=== PATIENT | male | born 1970 | race Caucasian/White ===

== ENCOUNTER 2019-12-16 10:21 | Day surgery (SDC) | payer MEDICARE, MEDICAID, SELFPAY ==
[2019-12-10 12:21] VITALS: BMI 23.1
--- NOTE | 2019-12-15 09:51 | HO.ANESPROP2 ---
HPI - Anesthesia Eval Consult details Narrative: 49yo M for Colonoscopy [facility] Past Medical History Medical History Bipolar 1 disorder COPD (chronic obstructive pulmonary disease) Depression History of alcohol dependence HTN (hypertension) Seizures Steatohepatitis Surgical History Surgical History H/O colonoscopy History of esophagogastroduodenoscopy (EGD) Social History Social History Smoking Status: Current every day smoker Packs Per Day: 0.5 Cigarettes Per Day: 10.0 Advance Directives Information Provided: No Meds Allergies Allergy/AdvReac Type Severity Reaction Status Date / Time lisinopril [LISINOPRIL] Allergy Intermediate THROAT Verified 12/16/19 10:53 ITCHES, cough oxcarbazepine [OXCARBAZEPINE] Allergy Intermediate SAD, Verified 12/16/19 10:53 DEPRESSED, N/V, TIRED TINGLING FINGERS, nausea levetiracetam [From KEPPRA] AdvReac Severe ANGER Verified 12/16/19 10:53 aripiprazole [From ABILIFY] AdvReac Intermediate HALLUCINATI Verified 12/16/19 10:54 ONS bupropion [From WELLBUTRIN] AdvReac Intermediate TIRED, Verified 12/16/19 10:54 CONFUSED, N/V chlordiazepoxide AdvReac Intermediate CONFUSION Verified 12/16/19 10:54 [From LIBRIUM] dicyclomine [DICYCLOMINE] AdvReac Intermediate TIRED, Verified 12/16/19 10:54 CONFUSED, DRY MOUTH, HANDS TWITCHING lurasidone [From LATUDA] AdvReac Intermediate NAUSEA, Verified 12/16/19 10:55 TIRED Home Medications Medication Instructions Recorded Confirmed Type B complex-vitamin C-folic acid 1 tab PO DAILY 12/10/19 12/10/19 History Dexilant 60 mg PO DAILY 12/10/19 12/16/19 History atenolol 25 mg PO DAILY 12/10/19 12/10/19 History ergocalciferol (vitamin D2) 1,250 mcg PO QWEEK 12/10/19 12/10/19 History [Vitamin D2] gabapentin [Neurontin] 600 mg PO TID 12/10/19 12/10/19 History magnesium oxide 400 mg PO DAILY 12/10/19 12/10/19 History mirtazapine [Remeron] 30 mg PO BEDTIME 12/10/19 12/10/19 History ondansetron HCl 8 mg PO BID 12/10/19 12/10/19 History phenytoin sodium extended 200 mg PO BID 12/10/19 12/10/19 History [Dilantin Extended] sertraline 100 mg PO DAILY 12/10/19 12/10/19 History vitamin B complex 1 tab PO DAILY 12/10/19 12/10/19 History Exam Exam Date and Time: December 15, 2019 0951 Height,Weight and Vital Signs: Height 6 ft Weight 77.564 kg Pertinent Lab Results Pertinent Lab Results: Laboratory Tests 07/15/19 07/15/19 15:00 15:00 WBC 5.0 Hgb 15.0 Hct 43.2 Plt Count 171 D Sodium 135 Potassium 4.2 Chloride 100 BUN 16 D Creatinine 1.08 Assessment and Plan Assessment Anesthesia Assessment: Chart Reviewed
[2019-12-16 10:45] VITALS: BP 138/93; PULSE 86; RESP 16; TEMP 36.2; O2SAT 99
[2019-12-16] MEDS: Lactated Ringers 1,000 ML 100 ML IVCONT (10:50)
--- NOTE | 2019-12-16 11:22 | P.CONAN_ITS ---
[facility] Past Medical History Medical History Bipolar 1 disorder COPD (chronic obstructive pulmonary disease) Depression History of alcohol dependence HTN (hypertension) Seizures Steatohepatitis Surgical History Surgical History H/O colonoscopy History of esophagogastroduodenoscopy (EGD) Social History Social History Smoking Status: Current every day smoker Packs Per Day: 0.5 Cigarettes Per Day: 10.0 Advance Directives Information Provided: No Meds Allergies Allergy/AdvReac Type Severity Reaction Status Date / Time lisinopril [LISINOPRIL] Allergy Intermediate THROAT Verified 12/16/19 10:53 ITCHES, cough oxcarbazepine [OXCARBAZEPINE] Allergy Intermediate SAD, Verified 12/16/19 10:53 DEPRESSED, N/V, TIRED TINGLING FINGERS, nausea levetiracetam [From KEPPRA] AdvReac Severe ANGER Verified 12/16/19 10:53 aripiprazole [From ABILIFY] AdvReac Intermediate HALLUCINATI Verified 12/16/19 10:54 ONS bupropion [From WELLBUTRIN] AdvReac Intermediate TIRED, Verified 12/16/19 10:54 CONFUSED, N/V chlordiazepoxide AdvReac Intermediate CONFUSION Verified 12/16/19 10:54 [From LIBRIUM] dicyclomine [DICYCLOMINE] AdvReac Intermediate TIRED, Verified 12/16/19 10:54 CONFUSED, DRY MOUTH, HANDS TWITCHING lurasidone [From LATUDA] AdvReac Intermediate NAUSEA, Verified 12/16/19 10:55 TIRED Home Medications Medication Instructions Recorded Confirmed Type B complex-vitamin C-folic acid 1 tab PO DAILY 12/10/19 12/10/19 History [Folic Acid XTRA] atenolol 25 mg PO DAILY 12/10/19 12/10/19 History dexlansoprazole [Dexilant] 60 mg PO DAILY 12/10/19 12/16/19 History ergocalciferol (vitamin D2) 1,250 mcg PO QWEEK 12/10/19 12/10/19 History [Vitamin D2] gabapentin [Neurontin] 600 mg PO TID 12/10/19 12/10/19 History magnesium oxide 400 mg PO DAILY 12/10/19 12/10/19 History mirtazapine [Remeron] 30 mg PO BEDTIME 12/10/19 12/10/19 History ondansetron HCl [Zofran] 8 mg PO BID 12/10/19 12/10/19 History phenytoin sodium extended 200 mg PO BID 12/10/19 12/10/19 History [Dilantin Extended] sertraline 100 mg PO DAILY 12/10/19 12/10/19 History vitamin B complex 1 tab PO DAILY 12/10/19 12/10/19 History Exam Exam Date and Time: December 16, 2019 1122 Height,Weight and Vital Signs: Height 6 ft Weight 77.564 kg Last Vital Signs Temp 97.2 F 12/16/19 10:45 Pulse 86 12/16/19 10:45 Resp 16 12/16/19 10:45 BP 138/93 H 12/16/19 10:45 Pulse Ox 99 12/16/19 10:45
--- NOTE | 2019-12-16 11:26 | MHC.SHP ---
Pre-Procedural Eval Section B Chief Complaint: SCREENING Details of Present Illness: COLON CANCER SCREENING SEIZURE MED BEING CHANGED Relevant Family History (Specify if Yes): No Relevant Social History: Alcohol Use (1/2PPD; MOD ALCOHOL) Present Medications: see Short Stay Collaborative assessment Medical History: Significant History (ALCOHOLISM, SEIZURES, DEPRESSSION(BIPOLAR),COPD, GERD, STEATOHEPATITIS) History of Previous Operations: Relevant previous surgery/procedure and date(s) (2014, COLO=TA) Allergies: Allergies Allergy/AdvReac Type Severity Reaction Status Date / Time lisinopril [LISINOPRIL] Allergy Intermediate THROAT Verified 12/16/19 10:53 ITCHES, cough oxcarbazepine [OXCARBAZEPINE] Allergy Intermediate SAD, Verified 12/16/19 10:53 DEPRESSED, N/V, TIRED TINGLING FINGERS, nausea levetiracetam [From KEPPRA] AdvReac Severe ANGER Verified 12/16/19 10:53 aripiprazole [From ABILIFY] AdvReac Intermediate HALLUCINATI Verified 12/16/19 10:54 ONS bupropion [From WELLBUTRIN] AdvReac Intermediate TIRED, Verified 12/16/19 10:54 CONFUSED, N/V chlordiazepoxide AdvReac Intermediate CONFUSION Verified 12/16/19 10:54 [From LIBRIUM] dicyclomine [DICYCLOMINE] AdvReac Intermediate TIRED, Verified 12/16/19 10:54 CONFUSED, DRY MOUTH, HANDS TWITCHING lurasidone [From LATUDA] AdvReac Intermediate NAUSEA, Verified 12/16/19 10:55 TIRED Review of Systems Sugical H&P ROS: Negative: Constitution and Gastrointestinal and Yes, Specify: Respiratory (SMKE BUT DID NOT SMOKE THI AM), Neurological (HX SEIZURES) and Psychiatric (DEPRESSION) Exam Surgical H&P Exam: Normal: HEENT, Normal: Heart, Normal: Lungs, Normal: Extremities and Normal: Abdomen Plan Diagnosis/Plan: Unchanged Patient has been examined and remains a candidate for the planned procedure--YES
--- NOTE | 2019-12-16 11:32 | HO.ANESPROP2 ---
[facility] Past Medical History Medical History Bipolar 1 disorder COPD (chronic obstructive pulmonary disease) Depression History of alcohol dependence HTN (hypertension) Seizures Steatohepatitis Surgical History Surgical History H/O colonoscopy History of esophagogastroduodenoscopy (EGD) Social History Social History Smoking Status: Current every day smoker Packs Per Day: 0.5 Cigarettes Per Day: 10.0 Advance Directives Information Provided: No Meds Allergies Allergy/AdvReac Type Severity Reaction Status Date / Time lisinopril [LISINOPRIL] Allergy Intermediate THROAT Verified 12/16/19 10:53 ITCHES, cough oxcarbazepine [OXCARBAZEPINE] Allergy Intermediate SAD, Verified 12/16/19 10:53 DEPRESSED, N/V, TIRED TINGLING FINGERS, nausea levetiracetam [From KEPPRA] AdvReac Severe ANGER Verified 12/16/19 10:53 aripiprazole [From ABILIFY] AdvReac Intermediate HALLUCINATI Verified 12/16/19 10:54 ONS bupropion [From WELLBUTRIN] AdvReac Intermediate TIRED, Verified 12/16/19 10:54 CONFUSED, N/V chlordiazepoxide AdvReac Intermediate CONFUSION Verified 12/16/19 10:54 [From LIBRIUM] dicyclomine [DICYCLOMINE] AdvReac Intermediate TIRED, Verified 12/16/19 10:54 CONFUSED, DRY MOUTH, HANDS TWITCHING lurasidone [From LATUDA] AdvReac Intermediate NAUSEA, Verified 12/16/19 10:55 TIRED Home Medications Medication Instructions Recorded Confirmed Type B complex-vitamin C-folic acid 1 tab PO DAILY 12/10/19 12/10/19 History [Folic Acid XTRA] atenolol 25 mg PO DAILY 12/10/19 12/10/19 History dexlansoprazole [Dexilant] 60 mg PO DAILY 12/10/19 12/16/19 History ergocalciferol (vitamin D2) 1,250 mcg PO QWEEK 12/10/19 12/10/19 History [Vitamin D2] gabapentin [Neurontin] 600 mg PO TID 12/10/19 12/10/19 History magnesium oxide 400 mg PO DAILY 12/10/19 12/10/19 History mirtazapine [Remeron] 30 mg PO BEDTIME 12/10/19 12/10/19 History ondansetron HCl [Zofran] 8 mg PO BID 12/10/19 12/10/19 History phenytoin sodium extended 200 mg PO BID 12/10/19 12/10/19 History [Dilantin Extended] sertraline 100 mg PO DAILY 12/10/19 12/10/19 History vitamin B complex 1 tab PO DAILY 12/10/19 12/10/19 History Exam Exam Date and Time: December 16, 2019 1132 Height,Weight and Vital Signs: Height 6 ft Weight 77.564 kg Last Vital Signs Temp 97.2 F 12/16/19 10:45 Pulse 86 12/16/19 10:45 Resp 16 12/16/19 10:45 BP 138/93 H 12/16/19 10:45 Pulse Ox 99 12/16/19 10:45 Airway Loose/Missing/Broken Teeth: Yes and Lower Heart: rrr Lungs: clear Assessment and Plan Final Anesthetic Review NPO: Yes ASA Class: II Final Preanesthetic Review: No Changes in Pt Med Stat, Meds/Allgs Chart Reviewed, Consent Obtained/Reviewed and Anes Risks/Benef Reviewed Patient Risk: Intermediate Procedure Risk: Low Anesthetic Plan Anesthetic Plan: MAC: Disposition: Standard PACU
[2019-12-16 12:07] VITALS: BP 107/83; PULSE 85; RESP 16; TEMP 37.3; O2SAT 95
--- NOTE | 2019-12-16 12:10 | PM.PROC ---
Brief Operative Note Date of procedure: 12/16/19 Pre-op diagnosis: HX OF TUBULAR ADENOMA Post-op diagnosis: other (TUBULAR ADENOMA, DIVERTICUOSIS) Procedure: COLONOSCOPY WITH EXCISIONAL POLYPECTOMY Anesthesia: MAC (DR. HERRERA) Surgeon: Alaina Springer Estimated blood loss (mL): 10 Pathology: other (POLYP TRANSVERSE COLON) Condition: stable Disposition: PACU
[2019-12-16 12:22] VITALS: BP 104/89; PULSE 76; RESP 13; O2SAT 97
--- NOTE | 2019-12-16 22:25 | OP_ITS ---
SURGEON: Alaina Springer MD PROCEDURE PERFORMED: Colonoscopy with excisional polypectomy x1 with the use of the cold biopsy forceps. ESTIMATED BLOOD LOSS: Less than 5 mL. COMPLICATIONS: No complications. ANESTHESIA: Type of anesthesia, monitored. ANESTHESIOLOGIST: Dr. Maurice. ASSISTANTS: No business support assistant. SPECIMENS: Removed, transverse colon polyp. PREOPERATIVE DIAGNOSES: Colon cancer screening, history of tubular adenoma in 2015. The patient's only med change is that he is being weaned off Dilantin on to topiramate for his seizure control. POSTOPERATIVE DIAGNOSES: Colonic polyp, diverticulosis. NUTRITION EDUCATOR: Dr. Springer. FINDINGS: Digital rectal exam revealed prostate to be normal to digital palpation. Good sphincter tone. Video colonoscope was introduced without difficulty. It was navigated into the rectosigmoid, sigmoid on up through sigmoid, there were scattered diverticula in the sigmoid colon. The scope was advanced into the descending, transverse, ascending colon down into the cecum. There was a small 1-mm polyp that was noted in the transverse colon. This was removed on the way in. Scope was easily entered the cecum. Appendiceal orifice was seen. Ileocecal valve was well seen. Prep was excellent. The scope was withdrawn. Slow rotational views. No additional lesions were seen. Anorectal verge was clear. PLAN: Current recommendations, repeat asymptomatic screening will continue to be 5 years. GRAFT OR IMPLANTS: No grafts or implants. CONDITION: Postprocedure, stable. Alaina Springer MD MEN/MODL / [id number] MTDD
== END 2019-12-16 13:00 | disposition home or self-care (01) ==
PROVIDERS: PCP Family Medicine; Visit Provider Internal Medicine Gastroenterology
PROC: 0DJD8ZZ Inspection of Lower Intestinal Tract, Via Natural or Artificial Opening Endoscopic (ICD-10-PCS; CPT 45378; principal; 2019-12-16 11:30)
DX: Z12.11 Encounter for screening for malignant neoplasm of colon (principal); Z86.010 Personal history of colon polyps; D12.3 Benign neoplasm of transverse colon; K57.30 Diverticulosis of large intestine without perforation or abscess without bleeding; J44.9 Chronic obstructive pulmonary disease, unspecified; G40.909 Epilepsy, unspecified, not intractable, without status epilepticus; F43.10 Post-traumatic stress disorder, unspecified; F31.9 Bipolar disorder, unspecified; I10 Essential (primary) hypertension; F10.20 Alcohol dependence, uncomplicated; K70.0 Alcoholic fatty liver; Z79.899 Other long term (current) drug therapy; F17.210 Nicotine dependence, cigarettes, uncomplicated; Z88.8 Allergy status to other drugs, medicaments and biological substances
CPT/HCPCS: 45380; 88305; J3010

== ENCOUNTER → 2020-01-10 14:01 | Outpatient (BNVA) | payer MEDICARE, MEDICAID, SELFPAY | PROVIDERS: PCP Family Medicine; Referring Provider Family Medicine; Visit Provider Internal Medicine Gastroenterology | DX: D12.6 Benign neoplasm of colon, unspecified (principal); K75.81 Nonalcoholic steatohepatitis (NASH); R79.89 Other specified abnormal findings of blood chemistry; E03.9 Hypothyroidism, unspecified; F10.21 Alcohol dependence, in remission; F17.210 Nicotine dependence, cigarettes, uncomplicated; F12.90 Cannabis use, unspecified, uncomplicated; Z79.899 Other long term (current) drug therapy | CPT/HCPCS: Q3014 ==

== ENCOUNTER → 2020-11-30 13:04 | Outpatient (BNVA) | payer MEDICARE, MEDICAID, SELFPAY | PROVIDERS: PCP Family Medicine; Visit Provider Internal Medicine Gastroenterology | DX: K75.81 Nonalcoholic steatohepatitis (NASH) (principal); D12.6 Benign neoplasm of colon, unspecified; J44.9 Chronic obstructive pulmonary disease, unspecified; I10 Essential (primary) hypertension; F31.9 Bipolar disorder, unspecified; F17.210 Nicotine dependence, cigarettes, uncomplicated; F10.21 Alcohol dependence, in remission; Z88.8 Allergy status to other drugs, medicaments and biological substances; Z79.899 Other long term (current) drug therapy | CPT/HCPCS: 99212 ==

== ENCOUNTER 2020-12-13 13:28 | Outpatient (REF) | payer MEDICARE, MEDICAID, SELFPAY ==
--- NOTE | ~2020-12-13 | US_ITS ---
EXAMINATION: US ABDOMEN COMPLETE CLINICAL INFORMATION: Other specified abnormal findings of blood chemistry. COMPARISON: Ultrasound abdomen complete 07/21/2019 and 07/21/2018. CT abdomen and pelvis 03/27/2019. TECHNIQUE: Real-time imaging of the abdominal viscera. FINDINGS: PANCREAS: The head and body the pancreas are normal. The tail is not well seen due to bowel gas. ABDOMINAL AORTA: The proximal abdominal aorta is not well visualized. The mid and distal abdominal aorta are normal in caliber. INFERIOR VENA CAVA: Visualized portions are normal. LIVER: The liver is normal in size. The liver contour is normal. Liver echotexture is slightly increased. No focal hepatic lesion. There is no intrahepatic biliary duct dilatation seen. GALLBLADDER: Normal. The gallbladder is physiologically distended without evidence of stones, sludge, polyps, wall thickening or pericholecystic fluid. COMMON BILE DUCT: Normal in caliber measuring 0.4 cm in diameter. RIGHT KIDNEY: Normal. No hydronephrosis. No renal calculi or focal parenchymal lesions. The kidney measures 9.5 cm in maximum dimension. LEFT KIDNEY: Normal. No hydronephrosis. No renal calculi or focal parenchymal lesions. The kidney measures 9.6 cm in maximum dimension. SPLEEN: Normal. The spleen measures 10.1 cm in maximum dimension. FREE FLUID: None. US/US abdomen complete IMPRESSION: Echogenic liver probably representing fatty infiltration. Limited visualization of the tail the pancreas and proximal abdominal aorta. Otherwise unremarkable exam.
[2020-12-13 14:28] LABS: MANUAL DIFF FLAG NO
[2020-12-13 14:51] LABS: Basophils Absolute Auto 0.1 X10*3/uL (0.0-0.2); Basophils Percent Auto 0.7 % (0-2); Eosinophils Absolute Auto 0.1 X10*3/uL (0.0-0.4); Eosinophils Percent Auto 0.9 % (0-4); Hematocrit 43.1 % (42-52); Hemoglobin 14.8 g/dl (14.0-18.0); Imm Gran Abs Auto 0.08 X10*3/uL (0.00-0.03); Imm Gran Pct Auto 0.8 % (0.0-0.4); Lymphocytes Percent Auto 19.6 % (20-40); Mean Corpuscular HGB Conc 34.3 g/dl (31.0-36.0); Mean Corpuscular Hemoglobin 35.1 pg (27.0-33.0); Mean Corpuscular Volume 102.1 fL (80-98); Mean Platelet Volume 9.7 fL (9.4-12.4); Monocytes Absolute Auto 0.9 X10*3/uL (0.1-1.2); Monocytes Percent Auto 8.3 % (2-11); Neutrophils Absolute Auto 7.2 X10*3/uL (2.0-8.3); Neutrophils Percent Auto 69.7 % (45-73); Platelet Count 208 X10*3/uL (160-400); Red Blood Count 4.22 X10*6/uL (4.60-5.80); Red Cell Distribution Width 12.4 % (11.0-16.0); White Blood Count 10.3 X10*3/uL (4.8-10.8)
[2020-12-13 14:57] LABS: INTERNATIONAL NORM RATIO 1.2 (0.9-1.1); Prothrombin Time 13.8 SEC (9.9-13.0)
[2020-12-13 15:27] LABS: Alanine Aminotransferase 16 U/L (0-40); Albumin Level 4.2 g/dL (3.5-5.0); Alkaline Phosphatase 149 U/L (39-117); Anion Gap 16 (12-20); Aspartate Amino Transferase 33 U/L (5-37); Blood Urea Nitrogen 9 mg/dL (9-16); Calcium 9.5 mg/dL (8.4-10.2); Carbon Dioxide 24 mmol/L (22-29); Chloride 101 mmol/L (96-108); Estimated Glomerular Filt Rate > 60; Glucose Random 115 mg/dL (60-115); Iron 139 mcg/dL (45-160); Percent Iron Saturation 40 % (15-50); Potassium 4.2 mmol/L (3.3-5.1); Sodium 137 mmol/L (135-145); Total Iron Binding Capacity 349 mcg/dL (228-428); Total Protein 7.6 g/dL (6.5-8.0); Unsaturated Iron Binding 210 ug/dL
[2020-12-13 15:33] LABS: Ferritin 343 ng/mL (20-250)
[2020-12-14 09:42] LABS: HBS Num1 0.45 mIU/mL (0-7.99); HBsAGNum1 0.19 S/CO (0.00-0.99); Hepatitis B Surface Antigen Negative (Negative); ~HepC Num1 0.13 S/CO (0.00-0.79); ~Hepatitis B Surface Antibody NONREACTIVE (Nonreactive); ~Hepatitis C Antibody Nonreactive (Nonreactive)
[2020-12-14 13:40] LABS: Ceruloplasmin 39 mg/dL (18-36)
[2020-12-15 06:50] LABS: Hepatitis A Antibody IgG Nonreactive (Nonreactive); ~Hepatitis A Antibody IgG 0.33 S/CO (0.00-0.99)
[2020-12-15 14:11] LABS: Anti Nuclear Antibody Screen NEGATIVE (NEGATIVE)
== END 2020-12-13 13:29 | disposition home or self-care (01) ==
LOC: HO.US 13:28
PROVIDERS: Visit Provider Internal Medicine Gastroenterology
DX: R79.89 Other specified abnormal findings of blood chemistry (principal)
CPT/HCPCS: 36415; 76700; 80053; 82390; 82728; 83540; 85025; 85610; 86038; 86039; 86706; 86708; 86803; 87340

== ENCOUNTER → 2021-02-22 14:01 | Outpatient (BNVA) | payer MEDICARE, MEDICAID, SELFPAY | PROVIDERS: PCP Family Medicine; Visit Provider Internal Medicine Gastroenterology | DX: K70.30 Alcoholic cirrhosis of liver without ascites (principal); F10.21 Alcohol dependence, in remission; D12.6 Benign neoplasm of colon, unspecified; R79.89 Other specified abnormal findings of blood chemistry | CPT/HCPCS: 99212 ==

== ENCOUNTER 2024-08-24 13:45 | Outpatient (AMB) | payer MEDICARE, MEDICAID, SELFPAY ==
--- NOTE | 2024-08-24 14:21 | HO.SPINEOV ---
Vital Signs 08/24/24 14:22 Height 5 ft 11 in Intake Visit Reasons: lumbar radiculopathy Intake Note: Mr. Gunn is here today c/o Low back pain. Tenoner Operator Required: No Allergies lisinopril (LISINOPRIL) Allergy (Intermediate, Verified 02/22/21 14:11) THROAT ITCHES, cough oxcarbazepine (OXCARBAZEPINE) Allergy (Intermediate, Verified 02/22/21 14:11) SAD, DEPRESSED, N/V, TIRED TINGLING FINGERS, nausea levetiracetam (From KEPPRA) Adverse Reaction (Severe, Verified 02/22/21 14:11) ANGER aripiprazole (From ABILIFY) Adverse Reaction (Intermediate, Verified 02/22/21 14:11) HALLUCINATIONS bupropion (From WELLBUTRIN) Adverse Reaction (Intermediate, Verified 02/22/21 14:11) TIRED, CONFUSED, N/V chlordiazepoxide (From LIBRIUM) Adverse Reaction (Intermediate, Verified 02/22/21 14:11) CONFUSION dicyclomine (DICYCLOMINE) Adverse Reaction (Intermediate, Verified 02/22/21 14:11) TIRED, CONFUSED, DRY MOUTH, HANDS TWITCHING lurasidone (From LATUDA) Adverse Reaction (Intermediate, Verified 02/22/21 14:11) NAUSEA, TIRED Assessment & Plan Assessment & Plan (1) Neuropathy: Code(s): G62.9 - Polyneuropathy, unspecified Category: Medical Plan Dear THERESA Garcia, Thank you for referring Anson to our office today. He is a pleasant, complicated, 54-year-old male who comes in today for evaluation of severe low back pain and shooting pains to his bilateral lower extremities. He reports that this has been ongoing for the past 1 year, but it significantly intensified over the course of the past few months. He denies any known inciting incident for the pain. He is accompanied by his mother to this visit who helps provide the bulk of his history. She states that he has been declining cognitively, and is unable to remember certain facts or articulate his feelings very well. In addition to his severe low back pain and shooting pains into his lower extremities, his mother also reports that he has a Hx of seizures and most recently has developed some involuntary muscle movements. He has been utilizing a wheelchair for about the past 1 year, as he has had difficulty with balance/walking as well. In regards to his low back pain, as he is essentially constantly in pain. He does state that his pain worsens with movement and leg standing and walking. His pain is alleviated by laying down with pillows to support his back. He has a history of multiple chronic compression fractures in the thoracic spine. When describing the pain shooting down his legs he runs his hands over his bilateral posterior buttocks and down his bilateral posterior thighs. He reports that his bilateral feet are ?completely numb but denies any other significant sensational deficits. He has tried utilizing [id number] medications such as lidocaine spray and Tylenol in the past, but feels the areas are not helpful for him. He also has attempted physical therapy, and cortisone injections without significant relief of his pain. He is currently being followed by our colleagues in family physiatry for pain management, and is being followed by Isidro Mitchell in Neurology for his neuropathy. PMH: Hypertension, COPD, seizures, insomnia, neuropathy, unspecified gastrointestinal issues, history of left-sided carpal tunnel release. Social hx: The patient smokes 5 cigarettes per day, drinks 2 drinks per day, uses recreational/medicinal cannabis. Denies any other substance use. Medications: Atenolol, Dexilant, vitamin D2, gabapentin, levothyroxine, magnesium oxide, Remeron, ondansetron, pantoprazole, phenytoin, sertraline, topiramate, vitamin-B. Allergies: Lisinopril, oxcarbazepine, Keppra, Abilify, Wellbutrin, Librium, dicyclomine, Latuda. Physical exam: The patient has notable uncontrollable jerky movements of his upper and lower extremities during examination. This is most consistent with something such as chorea. Despite this, he has full 5/5 strength in his upper and lower extremities on examination. He is in notable distress when attempting to move/ambulate, and requires assistance to get up onto the examination table today. He has some hypoesthesia reported near the base of his anterior calves. He denies sensational deficits elsewhere. His reflexes are 2+ intact with no notable hyperreflexia. (-) clonus, (-) Saxena's, (-) bilateral straight leg raise. Imaging review: MRI of the lumbar spine completed here at [facility] shows no evidence of significant central canal or foraminal stenosis of the lumbar spine. No spondylolisthesis or vertebral body malalignment. No other lesions noted. Impression: Anson is a pleasant 54-year-old male who comes in today for evaluation of severe axial low back pain. He describes the pain as worse with movement, and feels it is progressively intensifying as the days go on. It is difficult to say for sure what the source of this pain is. He does have several chronic compression fractures in the thoracic spine, which may be the source of some of his pain, however there is no real nerve compression in the lumbar spine that is contributing to this. The pain in his legs sounds more like a neuropathy related pain than a nerve root impingement pain. I do not believe that there is a role for neurosurgery in the care of this patient. Given this, I believe the patient does need further workup regarding his worsening neurological decline. Most concerning are the involuntary tremulous movements on examination, which when accompanied by cognitive decline, seizures, and gait disturbance raise significant concern for something such as [place]'s disease. I did question the family regarding Hx of this, however they report no known Hx in their immediate family. I would suggesting ruling this out as part of the workup for this patient. If this is not responsible then the patient most likely is suffering from some kind of polyneuropathy that is worsening, and will need to be address via neurology. Thank you for allowing us to care for your patient. The total time spent with this visit with this patient was 65 minutes reviewing history, physical exam, MRI imaging review, and implementation of treatment plan or further diagnostic testing Sunday Delaney MD,PhD [facility] Coding Level of Care Code New Pt Level 5 (96492) Diagnoses Neuropathy G62.9
--- OUTSIDE RECORDS SUMMARY | 2024-08-24 14:34 | XMS_ITS | Clinical Summary ---
Author Organization [facility] Address [address] [place] [address] Care Team Providers Care Gaming Pit Boss Name Role Phone Unavailable Primary Care Provider Unavailabl e Allergies No known active allergies Medications Medication Sig Dispensed Refills Start Date End Date Status RA VITAMIN B-1 100 MG TABS Take 1 tablet by mouth daily. 0 03/25/2017 Active atenolol (TENORMIN) tablet 25 mgIndications:Essent ial hypertension Take 1 tablet (25 mg total) by mouth daily. 90 tablet 3 01/02/2019 Active phenytoin (DILANTIN) 100 MG ER capsuleIndications:S eizure (HCC) take 1 capsule by mouth every morning (TOTAL AM HFHK=[id number]) and take 200 MG AT BEDTIME 360 capsule 1 01/29/2019 Active ergocalciferol (VITAMIN D2) capsule 44962 units 0 03/08/2019 Active folic acid (FOLVITE) tablet 1 mgIndications:Seizur e (HCC) Take 1 tablet (1,000 mcg total) by mouth daily. 30 tablet 11 03/30/2019 Active mirtazapine (REMERON) 30 MG tablet Take 1 tablet (30 mg total) by mouth every night at bedtime. 30 tablet 11 07/05/2019 Active sertraline (ZOLOFT) 100 MG tablet 2 tabs daily 180 tablet 3 09/06/2019 Active gabapentin (NEURONTIN) 300 MG capsule 1 tab in am 2 tabs in pm 270 capsule 3 09/06/2019 Active albuterol (PROVENTIL HFA;VENTOLIN HFA) 108 (90 Base) MCG/ACT inhaler Inhale 2 puffs into the lungs every 6 (six) hours as needed for wheezing. 1 Inhaler 3 09/13/2019 Active phenytoin (DILANTIN) 30 MG ER capsuleIndications:S eizure (HCC) Take 2 capsules (60 mg total) by mouth every morning. 180 capsule 1 09/28/2019 Active hydrOXYzine (ATARAX) 25 MG tablet 0 09/28/2019 Active DEXILANT 60 MG capsule Take 1 tablet by mouth daily. 0 10/02/2019 Active topiramate (TOPAMAX) 100 MG tablet Take 1 tablet by mouth 2 (two) times a day. 0 10/05/2019 Active B Complex Vitamins (VITAMIN B COMPLEX) TABSIndications:Seiz ure (HCC) Take 1 tablet by mouth daily. 30 each 11 12/02/2019 Active ondansetron (ZOFRAN) 4 MG tablet TAKE 1 TABLET(4 MG) BY MOUTH TWICE DAILY 20 tablet 0 01/19/2020 Active LORazepam (ATIVAN) 0.5 MG tablet TAKE 1 TABLET(0.5 MG) BY MOUTH TWICE DAILY 60 tablet 0 02/14/2020 Active Active Problems Problem Noted Date Diagnosed Date Alcohol use disorder, severe, dependence 020 Recurrent major depressive disorder, in full rem ission 07/28/2017 Elevated LFTs 07/28/2017 Seizures 04/01/2017 Tobacco abuse 04/01/2017 Essential hypertension 04/01/2017 Anxiety COPD (chronic obstructive pulmonary disease) GERD (gastroesophageal reflux disease) Overview: Dr Springer Insomnia Seizure Overview: Last seizure 06/2017 failed Gabapentin/Topamax ( Ct Head 02/2017 Mild chronic mild diff atrophy ) EEG 03/[address] Rodríguez Subclinical hypothyroidism Overview: 08/2017 TSH 7.86 Thrombocytopenia Overview: 08/2017 144 History of cocaine use Hypomagnesemia Overview: 08/2017 1.5 Marijuana user Overview: regular user Resolved Problems Problem Noted Date Diagnosed Date Resolved Date Gastritis 07/18/2017 10/21/2019 Overview: EGD Chest wall contusion, right, initial encounter 04/01/2017 07/28/2017 Cough 04/01/2017 07/28/2017 Immunizations Name Administration Dates Next Due Tdap 08/31/2015 Family History Medical History Relation Name Comments Heart disease Father Heart disease Maternal Grandfather Heart disease Maternal Grandmother Lupus Mother Supraventricular tachycardia Mother Heart disease Paternal Grandfather Heart disease Paternal Grandmother Relation Name Status Comments Father Alive Maternal Grandfather Maternal Grandmother Mother Alive Paternal Grandfather Paternal Grandmother Social History Tobacco Use Types Packs/Day Years Used Date Smoking Tobacco: Every Day Cigarettes 0.5 30 Started: 04/01/1987 Smokeless Tobacco: Never Tobacco Cessation:Ready to Q uit: No Alcohol Use Standard Drinks/Week Comments Yes 14 (1 standard drink = 0.6 oz pu re alcohol) 12/per wk Sex and Gender Information Value Date Recorded Sex Assigned at Male 09/28/2019 3:15 PM EDT Gender Identity Male 09/28/2019 3:15 PM EDT Sexual Orientation Not on file Last Filed Vital Signs Vital Sign Reading Time Taken Comments Blood Pressure 120/84 10/21/2019 3:06 PM EDT Pulse 88 10/21/2019 2:34 PM EDT Temperature 36.7 C (98.1 F) 10/21/2019 2:34 PM EDT Respiratory Rate 16 08/31/2018 3:33 PM EDT Oxygen Saturation 98% 10/21/2019 2:34 PM EDT Inhaled Oxygen Concentration - - Weight 80.7 kg (178 lb) 10/21/2019 2:34 PM EDT Height 182.9 cm (6') 10/21/2019 2:34 PM EDT Body Mass Index 24.14 10/21/2019 2:34 PM EDT Plan of Treatment Health Maintenance Due Date Last Done Comments Hepatitis B Vaccines (1 of 3 - 3-dose series) 1972 Hepatitis C Screening 1972 COVID-19 Vaccine (#1) 02/05/1973 Pneumococcal Vaccine (1 of 2 - PCV) 1978 Colon Cancer Screening (Colonoscopy) 2017 Tobacco Cessation Counseling 08/05/2019 08/04/2018 (Declined) Depression Screening 09/27/2020 09/28/2019, 09/28/2019, 03/23/2019, Additional history exists Preventative Health Evaluation 09/27/2020 09/28/2019, 09/28/2019 Shingrix-Zoster Vaccine (1 of 2) 2022 Influenza Vaccine (#1) 2024 DTap / Tdap / Td (3 - Td or Tdap) 08/30/2025 08/31/2015, 02/20/2012 RSV Ped < 20 months Aged Out No longe r eligible based on patient's age to complete this topic
--- OUTSIDE RECORDS SUMMARY | 2024-08-24 14:34 | XMS_ITS | Clinical Summary ---
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 Active atenoloL (TENORMIN) 25 mg tablet Take 1 tablet (25 mg total) by mouth 1 (one) time each day. Active levothyroxine (SYNTHROID, LEVOTHROID) 75 mcg tablet Take 1 tablet (75 mcg total) by mouth 1 (one) time each day before breakfast. Active gabapentin (NEURONTIN) 300 mg capsule Take 1 capsule (300 mg total) by mouth 3 (three) times a day. Active topiramate (TOPAMAX) 100 mg tablet Take 1 tablet (100 mg total) by mouth 2 (two) times a day. Active folic acid (FOLVITE) 1 mg tablet Take 1 tablet (1 mg total) by mouth 1 (one) time each day. Active celecoxib (CeleBREX) 100 mg capsule Take 1 capsule (100 mg total) by mouth 1 (one) time each day. Active mirtazapine (REMERON) 30 mg tablet Take 1 tablet (30 mg total) by mouth at bedtime. Active pantoprazole (PROTONIX) 40 mg EC tablet Take 1 tablet (40 mg total) by mouth 1 (one) time each day before breakfast. Do not crush, chew, or split. Active lamoTRIgine (LaMICtal) 25 mg tablet Take 2 tablets (50 mg total) by mouth 1 (one) time each day. Active hydrOXYzine HCL (ATARAX) 25 mg tablet Take 1 tablet (25 mg total) by mouth 2 (two) times a day. Active cyanocobalamin (VITAMIN B-12) 500 mcg tablet Take 1 tablet (500 mcg total) by mouth 1 (one) time each day. Active magnesium oxide (MAG-OX) 400 mg magnesium tablet Take 2 tablets (800 mg total) by mouth 1 (one) time each day. Active albuterol HFA (PROAIR HFA ; PROVENTIL HFA ; VENTOLIN HFA) 90 mcg/actuation inhaler Inhale 2 puffs by mouth every 6 (six) hours if needed for wheezing. Active Surgical History Surgery Date Site/Laterality Comments ESOPHAGOGASTRODUODENOSCOPY 07/2017 PROCEDURE:ESOPHAGOGASTRODUODENOSCO PY;COMMENT:Dr Springer : Mild focal chronic gastritis, H Pylori negative COLONOSCOPY W/ BIOPSIES 04/2014 PROCEDURE:COLONOSCOPY W/ BIOPSIES;COMMENT:2 hyperplastic polypa Medical History Medical History Date Comments Hypertension DX:Hypertension COPD (chronic obstructive pu lmonary disease) ([facility] [place], [facility] V28) DX:COPD (chronic o bstructive pulmonary disease) ([facility] Anxiety DX:Anxiety Tobacco abuse DX:Tobacco abuse Seizure ([facility] V24, [facility] V28) DX:Seizure ([facility]);COMMENT:Last seizure 01/2019, 06/2017 failed Gabapentin/Topamax ( Ct Head 02/2017 Mild chronic mild diff atrophy ) EEG 03/2017 mild slowing, 01/2018 Gastritis 07/2017 DX:Gastritis;COM MENT:EGD Thrombocytopenia ([facility] V24) D X:Thrombocytopenia ([facility]);COMMENT:08/2017 144, 04/2018 104 Subclinical hypothyroidism DX:Story bclinical hypothyroidism;COMMENT:08/2017 TSH 7.86 T4 0.86 Hypomagnesemia DX:Hypomagnesemi a;COMMENT:08/2017 1.5 History of cocaine use DX:Histor y of cocaine use Bipolar 1 disorder ([facility] V24, [facility] V28) DX:Bipolar 1 disorder ([facility]) Marijuana user DX:Marijuana use r;COMMENT:regular user GERD with esophagitis DX:GERD wi th esophagitis;COMMENT:07/2017 EGD Severe GERD With esophagitis Dr Springer Hepatic steatosis DX:Hepatic steatosis;COMMENT:02/25/2017 ultrasound mild diffuse increased echogenicity consistent with diffuse hepatic steatosis Alcohol use disorder, severe , dependence (CMS/HCC V24, CMS/HCC V28) DX:Alcohol use disorder, se jose luis, dependence (HCC);COMMENT:Admit 12/2017 with SI to [facility] MDD (major depressive disord er), recurrent episode (CMS/HCC V24) DX:MDD (major depressi ve disorder), recurrent episode (HCC);COMMENT:[facility] at [facility] PTSD (post-traumatic stress disorder) DX:PTSD (post-traumatic stress disorder) Insomnia DX:Insomnia Fall 03/2018 DX:Fall;COMMENT: Rib xray: Multi rib fx 3-8 RT, Healing Lt 4th-8th Rib Fx Macrocytic anemia DX:Macrocytic anemia C. difficile diarrhea 05/2018 DX:C. diff icile diarrhea DDD (degenerative disc disea se), cervical DX:DDD (degenerative disc di sease), cervical;COMMENT:xrays: mod-severe DDD C5-6, C6-7, bilat neural foraminal narrowing C3-4, C5-6, C6-7, MRI-C 10/20/2018: stenosis at C5-6 with severe framinal narrowing Compression fx, thoracic spi ne (CMS/HCC V24, CMS/HCC V28) DX:Compression fx, thoracic spine ([facility]);COMMENT:T12, L1 ant wedge Compression Fx Spondylosis of lumbar spine DX:S pondylosis of lumbar spine;COMMENT:xray: Mild L1-2, L 3-4 Screening for osteoporosis DX:Sc reening for osteoporosis;COMMENT:On Dilantin: DXA: Rib fracture DX:Rib fracture; COMMENT:08/2018: subacute fx Lt ant 3-5 Ataxia 09/2018 DX:Ataxia;COMMEN T:EMG 09/2018: Lt Leg no evidence of large fiber neuropathy or radiculopathy, MRI-B: white matter changes nonspecific, B12/TSH normal Pneumonia 12/2018 DX:Pneumonia DDD (degenerative disc disease), lumbar DX:DDD (degenerative disc disease), lumbar;COMMENT:12/2018 MRI-L multi level DDD with foraminal narrowing Vitamin D deficiency DX:Vitamin D deficiency;COMMENT:01/2019 13 Gastritis 07/18/2017 DX:Gastritis;COM MENT:EGD Screening for colon cancer DX:Sc reening for colon cancer;COMMENT:Colonoscopy: 2014 TA, 11/2019 1 polyp, TIC repeat 5 years Family History Medical History Relation Name Comments Heart disease Father Heart disease Maternal Grandfather Heart disease Maternal Grandmother Lupus Mother Supraventricular tachycardia Mother Heart disease Paternal Grandfather Heart disease Paternal Grandmother Relation Name Status Comments Father Alive Maternal Grandfather Maternal Grandmother Mother Alive Paternal Grandfather Paternal Grandmother Social History Tobacco Use Types Packs/Day Years Used Date Smoking Tobacco: Every Day Cigarettes 0.5 37.4 Started: 04/01/1987 Smokeless Tobacco: Never Alcohol Use Standard Drinks/Week Comments Yes 14 (1 standard drink = 0.6 oz pu re alcohol) Interpersonal Safety Answer Date Record ed Physical Abuse 03/30/2024 Verbal Abuse 03/30/2024 Sex and Gender Information Value Date Recorded Sex Assigned at Male 03/25/2024 1:36 PM EST Legal Sex Male 4:12 AM EST Gender Identity Male 03/25/2024 1:36 PM EST Sexual Orientation Straight 03/30/2024 12 :22 PM EST Sexual Orientation Choose not to disclose 2024 12:22 PM EST Obstetrics History Last Filed Vital Signs Vital Sign Reading Time Taken Comments Blood Pressure 118/93 03/30/2024 1:32 PM EST Pulse 67 03/30/2024 1:32 PM EST Temperature 36.1 C (97 F) 03/30/2024 1:21 PM EST Respiratory Rate 20 03/30/2024 1:21 PM EST Oxygen Saturation 97% 03/30/2024 1:32 PM EST Inhaled Oxygen Concentration - - Weight 77.1 kg (170 lb) 03/30/2024 12:29 PM EST Height 180.3 cm (5' 11 ) 03/30/2024 12:29 PM EST Body Mass Index 23.71 03/30/2024 12:29 PM EST Plan of Treatment Health Maintenance Due Date Last Done Comments Hepatitis A Vaccines (1 of 2 - Risk 2-dose series) 08/07/1991 Hepatitis B Vaccines (1 of 3 - 19+ 3-dose series) 08/07/1991 Pneumococcal Vaccine: 50+ Years (2 of 2 - PCV) 08/07/2021 08/07/2020, 03/21/2012 Pneumococcal Vaccine: Pediatrics (0 to 5 Years) and At-Risk Patients (6 to 49 Years) (2 of 2 - PCV) 08/07/2021 08/07/2020, 03/21/2012 Cholesterol Screening (Lipid Panel) 01/20/2022 Depression Screening 01/20/2022 HIV Screening 01/20/2022 Medicare Annual Wellness Visit 01/20/2022 Social Influencers of Health Screening 01/20/2022 Zoster Vaccines (1 of 2) 2022 COVID-19 Vaccine ( season) 2023 12/14/2021, 03/05/2021, 06/15/2020, Additional history exists Colorectal Cancer Screening: Stool Based Tests (FOBT/FIT) 06/23/2024 06/24/2023 Hypertension/CHF/CAD Annual BMP Blood Test 07/21/2024 07/22/2023, 08/27/2021, 08/15/2021, Additional history exists Influenza Vaccine (#1) 2024 , 12/13/2022, 12/14/2021, Additional history exists DTaP,Tdap,and Td Vaccines (12 - Td or Tdap) 09/20/2028 09/20/2018, 09/20/2018, 08/31/2015, Additional history exists IPV Vaccines Completed 08/27/1976, 12/19, 1972, Additional history exists Hepatitis C Screening Completed 05/29/2023 HIB Vaccines Aged Out No longer eligi ble based on patient's age to complete this topic HPV Vaccines Aged Out No longer eligi ble based on patient's age to complete this topic MMR Vaccines Aged Out No longer eligi ble based on patient's age to complete this topic Meningococcal ACWY Vaccine Aged Out N o longer eligible based on patient's age to complete this topic Meningococcal B Vaccine Aged Out No l onger eligible based on patient's age to complete this topic RSV Immunization Patients Under 20 months Aged Out No longer eligible based on patient's age to complete this topic Varicella Vaccines Aged Out No longer eligible based on patient's age to complete this topic Insurance [place] - [place] [employer] MEDIC[place] ADVANTAGE Care Teams Journeyman Painter Relationship Specialty Start Date End Date Hans Jaeger MD [address] [place] [phone] PCP - General Internal Medicine 03/30/24
--- OUTSIDE RECORDS SUMMARY | 2024-08-24 14:34 | XMS_ITS ---
Author Organization [facility] on Care Team Providers Care Single Pointed Operator Name Role Phone Zena Vu Unavailable Unavailable Kaye Green Unavailable Unavailable Chente Celeste Unavailable Unavailable Joshua, Irena Unavailable Unavailable Cynthia Mancilla Unavailable Unavailable Nick, Bekah Unavailable Unavailable Miriam, Mike Unavailable Unavailable Allergies and adverse reactions No Known Allergies Care Team Name Role Address Phone Organization Dates Chente Celeste PCP [address] [facility] [address], [place], [address], [place] (Office): : [facility] 06/14/2021 - 06/28/2021 Zena Vu [address], [place], [place] (Office): [facility] 06/14/2021 - 06/28/2021 Kaye Green [address] [place], [address], [place] (Office): [facility] 06/14/2021 - 06/28/2021 Irena Lewis [address] [place] [address], [address], [place] (Office): : [facility] 06/14/2021 - 06/28/2021 Cynthia Mancilla [facility] [address], [place], [address], [place] (Office): : [facility] 06/14/2021 - 06/28/2021 Bekah Romero [address], [place], [address], [place] (Office): : [facility] 06/14/2021 - 06/28/2021 Mike Pineda [address] [place] [address], [facility], [place] (Office): : [facility] 06/14/2021 - 06/28/2021 Immunizations Immunization Status Vaccine Details Vaccine Code CodeSystem Conrad e Notes SARS-COV-2 (COVID-19) completed SARS-COV-2 (COVID-19) vaccine, mRNA, spike protein, LNP, preservative free, 30 mcg/0.3mL dose Mfg: [employer] Step 2 of Multi-step with next step required 208 CVX created date: 06/14/2021 administered date: 06/15/2020 SARS-COV-2 (COVID-19) completed SARS-COV-2 (COVID-19) vaccine, mRNA, spike protein, LNP, preservative free, 30 mcg/0.3mL dose Mfg: [employer] Step 1 of Multi-step with next step required 208 CVX created date: 06/14/2021 administered date: 05/24/2020 SARS-COV-2 (COVID-19 BOOSTER) completed SARS-COV-2 (COVID-19) vaccine, mRNA, spike protein, LNP, preservative free, 30 mcg/0.3mL dose Mfg: [employer] 208 CVX created date: 06/14/2021 administered date: 02/23/2021 Mental Status Section Date Assessment Total Score Description 06/28/2021 BIMS 11 moderate cognit angie impairment CAM 0 No delirium ind icated PHQ-9 05 mild depression 06/20/2021 BIMS 11 moderate cognit angie impairment CAM 0 No delirium ind icated PHQ-9 05 mild depression Problems Problem # Description Date of onset Resolved Date Code CodeSystem Concern Status 1 ALCOHOL DEPENDENCE, UNCOMPLICATED 06/14/[address] active 2 ANXIETY DISORDER, UNSPECIFIED 06/14/[address] active 3 CHRONIC OBSTRUCTIVE PULMONARY DISEASE, UNSPECIFIED 06/14/[address] active 4 DEPRESSION, UNSPECIFIED 06/14/[address] active 5 EPILEPSY, UNSPECIFIED, NOT INTRACTABLE, WITHOUT STATUS EPILEPTICUS 06/14/[address] active 6 ESSENTIAL (PRIMARY) HYPERTENSION 06/14/[address] active 7 GASTRO-ESOPHAGEAL REFLUX DISEASE WITHOUT ESOPHAGITIS 06/14/[address] active 8 HYPO-OSMOLALITY AND HYPONATREMIA 06/14/[address] active 9 HYPOTHYROIDISM, UNSPECIFIED 06/14/[address] active 10 MONONEUROPATHY, UNSPECIFIED 06/14/[address] active 11 OSTEOPATHY IN DISEASES CLASSIFIED ELSEWHERE, UNSPECIFIED SITE 06/14/[address] active 12 OTHER PSYCHOACTIVE SUBSTANCE DEPENDENCE, IN REMISSION 06/14/[address] active 13 POST-TRAUMATIC STRESS DISORDER, UNSPECIFIED 06/14/[address] active 14 SPINAL STENOSIS, CERVICAL REGION 06/14/[address] active 15 [address]ROMBOCYTOPENIA, UNSPECIFIED 06/14/[address] active Reason for Referral No Reasons for Referral Entered Social History Social History Observation Description Start Date End Date Code Code System Current Smoking Status Tobacco smoking consumption unknown 291023081 SNOMED CT Sex Assigned At Male 1970 16567-6 [facility] Gender Identity Vital Signs Code Code System Vitals Name Values and Units Timing Information 09155-3 LOINC Pain Level Value=0.0 06/28/2021 9279-1 LOINC Respiratory Rate Value=16.0 Units=/m in 06/28/2021 8462-4 LOINC Blood Pressure-Diastolic Aldjq=480 U nits=mmHg 06/28/2021 8480-6 [facility] Blood Pressure-Systolic Gnrjv=550 Un its=mmHg 06/28/2021 8310-5 [facility] Body Temperature Value=98.8 Units= F 06/28/2021 8867-4 [facility] Heart rate Value=94.0 Units=/min 01/2022 60309-8 [facility] O2 % BldC Oximetry Value=98.0 Units= % 06/28/2021 22713-9 [facility] Weight Qzprw=355.0 Units=Lbs 12/2021 8302-2 [facility] Height Value=72.0 Units=Inches 06/14/2021
== END 2024-08-24 15:36 | disposition home or self-care (01) ==
LOC: HO.HNS 13:46
PROVIDERS: PCP Physician Assistant Medical; Referring Provider Physician Assistant Medical; Visit Provider Physician Assistant
DX: G62.9 Polyneuropathy, unspecified (principal)
CPT/HCPCS: 99205

== ENCOUNTER → 2024-08-24 13:45 | Outpatient (BNVA) | payer MEDICARE, MEDICAID, SELFPAY | PROVIDERS: PCP Physician Assistant Medical; Referring Provider Physician Assistant Medical; Visit Provider Physician Assistant | DX: I10 Essential (primary) hypertension (principal); G62.9 Polyneuropathy, unspecified; M54.50 Low back pain, unspecified; J44.9 Chronic obstructive pulmonary disease, unspecified; F17.210 Nicotine dependence, cigarettes, uncomplicated | CPT/HCPCS: 99202 ==

== ENCOUNTER 2025-01-17 06:48 | Day surgery (SDC) | payer MEDICARE, MEDICAID, SELFPAY ==
--- OUTSIDE RECORDS SUMMARY | 2025-01-07 12:00 | XMS_ITS | Clinical Summary ---
Author Organization [facility] Address [address] [place] [address] Care Team Providers Care Distributor Advertising Material Name Role Phone Unavailable Primary Care Provider [...] capsule by mouth every morning (TOTAL AM NPNA=411QD) and take 200 MG AT BEDTIME 360 capsule 1 01/29/2019 Active ergocalciferol (VITAMIN D2) capsule 77603 units 0 03/08/2019 Active folic acid (FOLVITE) [...]
--- OUTSIDE RECORDS SUMMARY | 2025-01-07 12:00 | XMS_ITS | Clinical Summary ---
Author Organization [facility] Address [address] [place] [address] Care Team Providers Care Hand Screen Printer Name Role Phone Unavailable Primary Care Provider Unavailabl e Allergies No known active allergies Medications atenolol (TENORMIN) 25 MG tablet Take 1 tablet (25 mg total) by mouth daily. Active folic acid (FOLVITE) 1 MG tablet Take 1 tablet (1 mg total) by mouth daily. Active gabapentin (NEURONTIN) 300 MG capsule Take 3 capsules (900 mg total) by mouth 3 (three) times a day. Active hydrOXYzine HCl (ATARAX) 25 MG tablet Take 1 tablet (25 mg total) by mouth 4 times daily (every 6 hours) as needed for anxiety. Active lamoTRIgine (LaMICtal) 25 MG tablet Take 2 tablets (50 mg total) by mouth 2 (two) times a day. Active levothyroxine (Synthroid) 75 MCG tablet Take 1 tablet (75 mcg total) by mouth daily on an empty stomach. Active magnesium oxide 400 (240 Mg) MG Tab tablet Take 1 tablet (400 mg total) by mouth daily. Take 2 hours apart from other medications; take with food Active mirtazapine (REMERON) 30 MG tablet Take 1 tablet (30 mg total) by mouth nightly. Active sertraline (ZOLOFT) 100 MG tablet Take 2 tablets (200 mg total) by mouth daily. Active topiramate (TOPAMAX) 200 MG tablet Take 1 tablet (200 mg total) by mouth 2 (two) times a day. Active cyanocobalamin (VITAMIN B-12) 1000 MCG tablet Take 1 tablet (1,000 mcg total) by mouth daily. Active cholecalciferol (CHOLECALCIFEROL ) 25 MCG (1000 UT) tablet Take 1 tablet (1,000 Units total) by mouth daily. Active carboxymethylcel lulose (REFRESH PLUS) 0.5 % Solution Administer 1 drop to both eyes 3 (three) times a day as needed for dry eyes. Active cyclobenzaprine (FLEXERIL) 10 MG tabletIndication s:Left low back pain, unspecified chronicity, unspecified whether sciatica present,Intracta ble low back pain Take 1 tablet (10 mg total) by mouth 3 times daily (every 8 hours) as needed for muscle spasms. 15 tablet 5 Active HYDROmorphone (DILAUDID) 2 MG tabletIndication s:Left low back pain, unspecified chronicity, unspecified whether sciatica present,Intracta ble low back pain Take 1 tablet (2 mg total) by mouth 4 times daily (every 6 hours) as needed for severe pain. Max Daily Amount: 8 mg 8 tablet 5 Active lactulose (ENULOSE) 10 gm/15 mL solutionIndicati ons:Left low back pain, unspecified chronicity, unspecified whether sciatica present,Intracta ble low back pain Take 30 mL (20 g total) by mouth every 4 (four) hours as needed (if no bowel movment by day 3). 240 mL 5 Active phenylephrine (PREPARATION H) 0.25-14-74.9 % Ointment topical rectal ointmentIndicati ons:Left low back pain, unspecified chronicity, unspecified whether sciatica present,Intracta ble low back pain Insert 1 each into the rectum 4 (four) times a day as needed for hemorrhoids. 56 g 5 Active Active Problems Problem Noted Date Diagnosed Date Intractable low back pain/lumbar canal stenosis 10/23/2024 Assessment & Plan (10/25/2024 6:32 PM EDT): Lumbar area significant thecal sac narrowing at L4/5 Lumbar area significant thecal sac narrowing at L5/S1 Patient has been assessed by neurosurgery, neurosurgery review his MRI. Per neurosurgery, no need for acute intervention, surgical decompression is of questionable utility for the stenosis due to epidural lipomatosis, he is also not a candidate for elective spinal surgery due to his active smoking and alcohol abuse. S/p IR ESMER on 10/25 Patient should follow-up with outpatient diabetes solutions specialist for chronic lumbar pathology Continue with celecoxib, gabapentin, Tylenol, Dilaudid as needed PT reevaluation BRBPR No more episodes Evaluated by GI, has hemorrhoids on rectal exam No need for procedure Hydrocortisone suppository BID x 5 days, and bowel regimen Lumbar canal stenosis 10/23/2024 Assessment & Plan (10/24/2024 5:29 PM EDT): Lumbar area significant thecal sac narrowing at L4/5 Lumbar area significant thecal sac narrowing at L5/S1 Patient has been assessed by neurosurgery, neurosurgery review his MRI. Per neurosurgery, no need for acute intervention, surgical decompression is of questionable utility for the stenosis due to epidural lipomatosis, he is also not a candidate for elective spinal surgery due to his active smoking and alcohol abuse. We will place IR consult for consideration of lumbar ESMER Patient should follow-up with outpatient diabetes solutions specialist for chronic lumbar pathology Continue with celecoxib, gabapentin, Tylenol, Dilaudid as needed PT/OT eval BRBPR No more episodes Evaluated by GI, has hemorrhoids on rectal exam No need for procedure Hydrocortisone suppository BID x 5 days, and bowel regimen Seizure disorder 10/23/2024 Assessment & Plan (10/25/2024 6:32 PM EDT): Continue Topamax 200 mg twice daily Continue lamotrigine 25 mg daily Continue gabapentin 300 mg 3 times daily Assessment & Plan (10/24/2024 5:29 PM EDT): Continue Topamax 200 mg twice daily Continue lamotrigine 25 mg daily Continue gabapentin 300 mg 3 times daily Alcohol use disorder 10/23/2024 Assessment & Plan (10/25/2024 6:32 PM EDT): CIWA, folic acid, social work Assessment & Plan (10/24/2024 5:29 PM EDT): Ciwa, folic acide, social work Neuropathy 10/23/2024 Assessment & Plan (10/25/2024 6:32 PM EDT): Continue with gabapentin 300 3 times daily Assessment & Plan (10/24/2024 5:29 PM EDT): Continue gabapentin 300 mg 3 times daily PTSD (post-traumatic stress disorder) 10/23/2024 Assessment & Plan (10/25/2024 6:32 PM EDT): Continue mirtazapine and Zoloft Assessment & Plan (10/24/2024 5:29 PM EDT): Continue mirtazapine 30 mg nightly Continue Zoloft 100 mg daily Depression 10/23/2024 Assessment & Plan (10/25/2024 6:32 PM EDT): Continue Synthroid 75 mcg daily Assessment & Plan (10/24/2024 5:29 PM EDT): Continue Synthroid 75 mcg daily Hypothyroidism 10/23/2024 Assessment & Plan (10/25/2024 6:32 PM EDT): Continue atenolol 25 mg daily Assessment & Plan (10/24/2024 5:29 PM EDT): Continue atenolol 25 mg daily Encounters Date Type Department Care Team Description 10/25/2024 3:45 PM EDT - 10/25/2024 4:34 PM EDT Surgery [facility] [place] [facility] - Cardiac Catheterization Laboratory [address] [place] [phone] Ronni Avery, DO IR Epidural Inject Steroid Lumbar/Sacral w/img 10/23/2024 1:20 AM EDT Ancillary Procedure [facility] [address] [place] [phone] Provider, File Room 10/23/2024 1:15 AM EDT Ancillary Procedure [facility] [address] [place] [phone] Provider, File Room 10/23/2024 1:15 AM EDT Ancillary Procedure [facility] [address] [place] [phone] Provider, File Room 10/23/2024 1:10 AM EDT Ancillary Procedure [facility] [address] [place] [phone] Provider, File Room 10/22/2024 10:21 PM EDT - 10/26/2024 11:15 AM EDT Hospital Encounter [address], [place] [phone] Jason Tang MD Gautam, Garima, MD Cota Vargas, Evelyn, MD Intractable low back pain/lumbar canal stenosis (Primary Dx); Left low back pain, unspecified chronicity, unspecified whether sciatica present Discharge Disposition: Home with Health Care Services from Last 3 Months Social History Tobacco Use Types Packs/Day Years Used Date Smoking Tobacco: Never Assessed [facility] Utilities Answer Date Recorded In the past 12 months has th e electric, gas, oil, or water company threatened to shut off services in your home? No 10/23/2024 AUDIT-C Answer Date Recorded Q1: How often do you have a drink containing alcohol? 2-3 times a week 10/23/2024 Q2: How many drinks containi ng alcohol do you have on a typical day when you are drinking? 1 or 2 Q3: How often do you have si x or more drinks on one occasion? Daily or almost daily 10/23/2024 Overall Financial Resource Strain (CARDIA) Answe r Date Recorded How hard is it for you to pa y for the very basics like food, housing, medical care, and heating? Not hard at all 10/23/2024 Hunger Vital Sign Answer Date Recorded Within the past 12 months, y ou worried that your food would run out before you got the money to buy more. Never true 10/24/19 25 Within the past 12 months, t he food you bought just didn't last and you didn't have money to get more. Never true 10/23/2024 PRAPARE - Transportation Answer Date Re corded In the past 12 months, has l ack of transportation kept you from medical appointments or from getting medications? No 07/2024 In the past 12 months, has l ack of transportation kept you from meetings, work, or from getting things needed for daily living? No 10/23/2024 Housing Stability Vital Sign Answer Conrad e Recorded In the last 12 months, was t here a time when you were not able to pay the mortgage or rent on time? No 10/23/2024 In the past 12 months, how m any times have you moved where you were living? 0 10/23/2024 At any time in the past 12 m [facility], were you homeless or living in a usp (including now)? No 10/23/2024 Sex and Gender Information Value Date Recorded Sex Assigned at Not on file Legal Sex Male 6:59 PM EST Gender Identity Not on file Sexual Orientation Not on file Last Filed Vital Signs Vital Sign Reading Time Taken Comments Blood Pressure 116/77 10/26/2024 9:28 AM EDT Pulse 73 10/26/2024 9:28 AM EDT Temperature 36.4 C (97.6 F) 10/26/2024 7:50 AM EDT Respiratory Rate 18 10/26/2024 7:50 AM EDT Oxygen Saturation 93% 10/26/2024 7:50 AM EDT Inhaled Oxygen Concentration - - Weight 73.7 kg (162 lb 8 oz) 10/22/2024 10:00 PM EDT Height 182.9 cm (6' 0.01 ) 10/23/2024 8:47 AM ED T Body Mass Index 22.03 10/22/2024 10:00 PM EDT Plan of Treatment Health Maintenance Due Date Last Done Comments Hepatitis C Virus Screening 1972 HIV Screening 1985 DTaP/Tdap/Td Vaccines (1 - Tdap) 08/07/1991 Hepatitis B Vaccines (1 of 3 - 19+ 3-dose series) 08/07/1991 Pneumococcal Vaccines 50+ (1 of 2 - PCV) 08/07/1991 Colonoscopy 2017 Zoster (Shingles) Vaccine (1 of 2) 2022 Influenza Vaccine 09/17/2024 02/24/2024, , 12/14/2021, Additional history exists COVID-19 Vaccine (3 - 2024-2 6 season) 2024 06/15/2020, 05/24/2020 RSV Vaccine 50 years and old er and Patients (1 - 1-dose 75+ series) 08/07/2047 Procedures Procedure Name Priority Date/Time Associated Diagnosis Comments ECG 12-LEAD Routine 10/26/2024 10:51 AM EDT HIGH SENSITIVITY TROPONIN T STAT 10/26/2024 10:33 AM EDT IR EPIDURAL INJECT STEROID LUMBAR/SACRAL W/IMG Routine 10/25/2024 12:18 PM EDT Left low back pain, unspecified chronicity, unspecified whether sciatica present COMPLETE BLOOD COUNT, WITHOUT DIFFERENTIAL Routine 10/25/2024 5:56 AM EDT BASIC METABOLIC PANEL Routine 10/25/2024 5:56 AM EDT BLOOD CULTURE (HOSP LAB) Routine 10/24/2024 5:46 PM EDT BLOOD CULTURE (HOSP LAB) Routine 10/24/2024 5:46 PM EDT COMPLETE BLOOD COUNT, WITHOUT DIFFERENTIAL Routine 10/24/2024 11:07 AM EDT BASIC METABOLIC PANEL Routine 10/24/2024 11:07 AM EDT ECG 12-LEAD Routine 10/23/2024 12:58 PM EDT XR CHEST 1 VIEW-PORTABLE STAT 10/23/2024 4:[address] SPINE ARCHIVE FOR REFERENCE ONLY Routine 10/23/2024 1:11 AM EDT MR SPINE ARCHIVE FOR REFERENCE ONLY Routine 10/23/2024 1:[address] ABDOMEN ARCHIVE FOR REFERENCE ONLY Routine 10/23/2024 1:[address] HEAD ARCHIVE FOR REFERENCE ONLY Routine 10/23/2024 1:06 AM EDT COMPREHENSIVE METABOLIC PANEL Routine 10/23/2024 12:24 AM EDT MAGNESIUM Routine 10/23/2024 12:24 AM EDT COMPLETE BLOOD COUNT, WITH DIFFERENTIAL Routine 10/23/2024 12:24 AM EDT from Last 3 Months Results * ECG 12 lead (10/26/2024 10:51 AM EDT) Only the most recent of2 resultswithin the time period is included. Ventricular rate 65 BPM EKG [facility] Atrial rate 65 BPM EKG [facility] P-R interval 172 ms [facility] QRS duration 88 ms EKG [facility] Q-T interval 426 ms EKG [facility] QTC calculation (Bazett) 443 ms EKG [facility] P axis 29 degrees EKG [facility] R axis 3 degrees EKG [facility] T axis 1 degrees EKG [facility] 10/26/2024 10:5 1 AM EDT Narrative EKG [facility] - 10/28/2024 8:57 AM EDT Normal sinus rhythm Nonspecific ST and T wave abnormality Abnormal ECG When compared with ECG of 23-Oct-2024 12:58, Minimal criteria for Anterior infarct are no longer Present T wave inversion more evident in Anterolateral leads Confirmed by MD Henderson Manny ([id number]) on 10/28/2024 8:57:45 AM Procedure Note Rick Henderson MD - 10/28/2024 Normal sinus rhythm Nonspecific ST and T wave abnormality Abnormal ECG When compared with ECG of 23-Oct-2024 12:58, Minimal criteria for Anterior infarct are no longer Present T wave inversion more evident in Anterolateral leads Confirmed by MD Henderson Manny ([id number]) on 10/28/2024 8:57:45 AM us Christiane Canas MD ECG ORDERABLES Final Resu lt EKG [facility] * High Sensitivity Troponin T (Once) (10/26/2024 10:33 AM EDT) High Sensitivity Troponin T <6 <23 ng/L 10/26/2024 11:05 AM EDT [facility] (Change) NO PREVIOUS RESULT <3 10/26/2024 11:05 AM EDT [facility] Blood Blood specimen / Unknown 10/26/2024 10:33 AM EDT 10/26/2024 10:38 AM EDT Christiane Canas MD LAB BLOOD ORDERABLES Final Result [address] [address], [address] [address] * IR EPIDURAL INJECT STEROID LUMBAR/SACRAL W/IMG (10/25/2024 12:18 PM EDT) Anatomical Region Laterality Modality X-Ray Angiograph y 10/25/2024 12:3 8 PM EDT Impressions 10/25/2024 12:39 PM EDT Left interlaminar lumbar epidural steroid injection at L4-5 . PLAN: Recovery/bedrest for 1 hour. Narrative 10/25/2024 12:39 PM EDT EXAM: IR EPIDURAL INJECT STEROID LUMBAR/SACRAL W/IMG on 10/25/2024 11:54 AM CLINICAL HISTORY: Left low back pain, unspecified chronicity, unspecified whether sciatica present. COMPARISONS: None OPERATORS: Dr. Ronni Avery, attending interventional radiologist performed the procedure. ANESTHESIA: 2% lidocaine was injected in the skin and subcutaneous tissues overlying the access site. MEDICATIONS: 18 mg Celestone (Betamethasone) (6mg/mL), 3 mL 0.5% Bupivacaine FLUOROSCOPY TIME: 0.3 min DAP: 0.3 Gy-m2 PROCEDURE: 1. Left L4-5 interlaminar epidural steroid injection. PROCEDURE DETAILS: Following the discussion of the risks, benefits and alternatives to the procedure, written informed consent was obtained from the patient. The patient was then brought to the angiography suite and placed prone on the exam table. A preprocedure time-out was performed per [facility] protocol. The back was prepped and draped using all elements of maximal sterile barrier technique including sterile gloves, sterile gown, cap, mask, large sterile sheet, sterile ultrasound probe cover, hand hygiene and cutaneous antisepsis with 2% chlorhexidine. Using fluoroscopic guidance, a 20-gauge Touey needle was then successfully placed in the epidural space at the L4-5 level on the left. A small amount of contrast was injected to confirm filling of the epidural space. This was followed by injection of the steroid/anesthetic mixture. The needle was removed and a sterile dressing applied. The patient tolerated the procedure well and left the interventional radiology suite in stable condition. No immediate postprocedural complications. FINDINGS: Needle position within the epidural space, confirmed by contrast injection. Procedure Note Ronni Avery, DO - 10/25/2024 EXAM: IR EPIDURAL INJECT STEROID LUMBAR/SACRAL W/IMG on 10/25/2024 11:54AM CLINICAL HISTORY: Left low back pain, unspecified chronicity, unspecified whether sciaticapresent. COMPARISONS: None OPERATORS: Dr. Ronni Avery, attending interventional radiologistperformed the procedure. ANESTHESIA: 2% lidocaine was injected in the skin and subcutaneous tissuesoverlying the access site. MEDICATIONS: 18 mg Celestone (Betamethasone) (6mg/mL), 3 mL 0.5%Bupivacaine FLUOROSCOPY TIME: 0.3 min DAP: 0.3 Gy-m2 PROCEDURE: 1. Left L4-5 interlaminar epidural steroid injection. PROCEDURE DETAILS: Following the discussion of the risks, benefits and alternatives to theprocedure, written informed consent was obtained from the patient. Thepatient was then brought to the angiography suite and placed prone on theexam table. A preprocedure time- out was performed per [facility] protocol. The back was prepped anddraped using all elements of maximal sterile barrier technique includingsterile gloves, sterile gown, cap, mask, large sterile sheet, sterileultrasound probe cover, hand hygiene and cutaneous antisepsis with 2% chlorhexidine. Using fluoroscopic guidance, a 20-gauge Touey needle was then successfullyplaced in the epidural space at the L4-5 level on the left. A small amountof contrast was injected to confirm filling of the epidural space. Thiswas followed by injection of the steroid/anesthetic mixture. The needle was removed and a sterile dressingapplied. The patient tolerated the procedure well and left the interventionalradiology suite in stable condition. No immediate postproceduralcomplications. FINDINGS: Needle position within the epidural space, confirmed by contrastinjection. IMPRESSION: Left interlaminar lumbar epidural steroid injection at L4-5 . PLAN: Recovery/bedrest for 1 hour. us Ronni Avery DO IMG IR ORDERABLES Final Result * (ABNORMAL) COMPLETE BLOOD COUNT, WITHOUT DIFFERENTIAL (10/25/2024 5:56 AM EDT) Only the most recent of2 resultswithin the time period is included. White Blood Cell Count 6.9 4.0 - 11.0 Thou/uL 10/25/2024 6:52 AM [facility] Platelet Count 142(L) 150 - 450 Thou/uL 10/25/2024 6:52 AM [facility] Hemoglobin 14.0 13.0 - 17.7 g/dL 10/25/2024 6:52 AM [facility] Hematocrit 42.7 39.0 - 54.0 % 10/25/2024 6:52 AM [facility] Red Blood Cell Count 4.36(L) 4.50 - 6.20 Mil/uL 10/25/2024 6:52 AM [facility] MCV 98 80 - 100 fL 10/25/2024 6:52 AM [facility] MCH 32.1(H) 27.0 - 31.0 pg 10/25/2024 6:52 AM [facility] MCHC 32.8 30.0 - 36.0 g/dL 10/25/2024 6:52 AM [facility] RDW 13.9 11.5 - 14.5 % 10/25/2024 6:52 AM [facility] MPV 10.0 7.5 - 12.5 fL 10/25/2024 6:52 AM [facility] Blood Blood specimen / Unknown 10/25/2024 5:56 AM EDT 10/25/2024 6:46 AM EDT Christiane Canas MD LAB BLOOD ORDERABLES Final Result [facility] [address] [place] [address], [facility] [address] [facility] [place] [address] * (ABNORMAL) Basic Metabolic Panel (10/25/2024 5:56 AM EDT) Only the most recent of2 resultswithin the time period is included. Glucose 150(H) 65 - 99 mg/dL 10/25/2024 8:46 AM EDT [facility] Comment:Fasting: <100 mg/dL, Non-Fasting: <200 mg/dL (ADA 2004) Blood Urea Nitrogen (BUN) 28(H) 8 - 21 mg/dL 10/25/2024 8:46 AM [facility] Creatinine 0.9 0.5 - 1.3 mg/dL 10/25/2024 8:46 AM [facility] eGFR >90 >59 10/25/2024 8:46 AM [facility] Comment:CKD-EPI (2020) in mL /min/1.73 sq meters. Sodium 136 136 - 145 mmol/L 10/25/2024 8:46 AM [facility] Potassium 4.4 3.4 - 5.3 mmol/L 10/25/2024 8:46 AM [facility] Chloride 102 98 - 107 mmol/L 10/25/2024 8:46 AM [facility] CO2 13(L) 22 - 33 mmol/L 10/25/2024 8:46 AM [facility] Anion Gap 21(H) 7 - 17 10/25/2024 8:46 AM [facility] Calcium 10.0 8.7 - 10.5 mg/dL 10/25/2024 8:46 AM [facility] BUN/Creatinine Ratio 31(H) 10.0 - 25.0 Ratio 10/25/2024 8:46 AM [facility] Blood Blood specimen / Unknown 10/25/2024 5:56 AM EDT 10/25/2024 6:46 AM EDT Christiane Canas MD LAB BLOOD ORDERABLES Final Result [address] [place] [address], [address] [place] [address] * Blood Culture (10/24/2024 5:46 PM EDT) Only the most recent of2 resultswithin the time period is included. Culture Sterile after 5 days 10/29/2024 2:25 PM EDT [facility] Blood Blood specimen / Unknown 10/24/2024 5:46 PM EDT 10/24/2024 5:50 PM EDT Comment:Blood us Christiane Canas MD LAB BLOOD ORDERABLES Final Result [facility] [address] [place] [address], * XR Chest 1 view-Portable (10/23/2024 4:50 AM EDT) Anatomical Region Laterality Modality Chest Computed Radiogr aphy 10/23/2024 8:23 AM EDT Impressions 10/23/2024 8:23 AM EDT No acute cardiopulmonary process identified. Narrative 10/23/2024 8:23 AM EDT EXAM: PORTABLE CHEST RADIOGRAPH INDICATION: hypoxia. TECHNIQUE: Portable upright AP chest radiograph, 1 view COMPARISON: None available. FINDINGS: Overlying EKG leads. No focal airspace opacity. No pleural effusions. Pulmonary vascular markings appear unremarkable. Mediastinal and hilar structures are grossly intact. Cardiomediastinal silhouette is within normal limits considering technique. No apparent displaced fractures. Procedure Note Mike Dunlap MD - 10/23/2024 EXAM: PORTABLE CHEST RADIOGRAPH INDICATION: hypoxia. TECHNIQUE: Portable upright AP chest radiograph, 1 view COMPARISON: None available. FINDINGS: Overlying EKG leads. No focal airspace opacity. No pleural effusions.Pulmonary vascular markings appear unremarkable. Mediastinal and hilarstructures are grossly intact. Cardiomediastinal silhouette is withinnormal limits considering technique. No apparent displaced fractures. IMPRESSION: No acute cardiopulmonary process identified. Kimmy Villarreal MD IMG DIAGNOSTIC IMAGING ORDERABL ES Final Result * MR Spine Archive for Reference Only (10/23/2024 1:11 AM EDT) [facility] 10/23/2024 1:11 AM EDT This study has been auto finalized and does not contain a result. us File Room Provider IMG DIGITIZE FILMS Final Resu lt Performing Organization Address [facility] de Phone Number RAMEZ [phone] * CT Spine Archive for Reference Only (10/23/2024 1:11 AM EDT) [facility] 10/23/2024 1:11 AM EDT This study has been auto finalized and does not contain a result. File Room Provider IMG DIGITIZE FILMS Final Resu lt Performing Organization Address [facility] de Phone Number RAMEZ [phone] * CT Abdomen Archive for Reference Only (10/23/2024 1:09 AM EDT) [facility] 10/23/2024 1:09 AM EDT This study has been auto finalized and does not contain a result. us File Room Provider IMG DIGITIZE FILMS Final Resu lt Performing Organization Address [facility] de Phone Number RAMEZ [phone] * CT Head Archive for Reference Only (10/23/2024 1:06 AM EDT) [facility] 10/23/2024 1:06 AM EDT This study has been auto finalized and does not contain a result. us File Room Provider IMG DIGITIZE FILMS Final Resu lt Performing Organization Address [facility] de Phone Number RAMEZ [phone] * (ABNORMAL) Complete Blood Count, with Differential (10/23/2024 12:24 AM ED) White Blood Cell Count 10.3 4.0 - 11.0 Thou/uL 10/23/2024 12:32 AM T [facility] Platelet Count 137(L) 150 - 450 Thou/uL 10/23/2024 12:32 AM [facility] Hemoglobin 14.3 13.0 - 17.7 g/dL 10/23/2024 12:32 AM T [facility] Hematocrit 44.2 39.0 - 54.0 % 10/23/2024 12:32 AM [facility] Red Blood Cell Count 4.44(L) 4.50 - 6.20 Mil/uL 10/23/2024 12:32 AM [facility] MCV 100 80 - 100 fL 10/23/2024 12:32 AM [facility] MCH 32.2(H) 27.0 - 31.0 pg 10/23/2024 12:32 AM [facility] MCHC 32.4 30.0 - 36.0 g/dL 10/23/2024 12:32 AM [facility] RDW 14.4 11.5 - 14.5 % 10/23/2024 12:32 AM [facility] MPV 8.9 7.5 - 12.5 fL 10/23/2024 12:32 AM [facility] Neutrophils Auto 62.6 % 10/24/19 25 12:32 AM [facility] Immature Granulocytes 0.4 % 10/[facility] Auto 25.6 % 10/24/19 25 12:32 AM [facility] Monocytes Auto 7.4 % 10/23/2024 12:32 AM [facility] Eosinophils Auto 3.3 % 10/24/19 25 12:32 AM [facility] Basophils Auto 0.7 % 10/23/2024 12:32 AM [facility] Abs Neutrophils Auto 6.42 2.00 - 7.50 Thou/uL 10/23/2024 12:32 AM EDT [facility] Abs Immature Granulocytes 0.04 0.00 - 0.10 Thou/uL 10/23/2024 12:32 AM EDT [facility] Abs Lymphocytes Auto 2.63 1.50 - 4.50 Thou/uL 10/23/2024 12:32 AM EDT [facility] Abs Monocytes Auto 0.76 0.20 - 1.50 Thou/uL 10/23/2024 12:32 AM EDT [facility] Abs Eosinophils Auto 0.34 0.00 - 0.70 Thou/uL 10/23/2024 12:32 AM EDT [facility] Abs Basophils Auto 0.07 0.00 - 0.20 Thou/uL 10/23/2024 12:32 AM EDT [facility] Blood Blood specimen / Unknown 10/23/2024 12:24 AM EDT 10/23/2024 12:29 AM EDT Kimmy Villarreal MD LAB [place]OD [place] [address], [place] [address] * Magnesium (10/23/2024 12:24 AM EDT) Magnesium 1.8 1.6 - 2.7 mg/dL 10/23/2024 12:58 AM EDT [facility] Blood Blood specimen / Unknown 10/23/2024 12:24 AM EDT 10/23/2024 12:29 AM EDT Kimmy Villarreal MD LAB [place]OD [place] [address], [address] [address] * (ABNORMAL) Comprehensive Metabolic Panel (10/23/2024 12:24 AM EDT) Glucose 72 65 - 99 mg/dL 10/23/2024 12:58 AM EDT [facility] Comment:Fasting: <100 mg/dL, Non-Fasting: <200 mg/dL (ADA 2004) Blood Urea Nitrogen (BUN) 14 8 - 21 mg/dL 10/23/2024 12:58 AM [facility] Creatinine 0.8 0.5 - 1.3 mg/dL 10/23/2024 12:58 AM [facility] eGFR >90 >59 10/23/2024 12:58 AM [facility] Comment:CKD-EPI (2020) in mL /min/1.73 sq meters. Sodium 136 136 - 145 mmol/L 10/23/2024 12:58 AM [facility] Potassium 4.6 3.4 - 5.3 mmol/L 10/23/2024 12:58 AM [facility] Chloride 105 98 - 107 mmol/L 10/23/2024 12:58 AM [facility] CO2 19(L) 22 - 33 mmol/L 10/23/2024 12:58 AM [facility] Calcium 9.4 8.7 - 10.5 mg/dL 10/23/2024 12:58 AM [facility] Alkaline Phosphatase 68 45 - 128 U/L 10/23/2024 12:58 AM [facility] Aspartate Aminotrans (AST) 24 10 - 55 U/L 10/23/2024 12:58 AM [facility] Alanine Aminotrans (ALT) 12 10 - 55 U/L 10/23/2024 12:58 AM [facility] Bilirubin, Total 0.4 0.2 - 1.0 mg/dL 10/23/2024 12:58 AM [facility] Protein, Total 6.3 6.3 - 8.3 g/dL 10/23/2024 12:58 AM [facility] Albumin 3.7 3.5 - 5.0 g/dL 10/23/2024 12:58 AM [facility] BUN/Creatinine Ratio 18 10.0 - 25.0 Ratio 10/23/2024 12:58 AM [facility] Globulin 2.6 1.5 - 3.9 g/dL 10/23/2024 12:58 AM [facility] Albumin/Globulin Ratio 1.4 1.0 - 3.0 Ratio 10/23/2024 12:58 AM EDT [facility] Anion Gap 12 7 - 17 10/23/2024 12:58 AM EDT [facility] Blood Blood specimen / Unknown 10/23/2024 12:24 AM EDT 10/23/2024 12:29 AM EDT Kimmy Villarreal MD LAB BLOOD ORDERABLES Final Resu lt [facility] [address] [place] [address], [facility] [address] [facility] [place] [address] from Last 3 Months Insurance [facility] MEDICARE [facility] MEDICARE Advance Directives * Full Code (Latest Code Status on File) Date Activated Date Inactivated Comments 10/23/2024 12:03 AM Question Answer Comments Decision Thoroughly Discussed with: Patient
--- OUTSIDE RECORDS SUMMARY | 2025-01-07 12:00 | XMS_ITS | Clinical Summary ---
Author Organization [facility] Address [address] [place] [address] Phone Care Team Providers Care Hide Handler Name Role Phone Hans Jaeger MD Primary Care Provider [phone] Allergies No known active allergies Medications sertraline [...] DX:Hypertension COPD (chronic obstructive pu lmonary disease) ([facility] [facility]) DX:COPD (chronic o bstructive pulmonary disease) ([facility]) Anxiety DX:Anxiety Tobacco abuse DX:Tobacco abuse Seizure ([facility] [place], [facility]) DX:Seizure ([facility]);COMMENT:Last seizure 01/2019, 06/2017 failed Gabapentin/Topamax ( Ct Head 02/2017 Mild chronic mild diff atrophy ) EEG 03/2017 mild slowing, 01/2018 Gastritis 07/2017 DX:Gastritis;COM MENT:EGD Thrombocytopenia ([facility]) D X:Thrombocytopenia ([facility]);COMMENT:08/2017 144, 04/2018 104 Subclinical hypothyroidism DX:Story bclinical hypothyroidism;COMMENT:08/2017 TSH 7.86 T4 0.86 Hypomagnesemia DX:Hypomagnesemi a;COMMENT:08/2017 1.5 History of cocaine use DX:Histor y of cocaine use Bipolar 1 disorder ([facility] [place], [facility]) DX:Bipolar 1 disorder ([facility] [...] luis, dependence (HCC);COMMENT:Admit 12/2017 with SI to [facility] MDD (major depressive disord er), recurrent episode (CMS/HCC V24) DX:MDD (major depressi ve disorder), recurrent episode (HCC);COMMENT:[facility] PTSD (post-traumatic stress disorder) DX:PTSD (post-traumatic stress [...] Date Smoking Tobacco: Every Day Cigarettes 0.5 37.8 Started: 04/01/1987 Smokeless Tobacco: Never Alcohol Use Standard Drinks/Week Comments Yes 14 (1 standard drink = 0.6 oz pu re alcohol) Interpersonal Safety Answer Date Record ed Physical Abuse Unrecognized value 03/30/2024 Verbal Abuse Unrecognized value 03/30/2024 Sex and Gender Information Value Date [...] 08/07/2020, 03/21/2012 Cholesterol Screening (Lipid Panel) 01/20/2022 HIV Screening 01/20/2022 Medicare Annual Wellness Visit 01/20/2022 Social Influencers of Health Screening 01/20/2022 RSV Immunization Adult Patients (1 - Risk 50-74 years 1-dose series) 2022 Zoster Vaccines (1 of 2) 2022 Depression Screening 02/18/2024 Colorectal Cancer Screening: Stool Based Tests (FOBT/FIT) 06/23/2024 06/24/2023 COVID-19 Vaccine ( season) 2024 12/14/2021, 03/05/2021, 06/15/2020, Additional history exists Influenza Vaccine (#1) 2024 , 12/13/2022, 12/14/2021, Additional history exists Hypertension/CHF/CAD Annual BMP Blood Test 10/25/2025 10/25/2024, 10/25/2024, 10/24/2024, Additional history exists DTaP,Tdap,and Td Vaccines (12 [...] to complete this topic Insurance [place]ICAID - [place] [employer] MEDICARE ADVANTAGE Care Teams Hide Handler Relationship Specialty Start Date End Date Hans Jaeger MD [address] [place] [id number] PCP - General Internal Medicine 03/30/24
--- NOTE | 2025-01-11 13:47 | HO.ANESPROP2 ---
HPI - Anesthesia Eval Consult details Narrative: 54yo M for Bilateral L4 Lumbar Transforaminal ESM[facility] ICU admit 10/2024 with sepsis, pna. Resolved on repeat Chest CT 12/2024 Daily ETOH with cirrhosis noted in previous GI office visits (last 2021) - no f/u available for review. PLTS 154 12/2024 PMFSH Active Problems Active Problems: All Active Problems Lumbar radiculopathy (Acute) Spinal stenosis, lumbar region with neurogenic claudication (Acute) Neuropathy (Acute) GERD (gastroesophageal reflux disease) (Acute) Alcoholic cirrhosis of liver without ascites (Acute) Elevated LFTs (Acute) Hypothyroid (Acute) Low vitamin D level (Acute) Steatohepatitis (Acute) History of alcohol dependence (Acute) Tubular adenoma of colon (Acute) Past Medical History Medical History Anxiety GERD (gastroesophageal reflux disease) Hypothyroid Tubular adenoma of colon History of alcohol dependence Steatohepatitis Seizures Bipolar 1 disorder Depression COPD (chronic obstructive pulmonary disease) HTN (hypertension) Family History Family History Father No problems noted. Mother No problems noted. Surgical History Surgical History Hx of myringotomy History of esophagogastroduodenoscopy (EGD) H/O colonoscopy Social History Social History Alcohol intake: current Alcohol intake frequency: a few times a week Alcohol type: hard liquor Cigarette Packs Per Day: 0.5 Cigarettes Per Day: 10.0 Substance Use Type: Marijuana Advance Directives: No Advance Directives Information Provided: Yes Meds Allergies Allergy/AdvReac Type Severity Reaction Status Date / Time lisinopril (LISINOPRIL) Allergy Intermediate THROAT Verified 01/17/25 07:14 ITCHES, cough oxcarbazepine (OXCARBAZEPINE) Allergy Intermediate SAD, Verified 01/17/25 07:14 DEPRESSED, N/V, TIRED TINGLING FINGERS, nausea levetiracetam (From KEPPRA) AdvReac Severe ANGER Verified 01/17/25 07:14 aripiprazole (From ABILIFY) AdvReac Intermediate HALLUCINATI Verified 01/17/25 07:14 ONS bupropion (From WELLBUTRIN) AdvReac Intermediate TIRED, Verified 01/17/25 07:14 CONFUSED, N/V chlordiazepoxide (From AdvReac Intermediate CONFUSION Verified 01/17/25 07:14 LIBRIUM) dicyclomine (DICYCLOMINE) AdvReac Intermediate TIRED, Verified 01/17/25 07:14 CONFUSED, DRY MOUTH, HANDS TWITCHING lurasidone (From LATUDA) AdvReac Intermediate NAUSEA, Verified 01/17/25 07:14 TIRED Home Medications ?Medication ?Instructions ?Recorded ?Confirmed ?Last Taken ?Type atenolol 25 mg tablet 25 mg PO DAILY 12/10/19 01/17/25 Unknown History magnesium oxide 400 mg PO DAILY 12/10/19 01/17/25 Unknown History mirtazapine 30 mg tablet (Remeron) 30 mg PO BEDTIME 12/10/19 01/17/25 Unknown History vitamin B complex 1 tab PO DAILY 12/10/19 01/17/25 Unknown History vitamin B complex-vitamin C-folic 1 tab PO DAILY 12/10/19 01/17/25 Unknown History acid 0.8 mg tablet levothyroxine 75 mcg tablet 75 mcg PO DAILY 01/10/20 01/17/25 Unknown History albuterol sulfate 90 mcg/actuation 2 puff inhalation Q4-6H PRN 01/11/25 01/17/25 Unknown History aerosol inhaler (Ventolin HFA) Shortness Of Breath Or Wheezing celecoxib 100 mg capsule 100 mg PO BID 01/11/25 01/17/25 Unknown History cyanocobalamin (vitamin B-12) 500 500 mcg PO DAILY 01/11/25 01/17/25 Unknown History mcg tablet (Vitamin B-12) folic acid 1 mg tablet 1 mg PO DAILY 01/11/25 01/17/25 Unknown History gabapentin 300 mg capsule 900 mg PO TID 01/11/25 01/17/25 Unknown History hydroxyzine HCl 25 mg tablet 25 mg PO QID PRN anxiety 01/11/25 01/17/25 Unknown History lamotrigine 25 mg tablet 50 mg PO BID 01/11/25 01/17/25 Unknown History lorazepam 0.5 mg tablet 0.5 mg PO DAILY PRN Anxiety 01/11/25 01/17/25 Unknown History pantoprazole 40 mg tablet,delayed 40 mg PO DAILY 01/11/25 01/17/25 Unknown History release sertraline 100 mg tablet 200 mg PO DAILY 01/11/25 01/17/25 Unknown History topiramate 200 mg tablet 200 mg PO BID 01/11/25 01/17/25 Unknown History tramadol 50 mg tablet 50 mg PO QID 01/11/25 01/17/25 Unknown History Exam Pertinent Lab Results Pertinent Lab Results: CBC 12/2024 WBC 4.00 - 11.00 K/uL 6.54 RBC 4.50 - 5.90 M/uL 4.65 Hemoglobin 13.5 - 17.5 g/dL 14.6 Hematocrit 41.0 - 53.0 % 47.3 MCV 80.0 - 100.0 fL 101.7?High? MCH 27.0 - 31.0 pg 31.4?High? MCHC 32.0 - 36.0 g/dL 30.9?Low? MPV 8.4 - 12.0 fL 8.9 RDW-CV 11.5 - 14.5 % 14.6?High? PLT 150 - 450 K/uL 154 CMP 10/2024 SODIUM 133 - 146 mmol/L 137 CHLORIDE 96 - 108 mmol/L 102 POTASSIUM 3.3 - 5.1 mmol/L 4.2 CO2 21 - 35 mmol/L 23 BUN 6 - 19 mg/dL 21?High? CREATININE 0.5 - 1.5 mg/dL 0.70 GLUCOSE 70 - 99 mg/dL 100?High? CALCIUM 8.4 - 10.3 mg/dL 9.6 ALKALINE PHOSPHATASE 39 - 117 U/L 74 TOTAL BILIRUBIN 0.0 - 1.2 mg/dL <0.2 DIRECT BILIRUBIN 0.0 - 0.2 mg/dL <0.1 Bilirubin (Indirect) 0 - 1.5 mg/dL NOT CALCULATED AST 0 - 37 U/L 31 ALT 0 - 40 U/L 62?High? TOTAL PROTEIN 6.5 - 8.0 g/dL 6.6 ALBUMIN 3.9 - 4.8 g/dL 3.5?Low? GLOBULIN 1 - 4.8 g/dL 3.1 A/G Ratio 1.00 - 4.80 RATIO 1.13 MAGNESIUM 1.6 - 2.6 mg/dL 1.8 Narrative Narrative: ECHO 10/2024 Normal LV size and function EF 55 to 60%. Normal PA pressure estimation. Normal left atrial size. Normal diastolic function for age. No significant valvular heart disease is seen. RV is incompletely seen. No clear cause for shortness of breath found on this study. CHEST CT 12/2024 FINDINGS: Devices/Tubes/Lines: None. Lungs: Previously seen diffuse groundglass opacities, associated with small consolidations and septal thickening, have nearly completely resolved. There is residual faint groundglass and mosaic attenuation in the lung parenchyma. Evaluation of portions of the lungs is limited by respiratory motion. The central airways are patent. Pleura: Normal. No pleural effusion or pneumothorax. Mediastinum: Normal heart size. No pericardial effusion. There are minimal coronary artery calcifications. Lymph Nodes: Normal. No enlarged supraclavicular, axillary, mediastinal, or hilar lymph nodes. Upper Abdomen: There is submucosal fat deposition within the colon. Chest Wall: Normal. No chest wall mass. Bones: Multiple healed right posterior rib fractures. Mild compression fractures at T12 and L1 are unchanged. No suspicious lytic or blastic lesions. Assessment and Plan Assessment Anesthesia Assessment: Chart Reviewed
--- NOTE | ~2025-01-17 | FL_ITS ---
EXAMINATION: XR FLUOROSCOPY WITH IMAGES CLINICAL INFORMATION: Fluoroscopic guidance in OR COMPARISON: None available. TECHNIQUE: Fluoroscopy time: 10 seconds DAP: 2.6 mGycm2 Images: 1 FINDINGS: Fluoroscopy provided for procedure. Findings consistent with bilateral L4-5 transforaminal ESMER procedure. FL/FL guidance in OR IMPRESSION: Fluoroscopy provided for procedure. See procedure note for details. Electronically signed by: Swapnil Benton MD 01/17/2025 02:39 PM [facility]
[2025-01-17 07:15] VITALS: BMI 23.5
--- NOTE | 2025-01-17 07:31 | P.HPSUR_ITS ---
Pre-Procedural Eval Section A - 24 Hr Update-Section A only Date of Service: 01/17/25 Section B - Complete if H&P > 30 days Chief Complaint: Spinal stenosis, lumbar region with neurogenic Relevant Family History (Specify if Yes): No Relevant Social History: None Present Medications: see Short Stay Collaborative assessment Medical History: No relevant PMH History of Previous Operations: No relevant previous surgery Allergies: Allergies Allergy/AdvReac Type Severity Reaction Status Date / Time lisinopril (LISINOPRIL) Allergy Intermediate THROAT Verified 01/17/25 07:14 ITCHES, cough oxcarbazepine (OXCARBAZEPINE) Allergy Intermediate SAD, Verified 01/17/25 07:14 DEPRESSED, N/V, TIRED TINGLING FINGERS, nausea levetiracetam (From KEPPRA) AdvReac Severe ANGER Verified 01/17/25 07:14 aripiprazole (From ABILIFY) AdvReac Intermediate HALLUCINATI Verified 01/17/25 07:14 ONS bupropion (From WELLBUTRIN) AdvReac Intermediate TIRED, Verified 01/17/25 07:14 CONFUSED, N/V chlordiazepoxide (From AdvReac Intermediate CONFUSION Verified 01/17/25 07:14 LIBRIUM) dicyclomine (DICYCLOMINE) AdvReac Intermediate TIRED, Verified 01/17/25 07:14 CONFUSED, DRY MOUTH, HANDS TWITCHING lurasidone (From LATUDA) AdvReac Intermediate NAUSEA, Verified 01/17/25 07:14 TIRED Review of Systems Sugical H&P ROS: Negative: Constitution, Cardiovascular, Respiratory, Neurolo gical, Psychiatric, Hem-Onc, Allergic/Immunologic, Gastrointestinal, Genitourinary, Musculoskeletal, Integumentary, Endocrine and Eyes/Ears/Nose/Throat Exam Surgical H&P Exam: Normal: HEENT, Normal: Heart, Normal: Lungs, Normal: Extremities, Normal: Abdomen, Normal: Skin and Normal: Neurological Plan Diagnosis/Plan: Change (Bilateral L4 transforaminal epidural steroid injections) I have reviewed the history and physical and performed a pertinent physical examination on my patient. No changes have occurred unless specified. Time Spent With Patient Time: Total time managing care of this patient today ____ minutes.
--- NOTE | 2025-01-17 07:32 | W.PM.OPN ---
Operative Note Operative Note Date of Service: 01/17/25 Narrative: Procedure performed: Bilateral L4 transforaminal epidural steroid injection Preop diagnosis: Lumbar radiculitis Postop diagnosis: The same Anesthesia: Mac After informed consent was obtained, patient was placed on the procedure table in a prone position. Skin over lumbosacral area was prepped and draped in usual sterile manner. Right L4 pedicle was visualized utilizing fluoroscopy. 3.5 inch 22 gauge spinal needle was introduced percutaneously and advanced towards the pedicle at about 6 o'clock position. Once level of neural foramina was reached, needle placement was verified utilizing 3 cc of Omnipaque contrast solution. Excellent flow through the neural foramina and epidural spread was identified without evidence of vascular uptake. Total volume of 6 cc containing 2 cc of 1% lidocaine, 40 mg of triamcinolone and normal saline solution were injected after negative aspiration for blood and cerebrospinal fluid. Identical procedure was repeated on the opposite side. Radiation exposure was documented in the chart.
[2025-01-17 07:49] VITALS: BP 113/85; PULSE 72; RESP 15; TEMP 36.5; O2SAT 94
[2025-01-17] MEDS: Lactated Ringers 1,000 ML 100 ML IVCONT (07:51)
[2025-01-17 08:31] VITALS: BP 99/62; PULSE 77; RESP 16; TEMP 36.4; O2SAT 96
[2025-01-17 08:45] VITALS: BP 107/74; PULSE 69; RESP 16; TEMP 36.3; O2SAT 97
== END 2025-01-17 09:11 | disposition home or self-care (01) ==
PROVIDERS: PCP Internal Medicine; Visit Provider Physical Medicine & Rehabilitation
PROC: (CPT 64483; principal; 2025-01-17 08:00)
DX: M48.062 Spinal stenosis, lumbar region with neurogenic claudication (principal); M54.16 Radiculopathy, lumbar region; M47.816 Spondylosis without myelopathy or radiculopathy, lumbar region; M54.50 Low back pain, unspecified; G40.909 Epilepsy, unspecified, not intractable, without status epilepticus; K75.81 Nonalcoholic steatohepatitis (NASH); F31.9 Bipolar disorder, unspecified; J44.9 Chronic obstructive pulmonary disease, unspecified; F10.21 Alcohol dependence, in remission; Z79.899 Other long term (current) drug therapy; Z88.8 Allergy status to other drugs, medicaments and biological substances; F17.210 Nicotine dependence, cigarettes, uncomplicated
CPT/HCPCS: 64483; J2003; J2250; J2704; J3010; J3301; Q9967

== ENCOUNTER → 2025-01-17 06:48 | Outpatient (BNV) | payer MEDICARE, MEDICAID, SELFPAY | PROVIDERS: PCP Internal Medicine; Visit Provider Physical Medicine & Rehabilitation | DX: M54.16 Radiculopathy, lumbar region (principal) | CPT/HCPCS: 64483 ==

== ENCOUNTER 2025-02-04 14:47 | Outpatient (AMB) | payer MEDICARE, MEDICAID, SELFPAY ==
--- OUTSIDE RECORDS SUMMARY | 2021-02-02 18:08 | XMS_ITS | Encounter Summary ---
Author Organization [facility] Address [address] [place] [address] Phone Care Team Providers Care Principal Architectural Firm Name Role Phone Hans Jaeger MD Primary Care Provider [phone] Encounter Details Date Type Department Care Team (Late st Contact Info) Description 02/02/2021 6:08 PM EST Hospital Encounter [facility] [address] [place] [id number] Madelyn Dyer, LULY [address] [place] [address] [email or web address] Social History Tobacco Use Types Packs/Day Years Used Date Smoking Tobacco: Every Day Cigarettes 0.3 30 Smokeless Tobacco: Never Comments:now smoking 5 cigar ettes per day Alcohol Use Standard Drinks/Week Comments Yes 14 (1 standard drink = 0.6 oz pu re alcohol) 3-5 nips daily Home Health Assessment: Transportation Answer Date Recorded Lack of Transportation (Medical) No 01/10/2025 Lack of Transportation (Non-Medical) No 01/10/2025 Patient Unable or Declines to Respond No 01/10/2025 Education Answer Date Recorded Are you interested in more education? Not on florence e 06/14/2022 Are you concerned about learning? Not on file 06/14/2022 No 06/14/2022 No 06/14/2022 Food Answer Date Recorded Within the past 6 months we worried whether our food would run out before we got money to buy more. Never True 10/29/2024 Within the past 6 months the food we bought just didn't last and we didn't have enough money to get more. Never True Residential Stability Answer Date Recor ded What is your housing situation today? I have yeny sing 10/29/2024 How many times have you move d in the past 12 months? Zero (I did not move) 10/29/2024 Paying for Meds Answer Date Recorded Do you have trouble paying for medicines? No 10/29/2024 Paying Utility Bills Answer Date Record ed Do you have trouble paying your heating or elect ricity bill? No 10/29/2024 Transportation Answer Date Recorded Has the lack of transportati on kept you from medical appointments or from getting medications? No 10/29/2024 Digital Access Answer Date Recorded No 10/29/2024 Yes 10/29/2024 Do you have reliable internet access at home? Ye s 10/29/2024 Do you have a device (e.g., phone, tablet, computer) with a working camera? Yes 10/29/2024 Intimate Partner Violence Answer Date R ecorded Are you denied basic needs s uch as food, clothing, or medical care? No 10/29/2024 In the past 12 months have y ou been in a relationship with a person who hurts, threatens, or tries to control you? No 10/29/2024 Are you denied basic needs s uch as food, clothing, or medical care? No 10/29/2024 In the past 12 months have y ou been in a relationship with a person who hurts, threatens, or tries to control you? No 10/29/2024 Sex and Gender Information Value Date Recorded Sex Assigned at Male 05/31/2023 1:08 PM EDT Legal Sex Male 9:31 PM EDT Gender Identity Male 05/31/2023 1:08 PM EDT Sexual Orientation Straight 06/08/2024 12 :21 PM EDT documented as of this encounter Plan of Treatment Upcoming Encounters Date Type Department Care Team (Late st Contact Info) Description 03/09/2025 1:00 PM EST Office Visit [facility] [address] [place] [address] Lawrence Bustos MD [address] [address] [email or web address] documented as of this encounter Procedures Procedure Name Priority Date/Time Associated Diagnosis Comments XR CHEST PA AND LATERAL 2 VIEWS Urgent/patient waiting 02/02/2021 6:16 PM EST Shortness of breath documented in this encounter Results * XR CHEST PA AND LATERAL 2 VIEWS (02/02/2021 6:16 PM EST) Anatomical Region Laterality Modality Chest Computed Radiogr aphy 02/02/2021 6:20 PM EST Impressions 02/02/2021 6:21 PM EST No acute abnormality. No radiographic evidence of pneumonia. [[id number]]. Narrative 02/02/2021 6:21 PM EST XR CHEST PA AND LATERAL 2 VIEWS COMPARISON: XR CHEST PA AND LATERAL 2 VIEWS FINDINGS: Devices/Tubes/Lines: None. Lungs: Normal. The lungs are clear. No focal consolidation or pulmonary edema. Pleura: Normal. No pleural effusion or pneumothorax. Heart/Mediastinum: Normal heart and mediastinum. Bones/Soft Tissues: Normal. No significant skeletal abnormality. Procedure Note Michael Leblanc MD, PhD - 02/02/2021 XR CHEST PA AND LATERAL 2 VIEWS COMPARISON: XR CHEST PA AND LATERAL 2 VIEWS FINDINGS: Devices/Tubes/Lines: None. Lungs: Normal. The lungs are clear. No focal consolidation or pulmonaryedema. Pleura: Normal. No pleural effusion or pneumothorax. Heart/Mediastinum: Normal heart and mediastinum. Bones/Soft Tissues: Normal. No significant skeletal abnormality. IMPRESSION: No acute abnormality. No radiographic evidence of pneumonia. [[id number]]. Madelyn Dyer TOMBSTONE SETTER IMG XR CHEST Final Resul t documented in this encounter Visit Diagnoses Not on filedocumented in this encounter Additional Health Concerns Infection Onset Date Last Indicated Resolved Time CoV-Risk 02/02/2021 02/02/2021 02/12/2021 1:23 AM EST CoV-Risk 05/21/2021 05/21/2021 06/01/2021 1:22 AM EDT CoV-Risk Comment:Neg covid CXR clear here for seizure 06/10/2021 06/10/2021 06/11/2021 6:55 AM E DT CDiff-Risk 05/29/2023 06/24/2023 06/05/2023 1:22 AM EDT CDiff-Risk 06/24/2023 06/24/2023 06/24/2023 6:05 PM EDT CoV-Risk Comment:Per note documentation 10/29/2024 10/29/2024 4:02 PM EDT Rhino/Entero 10/31/2024 10/31/2024 11/14/2024 1:21 AM EDT RSV 11/10/2024 11/10/2024 11/17/2024 1:21 AM EDT documented as of this encounter Care Teams Principal Architectural Firm Relationship Specialty Start Date End Date Hans Jaeger MD [email or web address] PCP - General Internal Medicine 02/02/21 10/04/21 documented as of this encounter Additional Source Comments The information contained in this document represents components of the legal health record. It is not the complete legal health record.[facility]
--- NOTE | 2025-02-04 14:49 | A.OFFVIS_ITS ---
Vital Signs 3 02/04/25 14:55 Height 5 ft 10.5 in Weight 165 lb BMI 23.3 BP 105/79 Blood Pressure Location Lt brachial Position Sitting Pulse 85 Pulse Source Pulse Oximeter Pulse Oximetry (%) 97 Oxygen Delivery Method Room Air Intake Visit Reasons: LUMBAR RADICULOPATHY Intake Note: Pain today 09/26 Tonguer Required: No Accompanied by: Self / Same As Patient Allergies lisinopril (LISINOPRIL) Allergy (Intermediate, Verified 02/04/25 15:08) THROAT ITCHES, cough oxcarbazepine (OXCARBAZEPINE) Allergy (Intermediate, Verified 02/04/25 15:08) SAD, DEPRESSED, N/V, TIRED TINGLING FINGERS, nausea levetiracetam (From KEPPRA) Adverse Reaction (Severe, Verified 02/04/25 15:08) ANGER aripiprazole (From ABILIFY) Adverse Reaction (Intermediate, Verified 02/04/25 15:08) HALLUCINATIONS bupropion (From WELLBUTRIN) Adverse Reaction (Intermediate, Verified 02/04/25 15:08) TIRED, CONFUSED, N/V chlordiazepoxide (From LIBRIUM) Adverse Reaction (Intermediate, Verified 02/04/25 15:08) CONFUSION dicyclomine (DICYCLOMINE) Adverse Reaction (Intermediate, Verified 02/04/25 15:08) TIRED, CONFUSED, DRY MOUTH, HANDS TWITCHING lurasidone (From LATUDA) Adverse Reaction (Intermediate, Verified 02/04/25 15:08) NAUSEA, TIRED HPI Comments Details: History of Present Illness The patient is a 54 year old male presenting for evaluation of chronic low back pain with bilateral lower extremity radiculopathy. He has had back problems for quite some time, possibly around five years, but his symptoms have significantly escalated this year. He experiences pain in his lower back that radiates down both legs equally, described as electrical shocks and burning neuropathy down to his toes. The leg symptoms are more bothersome than the back pain itself. Functionally, the patient's legs become weak and tired, and can collapse after standing for about an hour, which has prevented him from daily activities such as cooking. He has difficulty walking and reports his legs shake. He denies a history of diabetes. Interventions include injections, which he began receiving about a year ago. A prior injection provided about 50% relief, but his most recent one two weeks ago has offered only minimal improvement. He attempted home physical therapy last month, but it was discontinued due to increased pain and back spasms with activity. His last MRI was likely in 2021, and it reportedly showed a compressed nerve at L2 on the left. An EMG performed over a year ago was suggestive of neuropathy, but the source was not definitively determined. He has had no prior back surgery. Separately, the patient has arthritis in his hand, confirmed by x-ray. A prior operation on his left hand for carpal tunnel syndrome was not successful. He uses a splint and cream with minimal relief. Pain Description - Onset and Timing: Chronic pain has been present for quite some time and has escalated significantly within the last year. - Quality and Character: Described as electrical shocks, burning, and neuropathy. - Primary Location and Radiation: Originates in the lower back and radiates down both legs equally to the toes. - Exacerbating Factors: Pain worsens with walking and prolonged standing (over an hour), which can cause his legs to collapse. - Exacerbating Factors: Twisting movements, such as sweeping or vacuuming, also increase pain. 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 Pain Management - Analgesia: The patient receives back injections, though the most recent one two weeks prior offered only minimal relief. - Analgesia: A previous injection provided 50% relief. - Activities of Daily Living: The pain significantly impacts his daily life; his legs give out after standing for an hour, he has difficulty walking, and he is unable to cook. Results - Imaging: An MRI from 2021 reportedly showed a compressed nerve at L2 on the left. - Imaging: A hand X-ray revealed arthritis. - Tests and Diagnostics: An EMG/nerve conduction study performed over a year ago showed some neuropathy, with an unclear etiology. [facility] Medical History Anxiety GERD (gastroesophageal reflux disease) Hypothyroid Tubular adenoma of colon History of alcohol dependence Steatohepatitis Seizures Bipolar 1 disorder Depression COPD (chronic obstructive pulmonary disease) HTN (hypertension) Surgical History Hx of myringotomy History of esophagogastroduodenoscopy (EGD) H/O colonoscopy Family History Father No problems noted. Mother No problems noted. Social History (Updated 02/04/25 @ 14:57 by Estelle Perera) Alcohol intake: current Alcohol intake frequency: a few times a week Alcohol type: hard liquor Patient Tobacco Use Status: Current everyday Tobacco user Tobacco use type: Cigarette Cigarette Packs Per Day: 0.5 Cigarettes Per Day: 3 Substance Use Type: Marijuana Review of Systems Narrative Review of Systems - Constitutional: Reports leg weakness and fatigue with prolonged standing. - Musculoskeletal: Reports chronic low back pain. - Musculoskeletal: Reports hand pain secondary to arthritis. - Musculoskeletal: Reports back spasms with activity. - Neurological: Reports pain radiating down both legs, characterized as electrical shocks and burning neuropathy. - Neurological: Reports leg shaking and weakness leading to gait instability. Physical Exam Exam Exam: Physical Exam - Transitions from sit to stand unassited - Back: Examination reveals tenderness to palpation of the lower midline lumbar spine. - Lower Extremities: Straight leg raise test on left leg was positive, reproducing electrical pain. - Lower Extremities: Straight leg raise on the right leg was negative. - Lower Extremities: Motor strength was tested against resistance with flexion and extension and appeared grossly intact. - BLE strength 5/5 - Wide based ataxic gait, utilizes rollator walked. Vital Signs: Last Vital Signs Pulse 85 02/04/25 14:55 BP 105/79 02/04/25 14:55 Pulse Ox 97 02/04/25 14:55 Oxygen Delivery Method Room Air 02/04/25 14:55 BMI result Body Mass Index 23.3 Results Reviewed Results Reviewed: Assessment & Plan Assessment & Plan (1) Spinal stenosis, lumbar region with neurogenic claudication: Code(s): M48.062 - Spinal stenosis, lumbar region with neurogenic claudication Category: Medical (2) Lumbar radiculopathy: Code(s): M54.16 - Radiculopathy, lumbar region Category: Medical (3) Neuropathy: Code(s): G62.9 - Polyneuropathy, unspecified Category: Medical (4) Chronic pain syndrome: Code(s): G89.4 - Chronic pain syndrome Category: Medical Plan Plan An order will be placed for a new MRI of the lumbar spine to obtain updated imaging, as the last available study is from 2021. The referral will be sent to an open MRI facility in [place] per the patient's preference. Spinal cord stimulation (SCS) was discussed as a potential treatment option for his chronic back pain and bilateral leg neuropathy, given the limited success of prior injections. The patient was given literature to review regarding the procedure. It was explained that should he wish to proceed with an SCS trial, a psychological clearance, which is an insurance requirement, would be the first step after the new MRI. Information for completing this evaluation was provided. For at-home exercise, a recumbent stationary bike was recommended as a low- impact option to build leg strength without the fall risk and high impact associated with a treadmill. The patient is advised to re-engage with physical therapy to build foundational strength before attempting unsupervised gym exercises. 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 A follow-up visit here will be scheduled after the MRI is completed to review results and discuss further management. Patient was informed and verbally consented to the use of an ambient scribe for clinic note documentation during this visit. Discussion Notes I spoke with the patient and his about his chronic low back pain with bilateral lower extremity neuropathy, which has not responded adequately to conservative measures including injections. We discussed spinal cord stimulation (SCS) as a more durable treatment option. I explained that SCS works by disrupting chronic pain signals from the lower back and legs to the brain and that it begins with a one-week, reversible trial to assess efficacy. I informed them that to move forward, we require an updated lumbar spine MRI, which I will order. I also explained the prerequisite of a psychological clearance for the SCS trial, clarifying this is a universal insurance requirement for implantable devices. I provided literature on SCS for his review and the contact number to complete the clearance via telehealth. We discussed exercise, and I recommended a recumbent bike as a safer, low-impact alternative to a treadmill to improve leg strength. The patient will follow up here after the MRI to discuss the results and his interest in proceeding with an SCS trial. Patient Instructions - You will need to get a new MRI of your lower back. - We will send the order for the MRI to the open MRI facility in [place] at [address] - Please read the information provided on spinal cord stimulation (SCS) to help you decide if you are interested in this treatment for your back and leg pain. - If you want to try the SCS, you must first complete a mental health evaluation, which is required by all insurance plans. - We will give you a phone number to complete this evaluation over the phone. - For exercise, it is recommended to use a recumbent bike (a stationary bike with a backrest) instead of a treadmill to avoid falls and high impact on your back. - It is best to work with a physical therapist again to build up strength before starting new exercises at a gym. - Continue with your scheduled follow-up appointments with your other doctors. - We will schedule a follow-up visit with you after your MRI is complete. Orders: Orders 2 MR lumbar spine wo con 02/04/25 G62.9 - Polyneuropathy, unspecified, M48.062 - Spinal stenosis, lumbar region with neurogenic claudication, M54.16 - Radiculopathy, lumbar region Coding Level of Care Code New Pt Level 4 (88012) Add On Problem Visit Only Diagnoses Spinal stenosis, lumbar region with neurogenic claudication M48.062 Lumbar radiculopathy M54.16 Neuropathy G62.9 Chronic pain syndrome G89.4
[2025-02-04 14:55] VITALS: BP 105/79; PULSE 85; O2SAT 97; BMI 23.3
--- OUTSIDE RECORDS SUMMARY | 2025-02-04 16:07 | XMS_ITS | Encounter Summary ---
Author Organization [facility] Address [address] [place] [address] Phone Care Team Providers Care Pin Drafting Machine Tender Name Role Phone Suni Garcia Primary Care Provider [phone] Virginia Patton-C Unavailable [phone] Encounter Details Date Type Department Care Team (Late st Contact Info) Description 08/15/2023 Procedure [facility] [address] [place], [place] [id number] Social History Tobacco Use Types Packs/Day Years Used Date Smoking Tobacco: Every Day Cigarettes 0.3 30 Smokeless Tobacco: Never Comments:now smoking 5 cigar ettes per day Alcohol Use Standard Drinks/Week Comments Yes 0 (1 standard drink = 0.6 oz pur e alcohol) 3-5 nips daily Education Answer Date Recorded Are you interested in more education? Not on florence e 06/14/2022 Are you concerned about learning? Not on file 06/14/2022 No 06/14/2022 No 06/14/2022 Transportation Answer Date Recorded Has the lack of transportati on kept you from medical appointments or from getting medications? No 08/04/2023 Digital Access Answer Date Recorded No 07/13/2022 No 07/13/2022 Reliable internet access at home? Not on file 07/13/2022 Device with a working camera? Not on file Sex and Gender Information Value Date Recorded Sex Assigned at Male 05/31/2023 1:08 PM EDT Legal Sex Male 9:31 PM EDT Gender Identity Male 05/31/2023 1:08 PM EDT Sexual Orientation Straight 06/08/2024 12 :21 PM EDT documented as of this encounter Plan of Treatment Upcoming Encounters Date Type Department Care Team (Late st Contact Info) Description 03/09/2025 1:00 PM EST Office Visit [facility] [address] [place] [address] Lawrence Bustos MD [address] [address] documented as of this encounter Visit Diagnoses Not on filedocumented in this encounter Additional Health Concerns Infection Onset Date Last Indicated Resolved Time CoV-Risk Comment:Per note documentation 10/29/2024 10/29/2024 4:02 PM EDT Rhino/Entero 10/31/2024 10/31/2024 11/14/2024 1:21 AM EDT RSV 11/10/2024 11/10/2024 11/17/2024 1:21 AM EDT documented as of this encounter Care Teams Pin Drafting Machine Tender Relationship Specialty Start Date End Date Suni Garcia PA [address] [place] [phone] PCP - General Tax Senior Associate 10/05/21 Virginia Patton PA-C [address] [place] [id number] [email or web address] Physician Hoe Runner 12/16/23 documented as of this encounter Additional Source Comments The information contained in this document represents components of the legal health record. It is not the complete legal health record.[facility]
--- OUTSIDE RECORDS SUMMARY | 2025-02-04 16:07 | XMS_ITS | Clinical Summary ---
Author Organization [facility] Address [address] [place] [address] Care Team Providers Care Consumer Studies Professor Name Role Phone Unavailable Primary Care Provider [...] on 10/25 Patient should follow-up with outpatient budget specialist for chronic lumbar pathology Continue with [...] lumbar ESMER Patient should follow-up with outpatient budget specialist for chronic lumbar pathology Continue with [...] PM EDT): Continue atenolol 25 mg daily Social History Tobacco Use Types Packs/Day Years Used Date Smoking Tobacco: Never Assessed [facility] Utilities Answer Date Recorded In the past 12 months has [employer] [place] [employer] [place], gas, oil, or water [employer] threatened to shut off services in your [...] any time in the past 12 m ont, were you homeless or living in a retirement (including now)? No 10/23/2024 Sex and Gender [...] Patients (1 - 1-dose 75+ series) 08/07/2047 Insurance [facility] Advance Directives * Full Code (Latest Code Status on File) Date Activated Date Inactivated Comments 10/23/2024 12:03 AM Question Answer Comments Decision Thoroughly Discussed with: Patient
--- OUTSIDE RECORDS SUMMARY | 2025-02-04 16:07 | XMS_ITS | Encounter Summary ---
Author Organization [facility] Address [address] [place] [address] Phone Care Team Providers Care Thresher Broomcorn Name Role Phone Suni Garcia Primary Care Provider [phone] Virginia Patton-C Unavailable [phone] Encounter Details Date Type Department Care Team (Late st Contact Info) Description 12/01/2023 Transcribe Orders [facility] [address] [place] [id number] Suni Garcia PA [address] [place] [phone] Social History Tobacco Use Types Packs/Day Years [...] Description 03/09/2025 1:00 PM EST Office Visit [facility] [address] [place] [address] Lawrence Bustos MD [address] [address] documented as of this encounter Visit Diagnoses Not on filedocumented in this encounter Additional Health Concerns Infection Onset Date Last Indicated Resolved Time CoV-Risk Comment:Per note documentation 10/29/2024 10/29/2024 4:02 PM EDT Rhino/Entero 10/31/2024 10/31/2024 11/14/2024 1:21 AM EDT RSV 11/10/2024 11/10/2024 11/17/2024 1:21 AM EDT documented as of this encounter Care Teams Thresher Broomcorn Relationship Specialty Start Date End Date Suni Garcia PA [address] [place] [phone] PCP - General Truck Safety Inspector 10/05/21 Virginia Patton PA-C [address] [place] [phone] Physician Load Tallier 12/16/23 documented as of this encounter Additional Source Comments The information contained in this document represents components of the legal health record. It is not the complete legal health record.[facility]
--- OUTSIDE RECORDS SUMMARY | 2025-02-04 16:07 | XMS_ITS | Encounter Summary ---
Author Organization [facility] Address [address] [facility] [address] [place] [address] Phone Care Team Providers Care Senior Painter Name Role Phone Hans Jaeger MD Primary Care Provider [phone] Suni Garcia Primary Care Provider [phone] Virginia Patton PA-C Unavailable [phone] Encounter Details Date Type Department Care Team (Latest Contact Info) Description 06/04/2021 Transcribe Orders Virtual Department [address] [place] [address] Suni Garcia PA [address] [place] [phone] Collapsed vertebra, not elsewhere classified, site unspecified, initial encounter for fracture (Primary Dx) Social History Tobacco Use Types Packs/Day Years Used Date Smoking Tobacco: Every Day Cigarettes Smokeless Tobacco: Never Alcohol Use Standard Drinks/Week Comments Yes 2 (1 standard drink = 0.6 oz pur e alcohol) Sex and Gender Information Value Date Recorded Sex Assigned at Male 05/31/2023 1:08 PM EDT Legal Sex Male 9:31 PM EDT Gender Identity Male 05/31/2023 1:08 PM EDT Sexual Orientation Straight 06/08/2024 12 :21 PM EDT documented as of this encounter Plan of Treatment Upcoming Encounters Date Type Department Care Team (Late Contact Info) Description 03/09/2025 1:00 PM EST Office Visit [facility] [address] [place] [address] Lawrence Bustos MD [address] [address] documented as of this encounter Results * BD DXA AXIAL (SPINE) WITH HIP (08/14/2021 1:45 PM EDT) Anatomical Region Laterality Modality Bone Density Bone Density 08/14/2021 4:26 PM EDT Impressions 08/14/2021 4:43 PM EDT Normal bone density. Minimal decrease in bone density at all 3 sites since 2019. Narrative 08/14/2021 4:43 PM EDT COMPARISON: 12/04/2018. BONE DENSITY FINDINGS: History: This is a 51-year-old male with history of compression fracture. Evaluation of the lumbar spine and hips was performed and felt to be technically adequate. L1-L4 vertebral bodies total bone mineral density was calculated at 0.999 gm/cm2 with a T-score of -0.8 falling within the WHO classification of normal-unchanged. Z-score of -0.5. 2.6% decrease in bone density which is statistically significant. Right femoral neck bone mineral density was calculated at 0.860 gm/cm2 with a T- score of -0.5 falling within the WHO classification of normal-unchanged. Z-score of 0.2. Total Right hip bone mineral density was calculated at 1.053 gm/cm2 with a T- score of 0.1 falling within the WHO classification of normal-unchanged. Z-score of 0.4. 3.5% decrease in bone density which is statistically significant. Left femoral neck bone mineral density was calculated at 0.817 gm/cm2 with a T- score of -0.8 falling within the WHO classification of normal-unchanged. Z-score of -0.1. Total Left hip bone mineral density was calculated at 1.00 to gm/cm2 with a T- score of -0.2 falling within the WHO classification of normal-unchanged. Z-score of 0.1. 4.1% decrease in bone density which is statistically significant. Procedure Note Ajith Ochoa MD - 08/14/2021 COMPARISON: 12/04/2018. BONE DENSITY FINDINGS: History: This is a 51-year-old male with history of compressionfracture. Evaluation of the lumbar spine and hips was performed and felt to betechnically adequate. L1-L4 vertebral bodies total bone mineral density was calculated at 0.999gm/cm2 with a T-score of -0.8 falling within the WHO classification ofnormal-unchanged. Z- score of -0.5. 2.6% decrease in bone density whichis statistically significant. Right femoral neck bone mineral density was calculated at 0.860 gm/ew8njta a T- score of -0.5 falling within the WHO classification ofnormal-unchanged. Z-score of 0.2. Total Right hip bone mineral density was calculated at 1.053 gm/cm2 with aT- score of 0.1 falling within the WHO classification of normal-unchanged.Z-score of 0.4. 3.5% decrease in bone density which is statisticallysignificant. Left femoral neck bone mineral density was calculated at 0.817 gm/cm2 witha T- score of -0.8 falling within the WHO classification ofnormal-unchanged. Z-score of - 0.1. Total Left hip bone mineral density was calculated at 1.00 to gm/cm2 witha T- score of -0.2 falling within the WHO classification ofnormal-unchanged. Z-score of 0.1. 4.1% decrease in bone density whichis statistically significant. IMPRESSION: Normal bone density. Minimal decrease in bone density at all 3 sites [id number]. Suni MUNGUIA BD BONE DENSITY DEXA F inal Result documented in this encounter Visit Diagnoses Diagnosis Collapsed vertebra, not elsewhere classified, site unspecified, initial encounter for fracture- Primary Collapsed vertebra, not elsewhere classified, site unspecified, initial encounter for fracture documented in this encounter Additional Health Concerns Infection Onset Date Last Indicated Resolved Time CoV-Risk Comment:Neg covid CXR clear here for seizure 06/10/2021 06/10/2021 06/11/2021 6:55 AM E DT CDiff-Risk 05/29/2023 06/24/2023 06/05/2023 1:22 AM EDT CDiff-Risk 06/24/2023 06/24/2023 06/24/2023 6:05 PM EDT CoV-Risk Comment:Per note documentation 10/29/2024 10/29/2024 4:02 PM EDT Rhino/Entero 10/31/2024 10/31/2024 11/14/2024 1:21 AM EDT RSV 11/10/2024 11/10/2024 11/17/2024 1:21 AM EDT documented as of this encounter Care Teams Senior Painter Relationship Specialty Start Date End Date Hans Jaeger MD [email or web address] PCP - General Internal Medicine 02/02/21 10/04/21 Suni Garcia PA [address] [place] [phone] PCP - General Behavioral Health Worker 10/05/21 Virginia Patton PA-C [address] [place] [phone] [email or web address] Physician Speech Language Pathologist Prn 12/16/23 documented as of this encounter Additional Source Comments The information contained in this document represents components of the legal health record. It is not the complete legal health record.[facility]
--- OUTSIDE RECORDS SUMMARY | 2025-02-04 16:07 | XMS_ITS | Encounter Summary ---
Author Organization [facility] Address [address] [facility] [address] [place] [address] Phone Care Team Providers Care Food Service Worker Name Role Phone Suni Garcia Primary Care Provider [phone]- [phone] Virginia Patton PA-C Unavailable [phone] Reason for Referral * MRI/CAT Scan - Closed Specialty Diagnoses / Procedures Referred By Contac t Referred To Contact Radiology Diagnoses Elevated LFTs Anemia, unspecified type Procedures CT Abdomen/Pelvis CHG CT SCAN,ABDOMENT AND PELVIS,W CONTRAST aKrin Espinoza PA-C Phone: tel: fax: [email or web address] Referral ID Status Reason Start Date Expiration Date Visits Re quested Visits Authorized [id number] Closed 07/02/2023 12/29/2023 1 1 Encounter Details Date Type Department Care Team (Latest Contact Info) Description 07/02/2023 Transcribe Orders [facility] Department [address] [place] [address] Karin Espinoza PA-C [address] [place] [address] Elevated LFTs (Primary Dx); Anemia, unspecified type Social History Tobacco Use Types Packs/Day Years [...] on file 06/14/2022 No 06/14/2022 No 06/14/2022 Digital Access Answer Date Recorded No 07/13/2022 [...] Description 03/09/2025 1:00 PM EST Office Visit [facility] [address] [place] [address] Lawrence Bustos MD [address] [place] [address] [email or web address] documented as of this encounter Results * CT ABDOMEN/PELVIS WITH CONTRAST (08/04/2023 3:11 PM EDT) Anatomical Region Laterality Modality Abdomen, Pelvis Computed Tomogra phy 08/04/2023 4:20 PM EDT Impressions 08/04/2023 4:34 PM EDT No acute abnormality demonstrated by CT. Redemonstration of marked colonic submucosal fat and bowel wall thickening without surrounding inflammatory stranding. Narrative 08/04/2023 4:[address] ABDOMEN/PELVIS WITH CONTRAST Referring clinician's provided indication for this examination in [facility]: Outside Radiology Order; elevated lft's TECHNIQUE: Multidetector-row CT of the abdomen and pelvis was performed after administration of intravenous contrast using tailored dose modulation techniques. Images were reconstructed in the axial, coronal, and sagittal planes. COMPARISON: CT abdomen pelvis 05/21/2021 and MRI of the thoracic spine 05/17/2023 FINDINGS: Evaluation degraded by patient motion. Lower Chest: No consolidation or pleural effusions. Liver: No focal lesions. Biliary: No biliary ductal dilatation. Spleen: No splenomegaly or focal lesions. Pancreas: No masses or ductal dilatation. Adrenal Glands: No nodules. Kidneys/Ureters: No solid masses, stones, or hydronephrosis. Bowel: There is redemonstration of marked colonic submucosal fat and bowel wall thickening again most conspicuously involving the ascending colon. No associated surrounding inflammatory stranding. No bowel dilatation. Peritoneum/Retroperitoneum: No masses, pneumoperitoneum, or fluid. Lymph Nodes: No lymphadenopathy. Pelvic Organs/Bladder: The urinary bladder is physiologically distended. No mural thickening. Vessels: Mild atherosclerotic calcification of aorta. No abdominal aortic aneurysm. Bones/Soft Tissues: Redemonstration of multilevel compression deformities at T8, T9, T11 superiorly, T12, and L1, similar. Similar sclerosis at S1. Procedure Note Jessica Perera MD - 08/04/2023 CT ABDOMEN/PELVIS WITH CONTRAST Referring clinician's provided indication for this examination in [facility]:Outside Radiology Order; elevated lft's TECHNIQUE: Multidetector-row CT of the abdomen and pelvis was performedafter administration of intravenous contrast using tailored dosemodulation techniques. Images were reconstructed in the axial, coronal,and sagittal planes. COMPARISON: CT abdomen pelvis 05/21/2021 and MRI of the thoracic spine05/17/2023 FINDINGS: Evaluation degraded by patient motion. Lower Chest: No consolidation or pleural effusions. Liver: No focal lesions. Biliary: No biliary ductal dilatation. Spleen: No splenomegaly or focal lesions. Pancreas: No masses or ductal dilatation. Adrenal Glands: No nodules. Kidneys/Ureters: No solid masses, stones, or hydronephrosis. Bowel: There is redemonstration of marked colonic submucosal fat and bowelwall thickening again most conspicuously involving the ascending colon. Noassociated surrounding inflammatory stranding. No bowel dilatation. Peritoneum/Retroperitoneum: No masses, pneumoperitoneum, or fluid. Lymph Nodes: No lymphadenopathy. Pelvic Organs/Bladder: The urinary bladder is physiologically distended.No mural thickening. Vessels: Mild atherosclerotic calcification of aorta. No abdominal aorticaneurysm. Bones/Soft Tissues: Redemonstration of multilevel compression deformitiesat T8, T9, T11 superiorly, T12, and L1, similar. Similar sclerosis atS1. IMPRESSION: No acute abnormality demonstrated by CT. Redemonstration of marked colonicsubmucosal fat and bowel wall thickening without surrounding inflammatorystranding. Karin Espinoza PA-C IMG CT ABD/PELVIS Final Result documented in this encounter Visit Diagnoses Diagnosis Elevated LFTs- Primary Other abnormal blood chemistry Anemia, unspecified type Elevated LFTs Other abnormal blood chemistry Anemia, unspecified type documented in this encounter Additional Health Concerns Infection Onset Date Last Indicated Resolved Time CoV-Risk Comment:Per note documentation 10/29/2024 10/29/2024 4:02 PM EDT Rhino/Entero 10/31/2024 10/31/2024 11/14/2024 1:21 AM EDT RSV 11/10/2024 11/10/2024 11/17/2024 1:21 AM EDT documented as of this encounter Care Teams Food Service Worker Relationship Specialty Start Date End Date Suni Garcia PA [address] [place] [address] PCP - General Book Solicitor 10/05/21 Virginia Patton PA-C [address] [place] [address] Physician Wood Getter 12/16/23 documented as of this encounter Additional Source Comments The information contained in this document represents components of the legal health record. It is not the complete legal health record.[facility]
--- OUTSIDE RECORDS SUMMARY | 2025-02-04 16:07 | XMS_ITS | Encounter Summary ---
Author Organization [facility] Address [address] [place] [address] Phone Care Team Providers Care Voting Machine Repairer Name Role Phone Suni Garcia Primary Care Provider [phone] Virginia Patton-C Unavailable [phone] Encounter Details Date Type Department Care Team (Late st Contact Info) Description 07/02/2023 Procedure Pass , Ct Scan - [facility] 30 [place], [place] [id number] Social History Tobacco Use Types Packs/Day Years [...] Description 03/09/2025 1:00 PM EST Office Visit [facility] Gastroenterology Clinic 10 [place] [address] Lawrence Bustos MD [address] [address] documented as of this encounter Visit Diagnoses Not on filedocumented in this encounter Additional Health Concerns Infection Onset Date Last Indicated Resolved Time CoV-Risk Comment:Per note documentation 10/29/2024 10/29/2024 4:02 PM EDT Rhino/Entero 10/31/2024 10/31/2024 11/14/2024 1:21 AM EDT RSV 11/10/2024 11/10/2024 11/17/2024 1:21 AM EDT documented as of this encounter Care Teams Voting Machine Repairer Relationship Specialty Start Date End Date Suni Garcia PA [address] [place] [address] PCP - General Edger Saw Operator 10/05/21 Virginia Patton PA-C [address] [place] [address] Physician Manager Cost 12/16/23 documented as of this encounter Additional Source Comments The information contained in this document represents components of the legal health record. It is not the complete legal health record.[facility]
--- OUTSIDE RECORDS SUMMARY | 2025-02-04 16:07 | XMS_ITS | Encounter Summary ---
Author Organization [facility] Address [address] [place] [address] Phone Care Team Providers Care State Manager Name Role Phone Hans Jaeger MD Primary Care Provider [phone] Suni Garcia Primary Care Provider [phone]- [phone] Virginia Patton-Cindi Unavailable [phone] Encounter Details Date Type Department Care Team (Late st Contact Info) Description 05/21/2021 Procedure Pass [facility], Ct Scan - [address] [address] Social History Tobacco Use Types Packs/Day Years [...] Description 03/09/2025 1:00 PM EST Office Visit [facility] Gastroenterology Clinic 10 [place] [address] Lawrence Bustos MD [address] [place] [address] documented as of this encounter Visit Diagnoses Not on filedocumented in this encounter Additional Health Concerns Infection Onset Date Last Indicated Resolved Time CoV-Risk 05/21/2021 05/21/2021 06/01/2021 1:22 AM EDT [...] documented as of this encounter Care Teams State Manager Relationship Specialty Start Date End Date Hans Jaeger MD PCP - General Internal Medicine 02/02/21 10/04/21 Suni Garcia PA [address] [place] [address] PCP - General Certified Nurse Aide 10/05/21 Virginia Patton PA-C [address] [place] [address] Physician Fish Salter 12/16/23 documented as of this encounter Additional Source Comments The information contained in this document represents components of the legal health record. It is not the complete legal health record.[facility]
--- OUTSIDE RECORDS SUMMARY | 2025-02-04 16:07 | XMS_ITS | Encounter Summary ---
Author Organization [facility] Address [address] [place] [address] [place] [address] Phone Care Team Providers Care Collection Support Specialist Name Role Phone Hans Jaeger MD Primary Care Provider [phone] Suni Garcia Primary Care Provider [phone]- [phone] Virginia Patton PA-C Unavailable [phone] Encounter Details Date Type Department Care Team (Late st Contact Info) Description 06/10/2021 Procedure Pass [facility], Ct Scan - [address] [address] Social History Tobacco Use Types Packs/Day Years Used Date Smoking Tobacco: Every Day Cigarettes 0.3 30 Smokeless Tobacco: Never Comments:now smoking 5 cigar ettes per day Alcohol Use Standard Drinks/Week Comments Yes 21 (1 standard drink = 0.6 oz pure alcohol) 2-3 glasses of vodka and juice daily Sex and Gender Information Value Date Recorded Sex Assigned at Male 05/31/2023 1:08 PM EDT Legal Sex Male 9:31 PM EDT Gender Identity Male 05/31/2023 1:08 PM EDT Sexual Orientation Straight 06/08/2024 12 :21 PM EDT documented as of this encounter Plan of Treatment Upcoming Encounters Date Type Department Care Team (Late st Contact Info) Description 03/09/2025 1:00 PM EST Office Visit [facility] Gastro[facility]ology Clinic 10 [place] [address] Lawrence Bustos MD [address] [address] [email or web address] documented as of this encounter Visit Diagnoses [...] documented as of this encounter Care Teams Collection Support Specialist Relationship Specialty Start Date End Date Hans Jaeger MD [email or web address] PCP - General Internal Medicine 02/02/21 10/04/21 Suni Garcia PA [address] [place] [address] PCP - General Tugboat Captain 10/05/21 Virginia Patton PA-C [address] [place] [address] [email or web address] Physician Recycling Operations Manager 12/16/23 documented as of this encounter Additional Source Comments The information contained in this document represents components of the legal health record. It is not the complete legal health record.[facility]
--- OUTSIDE RECORDS SUMMARY | 2025-02-04 16:08 | XMS_ITS | Encounter Summary ---
Author Organization [facility] Address [address] [place] [address] Phone Care Team Providers Care Research Environmental Scientist Name Role Phone Suni Garcia Primary Care Provider [phone] Virginia Patton-C Unavailable [phone] Encounter Details Date Type Department Care Team (Late st Contact Info) Description 04/30/2023 Procedure Pass [place] Admitting Dept - Virtual Department 30 [place], [place] [phone] Social History Tobacco Use Types Packs/Day Years [...] Description 03/09/2025 1:00 PM EST Office Visit [facility] 10 [place] [address] Lawrence Bustos MD [address] [address] documented as of this encounter Visit Diagnoses Not on filedocumented in this encounter Additional Health Concerns Infection Onset Date Last Indicated Resolved Time CDiff-Risk 05/29/2023 06/24/2023 06/05/2023 1:22 AM EDT CDiff-Risk 06/24/2023 06/24/2023 06/24/2023 6:05 PM EDT CoV-Risk Comment:Per note documentation 10/29/2024 10/29/2024 4:02 PM EDT Rhino/Entero 10/31/2024 10/31/2024 11/14/2024 1:21 AM EDT RSV 11/10/2024 11/10/2024 11/17/2024 1:21 AM EDT documented as of this encounter Care Teams Research Environmental Scientist Relationship Specialty Start Date End Date Suni Garcia PA [address] [place] [address] PCP - General Medical Sales Consultant 10/05/21 Virginia Patton PA-C [address] [place] [email or web address] Physician Water Ski Assembler 12/16/23 documented as of this encounter Additional Source Comments The information contained in this document represents components of the legal health record. It is not the complete legal health record.[facility]
--- OUTSIDE RECORDS SUMMARY | 2025-02-04 16:08 | XMS_ITS | Encounter Summary ---
Author Organization [facility] Address [address] [facility] [address] [place] [address] Phone Care Team Providers Care Promotions Coordinator Name Role Phone Hans Jaeger MD Primary Care Provider [phone] Suni Garcia Primary Care Provider [phone] Virginia Patton PA-C Unavailable [phone] Encounter Details Date Type Department Care Team (Late st Contact Info) Description 06/11/2021 Procedure Pass [address] [address] Social History Tobacco Use Types Packs/Day Years [...] Description 03/09/2025 1:00 PM EST Office Visit [facility]ology Clinic 10 [place] [address] Lawrence Bustos MD [address] [address] [email or web address] documented as of this encounter Visit Diagnoses [...] documented as of this encounter Care Teams Promotions Coordinator Relationship Specialty Start Date End Date Hans Jaeger MD [email or web address] PCP - General Internal Medicine 02/02/21 10/04/21 Suni Garcia PA [address] [place] [address] PCP - General Medical Economics Consultant 10/05/21 Virginia Patton PA-C [address] [place] [address] [email or web address] Physician Roof Bolter 12/16/23 documented as of this encounter Additional Source Comments The information contained in this document represents components of the legal health record. It is not the complete legal health record.[facility]
--- OUTSIDE RECORDS SUMMARY | 2025-02-04 16:08 | XMS_ITS | Encounter Summary ---
Author Organization [facility] Address [address] [place] [address] Phone Care Team Providers Care Grease Maker Name Role Phone Suni Garcia Primary Care Provider [phone] Virginia Patton-C Unavailable [phone] Encounter Details Date Type Department Care Team (Late st Contact Info) Description 01/07/2024 Procedure Pass [facility], [facility] [address] [place], [place] [phone] Social History Tobacco Use Types Packs/Day Years Used Date Smoking Tobacco: Every Day Cigarettes 0.3 30 Smokeless Tobacco: Never Comments:now smoking 5 cigar ettes per day Alcohol Use Standard Drinks/Week Comments Yes 14 (1 standard drink = 0.6 oz pu re alcohol) 3-5 nips daily Education Answer Date [...] with a working camera? Not on file Intimate Partner Violence Answer Date R ecorded Are you denied basic needs s uch as food, clothing, or medical care? No 01/01/2024 In the past 12 months have y ou been in a relationship with a person who hurts, threatens, or tries to control you? No 01/01/2024 Are you denied basic needs s uch as food, clothing, or medical care? No 01/01/2024 In the past 12 months have y ou been in a relationship with a person who hurts, threatens, or tries to control you? No 01/01/2024 Sex and Gender Information Value Date Recorded [...] Visit [facility] [address] [place] [address] Lawrence Bustos MD [address] [place] [address] [email or web address] documented as of this encounter Visit Diagnoses Not on filedocumented in this encounter Additional Health Concerns Infection Onset Date Last Indicated Resolved Time CoV-Risk Comment:Per note documentation 10/29/2024 10/29/2024 4:02 PM EDT Rhino/Entero 10/31/2024 10/31/2024 11/14/2024 1:21 AM EDT RSV 11/10/2024 11/10/2024 11/17/2024 1:21 AM EDT documented as of this encounter Care Teams Grease Maker Relationship Specialty Start Date End Date Suni Garcia PA [address] [place] [address] PCP - General Alterations Workroom Clerk 10/05/21 Virginia Patton PA-C [address] [place] [address] [email or web address] Physician Soap Boiler 12/16/23 documented as of this encounter Additional Source Comments The information contained in this document represents components of the legal health record. It is not the complete legal health record.[facility]
--- OUTSIDE RECORDS SUMMARY | 2025-02-04 16:08 | XMS_ITS | Encounter Summary ---
Author Organization [facility] Address [address] [place] [address] Phone Care Team Providers Care Commercial Credit Analyst Name Role Phone Suni Garcia Primary Care Provider [phone] Virginia Patton PA-C Unavailable [phone] Encounter Details Date Type Department Care Team (Late st Contact Info) Description 11/10/2024 Procedure Pass [facility]oscopy Admitting Dept Virtual Department 30 [place], [place] [phone] Social History Tobacco Use Types Packs/Day Years [...] Description 03/09/2025 1:00 PM EST Office Visit [facility]astroenterology Clinic [address] [place] [address] Lawrence Bustos MD [address] [place] [address] documented as of this encounter Visit Diagnoses Not on filedocumented in this encounter Additional Health Concerns Infection Onset Date Last Indicated Resolved Time Rhino/Entero 10/31/2024 10/31/2024 11/14/2024 1:21 AM EDT RSV 11/10/2024 11/10/2024 11/17/2024 1:21 AM EDT documented as of this encounter Care Teams Commercial Credit Analyst Relationship Specialty Start Date End Date Suni Garcia PA [address] [place] [address] PCP - General Pin Cleaner 10/05/21 Virginia Patton PA-C [address] [place] [phone] [email or web address] Physician Planner Chief 12/16/23 documented as of this encounter Additional Source Comments The information contained in this document represents components of the legal health record. It is not the complete legal health record.[facility]
--- OUTSIDE RECORDS SUMMARY | 2025-02-04 16:08 | XMS_ITS | Clinical Summary ---
Author Organization [facility] Address [address] [place] [address] Phone Care Team Providers Care Network Associate Name Role Phone Hans Jaeger MD Primary Care Provider [phone] Allergies No known active allergies Medications sertraline [...] DX:Hypertension COPD (chronic obstructive pu lmonary disease) ([place] V24, [place] V28) DX:COPD (chronic o bstructive pulmonary disease) ([facility]) Anxiety DX:Anxiety Tobacco abuse DX:Tobacco abuse Seizure ([place] V24, [place] V28) DX:Seizure ([facility]);COMMENT:Last seizure 01/2019, 06/2017 failed Gabapentin/Topamax ( Ct Head 02/2017 Mild chronic mild diff atrophy ) EEG 03/2017 mild slowing, 01/2018 Gastritis 07/2017 DX:Gastritis;COM MENT:EGD Thrombocytopenia ([place] V24) D X:Thrombocytopenia ([facility]);COMMENT:08/2017 144, 04/2018 104 Subclinical hypothyroidism DX:Story bclinical hypothyroidism;COMMENT:08/2017 TSH 7.86 T4 0.86 Hypomagnesemia DX:Hypomagnesemi a;COMMENT:08/2017 1.5 History of cocaine use DX:Histor y of cocaine use Bipolar 1 disorder ([place] V24, [place] V28) DX:Bipolar 1 disorder ([facility]) Marijuana user DX:Marijuana use r;COMMENT:regular user GERD with esophagitis DX:GERD wi th esophagitis;COMMENT:07/2017 EGD Severe GERD With esophagitis Dr Springer Hepatic steatosis DX:Hepatic steatosis;COMMENT:02/25/2017 ultrasound mild diffuse increased echogenicity consistent with diffuse hepatic steatosis Alcohol use disorder, severe , dependence (CMS/HCC V24, CMS/HCC V28) DX:Alcohol use disorder, se jose luis, dependence (HCC);COMMENT:Admit 12/2017 with SI to [facility] MDD (major depressive disord er), recurrent episode (CMS/HCC V24) DX:MDD (major depressi ve disorder), recurrent episode (HCC);COMMENT:[facility] at [facility] PTSD (post-traumatic stress disorder) DX:PTSD [...] CMS/HCC V28) DX:Compression fx, thoracic spine ([facility]);COMMENT:T12, L1 ant wedge Compression Fx Spondylosis of [...] not to disclose 2024 12:22 PM EST Last Filed Vital Signs Vital Sign Reading [...] history exists Hypertension/CHF/CAD Annual BMP Blood Test 11/11/2025 11/11/2024, 11/10/2024, 11/07/2024, Additional history exists DTaP,Tdap,and Td Vaccines (12 [...] to complete this topic Insurance [place] [employer] [place]ANTAGE Care Teams Network Associate Relationship Specialty Start Date End Date Hans Jaeger MD [address] [place] [phone] PCP - General Internal Medicine 03/30/24
--- OUTSIDE RECORDS SUMMARY | 2025-02-04 16:08 | XMS_ITS | Encounter Summary ---
Author Organization [facility] Address [address] [place] [address] Phone Care Team Providers Care Manager Reading Name Role Phone Suni Garcia Primary Care Provider [phone] Virginia Patton-C Unavailable [phone] Encounter Details Date Type Department Care Team (Late st Contact Info) Description 04/28/2023 Procedure Pass [facility], Ct Scan - [facility] 30 [place], [place] [phone] Social History Tobacco Use Types Packs/Day Years [...] Description 03/09/2025 1:00 PM EST Office Visit [facility] 10 [place] [address] Lawrence Bustos MD [address] [address] documented as of this encounter Visit Diagnoses [...] documented as of this encounter Care Teams Manager Reading Relationship Specialty Start Date End Date Suni Garcia PA [address] [place] [address] PCP - General Legal Support Specialist 10/05/21 Virginia Patton PA-C [address] [place] [address] Physician Wiring Mechanic 12/16/23 documented as of this encounter Additional Source Comments The information contained in this document represents components of the legal health record. It is not the complete legal health record.[facility]
--- OUTSIDE RECORDS SUMMARY | 2025-02-04 16:08 | XMS_ITS | Encounter Summary ---
Author Organization [facility] Address [address] [place] [address] Phone Care Team Providers Care Litigation Legal Secretary Name Role Phone Hans Jaeger MD Primary Care Provider [phone] Suni Garcia Primary Care Provider [phone] Virginia Patton PA-C Unavailable [phone] Encounter Details Date Type Department Care Team (Latest Contact Info) Description 08/15/2021 Transcribe Orders [facility]le[facility] [address] [address] Luanne Yates, MAX [address] [place] [address] Change in bowel habits (Primary Dx); Functional diarrhea; Intestinal malabsorption, unspecified type Social History Tobacco Use Types [...] Description 03/09/2025 1:00 PM EST Office Visit [facility] [address] [place] [address] Lawrence Bustos MD [address] [address] [email or web address] documented as of this encounter Results * Calprotectin, stool (08/21/2021 4:14 PM EDT) STOOL CALPROTECTIN 89 mcg/g [facility] Comment: (NOTE) Reference Range: <50 Normal 50-120 Borderline >120 Elevated Calprotectin in Crohn's disease and ulcerative colitis can be five to several thousand times above the reference population (50 mcg/g or less). Levels are usually 50 mcg/g or less in healthy patients and with irritable bowel syndrome. Repeat testing in 4-6 weeks is suggested for borderline values. Stool (Stool) 08/21/2021 4:1 4 PM EDT 08/21/2021 4:20 PM EDT Luanne Yates NP LAB BODY FLUIDS AND STOOL ORDERABLES Final Result [facility] [facility] [address] [place] [address] * Fecal immunochemical test x1 (FIT) (08/21/2021 4:14 PM EDT) Immuno Fecal Occult Negative Negative [facility] Stool (Stool) 08/21/2021 4:1 4 PM EDT 08/21/2021 4:20 PM EDT Luanne Yates NP LAB BODY FLUIDS AND STOOL ORDERABLES Final Result [address] [address] * Pancreatic Elastase, Stool (08/21/2021 4:14 PM EDT) Pathologist [facility] Pancreatic Elastase, Feces >500 >200 (Normal) mcg/g [facility] Stool (Stool) 08/21/2021 4:1 4 PM EDT 08/21/2021 4:21 PM EDT Luanne Yates NP BODY FLUIDS AND STOOLS OR DERABLES Final Result Performing Organization Address City/[facility]/ZIP Co de Phone Number [facility] [address] [place] [address] * Stool fat/fiber exam (08/21/2021 4:14 PM EDT) [facility] FATTY ACID NORMAL NORMAL [facility] Neutral Fat, stool NORMAL NORMAL [facility] Stool (Stool) 08/21/2021 4:1 4 PM EDT 08/21/2021 4:20 PM EDT Luanne Yates NP BODY FLUIDS AND STOOLS OR DERABLES Final Result Performing Organization Address [facility] de Phone Number [address] [address] * Giardia antigen screen (08/21/2021 4:14 PM EDT) Pathologist [facility] GIARDIA ANTIGEN Negative Negative [facility] DPT OF LAB MED AND PAT+ Comment: (NOTE) ADDITIONAL INFORMATION Test Performed by Enzyme Immunoassay. Stool (Stool) 08/21/2021 4:1 4 PM EDT 08/21/2021 4:21 PM EDT Luanne Yates NP LAB BODY FLUIDS AND STOOL ORDERABLES Final Result Performing Organization Address City/[facility]/ZIP Co de Phone Number [facility] DPT OF LAB MED AND PAT+ [address] [place] [address] * Fecal leukocyte examination (08/21/2021 4:14 PM EDT) Special Requests None 08/21/2021 4:14 PM EDT [facility] GRAM STAIN No WBC seen on smear. 08/22/2021 8:23 AM EDT [facility] Stool (Stool) 08/21/2021 4:1 4 PM EDT 08/21/2021 4:21 PM EDT Luanne Yates NP LAB BODY FLUIDS AND STOOL ORDERABLES Final Result Performing Organization Address [facility] Co de Phone Number [address] [address] * Stool culture (08/21/2021 4:14 PM EDT) [facility] Special Requests None 08/21/2021 4:14 PM EDT [facility] Stool Culture NO SALMONELLA, SHIGELLA OR CAMPYLOBACTER ISOLATED 08/24/2021 8:25 AM EDT [facility] Stool (Stool) 08/21/2021 4:1 4 PM EDT 08/21/2021 4:21 PM EDT Luanne Yates NP LAB MICROBIOLOGY CULTURE ORDERABLES Final Result Performing Organization Address [facility] Co de Phone Number [address] [address] * C. DIFFICILE PCR (08/21/2021 4:14 PM EDT) [facility] C.DIFFICILE PCR Negative Negative [facility] C.DIFFICILE STRAIN PRESUMPTIVE NEGATIVE PRESUMPTIVE NEGATIVE [facility] Comment:Detection of 027/NAP 1/BI strains of C.difficile is presumptive and is solely for epidemiological purposes and is not intended to guide or monitor treatment of infections. Stool (Stool) 08/21/2021 4:1 4 PM EDT 08/21/2021 4:20 PM EDT Luanne Yates NP LAB BODY FLUIDS AND STOOL ORDERABLES Final Result [facility] [address] [place] [address] * Ova and parasites, stool (08/20/2021 1:15 PM EDT) Parasitic exam FINAL 2 1254 [facility] DPT OF LAB MED AND PAT+ Comment: (NOTE) SOURCE: STOOL OVA AND PARASITE, MICROSCOPY, F FINAL No parasites seen. Cryptosporidium, Cyclospora, and microsporidia are not readily detected by this method. Single negative specimen does not rule out parasitic infection. Stool (Stool) 08/20/2021 1:1 5 PM EDT 08/21/2021 4:20 PM EDT Luanne Yates PATIENT REGISTRATION MANAGER LAB BODY FLUIDS AND STOOL ORDERABLES Final Result Performing Organization Address City/[facility]/ZIP Co de Phone Number [facility] DPT OF LAB MED AND PAT+ [address] [place] [address] * Ova and parasites, stool (08/18/2021 1:15 PM EDT) Parasitic exam FINAL 2 1157 [facility] DPT OF LAB MED AND PAT+ Comment: (NOTE) SOURCE: STOOL OVA AND PARASITE, MICROSCOPY, F FINAL No parasites seen. Cryptosporidium, Cyclospora, and microsporidia are not readily detected by this method. Single negative specimen does not rule out parasitic infection. Stool (Stool) 08/18/2021 1:1 5 PM EDT 08/21/2021 4:19 PM EDT Luanne Yates NP LAB BODY FLUIDS AND STOOL ORDERABLES Final Result [facility] DPT OF LAB MED AND PAT+ [address] [place] [address] * Ova and parasites, stool (08/17/2021 1:00 PM EDT) Parasitic exam FINAL 2 1131 [facility] DPT OF LAB MED AND PAT+ Comment: (NOTE) SOURCE: STOOL OVA AND PARASITE, MICROSCOPY, F FINAL No parasites seen. Cryptosporidium, Cyclospora, and microsporidia are not readily detected by this method. Single negative specimen does not rule out parasitic infection. Stool (Stool) 08/17/2021 1:0 0 PM EDT 08/21/2021 4:18 PM EDT Luanne Yates PATIENT REGISTRATION MANAGER LAB BODY FLUIDS AND STOOL ORDERABLES Final Result [facility] DPT OF LAB MED AND PAT+ [address] [place] [address] * (ABNORMAL) 25-OH vitamin D (08/15/2021 3:57 PM EDT) 25 OH VIT D (TOTAL) 22(L) 30 - 60 ng/mL [facility] Blood 08/15/2021 3:57 PM EDT 08/15/2021 4:12 PM EDT Luanne Yates NP LAB BLOOD BKR ORDERABLES Final Result Performing Organization Address City/[facility]/ZIP Co de Phone Number [address] [address] * (ABNORMAL) Iron and iron binding capacity (08/15/2021 3:57 PM EDT) IRON 62 45 - 160 ug/dL [facility] IRON BINDING CAPACITY 389 228 - 428 ug/dL [facility] TRANSFERRIN SATURAT. 16(L) 20 - 55 % [facility] Blood 08/15/2021 3:57 PM EDT 08/15/2021 4:12 PM EDT Luanne Yates NP LAB BLOOD BKR ORDERABLES Final Result Performing Organization Address City/[facility]/ZIP Co de Phone Number [address] [address] * C-Reactive Protein (08/15/2021 3:57 PM EDT) C REACTIVE PROTEIN <3.0 0.0 - 4.0 mg/L [facility] Blood 08/15/2021 3:57 PM EDT 08/15/2021 4:12 PM EDT Luanne Yates PATIENT REGISTRATION MANAGER LAB BLOOD BKR ORDERABLES Final Result [facility] [address] [place] [address] * Comprehensive metabolic panel (08/15/2021 3:57 PM EDT) Pathologist [facility] SODIUM 140 133 - 146 mmol/L [facility] POTASSIUM 4.5 3.3 - 5.1 mmol/L [facility] CHLORIDE 104 96 - 108 mmol/L [facility] CO2 23 21 - 35 mmol/L [facility] BUN 9 6 - 19 mg/dL [facility] CREATININE 0.90 0.5 - 1.5 mg/dL [facility] GLUCOSE 89 70 - 99 mg/dL [facility] ALBUMIN 4.7 3.9 - 4.8 g/dL [facility] TOTAL PROTEIN 7.7 6.5 - 8.0 g/dL [facility] CALCIUM 10.0 8.4 - 10.3 mg/dL [facility] ALKALINE PHOSPHATASE 89 39 - 117 U/L [facility] TOTAL BILIRUBIN 0.2 0.0 - 1.2 mg/dL [facility] AST 18 0 - 37 U/L [facility] ALT 9 0 - 40 U/L [facility] GLOBULIN 3.0 1 - 4.8 g/dL [facility] EGFR 105 >59 mL/min/1.7 3m2 [facility] Comment:Estimated glomerular filtration rate calculated using the CKD-EPI refit equation. ANION GAP 18 10 - 20 mmol/L [facility] Blood 08/15/2021 3:57 PM EDT 08/15/2021 4:12 PM EDT us Luanne Lexii Yates PATIENT REGISTRATION MANAGER LAB BLOOD BKR ORDERABLES Final Result [facility] [address] [place] [address] * (ABNORMAL) CBC and differential (08/15/2021 3:57 PM EDT) WBC 8.46 4.00 - 11.00 K/uL [facility] RBC 4.79 4.23 - 5.82 M/uL [facility] HGB 14.2 13.4 - 17.5 g/dL [facility] HCT 44.6 37.0 - 51.0 % [facility] PLT 207 140 - 430 K/uL [facility] MCV 93.1 78.0 - 97.0 fL [facility] MCH 29.6 25.0 - 33.0 pg [facility] MCHC 31.8(L) 32.0 - 36.0 g/dL [facility] RDW 14.1 11.0 - 15.0 % [facility] MPV 10.7 8.4 - 12.8 fl [facility] NRBC 0.00 0 /100 WBCs [facility] ABSOLUTE NRBC 0.00 0 K/uL [facility] DIFF METHOD Auto [facility] NEUTS 43.6 43.0 - 75.0 % [facility] LYMPHS 44.0 18.2 - 47.4 % [facility] MONOS 7.1 4.00 - 11.00 % [facility] EOS 4.4 0.0 - 8.0 % [facility] BASOS 0.7 0.0 - 2.0 % [facility] Granulocytes, immature (%) 0.2 0.0 - 0.9 % [facility] ABSOLUTE NEUTS 3.69 1.80 - 7.70 K/uL [facility] ABSOLUTE LYMPHS 3.72(H) 1.00 - 3.10 K/uL [facility] ABSOLUTE MONOS 0.60 0.20 - 0.80 K/uL [facility] ABSOLUTE EOS 0.37 0.00 - 0.80 K/uL [facility] ABSOLUTE BASOS 0.06 0.00 - 0.09 K/uL [facility] Granulocytes, immature 0.02 0.00 - 0.05 K/uL [facility] Blood 08/15/2021 3:57 PM EDT 08/15/2021 4:12 PM EDT Luanne Yates NP LAB BLOOD BKR ORDERABLES Final Result Performing Organization Address [facility] de Phone Number [address] [address] * Immunoglobulin A (08/15/2021 3:57 PM EDT) IgA 301 70 - 400 mg/dL [facility] Blood 08/15/2021 3:57 PM EDT 08/15/2021 4:12 PM EDT Luanne Yates NP LAB BLOOD BKR ORDERABLES Final Result Performing Organization Address [facility] de Phone Number [address] [address] * Tissue transglutaminase IgA (08/15/2021 3:57 PM EDT) TTG IGA ANTIBODY 1.4 <4.0 (Negative) U/mL [facility] Blood 08/15/2021 3:57 PM EDT 08/15/2021 4:05 PM EDT Luanne Yates NP LAB BLOOD BKR ORDERABLES Final Result Performing Organization Address [facility] de Phone Number [facility] [address] [place] [address] documented in this encounter Visit Diagnoses Diagnosis Change in bowel habits- Primary Other symptoms involving digestive system Functional diarrhea Intestinal malabsorption, unspecified type documented in this encounter Additional Health Concerns Infection Onset Date Last Indicated Resolved Time CDiff-Risk 05/29/2023 06/24/2023 06/05/2023 1:22 AM EDT [facility]-Risk 06/24/2023 06/24/2023 06/24/2023 6:05 PM EDT [facility] Comment:Per note documentation 10/29/2024 10/29/2024 4:02 PM EDT [facility] 10/31/2024 10/31/2024 11/14/2024 1:21 AM EDT RSV 11/10/2024 11/10/2024 11/17/2024 1:21 AM EDT documented as of this encounter Care Teams Litigation Legal Secretary Relationship Specialty Start Date End Date Hans Jaeger MD PCP - General Internal Medicine 02/02/21 10/04/21 Suni Garcia PA [address] [place] [id number] PCP - General Regional Ehs Manager 10/05/21 Virginia Patton PA-C [address] [place] [phone] Physician Manager Emergency Department 12/16/23 documented as of this encounter Additional Source Comments The information contained in this document represents components of the legal health record. It is not the complete legal health record.[facility]
--- OUTSIDE RECORDS SUMMARY | 2025-02-04 16:08 | XMS_ITS | Encounter Summary ---
Author Organization [facility] Address [address] [place] [address] Phone Care Team Providers Care Team Facilitator Name Role Phone Suni Garcia Primary Care Provider [phone] Virginia Patton-C Unavailable Encounter Details Date Type Department Care Team (Late st Contact Info) Description 04/28/2023 Procedure Pass [facility], Ct Scan - [facility] [address] [place], [place] [id number] Social History Tobacco Use Types Packs/Day Years [...] Description 03/09/2025 1:00 PM EST Office Visit [facility] Gastroenterology Clinic [address] [place] [address] Lawrence Bustos MD [address] [address] documented as of this encounter Visit Diagnoses [...] documented as of this encounter Care Teams Team Facilitator Relationship Specialty Start Date End Date Suni Garcia PA [address] [place] [id number] PCP - General Lead Generation Representative 10/05/21 Virginia Patton PA-C [address] [place] [phone] Physician Tennis Coach 12/16/23 documented as of this encounter Additional Source Comments The information contained in this document represents components of the legal health record. It is not the complete legal health record.[facility]
--- OUTSIDE RECORDS SUMMARY | 2025-02-04 16:08 | XMS_ITS | Clinical Summary ---
Author Organization [facility] Address [address] [facility] [address] [place] [phone] Phone Care Team Providers Care Bottom Ironer Name Role Phone Suni Garcia Primary Care Provider [phone] Virginia Patton PA-C Unavailable [phone] Allergies Active Allergy Reactions Criticality Noted Date Comments Aripiprazole Hallucinations High 04/21/2023 Levetiracetam 04/21/2023 Lisinopril Cough,Nausea And Vomiting 04/21/2023 Lurasidone 04/21/2023 Medications sertraline (ZOLOFT) 100 MG tablet Take 200 mg by mouth daily. Active atenolol (TENORMIN) 25 MG tablet Take 25 mg by mouth daily. Takes 25 mg daily Active mirtazapine (REMERON) 30 MG tablet Take 30 mg by mouth nightly at bedtime. Active albuterol 90 mcg/actuation inhaler Inhale 2 puffs into the lungs every 4 (four) hours as needed for wheezing. 09/13/19 20 Active cyanocobalamin, vitamin B-12, 1000 MCG tablet Take 500 mcg by mouth nightly at bedtime. 12/02/19 20 Active levothyroxine (SYNTHROID, LEVOTHROID) 75 MCG tablet Take 75 mcg by mouth every morning. 01/03/20 21 Active magnesium oxide (MAG-OX) 400 mg (241.3 mg elemental) tablet Take 2 tablets by mouth daily. 01/13/20 21 Active topiramate (TOPAMAX) 200 MG tablet Take 200 mg by mouth 2 (two) times a day. 11/23/19 25 Active albuterol (ACCUNEB) 0.63 mg/3 mL nebulizer solution Take 1 ampule by nebulization every 6 (six) hours as needed for wheezing. Active cyclobenzaprine (FLEXERIL) 10 MG tablet Take 10 mg by mouth 3 (three) times a day as needed. 12/14/19 23 Active pantoprazole (PROTONIX) 40 MG tablet Take 1 tablet by mouth every morning. 10/04/19 23 Active celecoxib (CELEBREX) 100 MG capsule Take 100 mg by mouth 2 (two) times a day. Active gabapentin (NEURONTIN) 300 MG capsule Take 3 capsules (900 mg total) by mouth 3 (three) times a day. 08/05/19 24 Active ascorbic acid, vitamin C, (VITAMIN C) 500 MG tablet Take 1 tablet (500mg) by mouth Mondays, Wednesdays and Fridays 30 tablet 2 07/28/19 25 Active lamoTRIgine (LAMICTAL) 25 MG IMMEDIATE release tablet Take 75 mg by mouth 2 (two) times a day. 12/21/19 25 Active folic acid (FOLVITE) 1 MG tablet Take 1 tablet (1 mg total) by mouth daily. 11/13/19 25 Active hydrOXYzine (ATARAX) 25 MG tablet Take 1 tablet (25 mg total) by mouth every 6 (six) hours as needed for anxiety. 11/13/19 25 Active guaiFENesin (MUCINEX) 600 mg ER biphasic tablet Take 2 tablets (1,200 mg total) by mouth 2 (two) times a day. 11/13/19 25 026 Active Additional Information Patient not taking.Reason: Therapy complete, Reported on 01/20/2025 ipratropium-albute roL (DUONEB) 0.5-3 mg (2.5 mg base)/3 mL nebulizer solution Take 3 mL by nebulization 4 (four) times a day. 11/13/19 25 Active Additional Information Patient not taking.Reason: Other, Reported on 01/20/2025 melatonin 5 mg Tab Take 1 tablet (5 mg total) by mouth nightly at bedtime as needed (sleep). 11/13/19 Active Additional Information Patient not taking.Reason: Other, Reported on 01/20/2025 OLANZapine (ZYPREXA ZYDIS) 5 MG disintegrating tablet Take 1 tablet (5 mg total) by mouth nightly at bedtime. 11/13/19 Active Additional Information Patient not taking.Reason: Other, Reported on 01/20/2025 multivitamin per tablet Take 1 tablet by mouth daily. 11/13/19 Active Additional Information Patient not taking.Reason: Therapy complete, Reported on 01/20/2025 ondansetron (ZOFRAN-ODT) 4 MG disintegrating tablet Take 4 mg by mouth every 12 (twelve) hours as needed for nausea. dissolve on tongue 08/03/19 Active acetaminophen (TYLENOL) 500 MG tablet Take 1,000 mg by mouth 3 (three) times a day. 12/22/19 Active baclofen (LIORESAL) 10 MG tablet Take 10 mg by mouth 2 (two) times a day. Active baclofen (LIORESAL) 10 MG tablet Take 10 mg by mouth 3 (three) times a day. 12/22/19 025 Discontin ued(No longer taking) Active Problems Problem Noted Date Diagnosed Date Acute lung injury 11/11/2024 Tachycardia 11/09/2024 Rhinovirus infection 11/03/2024 PTSD (post-traumatic stress disorder) 11/02/2024 Acute on chronic anemia 11/02/2024 Chronic pain 11/02/2024 Acute respiratory failure with hypoxia Assessment & Plan (10/31/2024 1:15 PM EDT): Related to multifocal pneumonia and chronic COPD Supplemental oxygen as needed, wean as tolerated ABG notable for pH 7.39, pCO2 27, PaO2 80 on 10 L, bicarb 16 Treatment as below Multifocal pneumonia 10/29/2024 Assessment & Plan (10/31/2024 1:15 PM EDT): -Patient presented with shortness of breath, cough, fever, tachycardia, tachypnea, hypoxia -Chest x-ray shows multifocal pneumonia, chest x-ray performed 10/23 at [facility] was clear and cxe repeated thismorning shows worsening pna -Now on zosyn and azithro for HCAP -Follow-up Legionella, strep pneumo, MRSA screen negative - resp path panel pending -no evidence of pulm edema on CXR, BNP low and bedside echo w/hyperdynamic LV Assessment & Plan (10/30/2024 2:40 PM EDT): -Patient presented with shortness of breath, cough, fever, tachycardia, tachypnea, hypoxia -Chest x-ray shows multifocal pneumonia, chest x-ray performed 10/23 at [facility] was clear -Cont IV Rocephin and azithromycin -Follow-up Legionella, strep pneumo, MRSA screen Assessment & Plan (10/30/2024 12:33 AM EDT): -Patient presented with shortness of breath, cough, fever, tachycardia, tachypnea, hypoxia -Chest x-ray shows multifocal pneumonia, chest x-ray performed 10/23 at [facility] was clear -Started on IV Rocephin and azithromycin -Follow-up Legionella, strep pneumo, MRSA screen -If symptoms are not improving consider CT chest Hereditary hemochromatosis 05/16/2024 Left carpal tunnel syndrome 05/21/2023 Alcohol abuse 06/10/2021 Assessment & Plan (10/31/2024 1:15 PM EDT): -Patient still drinks about 2 drinks per night -received phenobarb overnight for concern for JANE -Closely monitor with CIWA -Supplement thiamine, folate, multivitamin Assessment & Plan (10/30/2024 2:40 PM EDT): -Patient still drinks about 2 drinks per night -Currently no signs of withdrawal -Closely monitor with CIWA -Supplement thiamine, folate, multivitamin Assessment & Plan (10/30/2024 12:33 AM EDT): -Patient still drinks about 2 drinks per night -Currently no signs of withdrawal -Closely monitor with CIWA -Supplement thiamine, folate, multivitamin Assessment & Plan (06/11/2021 3:34 PM EDT): History of alcohol use disorder. He reports that he currently drinks much less than he did previously in the remote past. He did not feel he was experiencing alcohol withdrawal at the time he had a seizure, but had not consumed alcohol for several days. EtOH level was less than 10 at the time of admission He showing no signs of withdrawal currently -- We will continue to monitor on CIWA Anxiety 02/02/2021 Assessment & Plan (06/10/2021 9:36 PM EDT): - Continue hydroxyzine and Ativan Chronic obstructive pulmonar y disease with acute exacerbation 02/02/2021 Assessment & Plan (10/31/2024 1:15 PM EDT): -Patient is not normally on home oxygen but is currently requiring 3-10 L to maintain saturation in the mid 90s; wheezing improved -cont scheduled duonebs -added hypersal BID -consider steroids if not improved tomorrow -Continue as needed albuterol Assessment & Plan (10/30/2024 2:40 PM EDT): -Patient is not normally on home oxygen but is currently requiring 3 L to maintain saturation in the mid 90s; wheezing today -add scheduled duonebs -consider steroids if not improved tomorrow -Continue as needed albuterol Assessment & Plan (10/30/2024 12:33 AM EDT): -Patient is not normally on home oxygen but is currently requiring 3 L to maintain saturation in the mid 90s -Continue as needed albuterol Assessment & Plan (06/10/2021 9:35 PM EDT): -Currently no shortness of breath or wheezing, patient just completed a prednisone taper -Continue as needed albuterol GERD (gastroesophageal reflux disease) Overview (02/02/2021): Dr Springer History of cocaine use 02/02/2021 Insomnia 02/02/2021 Marijuana user 02/02/2021 Overview (02/02/2021): regular user Hypothyroidism 02/02/2021 Overview (02/02/2021): 08/2017 TSH 7.86 Thrombocytopenia 02/02/2021 Overview (02/02/2021): 08/2017 144 Alcohol use disorder, severe, dependence 020 Recurrent major depressive disorder, in full rem ission 07/28/2017 Essential hypertension 04/01/2017 Assessment & Plan (10/31/2024 1:15 PM EDT): - Blood pressures on the lower side 104/75 - continue holding atenolol for now Assessment & Plan (10/30/2024 2:40 PM EDT): - Blood pressures on the lower side 104/75 - hold atenolol for now Assessment & Plan (10/30/2024 12:33 AM EDT): - Blood pressures on the lower side 104/75, hold atenolol for now Assessment & Plan (06/10/2021 9:36 PM EDT): -Blood pressures currently well controlled, continue atenolol Seizure disorder 04/01/2017 Overview (02/02/2021): Last seizure 06/2017 failed Gabapentin/Topamax ( Ct Head 02/2017 Mild chronic mild diff atrophy ) EEG 03/[address] Rodríguez Assessment & Plan (10/31/2024 1:15 PM EDT): -Continue Lamictal and Topamax -Seizure precautions Assessment & Plan (10/30/2024 2:40 PM EDT): -Continue Lamictal and Topamax -Seizure precautions Assessment & Plan (10/30/2024 12:33 AM EDT): -Continue Lamictal and Topamax -Seizure precautions Assessment & Plan (08/05/2023 1:01 AM EDT): 2 seizures in one day, presumably related to med noncompliance and etoh use. Will observe overnight as per neuro rec Given ativan and phenobarb in ER Will monitor clinically, given his routine gabapentin and topamax now as well (missed 2 doses today) Assessment & Plan (06/13/2021 4:07 PM EDT): He has a history of seizures, at least some attributed to alcohol withdrawal. His neurologist is Dr. Mitchell. He is on only a very low dose of Dilantin and his main antiepileptic is topiramate (per his mother) I suspect discontinuation of EtOH may have contributed to the seizure. He does report cutting back on his alcohol consumption, but LFT abnormalities suggest ongoing EtOH toxicity. No new seizure episode -- Continue CIWA and monitoring for alcohol withdrawal -- Continue topiramate and phenytoin as scheduled -- Spoke with Dr. Mitchell who recommends EtOH cessation counseling. Can continue current antiepileptic regimen. Attempts have been made to wean him off Dilantin though the patient has been reluctant to stop completely out of concern this would worsen the frequency of his seizures. He is only on a low dose, but theoretically it could contribute to his ataxia Tobacco use disorder 04/01/2017 Assessment & Plan (08/05/2023 1:02 AM EDT): Patch and gum offered Encoruaged to quit Assessment & Plan (06/10/2021 9:37 PM EDT): -Reports being down to 5 cigarettes/day, declined nicotine patch -Smoking cessation advised Resolved Problems Problem Noted Date Diagnosed Date Resolved Date Hypophosphatemia 11/04/2024 11/07/2024 Volume overload 11/02/2024 11/07/2024 Alcohol withdrawal 11/02/2024 Acute respiratory distress syndrome (ARDS) 11/02/2024 11/07/2024 Acute encephalopathy 11/01/2024 025 Sepsis 10/30/2024 11/07/2024 Assessment & Plan (10/31/2024 1:15 PM EDT): -Patient presented with fever of 102.7, heart rate 118, respiratory rate 32, leukocytosis 14.62 and hypoxia -remains tachy and febrile today -repeat procalc is elevated, suggesting need for broader abx -Initial lactate elevated at 3.19; resolved with volume resusc -Sepsis secondary to multifocal pneumonia -Follow-up blood cultures remain NGTD -exam suggestive of ongoing volume depletion -LR 1 liter bolus to follow w/ maintenance IVF Assessment & Plan (10/30/2024 2:40 PM EDT): -Patient presented with fever of 102.7, heart rate 118, respiratory rate 32, leukocytosis 14.62 -Initial lactate elevated at 3.19; resolved -Sepsis secondary to multifocal pneumonia -Follow-up blood cultures -completed volume resuscitation; enc PO Assessment & Plan (10/30/2024 12:33 AM EDT): -Patient presented with fever of 102.7, heart rate 118, respiratory rate 32, leukocytosis 14.62 -Initial lactate elevated at 3.19 -Sepsis secondary to multifocal pneumonia -Follow-up blood cultures -IVF Leukocytosis 06/10/2021 11/07/2024 Assessment & Plan (06/13/2021 4:08 PM EDT): Leukocytosis to 15.7 thousand at time of admission, resolved -- Continue surveillance Generalized weakness 06/10/2021 025 Assessment & Plan (06/13/2021 4:08 PM EDT): He is presenting with lower extremity weakness, ataxia, gait instability, back/neck pain and neck weakness. The cause seems to be multifactorial. He has peripheral neuropathy, degenerative disease in the cervical and lumbar spine, L2 nerve root compression and ataxia that may be related to chronic EtOH abuse. MRI brain shows mild volume loss otherwise unremarkable MRI cervical spineShows multilevel degenerative disease with moderate neuroforaminal stenosis at C5-C6 and C6-C7 MRI lumbar spine shows: L2-3 left foraminal disc herniation compressing the L2 nerve root, degenerative changes and chronic mild T12-L1 compression fracture. Also noted nonspecific bilateral psoas and posterior paraspinal muscle edema without fluid collection. Certainly L2 nerve root compression may be a factor, though unlikely the entire explanation for his presenting symptoms Review of outpatient neurology records shows that he is ataxia and cervical stenosis are not new. He has had work-up in the past for his peripheral neuropathy. --He will need short-term rehab. PT/OT following --Prednisone taper -- Continue gabapentin 600 mg 3 times daily. Will need to wean down the oxycodone -- I spoke with his neurologist and conveyed findings from hospitalization. -- EtOH likely the major factor contributing to his ataxia and neuropathy. He is encouraged to achieve abstinence and counseled about this today. -- Outpatient follow-up with [facility] to address his lumbar radiculopathy. Unfortunately he will likely need to reschedule his outpatient appointment that had been planned for tomorrow Hypomagnesemia 02/02/2021 11/07/2024 Overview (02/02/2021): 08/2017 1.5 Elevated LFTs 07/28/2017 11/07/2024 Assessment & Plan (06/12/2021 5:00 PM EDT): -Likely secondary to alcohol use with AST being significantly greater than ALT -- Trending labs Encounters Date Type Department Care Team Description 01/20/2025 2:41 PM EST - 01/20/2025 11:59 PM EST Hospital Encounter [address] [address] Alaina Severino PA-C Discharge Disposition: Home or Self Care 01/20/2025 2:40 PM EST Office Visit [facility] [address] [place] [phone] Alaina Severino PA-C Left hand pain (Primary Dx); Arthritis of carpometacarpal (CMC) joint of left thumb 01/10/2025 2:15 PM EST [facility] [address] [place] [phone] Yasmin Witt, PT PT OASIS DISCHARGE VISIT 01/05/2025 2:30 PM EST Telemedicine - audio only [facility] Hematology Oncology Clinic at [address] [address] Virginia Patton PA-Cindi Low iron stores (Primary Dx) 01/04/2025 7:15 PM EST - 01/04/2025 11:59 PM EST Hospital Encounter [facility], Ct Scan - [address] [address] Suni Garcia PA Discharge Disposition: Home or Self Care 01/03/2025 2:00 PM EST Home [facility] [address] [place] [phone] Yasmin Witt, PT PT HOME VISIT 12/30/[address] [facility] Gastroenterology Clinic [address] [place] [phone] Lawrence Bustos MD Symptoms 12/29/2024 Episode Documentation Update [facility] [address] [place] [phone] Keri Woodard 12/27/2024 1:45 PM EST Home Care Visit [facility] [address] [place] [phone] Yasmin Witt, PT PT HOME VISIT 12/24/2024 Telephone [facility] Hematology Oncology Clinic at [address] [address] Virginia Patton PA-C 12/23/2024 Orders Only [facility] Hematology Oncology Clinic at [address] [address] Virginia Patton PA-C Low serum vitamin C (Primary Dx); Hereditary hemochromatosis; Elevated ferritin level 12/22/2024 1:45 PM EST Home Care Visit [facility] [address] [place] [phone] Yasmin Witt, PT PT HOME VISIT 12/22/2024 Orders Only [facility] Hematology Oncology Clinic at [address] [address] [place] 12/21/2024 Orders Only [facility] Hematology Oncology Clinic at [address] [address] Alice [place], [place] Hereditary hemochromatosis (Primary Dx) 12/20/2024 1:15 PM EST Home Care Visit [facility] [address] [place] [address] Yasmin Witt, PT PT HOME VISIT 12/20/2024 Procedure Pass [facility], Ct Scan - [address] [address] 12/20/2024 Transcribe Orders Virtual Department [address] [place] [phone] Suni Garcia PA Other pneumonia, unspecified organism (Primary Dx) 12/13/2024 12:45 PM EDT Home Care Visit [facility] [address] [place] [phone] Yasmin Witt, PT PT OASIS START OF CARE (SOC) 12/13/2024 Plan of Care Documentation [facility] [address] [place] [address] 12/06/2024 Home Care Visit [facility] [address] [place] [phone] Yasmin Witt, PT TELEPHONE ENCOUNTER 11/24/2024 Orders Only [facility] [address] [place] [address] Homehealth, Tracee Viveros MD 11/23/2024 11:00 AM EDT Office Visit [facility] Occupational Therapy Clinic [address] [place] [address] Suni Garcia PA Vaine, Samantha, ELDON Chronic obstructive pulmonary disease with acute exacerbation (Primary Dx) 11/10/2024 1:00 PM EDT - 11/10/2024 2:30 PM EDT Surgery [facility] Endoscopy Admitting Dept Virtual Department [address] [place] [phone] Dewayne Foster MD, MS BRONCHOSCOPY FLEXIBLE 11/10/2024 Procedure Pass [facility] Endoscopy Admitting Dept Virtual Department [address] [place] [phone] 11/09/2024 10:15 AM EDT Ancillary Procedure [facility], Ultrasound - [address] [address] Shikha Hartman PA-C, MS 11/09/2024 Procedure Pass [facility], Ct Scan - [address] [address] 11/07/2024 Orders Only [facility] [address] [place] [phone] Homehealth, Interface ProviderMD 10/29/2024 8:53 PM EDT - 11/12/2024 6:15 PM EDT Hospital Encounter [facility] [address] [place] [phone] Rosaline Castellanos MD Israeli, Diana A, DO Russo, Margaret A, MD Barbosa-Angles, Brianna R, DO, MPH Kumar Torres DO, MPH Dewayne Foster MD, MS Rex Darby MD Zaman, Tonbira S, MD Oliveira, Paulo J, MD Discharge Disposition: Intermediate Facility from Last 3 Months Immunizations Immunization Administration Dates Next Due COVID-19 (Pre-12/09) Pfizer Vaccine, mRNA, PF 06/15/2020,05/24/2020 DTP 08/27/1976, 4,1972,11/04,1972 INFLUENZA, SPLIT VIRUS, TRIVALENT PF 02/24/2024 INFLUENZA, SPLIT VIRUS, TRIV ALENT W/ PRESERVATIVE IM 10/15/2010 Influenza Quadrivalent MDCK Preservative Free IM 12/14/2021 Influenza Quadrivalent Prese rvative Free IM 12/13/2022,12/28/2020,11/04/2019 Influenza Quadrivalent w/ Pr eservative IM 11/05/2020,01/18/2020 Measles 06/28/1975,07/30/1973 Mumps 08/24/1974 Pneumococcal polysaccharide PPSV23 08/07/2020 Polio - OPV 08/27/1976, 4,1972,11/04,1972 Rubella 06/28/1975 Td (adult) 5 Lf Tetanus Toxo id, PF, Adsorbed 08/30/2014 Td (adult),2 Lf Tetanus Toxo id, PF, Adsorbed 09/20/2018 Tdap 09/20/2018,08/31/2015,07/13/2008 Family History Medical History Relation Comments Heart disease Maternal Grandfather Heart disease Maternal Grandmother Relation Status Comments Maternal Grandfather Maternal Grandmother Social History Tobacco Use Types Packs/Day Years Used Date Smoking Tobacco: Every Day Cigarettes 0.3 30 Smokeless Tobacco: Never Tobacco Cessation:Ready to Q uit: Not Asked; Counseling Given: Not Answered Comments:now smoking 5 cigarettes per day Alcohol Use Standard Drinks/Week Comments [...] Orientation Straight 06/08/2024 12 :21 PM EDT Last Filed Vital Signs Vital Sign Reading Time Taken Comments Blood Pressure 106/78 01/10/2025 2:36 PM EST Pulse 74 01/10/2025 2:36 PM EST Temperature 36.6 C (97.8 F) 01/10/2025 2:36 PM EST Respiratory Rate 16 01/10/2025 2:36 PM EST Oxygen Saturation 97% 01/10/2025 2:36 PM EST Inhaled Oxygen Concentration 45% 11/06/2024 4 :00 PM EDT Weight 72.6 kg (160 lb 1.6 oz) 11/12/2024 12:30 AM EDT Height 182.9 cm (6') 10/30/2024 12:39 AM EDT Body Mass Index 21.71 10/30/2024 12:39 AM EDT Plan of Treatment Upcoming Encounters Date Type Department Care Team ([facility] st Contact Info) Description 03/09/2025 1:00 PM EST Office Visit [facility] Gastroenterology Clinic [address] [place] [address] Lawrence Bustos MD [address] [address] Health Maintenance Due Date Last Done Comments LIPID PANEL 1972 DEPRESSION SCREENING 1984 HIV ONE-TIME SCREENING (18-65 YEARS) 1990 COLOGUARD 2017 FOBT 2017 SIGMOIDOSCOPY 2017 VIRTUAL COLONOSCOPY 2017 PNEUMOCOCCAL VACCINES (50+ years) (2 of 2 - PCV) 08/07/2021 08/07/2020 RSV VACCINE (1 - Risk 50-74 years 1-dose series) 2022 ZOSTER VACCINES (1 of 2) 2022 FIT TEST 06/23/2024 06/24/2023, 08/21/2021 COVID-19 VACCINE (2024- season) 2024 12/14/2021, 03/05/2021, 06/15/2020, Additional history exists BLOOD PRESSURE 07/10/2025 01/10/2025 TSH LEVEL 10/31/2025 10/31/2024, 0402/2023, 06/13/2021 SMOKING Hx and SMOKELESS TOBACCO SCREENING 01/20/2026 01/20/2025 Adult Td,Tdap Booster 09/20/2028 09/20/2018 , 09/20/2018, 08/31/2015, Additional history exists COLONOSCOPY 10/06/2031 12/30/2023 COLORECTAL CANCER SCREENING 10/06/2031 HEPATITIS C SCREENING Completed 05/29/2023, 024 INFLUENZA VACCINE Completed 11/24/2024, , 12/13/2022, Additional history exists HEPATITIS A VACCINES Aged Out No long er eligible based on patient's age to complete this topic HIB VACCINES Aged Out No longer eligi ble based on patient's age to complete this topic MENINGOCOCCAL VACCINES (ACWY) Aged Out No longer eligible based on patient's age to complete this topic MENINGOCOCCAL VACCINES (B) Aged Out N o longer eligible based on patient's age to complete this topic Medical Devices Not on file Procedures Procedure Name Priority Date/Time Associated Diagnosis Comments XR HAND 3 OR MORE VIEWS (LEFT) Routine 01/20/2025 2:50 PM EST Left hand pain CT CHEST WITHOUT CONTRAST Routine 01/04/2025 7:25 PM EST Other pneumonia, unspecified organism CBC AND DIFFERENTIAL Routine 12/30/2024 1:27 PM EST Hereditary hemochromatosis Elevated ferritin level FERRITIN Routine 12/30/2024 1:27 PM EST Hereditary hemochromatosis Elevated ferritin level IRON AND IRON BINDING CAPACITY Routine 12/30/2024 1:27 PM EST Hereditary hemochromatosis Elevated ferritin level CBC AND DIFFERENTIAL Routine 12/30/2024 1:27 PM EST Hereditary hemochromatosis Elevated ferritin level VITAMIN C Routine 12/30/2024 1:27 PM EST Low serum vitamin C C-REACTIVE PROTEIN (CRP) Routine 11/12/2024 5:04 AM EDT LFTS (HEPATIC PANEL) Routine 11/12/2024 5:04 AM EDT PHOSPHORUS Routine 11/12/2024 5:04 AM EDT MAGNESIUM Routine 11/12/2024 5:04 AM EDT CBC AND DIFFERENTIAL Routine 11/12/2024 5:04 AM EDT BASIC METABOLIC PANEL (BMP) Routine 11/12/2024 5:04 AM EDT COMPREHENSIVE METABOLIC PANEL (CMP) Routine 11/11/2024 4:06 AM EDT CBC AND DIFFERENTIAL Routine 11/11/2024 4:06 AM EDT NON-CONSUMER EXPERIENCE CONSULTANT CYTOLOGY, NON CSF, NON URINE Routine 11/11/2024 12:00 AM EDT HSV PCR Routine 11/10/2024 1:59 PM EDT BRONCH LAVAGE DIFFERENTIAL Routine 11/10/2024 1:59 PM EDT HSV PCR Routine 11/10/2024 1:59 PM EDT HC T CELLS TOTAL COUNT Routine 1:59 PM EDT BRONCH LAVAGE DIFFERENTIAL Routine 11/10/2024 1:59 PM EDT RESPIRATORY PATHOGEN PANEL, BAL FLUID Routine 11/10/2024 1:59 PM EDT RESPIRATORY CULTURE/SMEAR Routine 11/10/2024 1:59 PM EDT MYCOBACTERIAL CULTURE/SMEAR Routine 11/10/2024 1:59 PM EDT LEGIONELLA SPECIES, PCR Routine 11/10/2024 1:59 PM EDT FUNGAL CULTURE Routine 11/10/2024 1:59 PM EDT ANAEROBIC CULTURE Routine 11/10/2024 1: 59 PM EDT RESPIRATORY CULTURE/SMEAR Routine 11/10/2024 1:59 PM EDT MYCOBACTERIAL CULTURE/SMEAR Routine 11/10/2024 1:59 PM EDT FUNGAL CULTURE Routine 11/10/2024 1:59 PM EDT RESPIRATORY CULTURE/SMEAR Routine 11/10/2024 1:59 PM EDT MYCOBACTERIAL CULTURE/SMEAR Routine 11/10/2024 1:59 PM EDT FUNGAL CULTURE Routine 11/10/2024 1:59 PM EDT LEGIONELLA SPECIES, PCR Routine 11/10/2024 1:59 PM EDT RESPIRATORY PATHOGEN PANEL, BAL FLUID Routine 11/10/2024 1:59 PM EDT PNEUMOCYSTIS (PCP) EXAM Routine 11/10/2024 1:59 PM EDT PNEUMOCYSTIS BY PCR Routine 11/10/2024 1 :59 PM EDT FUNGAL CULTURE Routine 11/10/2024 1:59 PM EDT MYCOBACTERIAL CULTURE/SMEAR Routine 11/10/2024 1:59 PM EDT ANAEROBIC CULTURE Routine 11/10/2024 1:5 9 PM EDT RESPIRATORY CULTURE/SMEAR Routine 11/10/2024 1:59 PM EDT RESPIRATORY PATHOGEN PANEL, BAL FLUID Routine 11/10/2024 1:59 PM EDT RESPIRATORY CULTURE/SMEAR Routine 11/10/2024 1:59 PM EDT PNEUMOCYSTIS BY PCR Routine 11/10/2024 1 :59 PM EDT PNEUMOCYSTIS (PCP) EXAM Routine 11/10/2024 1:59 PM EDT MYCOBACTERIAL CULTURE/SMEAR Routine 11/10/2024 1:59 PM EDT LEGIONELLA SPECIES, PCR Routine 11/10/2024 1:59 PM EDT FUNGAL CULTURE Routine 11/10/2024 1:59 PM EDT CYTOMEGALOVIRUS, PCR, LOWER RESPIRATORY Routine 11/10/2024 1:59 PM EDT ANAEROBIC CULTURE Routine 11/10/2024 1:5 9 PM EDT BRONCHOSCOPY FLEXIBLE 11/10/2024 12:58 PM EDT Rhinovirus infection Acute respiratory failure with hypoxia ARDS (adult respiratory distress syndrome) ENDOSCOPY PROCEDURE 11/10/2024 1 2:46 PM EDT Antinuclear antibody, titer and pattern Routine 11/10/2024 4:00 AM EDT CREATINE KINASE (CK) Routine 11/10/2024 4:00 AM EDT PROCALCITONIN Routine 11/10/2024 4:00 AM EDT C-REACTIVE PROTEIN (CRP) Routine 11/10/2024 4:00 AM EDT SEDIMENTATION RATE (ESR) Routine 11/10/2024 4:00 AM EDT MYOSITIS PANEL 3 Routine 11/10/2024 4:00 AM EDT SS-A/SS-B ANTIBODIES Routine 11/10/2024 4:00 AM EDT SCL-70 ANTIBODY Routine 11/10/2024 4:00 AM EDT PROTEINASE 3 ANTIBODY, IGG Routine 11/10/2024 4:00 AM EDT MYELOPEROXIDASE ANTIBODIES, IGG Routine 11/10/2024 4:00 AM EDT ANTI-NEUTROPHIL CYTOPLASMIC ANTIBODY (ANCA) Routine 11/10/2024 4:00 AM EDT CCP IGG ANTIBODIES Routine 11/10/2024 4: 00 AM EDT RHEUMATOID FACTOR Routine 11/10/2024 4:0 0 AM EDT ANTINUCLEAR ANTIBODY (GIDEON) Routine 11/10/2024 4:00 AM EDT NT-PROBNP Routine 11/10/2024 4:00 AM EDT MAGNESIUM Routine 11/10/2024 4:00 AM EDT PHOSPHORUS Routine 11/10/2024 4:00 AM EDT CBC AND DIFFERENTIAL Routine 11/10/2024 4:00 AM EDT COMPREHENSIVE METABOLIC PANEL (CMP) Routine 11/10/2024 4:[address] CHEST PULMONARY ANGIOGRAM (ACUTE) Routine 11/09/2024 12:44 PM EDT US BEDSIDE Routine 11/09/2024 10:13 AM EDT Acute respiratory distress syndrome (ARDS) FOLATE Routine 11/09/2024 4:57 AM EDT VITAMIN B12 Routine 11/09/2024 4:57 AM EDT CBC AND DIFFERENTIAL Routine 11/09/2024 4:57 AM EDT XR CHEST PORTABLE Imaging in AM 11/08/2024 5:0 9 AM EDT IONIZED CALCIUM Routine 11/08/2024 3:44 AM EDT PHOSPHORUS Routine 11/08/2024 3:44 AM EDT MAGNESIUM Routine 11/08/2024 3:44 AM EDT BASIC METABOLIC PANEL (BMP) Routine 11/08/2024 3:44 AM EDT CBC AND DIFFERENTIAL Routine 11/08/2024 3:44 AM EDT PHOSPHORUS Timed 11/07/2024 3:49 PM EDT MAGNESIUM Timed 11/07/2024 3:49 PM EDT IONIZED CALCIUM Timed 11/07/2024 3:49 PM EDT BASIC METABOLIC PANEL (BMP) Timed 11/07/2024 3:49 PM EDT ECG 12-LEAD STAT 11/07/2024 6:12 AM EDT COMPREHENSIVE METABOLIC PANEL (CMP) Routine 11/07/2024 4:01 AM EDT C-REACTIVE PROTEIN (CRP) Routine 11/07/2024 4:01 AM EDT NT-PROBNP Routine 11/07/2024 4:01 AM EDT SEDIMENTATION RATE (ESR) Routine 11/07/2024 4:01 AM EDT IONIZED CALCIUM Routine 11/07/2024 4:01 AM EDT PHOSPHORUS Routine 11/07/2024 4:01 AM EDT MAGNESIUM Routine 11/07/2024 4:01 AM EDT CBC AND DIFFERENTIAL Routine 11/07/2024 4:01 AM EDT VANCOMYCIN, TROUGH Timed 11/06/2024 9: 55 PM EDT XR CHEST 1 VIEW Routine 11/06/2024 1:27 PM EDT VANCOMYCIN, PEAK Timed 11/06/2024 12:3 8 PM EDT C-REACTIVE PROTEIN (CRP) Routine 11/06/2024 4:50 AM EDT PROCALCITONIN Routine 11/06/2024 4:50 AM EDT PHOSPHORUS Routine 11/06/2024 4:50 AM EDT MAGNESIUM Routine 11/06/2024 4:50 AM EDT BASIC METABOLIC PANEL (BMP) Routine 11/06/2024 4:50 AM EDT CBC AND DIFFERENTIAL Routine 11/06/2024 4:50 AM EDT VANCOMYCIN, TROUGH Timed 11/05/2024 9: 51 PM EDT VANCOMYCIN, PEAK Timed 11/05/2024 2:34 PM EDT LDH Routine 11/05/2024 5:40 AM EDT C-REACTIVE PROTEIN (CRP) Routine 11/05/2024 5:40 AM EDT PHOSPHORUS Routine 11/05/2024 5:40 AM EDT MAGNESIUM Routine 11/05/2024 5:40 AM EDT CBC AND DIFFERENTIAL Routine 11/05/2024 5:40 AM EDT BASIC METABOLIC PANEL (BMP) Routine 11/05/2024 5:40 AM EDT TSH WITH REFLEX Routine 10/31/2024 4:17 AM EDT HM COLONOSCOPY FOR RESULT ENTRY ONLY Routine 12/30/2023 FECAL IMMUNOCHEMICAL BLOOD TEST X1 (FIT) Routine 06/24/2023 3:00 PM EDT Elevated LFTs Anemia, unspecified type Diarrhea, unspecified type Need for hepatitis C screening test HEPATITIS C ANTIBODY, QUALITATIVE Routine 05/29/2023 4:17 PM EDT Need for hepatitis C screening test from Last 3 Months or Most Recently Relevant to Health Maintenance Results * XR HAND 3 OR MORE VIEWS (LEFT) (01/20/2025 2:50 PM EST) Narrative SYSTEMGENERATED, DOCUMENTATION - 01/20/2025 2:50 PM EST This image report has been auto-finalized and has not been read by a Radiologist. Interpretation has been included in the provider encounter note for this date of service. Alaina Severino PA-C IMG XR UPPER EXTREMI TY Final Result * CT CHEST WITHOUT CONTRAST (01/04/2025 7:25 PM EST) Anatomical Region Laterality Modality Chest Computed Tomogra phy 01/09/2025 12:0 1 AM EST Impressions 01/09/2025 12:07 AM EST 1. Near complete resolution of diffuse airspace opacities, which likely represented diffuse alveolar damage in the setting of viral pneumonia. There is mild residual groundglass and mosaic attenuation. Narrative 01/09/2025 12:[address] CHEST WITHOUT CONTRAST Referring clinician's provided indication for this examination in Epic: Outside Radiology Order; OTHER PNEUMONIA, UNSPECIFIED ORGANISM Additional clinical information obtained from the EHR: RSV pneumonia complicated by respiratory failure TECHNIQUE: Multidetector CT of the chest was performed without intravenous contrast using tailored dose modulation. COMPARISON: CT CHEST PULMONARY ANGIOGRAM (ACUTE) ; CT CHEST WITH CONTRAST FINDINGS: Devices/Tubes/Lines: None. Lungs: Previously seen diffuse groundglass opacities, associated with small consolidations and septal thickening, have nearly completely resolved. There is residual faint groundglass and mosaic attenuation in the lung parenchyma. Evaluation of portions of the lungs is limited by respiratory motion. The central airways are patent. Pleura: Normal. No pleural effusion or pneumothorax. Mediastinum: Normal heart size. No pericardial effusion. There are minimal coronary artery calcifications. Lymph Nodes: Normal. No enlarged supraclavicular, axillary, mediastinal, or hilar lymph nodes. Upper Abdomen: There is submucosal fat deposition within the colon. Chest Wall: Normal. No chest wall mass. Bones: Multiple healed right posterior rib fractures. Mild compression fractures at T12 and L1 are unchanged. No suspicious lytic or blastic lesions. Procedure Note Danis Isidro MD - 01/09/2025 CT CHEST WITHOUT CONTRAST Referring clinician's provided indication for this examination in [facility]:Outside Radiology Order; OTHER PNEUMONIA, UNSPECIFIED ORGANISM Additional clinical information obtained from the EHR: RSV pneumoniacomplicated by respiratory failure TECHNIQUE: Multidetector CT of the chest was performed without intravenouscontrast using tailored dose modulation. COMPARISON: CT CHEST PULMONARY ANGIOGRAM (ACUTE) ; CT CHESTWITH CONTRAST FINDINGS: Devices/Tubes/Lines: None. Lungs: Previously seen diffuse groundglass opacities, associated withsmall consolidations and septal thickening, have nearly completelyresolved. There is residual faint groundglass and mosaic attenuation inthe lung parenchyma. Evaluation of portions of the lungs is limited byrespiratory motion. The central airways are patent. Pleura: Normal. No pleural effusion or pneumothorax. Mediastinum: Normal heart size. No pericardial effusion. There are minimalcoronary artery calcifications. Lymph Nodes: Normal. No enlarged supraclavicular, axillary, mediastinal,or hilar lymph nodes. Upper Abdomen: There is submucosal fat deposition within the colon. Chest Wall: Normal. No chest wall mass. Bones: Multiple healed right posterior rib fractures. Mild compressionfractures at T12 and L1 are unchanged. No suspicious lytic or blasticlesions. IMPRESSION: 1. Near complete resolution of diffuse airspace opacities, which likelyrepresented diffuse alveolar damage in the setting of viral pneumonia.There is mild residual groundglass and mosaic attenuation. Suni CARDENAS IMG CT CHEST Final Resu lt * Vitamin C (12/30/2024 1:27 PM EST) Vitamin C 1.1 0.2 - 2.1 mg/dL 01/07/2025 8:10 AM EST [employer]) Comment: . This test was developed and its analytical performance characteristics have been determined by [facility], [place], [place]. It has not been cleared or approved by the FDA. This assay has been validated pursuant to the CLIA regulations and is used for clinical purposes. . Blood (Blood) Venipuncture / Unknown 12/30/2024 1:27 PM EST 12/30/2024 1:32 PM EST Narrative [facility] - 01/07/2025 8:10 AM EST [facility] Received Date and Time: [id number] us Virginia Patton PA-C LAB BLOOD BKR ORDERABLES F inal Result [facility] ([facility]) [address] [address], [facility] ([facility]) [address] [place], [place] , [facility] * (ABNORMAL) CBC and Differential (12/30/2024 1:27 PM EST) WBC 6.54 4.00 - 11.00 K/uL 12/30/2024 1:45 PM [facility] RBC 4.65 4.50 - 5.90 M/uL 12/30/2024 1:45 PM [facility] Hemoglobin 14.6 13.5 - 17.5 g/dL 12/30/2024 1:45 PM [facility] Hematocrit 47.3 41.0 - 53.0 % 12/30/2024 1:45 PM [facility] MCV 101.7(H) 80.0 - 100.0 fL 12/30/2024 1:45 PM [facility] MCH 31.4(H) 27.0 - 31.0 pg 12/30/2024 1:45 PM [facility] MCHC 30.9(L) 32.0 - 36.0 g/dL 12/30/2024 1:45 PM [facility] MPV 8.9 8.4 - 12.0 fL 12/30/2024 1:45 PM [facility] RDW-CV 14.6(H) 11.5 - 14.5 % 12/30/2024 1:45 PM [facility] PLT 154 150 - 450 K/uL 12/30/2024 1:45 PM [facility] Neutrophils 39.6 % 12/30/2024 1:45 PM [facility] Lymphocytes 45.3 % 12/30/2024 1:45 PM [facility] Monocytes 9.8 % 12/30/2024 1:45 PM [facility] Eosinophils 4.1 % 12/30/2024 1:45 PM [facility] Basophils 0.9 % 12/30/2024 1:45 PM [facility] Imm Grans 0.3 % 12/30/2024 1:45 PM [facility] NRBC 0.0 <=0.0 /100 WBCs 12/30/2024 1:45 PM [facility] Absolute Neutrophils 2.59 1.92 - 7.60 K/uL 12/30/2024 1:45 PM [facility] Absolute Lymphocytes 2.96 0.72 - 4.10 K/uL 12/30/2024 1:45 PM [facility] Absolute Monocytes 0.64 0.16 - 1.10 K/uL 12/30/2024 1:45 PM [facility] Absolute Eosinophils 0.27 0.00 - 0.50 K/uL 12/30/2024 1:45 PM [facility] Absolute Basophils 0.06 0.00 - 0.15 K/uL 12/30/2024 1:45 PM [facility] Absolute Imm Grans 0.02 0.00 - 0.09 K/uL 12/30/2024 1:45 PM [facility] Absolute NRBC 0.00 <=0.00 K cells/uL 12/30/2024 1:45 PM [facility] Absolute Neutrophils 2.59 1.92 - 7.60 K/uL 12/30/2024 1:45 PM [facility] Comment:Automated cell count . Manual ANC may differ if performed. Diff Type Auto 12/30/2024 1:45 PM [facility] Blood (Blood) Venipuncture / Unknown 12/30/2024 1:27 PM EST 12/30/2024 1:31 PM EST Virginia Patton PA-C LAB BLOOD BKR ORDERABLES F inal Result Performing Organization Address City/[facility]/ZIP Co de Phone Number [address] [address] * (ABNORMAL) Iron and Total Iron Binding Capacity (Iron/TIBC) (12/30/2024 1:27 PM EST) Pathologist [facility] Iron 30(L) 45 - 182 ug/dL 12/30/2024 2:55 PM EST [facility] Total Iron-Binding Capacity (TIBC) 388 220 - 460 ug/dL 12/30/2024 2:55 PM EST [facility] Transferrin Saturation 8(L) 14 - 50 % 12/30/2024 2:55 PM EST [facility] Blood (Blood) Venipuncture / Unknown 12/30/2024 1:27 PM EST 12/30/2024 1:31 PM EST Virginia Patton PA-C LAB BLOOD BKR ORDERABLES F inal Result Performing Organization Address [facility]/ZIP Co de Phone Number [address] [address] * Ferritin (12/30/2024 1:27 PM EST) [facility] Ferritin 42 30 - 400 ug/L 12/30/2024 2:55 PM EST [facility] Blood (Blood) Venipuncture / Unknown 12/30/2024 1:27 PM EST 12/30/2024 1:31 PM EST Virginia Patton PA-C LAB BLOOD BKR ORDERABLES F inal Result Performing Organization Address City/[facility]/ZIP Co de Phone Number [address] [address] * (ABNORMAL) LFTs (hepatic panel) (11/12/2024 5:04 AM EDT) Pathologist [facility] ALKALINE PHOSPHATASE 74 39 - 117 U/L [facility] TOTAL BILIRUBIN <0.2 0.0 - 1.2 mg/dL [facility] DIRECT BILIRUBIN <0.1 0.0 - 0.2 mg/dL [facility] Bilirubin (Indirect) NOT CALCULATED 0 - 1.5 mg/dL [facility] AST 31 0 - 37 U/L [facility] ALT 62(H) 0 - 40 U/L [facility] TOTAL PROTEIN 6.6 6.5 - 8.0 g/dL [facility] ALBUMIN 3.5(L) 3.9 - 4.8 g/dL [facility] GLOBULIN 3.1 1 - 4.8 g/dL [facility] A/G Ratio 1.13 1.00 - 4.80 RATIO [facility] Blood 11/12/2024 5:04 AM EDT 11/12/2024 5:17 AM EDT us Dewayne Foster MD, MS LAB BLOOD BKR ORDERABLES Final Result [address] [address] * (ABNORMAL) CBC and differential (11/12/2024 5:04 AM EDT) Only the most recent of8 resultswithin the time period is included. WBC 14.43(H) 4.00 - 11.00 K/uL [facility] RBC 3.25(L) 4.50 - 5.90 M/uL [facility] HGB 10.2(L) 13.5 - 17.5 g/dL [facility] HCT 31.9(L) 41.0 - 53.0 % [facility] PLT 418 150 - 450 K/uL [facility] MCV 98.2 80.0 - 100.0 fL [facility] MCH 31.4(H) 27.0 - 31.0 pg [facility] MCHC 32.0 32.0 - 36.0 g/dL [facility] RDW 14.0 11.5 - 14.5 % [facility] MPV 8.8 8.4 - 12.0 fL [facility] NRBC 0.00 0.00 /100 WBCs [facility] ABSOLUTE NRBC 0.00 0.00 K/uL [facility] DIFF METHOD Auto [facility] NEUTS 61.1 48.0 - 76.0 % [facility] LYMPHS 23.1 18.0 - 41.0 % [facility] MONOS 9.0 4.0 - 11.0 % [facility] EOS 2.0 0.0 - 5.0 % [facility] BASOS 0.6 0.0 - 1.5 % [facility] Granulocytes, immature (%) 4.2(H) 0.0 - 0.9 % [facility] ABSOLUTE NEUTS 8.82(H) 1.92 - 7.60 K/uL [facility] ABSOLUTE LYMPHS 3.33 0.72 - 4.10 K/uL [facility] ABSOLUTE MONOS 1.30(H) 0.16 - 1.10 K/uL [facility] ABSOLUTE EOS 0.29 0.00 - 0.50 K/uL [facility] ABSOLUTE BASOS 0.08 0.00 - 0.15 K/uL [facility] Granulocytes, immature 0.61(H) 0.00 - 0.09 K/uL [facility] Blood 11/12/2024 5:04 AM EDT 11/12/2024 5:17 AM EDT us Dewayne Foster MD, MS LAB BLOOD BKR ORDERABLES Final Result Performing Organization Address City/[facility] Co de Phone Number [address] [address] * (ABNORMAL) C-Reactive Protein (11/12/2024 5:04 AM EDT) Only the most recent of5 resultswithin the time period is included. C REACTIVE PROTEIN 17.7(H) 0.0 - 4.0 mg/L [facility] Blood 11/12/2024 5:04 AM EDT 11/12/2024 5:17 AM EDT us Dewayne Foster MD, MS LAB BLOOD BKR ORDERABLES Final Result [address] [address] * (ABNORMAL) Phosphorus (11/12/2024 5:04 AM EDT) Only the most recent of7 resultswithin the time period is included. [facility] PHOSPHORUS 4.9(H) 2.7 - 4.5 mg/dL [facility] Blood 11/12/2024 5:04 AM EDT 11/12/2024 5:17 AM EDT us Dewayne Foster MD, MS LAB BLOOD BKR ORDERABLES Final Result Performing Organization Address City/[facility]/ZIP Co de Phone Number [address] [address] * Magnesium (11/12/2024 5:04 AM EDT) Only the most recent of7 resultswithin the time period is included. [facility] MAGNESIUM 1.8 1.6 - 2.6 mg/dL [facility] Blood 11/12/2024 5:04 AM EDT 11/12/2024 5:17 AM EDT us Dewayne Foster MD, MS LAB BLOOD BKR ORDERABLES Final Result Performing Organization Address City/[facility]/ZIP Co de Phone Number [address] [address] * (ABNORMAL) Basic metabolic panel (11/12/2024 5:04 AM EDT) Only the most recent of5 resultswithin the time period is included. Pathologist [facility] SODIUM 137 133 - 146 mmol/L [facility] CHLORIDE 102 96 - 108 mmol/L [facility] POTASSIUM 4.2 3.3 - 5.1 mmol/L [facility] CO2 23 21 - 35 mmol/L [facility] BUN 21(H) 6 - 19 mg/dL [facility] CREATININE 0.70 0.5 - 1.5 mg/dL [facility] GLUCOSE 100(H) 70 - 99 mg/dL [facility] CALCIUM 9.6 8.4 - 10.3 mg/dL [facility] EGFR 111 >59 mL/min/1.7 2 [facility] Comment:Estimated glomerular filtration rate calculated using the CKD-EPI refit equation. ANION GAP 16 10 - 20 mmol/L [facility] Blood 11/12/2024 5:04 AM EDT 11/12/2024 5:17 AM EDT us Dewayne Foster MD, MS LAB BLOOD BKR ORDERABLES Final Result [facility] [address] [place] [address] * (ABNORMAL) Comprehensive metabolic panel (11/11/2024 4:06 AM EDT) Only the most recent of3 resultswithin the time period is included. SODIUM 135 133 - 146 mmol/L [facility] POTASSIUM 4.5 3.3 - 5.1 mmol/L [facility] CHLORIDE 98 96 - 108 mmol/L [facility] CO2 23 21 - 35 mmol/L [facility] BUN 17 6 - 19 mg/dL [facility] CREATININE 0.80 0.5 - 1.5 mg/dL [facility] GLUCOSE 95 70 - 99 mg/dL [facility] ALBUMIN 3.9 3.9 - 4.8 g/dL [facility] TOTAL PROTEIN 7.6 6.5 - 8.0 g/dL [facility] CALCIUM 9.8 8.4 - 10.3 mg/dL [facility] ALKALINE PHOSPHATASE 88 39 - 117 U/L [facility] TOTAL BILIRUBIN <0.2 0.0 - 1.2 mg/dL [facility] AST 48(H) 0 - 37 U/L [facility] ALT 77(H) 0 - 40 U/L [facility] GLOBULIN 3.7 1 - 4.8 g/dL [facility] EGFR 106 >59 mL/min/1.[address] [place] [address] Comment:Estimated glomerular filtration rate calculated using the CKD-EPI refit equation. ANION GAP 19 10 - 20 mmol/L [facility] Blood 11/11/2024 4:06 AM EDT 11/11/2024 4:15 AM EDT us Shikha Hartman PA-C, MS LAB BLOOD BKR ORD ERABLES Final Result [address] [address] * Non-Phone Engineer Cytology (11/11/2024 12:00 AM EDT) Report [address] [address] Reservation Agent: Parker Grove MD Non Phone Engineer Cytology Report FINAL DIAGNOSIS A. LUNG, RIGHT MIDDLE LOBE, BRONCHOALVEOLAR LAVAGE: SPECIMEN ADEQUACY: Satisfactory for evaluation. INTERPRETATION: NO MALIGNANT CELLS IDENTIFIED. DIAGNOSIS: Bronchial columnar cells and pulmonary macrophages. Acute inflammation. B. LUNG, RIGHT MIDDLE LOBE BRONCHIAL BRUSH: SPECIMEN ADEQUACY: Satisfactory for evaluation. INTERPRETATION: NO MALIGNANT CELLS IDENTIFIED. DIAGNOSIS: Bronchial columnar cells. Acute inflammation. C. LUNG, LEFT LOWER LOBE, BRONCHOALVEOLAR LAVAGE: SPECIMEN ADEQUACY: Satisfactory for evaluation. INTERPRETATION: NO MALIGNANT CELLS IDENTIFIED. DIAGNOSIS: Bronchial columnar cells and pulmonary macrophages. Acute inflammation. D. LUNG, LEFT LOWER LOBE BRONCHIAL BRUSH: SPECIMEN ADEQUACY: Satisfactory for evaluation. INTERPRETATION: NO MALIGNANT CELLS IDENTIFIED. DIAGNOSIS: Bronchial columnar cells and pulmonary macrophages. Acute inflammation. E. LUNG, BILATERAL BRONCHIAL WASH: SPECIMEN ADEQUACY: Satisfactory for evaluation. INTERPRETATION: NO MALIGNANT CELLS IDENTIFIED. DIAGNOSIS: Pulmonary macrophages. Acute inflammation. Electronically Signed Out By: MD Christie Schumacher CT([facility]) By his/her signature above, the pathologist listed as making the Final Diagnosis certifies that he/she has personally reviewed this case and confirmed or corrected the diagnosis. CLINICAL HISTORY Patient presents with acute respiratory failure. SPECIMEN SOURCE A: LUNG, RIGHT MIDDLE LOBE, BRONCHOALVEOLAR LAVAGE B: LUNG, RIGHT MIDDLE LOBE BRONCHIAL BRUSH C: LUNG, LEFT LOWER LOBE, BRONCHOALVEOLAR LAVAGE D: LUNG, LEFT LOWER LOBE BRONCHIAL BRUSH E: LUNG, BILATERAL BRONCHIAL WASH GROSS DESCRIPTION A. LUNG, RIGHT MIDDLE LOBE, BRONCHOALVEOLAR LAVAGE: Received fresh is 7.5mL of clear mucoud fluid labeled with patient's name and date of . One (1) ThinPrep slide and one (1) cell block are prepared. B. LUNG, RIGHT MIDDLE LOBE BRONCHIAL BRUSH: Received are a brush tip in [employer]to[employer] preservative and two (2) spray fixed direct smears labeled with patient name and date of . One (1) ThinPrep slide is prepared. C. LUNG, LEFT LOWER LOBE, BRONCHOALVEOLAR LAVAGE: Received fresh is 5mL of clear mucoud fluid labeled with patient's name and date of . One (1) ThinPrep slide prepared. D. LUNG, LEFT LOWER LOBE BRONCHIAL BRUSH: Received are a brush tip in [employer] preservative and two (2) spray fixed direct smears labeled with patient name and date of . One (1) ThinPrep slide is prepared. E. LUNG, BILATERAL BRONCHIAL WASH: Received fresh is 5mL of cloudy mucoud fluid labeled with patient's name and date of . One (1) ThinPrep slide and one (1) cell block are prepared. Patient Name: CHANDRAKANT GUNN : 1970 (Age: 54) Sex: M Institution: [facility] Date of Collection: 11/11/2024 Date of Reported: 11/12/2024 10:41 Results to: Dewayne Foster MD [facility] Clinical History Patient presents with acute respiratory failure. [facility] Final Diagnosis A. LUNG, RIGHT MIDDLE LOBE, BRONCHOALVEOLAR LAVAGE: SPECIMEN ADEQUACY: Satisfactory for evaluation. INTERPRETATION: NO MALIGNANT CELLS IDENTIFIED. DIAGNOSIS: Bronchial columnar cells and pulmonary macrophages. Acute inflammation. B. LUNG, RIGHT MIDDLE LOBE BRONCHIAL BRUSH: SPECIMEN ADEQUACY: Satisfactory for evaluation. INTERPRETATION: NO MALIGNANT CELLS IDENTIFIED. DIAGNOSIS: Bronchial columnar cells. Acute inflammation. C. LUNG, LEFT LOWER LOBE, BRONCHOALVEOLAR LAVAGE: SPECIMEN ADEQUACY: Satisfactory for evaluation. INTERPRETATION: NO MALIGNANT CELLS IDENTIFIED. DIAGNOSIS: Bronchial columnar cells and pulmonary macrophages. Acute inflammation. D. LUNG, LEFT LOWER LOBE BRONCHIAL BRUSH: SPECIMEN ADEQUACY: Satisfactory for evaluation. INTERPRETATION: NO MALIGNANT CELLS IDENTIFIED. DIAGNOSIS: Bronchial columnar cells and pulmonary macrophages. Acute inflammation. E. LUNG, BILATERAL BRONCHIAL WASH: SPECIMEN ADEQUACY: Satisfactory for evaluation. INTERPRETATION: NO MALIGNANT CELLS IDENTIFIED. DIAGNOSIS: Pulmonary macrophages. Acute inflammation. [facility] Gross Description A. LUNG, RIGHT MIDDLE LOBE, BRONCHOALVEOLAR LAVAGE: Received fresh is 7.5mL of clear mucoud fluid labeled with patients name and date of . One (1) ThinPrep slide and one (1) cell block are prepared.B. LUNG, RIGHT MIDDLE LOBE BRONCHIAL BRUSH: Received are a brush tip in CytoLyt preservative and two (2) spray fixed direct smears labeled with patient name and date of . One (1) ThinPrep slide is prepared.C. LUNG, LEFT LOWER LOBE, BRONCHOALVEOLAR LAVAGE: Received fresh is 5mL of clear mucoud fluid labeled with patients name and date of . One (1) ThinPrep slide prepared.D. LUNG, LEFT LOWER LOBE BRONCHIAL BRUSH: Received are a brush tip in CytoLyt preservative and two (2) spray fixed direct smears labeled with patient name and date of . One (1) ThinPrep slide is prepared.E. LUNG, BILATERAL BRONCHIAL WASH: Received fresh is 5mL of cloudy mucoud fluid labeled with patients name and date of . One (1) ThinPrep slide and one (1) cell block are prepared. [facility] Conversion Type (Conversion Source) 11/11/2024 11/11/2024 1:53 PM EDT Conversion Type (Bronchus, Bilateral) 11/11/2024 11/11/2024 1:53 PM EDT Conversion Type (Conversion Source) 11/11/2024 11/11/2024 1:53 PM EDT Conversion Type (Bronchus, Bilateral) 11/11/2024 11/11/2024 1:53 PM EDT Conversion Type (Bronchus, Bilateral) 11/11/2024 11/11/2024 1:53 PM EDT us Dewayne Foster MD, MS CYTOLOGY ORDERABLES Edit ed Result - Final [facility] [address] [place] [address] * (ABNORMAL) Lower Respiratory Tract Respiratory Pathogen PCR Panel (11/10/2024 1:59 PM EDT) Only the most recent of3 resultswithin the time period is included. Specimen Source BRONCHIAL WASHINGS [facility] DPT OF LAB MED AND PAT+ Comment:Corrected on 11/13 A T 0209: previously reported as BRONCHIAL WASHINGS, Corrected on 11/11 AT 1245: previously reported as BRONCHIAL ALVEOLAR LAVAGE Adenovirus Undetected Undetected [facility]+ Coronavirus 229E Undetected Undetected [facility] Coronavirus HKU1 Undetected Undetected [facility]+ Coronavirus NL63 Undetected Undetected [facility]+ Coronavirus OC43 Undetected Undetected [facility]+ SARS Coronavirus-2 Undetected Undetected [facility]+ Comment: (NOTE) SARS-CoV-2 RNA absent. This result does not rule out COVID-19 in the patient, as the sensitivity of the test depends on the timing of the specimen collection and the quality of the specimen. Result should be correlated with patient's history and clinical presentation. Human Metapneumovirus Undetected Undetected [facility] PAT+ Human Rhinovirus/Enterov irus Undetected Undetected [facility]+ Influenza A Undetected Undetected [facility] PAT+ Influenza B Undetected Undetected [facility] PAT+ Parainfluenza Virus 1 Undetected Undetected [facility]+ Parainfluenza Virus 2 Undetected Undetected [facility]+ Parainfluenza Virus 3 Undetected Undetected [facility]+ Parainfluenza Virus 4 Undetected Undetected [facility]+ Respiratory Syncytial Virus Detected(A) Undetected [facility] PAT+ Bordetella pertussis Undetected Undetected [facility] PAT+ Bordetella parapertussis Undetected Undetected [facility] PAT+ Chlamydia pneumoniae Undetected Undetected [facility] PAT+ Mycoplasma pneumoniae Undetected Undetected [facility]+ Interpretation SEE NOTE [facility]+ Comment: (NOTE) This assay is not predicted to detect SARS-coronavirus (CoV), or MERS-CoV. ADDITIONAL INFORMATION This assay is performed using the FilmArray Respiratory Panel 2.1 (Sprinkle). This test has been modified from the lining stuffer's instructions. Its performance characteristics were determined by [facility] in a manner consistent with CLIA requirements. This test has not been cleared or approved by the U.S. Food and Drug Administration. Other (Bronchial washings) 11/10/2024 1:59 PM EDT 11/10/2024 2:53 PM EDT us Dewayne Foster MD, MS MICROBIOLOGY - GENERAL O RDERABLES Edited Result - Final Performing Organization Address City/[facility]/ZIP Co de Phone Number [facility] DPT OF LAB MED AND PAT+ [address] [place] [address] * (ABNORMAL) Bronch Lavage Differential (11/10/2024 1:59 PM EDT) Only the most recent of2 resultswithin the time period is included. PATH REVIEW FINAL [facility] Comment: Other cells are alveolar macrophages and bronchial cells. Reviewed by [place] MD FLUID LYMPHS 11(H) 0 % [facility] FLUID NEUTS 35 % [facility] FLUID OTHER CELLS 54(H) 0 % [facility] Other (Bronchial alveolar lavage) 11/10/2024 1:59 PM EDT 11/10/2024 2:48 PM EDT us Dewayne Foster MD, MS LAB BODY FLUIDS AND STOO L ORDERABLES Final Result Performing Organization Address City/[facility]/ZIP Co de Phone Number [facility] [address] [place] [address] * CD4 count, fluid (11/10/2024 1:59 PM EDT) CD3+ % Lymphs 97.6 % [facility] CD3+ CD4+ % Lymphs 13.3 % [facility] CD3+ CD8+ % Lymphs 84.3 % LYMPHS [facility] CD4+:CD8+ RATIO 0.16 [facility] CD45+ % Lymphs 100.0 % [facility]MP[facility] Other (Bronchial alveolar lavage) 11/10/2024 1:59 PM EDT 11/10/2024 2:41 PM EDT Dewayne Foster MD, MS BODY FLUIDS AND STOOLS O RDERABLES Final Result Performing Organization Address City/[facility]/ZIP Co de Phone Number [facility] [address] [place] [phone] * Legionella species, PCR (11/10/2024 1:59 PM EDT) Only the most recent of3 resultswithin the time period is included. Specimen type BRONCHIAL WASHINGS [facility] DPT OF LAB MED AND PAT+ Comment:Corrected on 11/15 A T 1443: previously reported as BRONCHIAL WASHINGS Legionalla DNA Negative Not Applicable [facility] DPT OF LAB MED AND PAT+ Comment: (NOTE) PCR negativity does not rule out uncommon Legionella species, including L. feeleii and L. birmhinghamensis. ADDITIONAL INFORMATION This test was developed and its performance characteristics determined by [facility] in a manner consistent with CLIA requirements. This test has not been cleared or approved by the U.S. Food and Drug Administration. Other (Bronchial washings) 11/10/2024 1:59 PM EDT 11/10/2024 2:53 PM EDT us Dewayne Foster MD, MS LAB GENERAL ORDERABLES E dited Result - Final [facility] DPT OF LAB MED AND PAT+ [address] [place] [address] * HSV PCR Bronchial alveolar lavage (11/10/2024 1:59 PM EDT) Only the most recent of2 resultswithin the time period is included. HSV 1, PCR Negative Negative [facility] HSV 2, PCR Negative Negative [facility]+ Comment: (NOTE) ADDITIONAL INFORMATION This test was developed and its performance characteristics determined by [facility] in a manner consistent with CLIA requirements. This test has not been cleared or approved by the U.S. Food and Drug Administration. SPECIMEN SOURCE HSV SEE NOTE [facility] DPT OF LAB MED AND PAT+ Comment: (NOTE) BRONCHIAL ALVEOLAR LAVAGE Left Lower Lobe Corrected on 11/15 AT 1520: previously reported as BRONCHIAL ALVEOLAR LAVAGE Left Lower Lobe Other (Bronchial alveolar lavage) 11/10/2024 1:59 PM EDT 11/10/2024 2:48 PM EDT Dewayne Foster MD, MS LAB GENERAL ORDERABLES E dited Result - Final Performing Organization Address City/[facility]/ZIP Co de Phone Number [facility] DPT OF LAB MED AND PAT+ [address] [place] [address] * (ABNORMAL) Respiratory Culture/Gram Stain (11/10/2024 1:59 PM EDT) Only the most recent of5 resultswithin the time period is included. Special Requests None 11/10/2024 1:56 PM EDT [facility] GRAM STAIN Moderate WBC'S , Rare GRAM POSITIVE COCCI 11/11/2024 11:11 AM EDT [facility] Respiratory Cult/Smear MIXED ORGANISMS RESEMBLING OROPHARYNGEAL TEJA(A) 11/12/2024 11:30 AM EDT [facility] Other (Bronchial washings) 11/10/2024 1:59 PM EDT 11/10/2024 2:46 PM EDT Comment:BILATERAL BRONCHIAL WASHINGS us Dewayne Foster MD, MS LAB MICROBIOLOGY CULTURE ORDERABLES Final Result Performing Organization Address City/[facility]/ZIP Co de Phone Number [facility] [address] [place] [address] * Mycobacterial Culture/Smear (11/10/2024 1:59 PM EDT) Only the most recent of5 resultswithin the time period is included. Special Requests None 11/11/19 1:56 PM EDT [facility] SMEAR NO ACID FAST BACILLI OBSERVED 11/11/2024 2:36 PM EDT [facility] Mycobacterial Culture NO AFB ISOLATED AFTER 8 WEEKS 01/08/2025 2:26 PM EST [facility] Other (Bronchial washings) 11/10/2024 1:59 PM EDT 11/10/2024 2:46 PM EDT Comment:BILATERAL BRONCHIAL WASHINGS Dewayne Foster MD, MS LAB MICROBIOLOGY CULTURE ORDERABLES Final Result Performing Organization Address [facility] de Phone Number [address] [address] * Pneumocystis (PCP) exam (11/10/2024 1:59 PM EDT) Only the most recent of2 resultswithin the time period is included. Special Requests None 11/10/2024 1:56 PM EDT [facility] GOMORI SILVER STAIN NEGATIVE FOR PNEUMOCYSTIS JIROVECII (CARINII) 11/11/2024 2:02 PM EDT [facility] Other (Bronchial alveolar lavage) 11/10/2024 1:59 PM EDT 11/10/2024 2:49 PM EDT Comment:LLL BAL us Dewayne Foster MD, MS LAB GENERAL ORDERABLES F inal Result Performing Organization Address City/[facility]/ZIP Co de Phone Number [address] [address] * Pneumocystis by PCR (11/10/2024 1:59 PM EDT) Only the most recent of2 resultswithin the time period is included. SPECIMEN SOURCE BAL LLL [facility] DPT OF LAB MED AND PAT+ RESULT Negative Not Applicable [facility] DPT OF LAB MED AND PAT+ Comment: (NOTE) ADDITIONAL INFORMATION This test was developed and its performance characteristics determined by [facility] in a manner consistent with CLIA requirements. This test has not been cleared or approved by the U.S. Food and Drug Administration. Other (Bronchial alveolar lavage) 11/10/2024 1:59 PM EDT 11/10/2024 2:50 PM EDT Dewayne Foster MD, MS MICROBIOLOGY - GENERAL O RDERABLES Final Result Performing Organization Address [facility] Co de Phone Number [facility] DPT OF LAB MED AND PAT+ [address] [place] [address] * Cytomegalovirus, PCR, Lower Respiratory (11/10/2024 1:59 PM EDT) Specimen Source BAL RML [facility] DPT OF LAB MED AND PAT+ CMV PCR, Lower Respiratory Negative Negative [facility] DPT OF LAB MED AND PAT+ Comment: (NOTE) ADDITIONAL INFORMATION This test was developed and its performance characteristics determined by [facility] in a manner consistent with CLIA requirements. This test has not been cleared or approved by the U.S. Food and Drug Administration. Other (Bronchoalveolar lavage) 11/10/2024 1:59 PM EDT 11/10/2024 2:43 PM EDT us Dewayne Foster MD, MS MICROBIOLOGY - GENERAL O RDERAARACELI Final Result Performing Organization Address [facility] Co de Phone Number [facility] DPT OF LAB MED AND PAT+ [address] [place] [address] * (ABNORMAL) Fungal culture (11/10/2024 1:59 PM EDT) Only the most recent of5 resultswithin the time period is included. Special Requests None 11/10/2024 1:56 PM EDT [facility] GRAM STAIN No Yeast or Fungal elements seen 11/11/2024 11:57 AM EDT [facility] Fungal Culture Only ISOLATED YEAST SEE RML BAL FUNGAL CULTURE FROM SAME DAY FOR IDENTIFICATI ON(A) 11/26/2024 12:14 PM EDT [facility] Other (Bronchial washings) 11/10/2024 1:59 PM EDT 11/10/2024 2:46 PM EDT Comment:BILATERAL BRONCHIAL WASHINGS us Dewayne Foster MD, MS LAB MICROBIOLOGY CULTURE ORDERABLES Final Result Performing Organization Address [facility] Co de Phone Number [address] [address] * (ABNORMAL) Anaerobic Culture (11/10/2024 1:59 PM EDT) Only the most recent of3 resultswithin the time period is included. Special Requests None 11/10/2024 1:56 PM EDT [facility] Anaerobic Culture MIXED ORGANISMS RESEMBLING OROPHARYNGEAL TEJA(A) 11/12/2024 8:54 AM EDT [facility] Other (Bronchial washings) 11/10/2024 1:59 PM EDT 11/10/2024 2:46 PM EDT Comment:BILATERAL BRONCHIAL WASHINGS us Dewayne Foster MD, MS LAB MICROBIOLOGY CULTURE ORDERABLES Final Result Performing Organization Address [facility] Co de Phone Number [address] [address] * ENDOSCOPY PROCEDURE (11/10/2024 12:46 PM EDT) Narrative Transcriptions Dewayne Foster MD, MS - 11/10/2024 12:46 PM EDT Patient Name: Chandrakant Gunn Attending MD: DEWAYNE FOSTER MD, Procedure Date No Time: 11/10/2024 Date of : 1970 Age: 54 Admit Type: Inpatient Gender: Male Room: [place] [address] Referring MD: Suni Garcia Procedure: Bronchoscopy Indications: Diffuse infiltrate, Unresolving bilateralinfiltrates, Diffuse lung disease, Hypoxemia Impression: - Diffuse infiltrate - Unresolving bilateral infiltrates - Diffuse lung disease - Hypoxemia - Scant, mucoid, white, thick secretions were found throughout the tracheobronchial tree. - EDAC was noted, primarily in the proximalleft-sided airways. - Bronchoalveolar lavage was performed in the [facility]. - Brushings were obtained in the [facility] and [facility]. - Washings were obtained from all airways. Recommendation: - Await BAL, brushing, culture, cytology, lab and washing results. Findings: The nasopharynx/oropharynx appears normal. Thelarynx appears normal. The vocal cords appear normal, and move normally with phonation and breathing. The subglottic space is normal. The trachea is ofnormal caliber. The krishna is sharp. The tracheobronchial tree was examined to at least the firstsubsegmental level. Bronchial mucosa and anatomy are normal;there are no endobronchial lesions. - Bilateral Lung Abnormalities: Scant, mucoid,white, thick secretions were found throughout the tracheobronchial tree. They were not obstructingthe airway. - Left Lung Abnormalities: Non-obstructing dynamic collapse (EDAC) was found primarily in the proximal left-sided airways. - The bronchoscope was advanced until wedged at the desired location for bronchoalveolar lavage. BALwas performed in the RML lateral segment (B4) of thelung and sent for cell count and differential, routine cytology, bacterial, AFB, fungal and viral analysis and Pneumocystis (PCP/PJP) analysis. 60 mL of fluid were instilled. 34 mL were returned. The return was cloudy. Mucous plugs were present in the returnfluid. - Protected brushings were obtained in the right middle lobe and sent for routine cytology and bacterial, AFB and fungal analysis. Four sampleswere obtained. - The bronchoscope was advanced until wedged at the desired location for bronchoalveolar lavage. BALwas performed in the LLL lateral basal segments (B9) of the lung and sent for cell count and differential, routine cytology, bacterial, AFB, fungal and viral analysis and Pneumocystis (PCP/PJP) analysis. 60 mLof fluid were instilled. 12 mL were returned. Thereturn was clear. Mucous plugs were present in the return fluid. - Protected brushings were obtained in the lateral basal segment of the left lower lobe and sent for routine cytology and bacterial, AFB and fungal analysis. Four samples were obtained. - Washings were obtained in the entire tracheobronchial tree and sent for routine cytology and bacterial, AFB, fungal and viral analysis. The return was serosanguinous. Complications: No immediate complications. Estimated blood loss:None Medicines: Duoneb 3 mL nebulizer, Lidocaine 4% Nebulizer 3 mL, Lidocaine 2% applied to nares 3 mL, Lidocaine 2% applied to cords 12 mL, Lidocaine 2% applied to the tracheobronchial tree 10 mL, Midazolam 2 mg IV, Fentanyl 100 mcg IV Procedure: Informed consent was obtained from the patientafter discussion of the indications, limitations, alternatives, benefits, and risks of the procedure. Risks specifically discussed include but are not limited to medication reactions, missed lesions, bleeding, perforation, or the need for emergent surgery. Throughout the procedure, the patient's blood pressure, pulse, end-tidal CO2, and oxygensaturations were monitored continuously. the OlympusBronchoscope BF-H190 #2 was introduced through the right nostril and advanced to the tracheobronchial tree. The procedure was accomplished without difficulty. The patient tolerated the procedure well. The total duration of the procedure was 16 minutes. DEWAYNE FOSTER MD 11/10/2024 1:52:58 PM This report has been signed electronically. Number of Addenda: 0 Note Initiated On: 11/10/2024 12:46 PM Procedure Code(s): --- Professional --- 45991, Bronchoscopy, rigid or flexible, including fluoroscopicguidance, when performed; with bronchial alveolar lavage 93185, Bronchoscopy, rigid or flexible, including fluoroscopicguidance, when performed; with brushing or protected brushings CPT copyright 2021 [employer]. All rights reserved. The codes documented in this report are preliminary and upon middle school history teacher reviewmay be revised to meet current compliance requirements. Procedure Date: 11/10/2024 12:46:14 PM Estimated Blood Loss: None. Scope In: Scope Out: [address] [place] [id number] Suni CARDENAS [facility] PROCEDURE ORDERABLES Fi nal Result * Myositis panel 3 (11/10/2024 4:00 AM EDT) Anti-Kami-1 Ab <20 <20 units [facility] Anti-PL-7 Ab Negative Negative [facility] Comment: (NOTE) This test was developed and its performance characteristics determined by [facility]. It has not been cleared or approved by the Food and Drug Administration. Anti-PL-12 Ab Negative Negative [facility] Comment: (NOTE) This test was developed and its performance characteristics determined by [facility]. It has not been cleared or approved by the Food and Drug Administration. Anti-EJ Ab Negative Negative [facility] Comment: (NOTE) This test was developed and its performance characteristics determined by [facility]. It has not been cleared or approved by the Food and Drug Administration. Anti-OJ Ab Negative Negative [facility] Comment: (NOTE) This test was developed and its performance characteristics determined by [facility]. It has not been cleared or approved by the Food and Drug Administration. Anti-SRP Ab Negative Negative [facility] Comment: (NOTE) This test was developed and its performance characteristics determined by [facility]. It has not been cleared or approved by the Food and Drug Administration. Nprs-Pw-6-Ab Negative Negative [facility] Comment: (NOTE) This test was developed and its performance characteristics determined by [facility]. It has not been cleared or approved by the Food and Drug Administration. Icsn-SOZ-5psekb Ab <20 <20 units [facility] Comment: (NOTE) This test was developed and its performance characteristics determined by [facility]. It has not been cleared or approved by the Food and Drug Administration. Anti-MDA-5 Ab (CADM-140) <20 <20 units [facility] Comment: (NOTE) This test was developed and its performance characteristics determined by [facility]. It has not been cleared or approved by the Food and Drug Administration. Anti-NXP-2 (P140) Ab <20 <20 units [facility] Comment: (NOTE) This test was developed and its performance characteristics determined by [facility]. It has not been cleared or approved by the Food and Drug Administration. Anti-PM/Scl-100 Ab <20 <20 units [facility] Comment: (NOTE) This test was developed and its performance characteristics determined by [facility]. It has not been cleared or approved by the Food and Drug Administration. Anti-Ku Ab Negative Negative [facility] Comment: (NOTE) This test was developed and its performance characteristics determined by [facility]. It has not been cleared or approved by the Food and Drug Administration. Anti-SS-A 52kD Ab, IgG <20 <20 units [facility] Comment: (NOTE) This test was developed and its performance characteristics determined by [facility]. It has not been cleared or approved by the Food and Drug Administration. Anti-U1 PEDIATRIC ONCOLOGIST Ab <20 <20 units [facility] Anti-U2 PEDIATRIC ONCOLOGIST Ab Negative Negative [facility] Comment: (NOTE) This test was developed and its performance characteristics determined by [facility]. It has not been cleared or approved by the Food and Drug Administration. Anti-U3 PEDIATRIC ONCOLOGIST (Fibrillarin) Negative Negative [facility] Comment: (NOTE) This test was developed and its performance characteristics determined by [facility]. It has not been cleared or approved by the Food and Drug Administration. Interpretation for Anti-Kami-1, [id number], Anti-MDA-5, Anti-NXP-2, Anti-PM/Scl-100, Anti-SS-A 52 kD, Anti-U1 PEDIATRIC ONCOLOGIST: Negative: <20 Weak Positive: 20 - 39 Moderate Positive: 40 - 80 Strong Positive: >80 . Test Performed by: [facility] [address] [place] [address] Blood 11/10/2024 4:00 AM EDT 11/10/2024 4:39 AM EDT us Dewayne Foster MD, MS LAB BLOOD BKR ORDERABLES Final Result Performing Organization Address City/[facility]/ZIP Co de Phone Number [facility] * Antinuclear antibody, titer and pattern (11/10/2024 4:00 AM EDT) GIDEON TITER 1:80 Speckled [facility] 11/10/2024 4:00 AM EDT 11/10/2024 4:39 AM EDT us Dewayne Foster MD, MS LAB BLOOD BKR ORDERABLES Final Result Performing Organization Address [facility] Co de Phone Number [address] [address] * PROTEINASE 3 ANTIBODY, IGG (11/10/2024 4:00 AM EDT) PROTEINASE 3 AB <0.2 <0.4 (Negative) [facility] Blood 11/10/2024 4:00 AM EDT 11/10/2024 4:40 AM EDT us Dewayne Foster MD, MS LAB BLOOD ORDERABLES Fin al Result Performing Organization Address City/[facility] Co de Phone Number [facility] [place] [address] * MYELOPEROXIDASE ANTIBODIES, IGG (11/10/2024 4:00 AM EDT) MYELOPEROXIDASE AB <0.2 <0.4 (Negative) [facility] [address] Blood 11/10/2024 4:00 AM EDT 11/10/2024 4:40 AM EDT us Dewayne Foster MD, MS LAB BLOOD ORDERABLES Fin al Result Performing Organization Address City/[facility] Co de Phone Number [facility] MED/[address] [place] [address] * Procalcitonin (11/10/2024 4:00 AM EDT) Only the most recent of2 resultswithin the time period is included. Procalcitonin 0.12 0.00 - 0.25 ng/mL [facility] Comment: <=0.25 ng/mL: Bacterial pneumonia is unlikely. <0.5 ng/mL: Low likelihood of systemic bacterial infection / sepsis. Localized infection is possible. 0.5-2.0 ng/mL: Systemic bacterial infection / sepsis is possible, but other conditions can induce PCT levels in this range as well (e.g., pancreatitis,severe trauma, circulatory shock, surgery, moses, inhalation injury.) >2.0 ng/mL: Systemic bacterial infection / sepsis is likely. Additional information can be found in the [employer] Procalcitonin Guidelines, available at http://handbook.mgb.org/3817/Content/4-138-251 Blood 11/10/2024 4:00 AM EDT 11/10/2024 4:39 AM EDT us Dewayne Foster MD, MS LAB BLOOD BKR ORDERABLES Final Result Performing Organization Address [facility] Co de Phone Number [address] [address] * SS-A/SS-B antibodies (11/10/2024 4:00 AM EDT) ANTI-RO ANTIBODY 1.06 0.00 - 19.99 OD [facility] RO INTERPRETATION Negative Negative [facility] ANTI-LA ANTIBODY 1.85 0.00 - 19.99 OD [facility] LA INTERPRETATION Negative Negative [facility] [facility] Blood 11/10/2024 4:00 AM EDT 11/10/2024 4:40 AM EDT Dewayne Foster MD, MS LAB BLOOD ORDERABLES Fin al Result Performing Organization Address City/[facility]/ZIP Co de Phone Number [address] [address] * CCP IgG antibodies (11/10/2024 4:00 AM EDT) ANTI-CCP IGG <8 0 - 16 U/mL [facility] Blood 11/10/2024 4:00 AM EDT 11/10/2024 4:40 AM EDT us Dewayne Foster MD, MS LAB BLOOD BKR ORDERABLES Final Result Performing Organization Address [facility] Co de Phone Number [address] [address] * Scl-70 antibody (11/10/2024 4:00 AM EDT) SCL 70 AB, IGG <0.2 <1.0 (Negative) [facility] Blood 11/10/2024 4:00 AM EDT 11/10/2024 4:40 AM EDT Dewayne Foster MD, MS LAB BLOOD ORDERABLES Fin al Result Performing Organization Address [facility] Co de Phone Number [facility] [address] [place] [address] * Anti-Neutrophil Cytoplasmic Antibody (ANCA) (11/10/2024 4:00 AM EDT) C-ANCA Negative Negative [facility] P-ANCA Negative Negative [facility] Comment: (NOTE) Negative for cANCA and pANCA patterns by immunofluorescence. ADDITIONAL INFORMATION This test was developed and its performance characteristics determined by [facility] in a manner consistent with CLIA requirements. This test has not been cleared or approved by the U.S. Food and Drug Administration. Blood 11/10/2024 4:00 AM EDT 11/10/2024 4:40 AM EDT Dewayne Foster MD, MS LAB BLOOD BKR ORDERABLES Final Result Performing Organization Address City/[facility]/ZIP Co de Phone Number [facility] MED/[facility] [address] [place] [address] * (ABNORMAL) Sedimentation rate (ESR) (11/10/2024 4:00 AM EDT) Only the most recent of2 resultswithin the time period is included. ESR 55(H) 0 - 20 mm/h [facility] Blood 11/10/2024 4:00 AM EDT 11/10/2024 4:39 AM EDT us Dewayne Foster MD, MS LAB BLOOD BKR ORDERABLES Final Result Performing Organization Address [facility] Co de Phone Number [address] [address] * Rheumatoid factor (11/10/2024 4:00 AM EDT) RHEUMATOID FACTOR <10.0 0.0 - 14.0 IU/ml [facility] Blood 11/10/2024 4:00 AM EDT 11/10/2024 4:39 AM EDT Dewayne Foster MD, MS LAB BLOOD BKR ORDERABLES Final Result Performing Organization Address [facility] Co de Phone Number [address] [address] * (ABNORMAL) Antinuclear antibody (GIDEON) (11/10/2024 4:00 AM EDT) GIDEON SCREEN ON HEP 2 Positive(A ) Negative [facility] Comment:An GIDEON Titer has bee n reflexed. The results will follow. Blood 11/10/2024 4:00 AM EDT 11/10/2024 4:39 AM EDT us Dewayne Foster MD, MS LAB BLOOD BKR ORDERABLES Final Result Performing Organization Address [facility] Co de Phone Number [address] [address] * NT-proBNP (11/10/2024 4:00 AM EDT) Only the most recent of2 resultswithin the time period is included. NT-PROBNP 108 0 - 125 pg/mL [facility] Blood 11/10/2024 4:00 AM EDT 11/10/2024 4:39 AM EDT us Shikha Hartman PA-C, MS LAB BLOOD BKR ORD ERABLES Final Result Performing Organization Address [facility] Co de Phone Number [address] [address] * (ABNORMAL) CPK (creatine kinase) (11/10/2024 4:00 AM EDT) CREATINE KINASE 21(L) 35 - 232 U/L [facility] Blood 11/10/2024 4:00 AM EDT 11/10/2024 4:39 AM EDT us Dewayne Foster MD, MS LAB BLOOD BKR ORDERABLES Final Result Performing Organization Address [facility] Co de Phone Number [address] [address] * CT CHEST PULMONARY ANGIOGRAM (ACUTE) (11/09/2024 12:44 PM EDT) Anatomical Region Laterality Modality Chest, Thoracic Vasculature Comp uted Tomography 11/09/2024 12:5 3 PM EDT Impressions 11/09/2024 12:57 PM EDT 1. Negative for pulmonary embolism. 2. Interval increase in diffuse bilateral ground OPACITIES and airspace opacities may represent increasing multifocal pneumonia. Narrative 11/09/2024 12:[address] CHEST PULMONARY ANGIOGRAM (ACUTE) Referring clinician's provided indication for this examination in [facility]: * PE suspected, high prob TECHNIQUE: Multidetector CT pulmonary angiography was performed after administration of intravenous contrast using tailored dose modulation techniques. 3D angiographic postprocessing techniques were acquired in the form of axial maximum intensity projection images (MIPS). COMPARISON: CT CHEST WITH CONTRAST FINDINGS: Pulmonary Angiogram: Technical quality: There is adequate opacification of the pulmonary arteries. Normal. There is no filling defect to suggest pulmonary embolism. Proximal to the bifurcation of the main pulmonary artery, the main pulmonary artery is normal in diameter. Devices/Tubes/Lines: None. Lungs: Interval increase in diffuse groundglass opacity and airspace opacity throughout both lungs. The central airways are patent. Pleura: Normal. No pleural effusion or pneumothorax. Mediastinum: Normal. No thyroid nodules. Heart and pericardium are normal. No coronary calcification. Lymph Nodes: No enlarged supraclavicular, axillary, mediastinal, or hilar lymph nodes. Mediastinal lymph nodes at the upper limits of normal in size are likely reactive. Upper Abdomen: Normal. No abnormality detected in the visualized upper abdomen. Chest Wall: Normal. No chest wall mass. Bones: Normal. No suspicious lytic or blastic lesions. Procedure Note Josias Crespo MD - 11/09/2024 CT CHEST PULMONARY ANGIOGRAM (ACUTE) Referring clinician's provided indication for this examination in [facility]: *PE suspected, high prob TECHNIQUE: Multidetector CT pulmonary angiography was performed afteradministration of intravenous contrast using tailored dose modulationtechniques. 3D angiographic postprocessing techniques were acquired in theform of axial maximum intensity projection images (MIPS). COMPARISON: CT CHEST WITH CONTRAST FINDINGS: Pulmonary Angiogram: Technical quality: There is adequate opacification of the pulmonaryarteries. Normal. There is no filling defect to suggest pulmonary embolism. Proximal to the bifurcation of the main pulmonary artery, the mainpulmonary artery is normal in diameter. Devices/Tubes/Lines: None. Lungs: Interval increase in diffuse groundglass opacity and airspaceopacity throughout both lungs. The central airways are patent. Pleura: Normal. No pleural effusion or pneumothorax. Mediastinum: Normal. No thyroid nodules. Heart and pericardium are normal.No coronary calcification. Lymph Nodes: No enlarged supraclavicular, axillary, mediastinal, or hilarlymph nodes. Mediastinal lymph nodes at the upper limits of normal in sizeare likely reactive. Upper Abdomen: Normal. No abnormality detected in the visualized upperabdomen. Chest Wall: Normal. No chest wall mass. Bones: Normal. No suspicious lytic or blastic lesions. IMPRESSION: 1. Negative for pulmonary embolism. 2. Interval increase in diffuse bilateral ground OPACITIES and airspaceopacities may represent increasing multifocal pneumonia. Shikah Hartman PA-C, MS IMPiero CT CHEST F inal Result * US BEDSIDE (11/09/2024 10:13 AM EDT) Anatomical Region Laterality Modality Ultrasound Narrative 11/09/2024 10:13 AM EDT Shikha Hartman PA-C, MS 11/09/2024 1:57 PM Bedside Ultrasound Date/Time: 11/09/2024 10:13 AM Performed by: Shikha Hartman PA-C, MS Authorized by: Shikha Hartman PA-C, MS Exam Type: Thoracic Thoracic Exam Findings & Impression: Indications: patient with shortness of breath Right Lung Pleural Effusion: the R chest was visualized and was negative for effusion Left Lung Pleural Effusion: the L chest was visualized and was negative for effusion Right Lung B-Lines: the R chest was visualized and multiple B lines were seen Left Lung B-Lines: the L chest was visualized and multiple B lines were seen Right Lung Consolidation: the R lung was visualized and consolidation was present Left Lung Consolidation: the L lung was visualized and consolidation was present Right Lung Sliding: the R chest was evaluated and lung sliding was visualized Left Lung Sliding: the L chest was visualized and lung sliding was visualized Overall Impression: positive Images: Images Saved: Yes Accession Number: [id number] Shikha Hartman PA-C, MS IMG POINT OF CARE EXAMS Final Result * Folate (11/09/2024 4:57 AM EDT) FOLIC ACID 18.5 4.2 - 19.9 ng/mL [facility] Blood 11/09/2024 4:57 AM EDT 11/09/2024 5:52 AM EDT Shikha Hartman PA-C, MS LAB BLOOD BKR ORD ERABLES Final Result Performing Organization Address City/[facility]/ZIP Co de Phone Number [address] [address] * Vitamin B12 (11/09/2024 4:57 AM EDT) VITAMIN B12 1,242 232 - 1,245 pg/mL [facility] Blood 11/09/2024 4:57 AM EDT 11/09/2024 5:52 AM EDT Shikha Hartman PA-C, MS LAB BLOOD BKR ORD ERABLES Final Result Performing Organization Address City/[facility] Co de Phone Number [address] [address] * XR Chest Portable (11/08/2024 5:09 AM EDT) Anatomical Region Laterality Modality Chest Computed Radiogr aphy 11/08/2024 8:24 AM EDT Impressions 11/08/2024 8:27 AM EDT No significant change in diffuse interstitial and alveolar opacities from one day prior. Narrative 11/08/2024 8:27 AM EDT XR CHEST PORTABLE Referring clinician's provided indication for this examination in Epic: Pneumonia; COMPARISON: XR CHEST 1 VIEW ; CT CHEST WITH CONTRAST FINDINGS: Devices/Tubes/Lines: None. Lungs: There are persistent diffuse interstitial and alveolar opacities which are similar to prior exam. Pleura: No pneumothorax or significant effusion. Heart/Mediastinum: Stable in size and contour without overt enlargement. Bones/Soft Tissues: Mild curvature of the thoracic spine with mild multilevel degenerative change. There are old healed posterior right-sided rib fractures. Procedure Note Main Morgan MD - 11/08/2024 XR CHEST PORTABLE Referring clinician's provided indication for this examination in Epic:Pneumonia; COMPARISON: XR CHEST 1 VIEW ; CT CHEST WITH [id number] FINDINGS: Devices/Tubes/Lines: None. Lungs: There are persistent diffuse interstitial and alveolar opacitieswhich are similar to prior exam. Pleura: No pneumothorax or significant effusion. Heart/Mediastinum: Stable in size and contour without overt enlargement. Bones/Soft Tissues: Mild curvature of the thoracic spine with mildmultilevel degenerative change. There are old healed posterior right-sidedrib fractures. IMPRESSION: No significant change in diffuse interstitial and alveolar opacities fromone day prior. us Jus Mayes MD IMG XR CHEST Final Result * Ionized calcium (11/08/2024 3:44 AM EDT) Only the most recent of3 resultswithin the time period is included. IONIZED CALCIUM 1.22 1.14 - 1.37 mmol/L [facility] Blood 11/08/2024 3:44 AM EDT 11/08/2024 3:52 AM EDT us Jus Mayes MD LAB BLOOD BKR ORDERABLES Prema l Result [facility] [address] [place] [address] * ECG 12-LEAD (11/07/2024 6:12 AM EDT) Ventricular Rate EKG/MIN 78 BPM [facility] Atrial Rate 78 BPM [facility] GA Interval 182 ms [facility] QRS Duration 88 ms [facility] QT Interval 396 ms [facility] QTC Interval 451 ms [facility] P [place] 22 degrees [facility] R Wave [place] 3 degrees [facility] T Wave [place] 11 degrees [facility] 11/07/2024 6:12 AM EDT 11/08/2024 2:11 PM EDT Narrative [facility] - 11/08/2024 2:11 PM EDT Normal sinus rhythm Normal ECG When compared with ECG of 01-Nov-2024 07:00, Fusion complexes are no longer Present Vent. rate has decreased by 68 bpm Criteria for Septal infarct are no longer Present T wave inversion less evident in Inferior leads Nonspecific T wave abnormality no longer evident in Lateral leads Confirmed by Mehran Lowe ([id number]) on 11/08/2024 2:11:28 PM us Howard Parham MOUNTAIN GUIDE ECG ORDERABLES Final Result Performing Organization Address City/[facility] Co de Phone Number [email or web address] * Vancomycin, trough (11/06/2024 9:55 PM EDT) Only the most recent of2 resultswithin the time period is included. VANCOMYCIN,TROU GH 18.6 10.0 - 20.0 ug/mL [facility] Comment: Interpretation: Therapeutic Range: 10.0 - 20.0 ug/ml. Toxic: Greater than 30.0 ug/ml. Blood 11/06/2024 9:55 PM EDT 11/06/2024 9:58 PM EDT us Howard Parham NP LAB BLOOD BKR ORDERABLES Final R esult Performing Organization Address [facility] Co de Phone Number [address] [address] * XR CHEST 1 VIEW (11/06/2024 1:27 PM EDT) Anatomical Region Laterality Modality Chest Computed Radiogr aphy 11/06/2024 1:33 PM EDT Impressions 11/06/2024 1:35 PM EDT Mildly improved diffuse bilateral lung opacities. Narrative 11/06/2024 1:35 PM EDT XR CHEST 1 VIEW Referring clinician's provided indication for this examination in [facility]: Dyspnea (Shortness of Breath); COMPARISON: XR CHEST 1 VIEW FINDINGS: Devices/Tubes/Lines: None. Lungs: Mildly improved diffuse bilateral lung opacities. Pleura: No pneumothorax. Trace bilateral pleural effusions. Heart/Mediastinum: Unchanged in appearance. Bones/Soft Tissues: Osseous degenerative changes. Chronic bilateral rib fractures. Procedure Note Tong Soler DO, MPH - 11/06/2024 XR CHEST 1 VIEW Referring clinician's provided indication for this examination in [facility]:Dyspnea (Shortness of Breath); COMPARISON: XR CHEST 1 VIEW FINDINGS: Devices/Tubes/Lines: None. Lungs: Mildly improved diffuse bilateral lung opacities. Pleura: No pneumothorax. Trace bilateral pleural effusions. Heart/Mediastinum: Unchanged in appearance. Bones/Soft Tissues: Osseous degenerative changes. Chronic bilateral ribfractures. IMPRESSION: Mildly improved diffuse bilateral lung opacities. us Jus Mayes MD IMG XR CHEST Final Result * (ABNORMAL) Vancomycin, peak (11/06/2024 12:38 PM EDT) Only the most recent of2 resultswithin the time period is included. Pathologist [facility] VANCOMYCIN,PEA K 42.2(H) 30.0 - 40.0 ug/mL [facility] Comment: Interpretation: Therapeutic Range: 30 - 40 ug/ml. Toxic: Greater than or equal to 50 ug/ml. Blood 11/06/2024 12:3 8 PM EDT 11/06/2024 12:48 PM EDT us Howard Parham NP LAB BLOOD ORDERABLES Final Resul t [facility] [address] [place] [address] * (ABNORMAL) LDH (11/05/2024 5:40 AM EDT) LDH 399(H) 118 - 273 U/L [facility] 11/05/2024 5:40 AM EDT 11/05/2024 5:48 AM EDT us Rex Darby MD LAB BLOOD BKR ORDERABL ES Final Result Performing Organization Address [facility]/ZIP Co de Phone Number [address] [address] * TSH with reflex (10/31/2024 4:17 AM EDT) TSH 2.86 0.27 - 4.20 uIU/mL [facility] 10/31/2024 4:17 AM EDT 10/31/2024 4:21 AM EDT us Virginia Sauceda MD LAB BLOOD BKR ORDERABLES Fin al Result Performing Organization Address [facility] Co de Phone Number [address] [address] * COLONOSCOPY FOR RESULT ENTRY ONLY (12/30/2023) Pathologist [facility] Colonoscopy External us Caesar Viveros MD HEALTH MAINTENANCE Final Result * Fecal immunochemical test x1 (FIT) (06/24/2023 3:00 PM EDT) Immuno Fecal Occult Negative Negative [facility] Stool (Stool) 06/24/2023 3:0 0 PM EDT 06/24/2023 3:17 PM EDT us Karin Espinoza PA-C LAB BODY FLUIDS AND STOOL ORDER ANUJA Final Result Performing Organization Address [facility]/ZIP Co de Phone Number [address] [address] * Hepatitis C antibody, qualitative (05/29/2023 4:17 PM EDT) HCV NON-REACTIV E NON-REACTI VE [facility] Blood 05/29/2023 4:17 PM EDT 05/29/2023 4:40 PM EDT Karin Espinoza PA-C LAB BLOOD BKR ORDERABLES Final Result [facility] [address] [place] [address] from Last 3 Months or Most Recently Relevant to Health Maintenance Insurance [facility] MEDICARE PART [facility] & [facility] [place] MED[facility] PART A & B [facility] & B [employer] P[employer] MEDICARE REPLACEMENT [facility] MEDICARE PART A & B (Home) [address] [place] [id number] [facility] & B [employer] PPO MEDICARE REPLACEMENT [facility] MED[facility] A & B [employer] PPO MEDICARE REPLACEMENT [facility] MEDICARE PART A & B [employer] PPO MEDICARE REPLACEMENT Advance Directives For more information, please contact: [phone] (9AM - 5PM Teresa/[facility], Friday-Friday) Documents on File Type Date Recorded 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 Expl 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 Healthcare Proxy 06/15/2021 4:28 PM Healthcare Proxy 06/15/2021 1:54 PM Ursula Castrejon health care proxy * Full Code (Latest Code Status on File) Date Activated Date Inactivated Comments 10/30/2024 12:13 AM Question Answer Comments Code Status Confirmed With: Patient * Full Code Date Activated Date Inactivated Comments 08/05/2023 1:01 AM 10/30/2024 12:13 AM Question Answer Comments Code Status Confirmed With: Patient * Full Code Date Activated Date Inactivated Comments 06/10/2021 9:25 PM 08/05/2023 1:01 AM Question Answer Comments Code Status Confirmed With: Patient Healthcare Agents on File Name Relationship Healthcare Agent Relationshi p Communication Ursula Castrejon Mother .Primary Health Care Agent (Proxy form on file) Care Teams Bottom Ironer Relationship Specialty Start Date End Date Suni Garcia PA [address] [place] [address] PCP - General Xerox Machine Operator 10/05/21 Virginia Patton PA-C [address] [place] [phone] Physician Supervisor Lace Tearing 12/16/23 Additional Source Comments The information contained in this document represents components of the legal health record. It is not the complete legal health record.[facility]
--- OUTSIDE RECORDS SUMMARY | 2025-02-04 16:08 | XMS_ITS | Encounter Summary ---
Author Organization [facility] Address [address] [place] [address] Phone Care Team Providers Care Knitting Machine Mechanic Name Role Phone Suni Garcia Primary Care Provider [phone] Virginia Patton-C Unavailable [phone] Encounter Details Date Type Department Care Team (Late st Contact Info) Description 11/09/2024 Procedure Pass [facility], Ct Scan - [facility] [address] [place], [place] [phone] Social History Tobacco Use Types Packs/Day Years [...] Description 03/09/2025 1:00 PM EST Office Visit [facility] [address] [place] [address] Lawrence Bustos MD [address] [place] [address] documented as of this encounter Visit Diagnoses Not on filedocumented in this encounter Additional Health Concerns Infection Onset Date Last Indicated Resolved Time Rhino/Entero 10/31/2024 10/31/2024 11/14/2024 1:21 AM EDT RSV 11/10/2024 11/10/2024 11/17/2024 1:21 AM EDT documented as of this encounter Care Teams Knitting Machine Mechanic Relationship Specialty Start Date End Date Suni Garcia PA [address] [place] [phone] PCP - General Foot Worker 10/05/21 Virginia Patton PA-C [address] [place] [address] [email or web address] Physician Production Hardener 12/16/23 documented as of this encounter Additional Source Comments The information contained in this document represents components of the legal health record. It is not the complete legal health record.[facility]
--- OUTSIDE RECORDS SUMMARY | 2025-02-04 16:08 | XMS_ITS | Encounter Summary ---
Author Organization [facility] Address [address] [place] [address] Phone Care Team Providers Care Pull Through Hooker Name Role Phone Snui Garcia Primary Care Provider [phone] Virginia Patton-C Unavailable [phone] Encounter Details Date Type Department Care Team (Late st Contact Info) Description 08/04/2023 Procedure Pass [facility], Ct Scan - [facility] [address] [place] [employer], [place] [phone] Social History Tobacco Use Types Packs/Day Years [...] 03/09/2025 1:00 PM EST Office Visit [facility] [address] [place] [address] Lawrence Bustos MD [address] [address] documented as of this encounter Visit Diagnoses Not on filedocumented in this encounter Additional Health Concerns Infection Onset Date Last Indicated Resolved Time CoV-Risk Comment:Per note documentation 10/29/2024 10/29/2024 4:02 PM EDT Rhino/Entero 10/31/2024 10/31/2024 11/14/2024 1:21 AM EDT RSV 11/10/2024 11/10/2024 11/17/2024 1:21 AM EDT documented as of this encounter Care Teams Pull Through Hooker Relationship Specialty Start Date End Date Suni Garcia PA [address] [place] [phone] PCP - General Sharepoint Consultant 10/05/21 Virginia Patton PA-C [address] [place] [address] Physician [employer] Travel Counselor 12/16/23 documented as of this encounter Additional Source Comments The information contained in this document represents components of the legal health record. It is not the complete legal health record.[facility]
--- OUTSIDE RECORDS SUMMARY | 2025-02-04 16:08 | XMS_ITS | Encounter Summary ---
Author Organization [facility] Address [address] [facility] [address] [place] [address] Phone Care Team Providers Care All Around Gear Machine Operator Name Role Phone Hans Jaeger MD Primary Care Provider [phone] Suni Garcia Primary Care Provider [phone] Virginia Patton PA-C Unavailable [phone] Encounter Details Date Type Department Care Team (Late st Contact Info) Description 06/10/2021 Procedure Pass [address] [address] Social History Tobacco Use Types Packs/Day Years [...] Description 03/09/2025 1:00 PM EST Office Visit [facility] [address] [place] [address] Lawrence Bustos MD [address] [address] [email or web address] documented as of this encounter Visit Diagnoses [...] documented as of this encounter Care Teams All Around Gear Machine Operator Relationship Specialty Start Date End Date Hans Jaeger MD [email or web address] PCP - General Internal Medicine 02/02/21 10/04/21 Suni Garcia PA [address] [place] [phone] PCP - General Electronics Supervisor 10/05/21 Virginia Patton PA-C [address] [place] [address] [email or web address] Physician Progressive Care Unit Registered Nurse 12/16/23 documented as of this encounter Additional Source Comments The information contained in this document represents components of the legal health record. It is not the complete legal health record.[facility]
--- OUTSIDE RECORDS SUMMARY | 2025-02-04 16:08 | XMS_ITS | Encounter Summary ---
Author Organization [facility] Address [address] [facility] [address] [place] [address] Phone Care Team Providers Care Stone Spreader Operator Name Role Phone Hans Jaeger MD Primary Care Provider [phone] Suni Garcia Primary Care Provider [phone]- [phone] Virginia Patton PA-C Unavailable [phone] Encounter Details Date Type Department Care Team (Late st Contact Info) Description 06/11/2021 Procedure Pass [address] [address] Social History Tobacco Use Types Packs/Day Years [...] Visit [facility] 10 [place] [address] Lawrence Bustos MD [address] [address] [email or web address] documented as of this encounter Visit Diagnoses [...] documented as of this encounter Care Teams Stone Spreader Operator Relationship Specialty Start Date End Date Hans Jaeger MD [email or web address] PCP - General Internal Medicine 02/02/21 10/04/21 Suni Garcia PA [address] [place] [address] PCP - General Custom Car Builder 10/05/21 Virginia Patton PA-C [address] [place] [address] [email or web address] Physician Coroner/Medical Examiner 12/16/23 documented as of this encounter Additional Source Comments The information contained in this document represents components of the legal health record. It is not the complete legal health record.[facility]
--- OUTSIDE RECORDS SUMMARY | 2025-02-04 16:08 | XMS_ITS | Encounter Summary ---
Author Organization [facility] Address [address] [place] [address] Phone Care Team Providers Care Waitstaff Captain Name Role Phone Suni Garcia Primary Care Provider [phone] Virginia Patton-C Unavailable Encounter Details Date Type Department Care Team (Late st Contact Info) Description 01/01/2024 Procedure Pass [facility], Ct Scan - [facility] 30 [place], [place] [id number] Social History Tobacco Use Types Packs/Day Years [...] PM EST Office Visit [facility] [address] [place] [address] Lawrence Bustos MD [address] [place] [address] [email or web address] documented as of this encounter Visit Diagnoses Not on filedocumented in this encounter Additional Health Concerns Infection Onset Date Last Indicated Resolved Time CoV-Risk Comment:Per note documentation 10/29/2024 10/29/2024 4:02 PM EDT Rhino/Entero 10/31/2024 10/31/2024 11/14/2024 1:21 AM EDT RSV 11/10/2024 11/10/2024 11/17/2024 1:21 AM EDT documented as of this encounter Care Teams Waitstaff Captain Relationship Specialty Start Date End Date Suni Garcia PA [address] [place] [address] PCP - General Atomic Welder 10/05/21 Virginia Patton PA-C [address] [place] [address] [email or web address] Physician Risk Management Intern 12/16/23 documented as of this encounter Additional Source Comments The information contained in this document represents components of the legal health record. It is not the complete legal health record.[facility]
--- OUTSIDE RECORDS SUMMARY | 2025-02-04 16:08 | XMS_ITS | Encounter Summary ---
Author Organization [facility] Address [address] [place] [address] Phone Care Team Providers Care End Finder Twisting Department Name Role Phone Suni Garcia Primary Care Provider [phone] Virginia Patton-C Unavailable [phone] Encounter Details Date Type Department Care Team (Late st Contact Info) Description 11/04/2024 Procedure Pass [facility], Ct Scan - [facility] 30 [place], [place] [phone] Social History Tobacco Use Types Packs/Day Years [...] Description 03/09/2025 1:00 PM EST Office Visit [facility] [address] [place] [address] Lawrence Bustos MD [address] [place] [address] documented as of this encounter Visit Diagnoses Not on filedocumented in this encounter Additional Health Concerns Infection Onset Date Last Indicated Resolved Time Rhino/Entero 10/31/2024 10/31/2024 11/14/2024 1:21 AM EDT RSV 11/10/2024 11/10/2024 11/17/2024 1:21 AM EDT documented as of this encounter Care Teams End Finder Twisting Department Relationship Specialty Start Date End Date Suni Garcia PA [address] [place] [address] PCP - General Seat Pack Inspector 10/05/21 Virginia Patton PA-C [address] [place] [address] [email or web address] Physician Chief Arson Division 12/16/23 documented as of this encounter Additional Source Comments The information contained in this document represents components of the legal health record. It is not the complete legal health record.[facility]
--- OUTSIDE RECORDS SUMMARY | 2025-02-04 16:08 | XMS_ITS | Encounter Summary ---
Author Organization [facility] Address [address] [facility] [address] [place] [address] Phone Care Team Providers Care Law Firm Administrator Name Role Phone Suni Garcia Primary Care Provider [phone] Virginia Patton PA-C Unavailable [phone] Reason for Referral * MRI/CAT Scan - Closed Specialty Diagnoses / Procedures Referred By Contac t Referred To Contact Radiology Diagnoses Other pneumonia, unspecified organism Procedures CT Chest CHG DIAGNOSTIC COMPUTED TOMOGRAPHY THORAX W/O CNTRST Suni Garcia PA [address] [place] [address] Phone: tel: fax: Referral ID Status Reason Start Date Expiration Date Visits Re quested Visits Authorized [id number] Closed 12/20/2024 06/18/2025 1 1 Encounter Details Date Type Department Care Team (Latest Contact Info) Description 12/20/2024 Transcribe Orders Virtual Department 30 [place] [address] Suni Garcia PA [address] [place] [phone] Other pneumonia, unspecified organism (Primary Dx) Social History Tobacco Use Types Packs/Day Years Used Date Smoking Tobacco: Every Day Cigarettes 0.3 30 Smokeless Tobacco: Never Comments:now smoking 5 cigar ettes per day Alcohol Use Standard Drinks/Week Comments Yes 14 (1 standard drink = 0.6 oz pu re alcohol) 3-5 nips daily Home Health Assessment: Transportation Answer Date Recorded Lack of Transportation (Medical) No 12/13/2024 Lack of Transportation (Non-Medical) No 12/13/2024 Patient Unable or Declines to Respond No 12/13/2024 Education Answer Date Recorded Are you interested [...] [facility] 10 [place] [address] Lawrence Bustos MD [address] [address] [email or web address] documented as of this encounter Results * CT CHEST WITHOUT CONTRAST (01/04/2025 7:25 [...] clinician's provided indication for this examination in Epic:Outside Radiology Order; OTHER PNEUMONIA, UNSPECIFIED ORGANISM Additional [...] CARDENAS IMG CT CHEST Final Resu lt documented in this encounter Visit Diagnoses Diagnosis Other pneumonia, unspecified organism- Primary Other pneumonia, unspecified organism documented in this encounter Care Teams Law Firm Administrator Relationship Specialty Start Date End Date Suni Garcia PA [address] [place] [address] PCP - General Safety And Security Manager 10/05/21 Virginia Patton PA-C [address] [place] [address] [email or web address] Physician Operator Catalyst Concentration 12/16/23 documented as of this encounter Additional Source Comments The information contained in this document represents components of the legal health record. It is not the complete legal health record.[facility]
--- OUTSIDE RECORDS SUMMARY | 2025-02-04 16:08 | XMS_ITS | Encounter Summary ---
Author Organization [facility] Address [address] [place] [address] [place] [address] Phone Care Team Providers Care Wound Nurse Name Role Phone Hans Jaeger MD Primary Care Provider Suni Garcia Primary Care Provider [phone]- [phone] Virginia Patton PA-C Unavailable [phone] Encounter Details Date Type Department Care Team (Late st Contact Info) Description 06/10/2021 Procedure Pass [facility], Ct Scan - [address] [address] Social History Tobacco Use Types Packs/Day Years [...] Description 03/09/2025 1:00 PM EST Office Visit [facility] 10 [place] [address] Lawrence Bustos MD [address] [address] [email or web address] documented as of this encounter Visit Diagnoses [...] documented as of this encounter Care Teams Wound Nurse Relationship Specialty Start Date End Date Hans Jaeger MD [email or web address] PCP - General Internal Medicine 02/02/21 10/04/21 Suni Garcia PA [address] [place] [address] PCP - General Hospital Housekeeper 10/05/21 Virginia Patton PA-C [address] [place] [email or web address] Physician Clothes Shaker 12/16/23 documented as of this encounter Additional Source Comments The information contained in this document represents components of the legal health record. It is not the complete legal health record.[facility]
--- OUTSIDE RECORDS SUMMARY | 2025-02-04 16:08 | XMS_ITS | Encounter Summary ---
Author Organization [facility] Address [address] [place] [address] Phone Care Team Providers Care Breakdown Man Name Role Phone Suni Garcia Primary Care Provider [phone] Virginia Patton-C Unavailable [phone] Encounter Details Date Type Department Care Team (Late st Contact Info) Description 05/07/2023 Prep for Surgery [facility] [address] [place] [address] [phone] Marilyn Farias MD [address] [place] [address] Orthopedics & Sports Medicine, [facility] [place], [place] [phone] [email or web address] Social History Tobacco Use Types Packs/Day Years [...] Description 03/09/2025 1:00 PM EST Office Visit [facility] 10 [place] [address] Lawrence Bustos MD [address] [address] documented as of this encounter Visit Diagnoses [...] documented as of this encounter Care Teams Breakdown Man Relationship Specialty Start Date End Date Suni Garcia PA [address] [place] [address] PCP - General Medical Research Tech 10/05/21 Virginia Patton PA-C [address] [place] [address] Physician Research Electrician 12/16/23 documented as of this encounter Additional Source Comments The information contained in this document represents components of the legal health record. It is not the complete legal health record.[facility]
--- OUTSIDE RECORDS SUMMARY | 2025-02-04 16:08 | XMS_ITS | Encounter Summary ---
Author Organization [facility] Address [address] [place] [address] Phone Care Team Providers Care Harness Rigger Name Role Phone Suni Garcia Primary Care Provider [phone] Virginia Patton PA-C Unavailable [phone] Encounter Details Date Type Department Care Team (Latest Contact Info) Description 12/30/2023 Transcribe Orders [facility] [address] [place] [address] Karin Espinoza PA-C [address] [facility] [place]. [address] [place] [address] [email or web address] Anemia, unspecified type (Primary Dx) Social History Tobacco Use Types [...] Description 03/09/2025 1:00 PM EST Office Visit [facility] [address] [place] [address] Lawrence Bustos MD [address] [place] [address] [email or web address] documented as of this encounter Results * Vitamin B12 (12/30/2023 3:04 PM EST) VITAMIN B12 803 232 - 1,245 pg/mL [facility] Blood 12/30/2023 3:04 PM EST 12/30/2023 3:07 PM EST us Karin Espinoza PA-C LAB BLOOD BKR ORDERABLES Final Result [facility] 30 [place] [address] * (ABNORMAL) Ferritin (12/30/2023 3:04 PM EST) FERRITIN 1,780(H) 30 - 400 ug/L [facility] Blood 12/30/2023 3:04 PM EST 12/30/2023 3:07 PM EST us Karin Espinoza PA-C LAB BLOOD BKR ORDERABLES Final Result [address] [address] * (ABNORMAL) Folate (12/30/2023 3:04 PM EST) FOLIC ACID >20.0(H) 4.2 - 19.9 ng/mL [facility] Blood 12/30/2023 3:04 PM EST 12/30/2023 3:07 PM EST us Karin Espinoza PA-C LAB BLOOD BKR ORDERABLES Final Result Performing Organization Address [facility]/ZIP Co de Phone Number [address] [address] * (ABNORMAL) Iron and iron binding capacity (12/30/2023 3:04 PM EST) IRON 253(H) 45 - 160 ug/dL [facility] IRON BINDING CAPACITY 325 228 - 428 ug/dL [facility] TRANSFERRIN SATURAT. 78(H) 20 - 55 % [facility] Blood 12/30/2023 3:04 PM EST 12/30/2023 3:07 PM EST Karin Espinoza PA-C LAB BLOOD BKR ORDERABLES Final Result Performing Organization Address City/[facility]/ZIP Co de Phone Number [address] [address] * (ABNORMAL) CBC (12/30/2023 3:04 PM EST) WBC 7.49 4.00 - 11.00 K/uL [facility] RBC 4.16(L) 4.50 - 5.90 M/uL [facility] HGB 13.0(L) 13.5 - 17.5 g/dL [facility] HCT 42.3 41.0 - 53.0 % [facility] PLT 133(L) 150 - 450 K/uL [facility] MCV 101.7(H) 80.0 - 100.0 fL [facility] MCH 31.3(H) 27.0 - 31.0 pg [facility] MCHC 30.7(L) 32.0 - 36.0 g/dL [facility] RDW 14.1 11.5 - 14.5 % [facility] MPV 9.9 8.4 - 12.0 fL [facility] NRBC 0.00 0.00 /100 WBCs [facility] ABSOLUTE NRBC 0.00 0.00 K/uL [facility] Blood 12/30/2023 3:04 PM EST 12/30/2023 3:07 PM EST us Karin Espinoza PA-C LAB BLOOD BKR ORDERABLES Final Result Performing Organization Address City/State/[facility] Co de Phone Number [address] [address] documented in this encounter Visit Diagnoses Diagnosis Anemia, unspecified type- Primary documented in this encounter Additional Health Concerns Infection Onset Date Last Indicated Resolved Time CoV-Risk Comment:Per note documentation 10/29/2024 10/29/2024 4:02 PM EDT Rhino/Entero 10/31/2024 10/31/2024 11/14/2024 1:21 AM EDT RSV 11/10/2024 11/10/2024 11/17/2024 1:21 AM EDT documented as of this encounter Care Teams Harness Rigger Relationship Specialty Start Date End Date Suni Garcia PA [address] [place] [address] PCP - General Director Of Accounts Payable 10/05/21 Virginia Patton PA-C [address] [place] [address] [email or web address] Physician Guide Winder 12/16/23 documented as of this encounter Additional Source Comments The information contained in this document represents components of the legal health record. It is not the complete legal health record.[facility]
--- OUTSIDE RECORDS SUMMARY | 2025-02-04 16:09 | XMS_ITS | Encounter Summary ---
Author Organization [facility] Address [address] [place] [address] Phone Care Team Providers Care Cornice Upholsterer Name Role Phone Suni Garcia Primary Care Provider [phone] Virginia Patton-C Unavailable [phone] Encounter Details Date Type Department Care Team (Late st Contact Info) Description 10/20/2024 Procedure Pass [facility], Ct Scan - [facility] [address] [place], [place] [phone] Social History Tobacco Use Types Packs/Day Years [...] got money to buy more. Never True 10/22/2024 Within the past 6 months the food we bought just didn't last and we didn't have enough money to get more. Never True Residential Stability Answer Date Recor ded What is your housing situation today? I have yeny jackson 10/22/2024 How many times have you move d in the past 12 months? Zero (I did not move) 10/22/2024 Paying for Meds Answer Date Recorded Do you have trouble paying for medicines? No 10/22/2024 Paying Utility Bills Answer Date Record ed Do you have trouble paying your heating or elect ricity bill? No 10/22/2024 Transportation Answer Date Recorded Has the lack of transportati on kept you from medical appointments or from getting medications? No 10/22/2024 Digital Access Answer Date Recorded No 10/22/2024 Yes 10/22/2024 Do you have reliable internet access at home? Ye s 10/22/2024 Do you have a device (e.g., phone, tablet, computer) with a working camera? Yes 10/22/2024 Intimate Partner Violence Answer Date R ecorded Are you denied basic needs s uch as food, clothing, or medical care? No 10/20/2024 In the past 12 months have y ou been in a relationship with a person who hurts, threatens, or tries to control you? No 10/20/2024 Are you denied basic needs s uch as food, clothing, or medical care? No 10/20/2024 In the past 12 months have y ou been in a relationship with a person who hurts, threatens, or tries to control you? No 10/20/2024 Sex and Gender Information Value Date Recorded Sex Assigned at Male 05/31/2023 1:08 PM EDT Legal Sex Male 9:31 PM EDT Gender Identity Male 05/31/2023 1:08 PM EDT Sexual Orientation Straight 06/08/2024 12 :21 PM EDT documented as of this encounter Plan of Treatment Upcoming Encounters Date Type Department Care Team (Late st Contact Info) Description 03/09/2025 1:00 PM EST Office Visit [facility] [address] [place] [address] Lawrence Bustos MD [address] [place] [address] documented as of this encounter Visit Diagnoses Not on filedocumented in this encounter Additional Health Concerns Infection Onset Date Last Indicated Resolved Time CoV-Risk Comment:Per note documentation 10/29/2024 10/29/2024 4:02 PM EDT Rhino/Entero 10/31/2024 10/31/2024 11/14/2024 1:21 AM EDT RSV 11/10/2024 11/10/2024 11/17/2024 1:21 AM EDT documented as of this encounter Care Teams Cornice Upholsterer Relationship Specialty Start Date End Date Suni Garcia PA [address] [place] [address] PCP - General Pepper Picker 10/05/21 Virginia Patton, KIRT [address] [place] [address] [email or web address] Physician Director Of Land Acquisition 12/16/23 documented as of this encounter Additional Source Comments The information contained in this document represents components of the legal health record. It is not the complete legal health record.[facility]
--- OUTSIDE RECORDS SUMMARY | 2025-02-04 16:09 | XMS_ITS | Encounter Summary ---
Author Organization [facility] Address [address] [facility] [address] [place] [address] Phone Care Team Providers Care Nut Sorter Name Role Phone Suni Garcia Primary Care Provider [phone]- [phone] Virginia Patton-Cindi Unavailable [phone] Reason for Referral * MRI/CAT Scan - Closed Specialty Diagnoses / Procedures Referred By Contac t Referred To Contact Radiology Diagnoses Collapsed vertebra, not elsewhere classified, thoracic region, initial encounter for fracture Procedures MRI Thoracic Spine Suni Garcia PA [address] [place] [address] Phone: tel: fax: Referral ID Status Reason Start Date Expiration Date Visits Re quested Visits Authorized [id number] Closed 04/14/2023 04/14/2024 1 1 Encounter Details Date Type Department Care Team (Latest Contact Info) Description 04/14/2023 Transcribe Orders Virtual Department 30 [place] [address] Suni Garcia PA [address] [place] [id number] Collapsed vertebra, not elsewhere classified, thoracic region, initial encounter for fracture (Primary Dx) Social History Tobacco Use Types Packs/Day Years Used Date Smoking Tobacco: Every Day Cigarettes 0.3 30 Smokeless Tobacco: Never Comments:now smoking 5 cigar ettes per day Alcohol Use Standard Drinks/Week Comments Yes 21 (1 standard drink = 0.6 oz pure alcohol) 2-3 glasses of vodka and juice daily Education Answer Date Recorded Are you [...] Description 03/09/2025 1:00 PM EST Office Visit [facility] [address] [place] [address] Lawrence Bustos MD [address] [place] [address] [email or web address] documented as of this encounter Results * MRI THORACIC SPINE (NEURO) WITHOUT CONTRAST (05/17/2023 5:02 PM EDT) Anatomical Region Laterality Modality T-spine Magnetic Resonan ce 05/22/2023 11:2 7 AM EDT Impressions 05/22/2023 11:45 AM EDT Multiple chronic compression fractures within the thoracolumbar spine. No evidence of acute compression fractures. No significant retropulsion of bone. No central canal stenosis. No significant focal disc abnormalities. Multilevel degenerative endplate changes. Narrative 05/22/2023 11:45 AM EDT MRI THORACIC SPINE (NEURO) WITHOUT CONTRAST Referring clinician's provided indication for this examination in [facility]: Outside Radiology Order; compression fracture of thoracic vertebra TECHNIQUE: MRI THORACIC SPINE (NEURO) WITHOUT CONTRAST Multi-sequence, multi-planar MRI of the thoracic spine was performed without intravenous contrast. COMPARISON: No prior dedicated imaging of the thoracic spine for comparison. PA and lateral chest x-ray 02/02/2021 reviewed. FINDINGS: THORACIC SPINE: Alignment and Vertebrae: Mild-moderate anterior compression fractures of multiple thoracic vertebral bodies and L1. No significant retropulsion of bone. Many of these appear to have been present on x-ray of 02/02/2021. Some do not appear to have been present on 02/02/2021 (for instance compression fractures involving T6 and T9) CT. No edematous changes within the endplates or other portions of the vertebral bodies. There are multilevel degenerative endplate changes, including moderate size Schmorl's node involving the inferior endplate of T6 and smaller Schmorl's nodes involving inferior endplate of T9 and superior endplate of T5. Marrow: No suspicious marrow signal abnormalities. Discs and Endplates: Degenerative endplate changes involving multiple levels. Mild disc space narrowing no evidence of significant focal disc abnormalities. Spinal Cord: Spinal cord normal in signal and configuration. Central canal: No central canal stenosis. No evidence of significant neuroforaminal narrowing. Soft Tissue: No evidence of prevertebral edema or soft tissue masses. Other Findings: None. Procedure Note Kali Mendoza MD - 05/22/2023 MRI THORACIC SPINE (NEURO) WITHOUT CONTRAST Referring clinician's provided indication for this examination in [facility]:Outside Radiology Order; compression fracture of thoracic vertebra TECHNIQUE: MRI THORACIC SPINE (NEURO) WITHOUT CONTRAST Multi-sequence, multi-planar MRI of the thoracic spine was performedwithout intravenous contrast. COMPARISON: No prior dedicated imaging of the thoracic spine forcomparison. PA and lateral chest x-ray 02/02/2021 reviewed. FINDINGS: THORACIC SPINE: Alignment and Vertebrae: Mild-moderate anterior compression fractures ofmultiple thoracic vertebral bodies and L1. No significant retropulsion ofbone. Many of these appear to have been present on x-ray of 02/02/2021.Some do not appear to have been present on 02/02/2021 (for instancecompression fractures involving T6 and T9) CT. No edematous changes withinthe endplates or other portions of the vertebral bodies. There aremultilevel degenerative endplate changes, including moderate sizeSchmorl's node involving the inferior endplate of T6 and smaller Schmorl'snodes involving inferior endplate of T9 and superior endplate of T5. Marrow: No suspicious marrow signal abnormalities. Discs and Endplates: Degenerative endplate changes involving multiplelevels. Mild disc space narrowing no evidence of significant focal discabnormalities. Spinal Cord: Spinal cord normal in signal and configuration. Central canal: No central canal stenosis. No evidence of significantneuroforaminal narrowing. Soft Tissue: No evidence of prevertebral edema or soft tissue masses. Other Findings: None. IMPRESSION: Multiple chronic compression fractures within the thoracolumbar spine. Noevidence of acute compression fractures. No significant retropulsion ofbone. No central canal stenosis. No significant focal disc abnormalities.Multilevel degenerative endplate changes. Suni CARDENAS IMG MR XSPECIALTY Final Re sult documented in this encounter Visit Diagnoses Diagnosis Collapsed vertebra, not elsewhere classified, thoracic region, initial encounter for fracture- Primary Collapsed vertebra, not elsewhere classified, thoracic region, initial encounter for fracture documented in this encounter Additional Health Concerns Infection Onset Date Last Indicated Resolved Time CDiff-Risk 05/29/2023 06/24/2023 06/05/2023 1:22 AM EDT CDiff-Risk 06/24/2023 06/24/2023 06/24/2023 6:05 PM EDT CoV-Risk Comment:Per note documentation 10/29/2024 10/29/2024 4:02 PM EDT Rhino/Entero 10/31/2024 10/31/2024 11/14/2024 1:21 AM EDT RSV 11/10/2024 11/10/2024 11/17/2024 1:21 AM EDT documented as of this encounter Care Teams Nut Sorter Relationship Specialty Start Date End Date Suni Garcia PA [address] [place] [address] PCP - General Adjuster Piano Action 10/05/21 Virginia Patton PA-C [address] [place] [address] [email or web address] Physician E Commerce Marketing Manager 12/16/23 documented as of this encounter Additional Source Comments The information contained in this document represents components of the legal health record. It is not the complete legal health record.[facility]
--- OUTSIDE RECORDS SUMMARY | 2025-02-04 16:09 | XMS_ITS | Encounter Summary ---
Author Organization [facility] Address [address] [employer] [facility] [address] [place] [address] Phone Care Team Providers Care Proof Machine Operator Supervisor Name Role Phone Unknown, Unknown Primary Care Provider Rere Jean DO Primary Care Provider [phone] Hans Jaeger MD Primary Care Provider [phone] Suni Garcia Primary Care Provider [phone]- [phone] Virginia Patton-Cindi Unavailable [phone] Encounter Details Date Type Department Care Team (Late st Contact Info) Description 08/07/2018 Ancillary Orders Virtual Department 30 [place] [address] Isidro Mitchell MD [address] [place] [address], [address] [place] [address] [email or web address] Social History Tobacco Use Types Packs/Day Years [...] Description 03/09/2025 1:00 PM EST Office Visit [facility] Gastroenterology Clinic 10 [place] [address] Lawrence Bustos MD [address] [address] [email or web address] documented as of this encounter Visit Diagnoses [...] documented as of this encounter Care Teams Proof Machine Operator Supervisor Relationship Specialty Start Date End Date Unknown, Unknown, MD PCP - General 03/25/17 12/03/18 Rere Gastelum DO PCP - General 12/04/18 02/01/21 Hans Jaeger MD [email or web address] PCP - General Internal Medicine 02/02/21 10/04/21 Suni Garcia PA [address] [place] [address] PCP - General Senior Marketing Coordinator 10/05/21 Virginia Patton PA-C [address] [place] [email or web address] Physician Auto Rebuilder 12/16/23 documented as of this encounter Additional Source Comments The information contained in this document represents components of the legal health record. It is not the complete legal health record.[facility]
--- OUTSIDE RECORDS SUMMARY | 2025-02-04 16:09 | XMS_ITS | Encounter Summary ---
Author Organization [facility] Address [address] [facility] [address] [place] [address] Phone Care Team Providers Care Lathe Turner Name Role Phone Unknown, Unknown Primary Care Provider Rere Jean DO Primary Care Provider [phone] Hans Jaeger MD Primary Care Provider [phone] Suni Garcia Primary Care Provider [phone] Virginia Patton-Cindi Unavailable [phone] Encounter Details Date Type Department Care Team (Late st Contact Info) Description 08/07/2018 Ancillary Orders Virtual Department 30 [place] [address] Isidro Mitchell MD [address] [place] [address], [address] [place] [address] [email or web address] H/O: compression fracture of spine Social History Tobacco Use Types Packs/Day Years [...] Description 03/09/2025 1:00 PM EST Office Visit [facility] Gastroenterology Clinic [address] [place] [address] Lawrence Bustos MD [address] [address] [email or web address] documented as of this encounter Results * BD DXA AXIAL (SPINE) WITH HIP (12/04/2018 3:17 PM EDT) Anatomical Region Laterality Modality Bone Density Bone Density 12/04/2018 4:49 PM EDT Impressions 12/04/2018 4:52 PM EDT Normal bone mineral density at all 3 measured sites POS -[id number] Narrative 12/04/2018 4:52 PM EDT This is a 48-year-old male with a reported family history of osteoporosis. He reports no proceed height loss. No history of steroid use, hormone therapy or calcium supplementation. This is our baseline exam. Evaluation of the lumbar spine and hips was performed and felt to be technically adequate. Total bone mineral density in the L1-L4 vertebral bodies was calculated at 1.026 gm/cm2 with a T score of -0.6, and a Z-score of -0.3. This falls within the WHO classification of normal. Total bone mineral density in the right proximal femur was calculated at 1.091 gm/cm2 with a T-score of 0.4, and a Z-score of 0.7. This falls within the WHO classification of normal. Total bone mineral density in the left proximal femur was calculated at 1.045 gm/cm2 with a T-score of 0.1, and a Z-score of 0.3. This falls within the WHO classification of normal. Procedure Note Jersey Siegel MD - 12/04/2018 This is a 48-year-old male with a reported family history ofosteoporosis. He reports no proceed height loss. No history of steroid use, hormone therapy or calcium supplementation. This is our baseline exam. Evaluation of the lumbar spine and hips was performed and felt to betechnically adequate. Total bone mineral density in the L1-L4 vertebral bodies was calculated at1.026 gm/cm2 with a T score of -0.6, and a Z-score of -0.3. This fallswithin the WHO classification of normal. Total bone mineral density in the right proximal femur was calculated at1.091 gm/cm2 with a T-score of 0.4, and a Z-score of 0.7. This fallswithin the WHO classification of normal. Total bone mineral density in the left proximal femur was calculated at1.045 gm/cm2 with a T-score of 0.1, and a Z-score of 0.3. This fallswithin the WHO classification of normal. IMPRESSION: Normal bone mineral density at all 3 measured sites POS -[id number] Isidro MUNGUAI BD BONE DENSITY DEXA Fin al Result documented in this encounter Visit Diagnoses Diagnosis H/O: compression fracture of spine Personal history of traumatic fracture H/O: compression fracture of spine Personal history of traumatic fracture documented in this encounter Additional Health [...] documented as of this encounter Care Teams Lathe Turner Relationship Specialty Start Date End Date Unknown, Eric, PCP - General 03/25/17 12/03/18 Rere Gastelum DO PCP - General 12/04/18 02/01/21 Hans Jaeger MD [email or web address] PCP - General Internal Medicine 02/02/21 10/04/21 Suni Garcia PA [address] [place] [address] PCP - General Medical Facilities Section Director 10/05/21 Virginia Patton PA-C [address] [place] [address] [email or web address] Physician Compound Finisher 12/16/23 documented as of this encounter Additional Source Comments The information contained in this document represents components of the legal health record. It is not the complete legal health record.[facility]
--- OUTSIDE RECORDS SUMMARY | 2025-02-04 16:09 | XMS_ITS | Encounter Summary ---
Author Organization [facility] Address [address] [facility] [address] [place] [address] Phone Care Team Providers Care Building Appraiser Name Role Phone Unknown, Unknown Primary Care Provider Rere Jean DO Primary Care Provider [phone] Hans Jaeger MD Primary Care Provider [phone] Suni Garcia Primary Care Provider [phone] Virginia Patton-Cindi Unavailable [phone] Encounter Details Date Type Department Care Team (Late st Contact Info) Description 08/05/2018 Transcribe Orders Virtual Department 30 [place] [address] Isidro Mitchell MD [address] [place] [address], [address] [place] [address] [email or web address] Social History Tobacco Use Types Packs/Day Years [...] Description 03/09/2025 1:00 PM EST Office Visit [facility] Gastro[facility]ology Clinic 10 [place] [address] Lawrence Bustos MD [address] [address] [email or web address] documented as of this encounter Visit Diagnoses [...] documented as of this encounter Care Teams Building Appraiser Relationship Specialty Start Date End Date Unknown, Unknown, PCP - General 03/25/17 12/03/18 Rere Gastelum DO PCP - General 12/04/18 02/01/21 Hans Jaeger MD [email or web address] PCP - General Internal Medicine 02/02/21 10/04/21 Suni Garcia PA [address] [place] [address] PCP - General Elevator Repairer Apprentice 10/05/21 Virginia Patton PA-C [address] [place] [address] [email or web address] Physician Secondary School Registrar 12/16/23 documented as of this encounter Additional Source Comments The information contained in this document represents components of the legal health record. It is not the complete legal health record.[facility]
--- OUTSIDE RECORDS SUMMARY | 2025-02-04 16:09 | XMS_ITS | Encounter Summary ---
Author Organization [facility] Address [address] [place] [address] Phone Care Team Providers Care Barrel Roller Operator Name Role Phone Suni Garcia Primary Care Provider [phone] Virginia Patton PA-C Unavailable [phone] Reason for Visit * Reason Onset Date Comments Symptoms 12/30/2024 Encounter Details Date Type Department Care Team (Late st Contact Info) Description 12/30/2024 Telephone [facility] Gastroenterology Clinic [address] [place] [address] Lawrence Bustos MD [address] [address] [email or web address] Symptoms Social History Tobacco Use Types Packs/Day Years [...] PM EDT documented as of this encounter Progress Notes * Estelle Scott - 12/30/2024 10:27 AM EST Please advise * Jarrett Castellanos - 12/30/2024 10:07 AM EST Patients mother called to schedule a follow up with MG. Patients mother states patient is having loose stool and wants patient to be seen immediately. Patients mother states patient was in the hospital the entire month of October and on and off since. Patients mother states patient started takingImodium Friday to help with symptoms. Please advise. documented in this encounter Plan of Treatment Upcoming Encounters Date Type Department Care Team (Late st Contact Info) Description 03/09/2025 1:00 PM EST Office Visit [facility] [address] [place] [address] Lawrence Bustos MD [address] [address] documented as of this encounter Visit Diagnoses Not on filedocumented in this encounter Care Teams Barrel Roller Operator Relationship Specialty Start Date End Date Suni Garcia PA [address] [place] [address] PCP - General Parts Consultant 10/05/21 Virginia Patton PA-C [address] [place] [address] Physician Collision Worker 12/16/23 documented as of this encounter Additional Source Comments The information contained in this document represents components of the legal health record. It is not the complete legal health record.[facility]
--- OUTSIDE RECORDS SUMMARY | 2025-02-04 16:09 | XMS_ITS | Encounter Summary ---
Author Organization [facility] Address [address] [place] [address] Phone Care Team Providers Care Heavy Equipment Service Technician Name Role Phone Suni Garcia Primary Care Provider [phone] Virginia Patton-C Unavailable [phone] Encounter Details Date Type Department Care Team (Late st Contact Info) Description 11/04/2024 Procedure Pass [facility], [facility] 30 [place], [place] [phone] Social History Tobacco Use Types Packs/Day Years [...] Description 03/09/2025 1:00 PM EST Office Visit [facility] Gastroenterology Clinic [address] [place] [address] Lawrence Bustos MD [address] [place] [address] documented as of this encounter Visit Diagnoses Not on filedocumented in this encounter Additional Health Concerns Infection Onset Date Last Indicated Resolved Time Rhino/Entero 10/31/2024 10/31/2024 11/14/2024 1:21 AM EDT RSV 11/10/2024 11/10/2024 11/17/2024 1:21 AM EDT documented as of this encounter Care Teams Heavy Equipment Service Technician Relationship Specialty Start Date End Date Suni Garcia PA [address] [place] [address] PCP - General Jewel Bearing Facer 10/05/21 Virginia Patton PA-C [address] [place] [address] [email or web address] Physician Retread Builder 12/16/23 documented as of this encounter Additional Source Comments The information contained in this document represents components of the legal health record. It is not the complete legal health record.[facility]
--- OUTSIDE RECORDS SUMMARY | 2025-02-04 16:09 | XMS_ITS | Encounter Summary ---
Author Organization [facility] Address [address] [place] [address] Phone Care Team Providers Care Lookback Coordinator Name Role Phone Suni Garcia Primary Care Provider [phone] Virginia Patton-C Unavailable [phone] Encounter Details Date Type Department Care Team (Late st Contact Info) Description 04/14/2023 Procedure Pass [facility], [facility] 30 [place], [place] [phone] Social History Tobacco Use Types Packs/Day Years [...] Description 03/09/2025 1:00 PM EST Office Visit [facility] Gastroenterology Clinic 10 [place] [address] Lawrence Bustos MD [address] [address] documented as of this encounter Visit Diagnoses [...] documented as of this encounter Care Teams Lookback Coordinator Relationship Specialty Start Date End Date Suni Garcia PA [address] [place] [address] PCP - General Rent Collector 10/05/21 Virginia Patton PA-C [address] [place] [phone] [email or web address] Physician Manufacturing Laborer 12/16/23 documented as of this encounter Additional Source Comments The information contained in this document represents components of the legal health record. It is not the complete legal health record.[facility]
--- OUTSIDE RECORDS SUMMARY | 2025-02-04 16:09 | XMS_ITS | Encounter Summary ---
Author Organization [facility] Address [address] [place] [address] Phone Care Team Providers Care Manufacturing Quality Manager Name Role Phone Suni Garcia Primary Care Provider [phone] Virginia Patton-C Unavailable [phone] Encounter Details Date Type Department Care Team (Late st Contact Info) Description 04/21/2023 Procedure Pass [facility], [facility] 30 [place], [place] [phone] Social History Tobacco Use Types Packs/Day Years [...] Office Visit [facility] Gastro[facility]ology [facility] 10 [place] [address] Lawrence Bustos MD [address] [address] documented as of this encounter Visit Diagnoses [...] documented as of this encounter Care Teams Manufacturing Quality Manager Relationship Specialty Start Date End Date Suni Garcia PA [address] [place] [address] PCP - General Casino Worker 10/05/21 Virginia Patton PA-C [address] [place] [address] Physician Antiquer 12/16/23 documented as of this encounter Additional Source Comments The information contained in this document represents components of the legal health record. It is not the complete legal health record.[facility]
--- OUTSIDE RECORDS SUMMARY | 2025-02-04 16:09 | XMS_ITS | Encounter Summary ---
Author Organization [facility] Address [address] [place] [address] Phone Care Team Providers Care Measurement Psychologist Name Role Phone Suni Garcia Primary Care Provider [phone] Virginia Patton-C Unavailable [phone] Encounter Details Date Type Department Care Team (Late st Contact Info) Description 10/21/2024 Procedure Pass [facility], [facility] 30 [place], [place] [phone] Social History Tobacco Use Types Packs/Day Years [...] Visit [facility] Gastroenterology Clinic [address] [place] [address] Lawrence Bustos MD [address] [place] [address] documented as of this encounter Visit Diagnoses Not on filedocumented in this encounter Additional Health Concerns Infection Onset Date Last Indicated Resolved Time CoV-Risk Comment:Per note documentation 10/29/2024 10/29/2024 4:02 PM EDT Rhino/Entero 10/31/2024 10/31/2024 11/14/2024 1:21 AM EDT RSV 11/10/2024 11/10/2024 11/17/2024 1:21 AM EDT documented as of this encounter Care Teams Measurement Psychologist Relationship Specialty Start Date End Date Suni Garcia PA [address] [place] [address] PCP - General Brand Inspector 10/05/21 Virginia Patton, KIRT [address] [place] [address] [email or web address] Physician Showplace Manager 12/16/23 documented as of this encounter Additional Source Comments The information contained in this document represents components of the legal health record. It is not the complete legal health record.[facility]
--- OUTSIDE RECORDS SUMMARY | 2025-02-04 16:09 | XMS_ITS | Encounter Summary ---
Author Organization [facility] Address [address] [place] [address] Phone Care Team Providers Care Director Of Global Sales Name Role Phone Suni Garcia Primary Care Provider [phone]- [phone] Virginia Patton-Cindi Unavailable [phone] Encounter Details Date Type Department Care Team (Late st Contact Info) Description 10/31/2024 Procedure Pass [facility] [address] [place] [address] Social History Tobacco Use Types Packs/Day Years [...] housing situation today? I have yeny jackson 10/29/2024 How many times have you move [...] Description 03/09/2025 1:00 PM EST Office Visit [facility] [address] [place] [address] Lawrence Bustos MD [address] [place] [address] documented as of this encounter Visit Diagnoses Not on filedocumented in this encounter Additional Health Concerns Infection Onset Date Last Indicated Resolved Time CoV-Risk Comment:Per note documentation 10/29/2024 10/29/2024 4:02 PM EDT Rhino/Entero 10/31/2024 10/31/2024 11/14/2024 1:21 AM EDT RSV 11/10/2024 11/10/2024 11/17/2024 1:21 AM EDT documented as of this encounter Care Teams Director Of Global Sales Relationship Specialty Start Date End Date Suni Garcia PA [address] [place] [address] PCP - General Information Manager 10/05/21 Virginia Patton PA-C [address] [place] [email or web address] Physician Bundle Person 12/16/23 documented as of this encounter Additional Source Comments The information contained in this document represents components of the legal health record. It is not the complete legal health record.[facility]
--- OUTSIDE RECORDS SUMMARY | 2025-02-04 16:09 | XMS_ITS ---
Author Name [facility] Unknown Results Test Name/Text Value Interpretation Date Range Source Delta NO PREVIOUS RESULT 10/26/2024 - 3 HHCCT Troponin T SerPl-mCnc <6.0 ng/L 10/26/2024 - 23 HHCCT GFR/BSA.pred SerPlBld TAL-FVB-HnGQny >90.0 10/25/2024 59 - HHCCT Calcium SerPl-mCnc 10.0 mg/dL 10/25/2024 8.7 - 10. 5 HHCCT Creat SerPl-mCnc 0.9 mg/dL 10/25/2024 0.5 - 1.3 HH CCT Glucose SerPl-mCnc 150.0 mg/dL Above high normal 10/25/2024 65 - 99 HHCCT Anion Gap Bld-sCnc 21.0 Above high normal 10/25/2024 7 - 17 HHCCT Potassium SerPl-sCnc 4.4 mmol/L 10/25/2024 3.4 - 5 .3 HHCCT BUN SerPl-mCnc 28.0 mg/dL Above high normal 10/25/2024 8 - 2 1 HHCCT CO2 SerPl-sCnc 13.0 mmol/L Below low normal 10/25/2024 22 - 33 HHCCT Chloride SerPl-sCnc 102.0 mmol/L 10/25/2024 98 - 1 07 HHCCT Sodium SerPl-sCnc 136.0 mmol/L 10/25/2024 136 - 14 5 HHCCT BUN/Creat SerPl 31.0 Ratio Above high normal 10/25/2024 10 - 25 HHCCT RDW RBC Auto-Rto 13.9 % 10/25/2024 11.5 - 14.5 HHCCT Hgb Bld-mCnc 14.0 g/dL 10/25/2024 13 - 17.7 HHCCT MCHC RBC Auto-mCnc 32.8 g/dL 10/25/2024 30 - 36 HHCCT Hct VFr Bld Auto 42.7 % 10/25/2024 39 - 54 HH CCT MCV RBC Auto 98.0 fL 10/25/2024 80 - 100 HHCCT RBC num Bld Auto 4.36 Mil/uL Below low normal 10/25/2024 4.5 - 6.2 HHCCT PMV Bld Auto 10.0 fL 10/25/2024 7.5 - 12.5 HHCCT MCH RBC Qn Auto 32.1 pg Above high normal 10/25/2024 27 - 31 HHCCT Platelet num Bld Auto 142.0 Thou/uL Below low normal 025 150 - 450 HHCCT WBC num Bld Auto 6.9 Thou/uL 10/25/2024 4 - 11 HHCCT GFR/BSA.pred SerPlBld RKW-ROP-IwVSbc >90.0 10/24/2024 59 - HHCCT Creat SerPl-mCnc 0.9 mg/dL 10/24/2024 0.5 - 1.3 HH CCT BUN/Creat SerPl 31.0 Ratio Above high normal 10/24/2024 10 - 25 HHCCT Anion Gap Bld-sCnc 15.0 10/24/2024 7 - 17 HHCCT BUN SerPl-mCnc 28.0 mg/dL Above high normal 10/24/2024 8 - 2 1 HHCCT CO2 SerPl-sCnc 19.0 mmol/L Below low normal 10/24/2024 22 - 33 HHCCT Chloride SerPl-sCnc 99.0 mmol/L 10/24/2024 98 - 10 7 HHCCT Calcium SerPl-mCnc 10.4 mg/dL 10/24/2024 8.7 - 10. 5 HHCCT Glucose SerPl-mCnc 139.0 mg/dL Above high normal 10/24/2024 65 - 99 HHCCT Potassium SerPl-sCnc 4.5 mmol/L 10/24/2024 3.4 - 5 .3 HHCCT Sodium SerPl-sCnc 133.0 mmol/L Below low normal 10/24/2024 1 36 - 145 HHCCT RDW RBC Auto-Rto 14.1 % 10/24/2024 11.5 - 14.5 HHCCT Hct VFr Bld Auto 42.2 % 10/24/2024 39 - 54 HH CCT MCH RBC Qn Auto 32.9 pg Above high normal 10/24/2024 27 - 31 HHCCT MCHC RBC Auto-mCnc 33.6 g/dL 10/24/2024 30 - 36 HHCCT MCV RBC Auto 98.0 fL 10/24/2024 80 - 100 HHCCT Hgb Bld-mCnc 14.2 g/dL 10/24/2024 13 - 17.7 HHCCT RBC num Bld Auto 4.32 Mil/uL Below low normal 10/24/2024 4.5 - 6.2 HHCCT WBC num Bld Auto 18.2 Thou/uL Above high normal 10/24/2024 4 - 11 HHCCT Platelet num Bld Auto 155.0 Thou/uL 10/24/2024 150 - 450 HHCCT PMV Bld Auto 9.2 fL 10/24/2024 7.5 - 12.5 HHCCT BUN SerPl-mCnc 14.0 mg/dL 10/23/2024 8 - [address] AST SerPl-cCnc 24.0 U/L 10/23/2024 10 - 55 HHCC T ALP SerPl-cCnc 68.0 U/L 10/23/2024 45 - 128 HHCC T GFR/BSA.pred SerPlBld AQY-HRM-LgDKwg >90.0 10/23/2024 59 - HHCCT Creat SerPl-mCnc 0.8 mg/dL 10/23/2024 0.5 - 1.3 HH CCT ALT SerPl-cCnc 12.0 U/L 10/23/2024 10 - 55 HHCC T Sodium SerPl-sCnc 136.0 mmol/L 10/23/2024 136 - 14 5 HHCCT Potassium SerPl-sCnc 4.6 mmol/L 10/23/2024 3.4 - 5 .3 HHCCT Anion Gap Bld-sCnc 12.0 10/23/2024 7 - 17 HHCCT Prot SerPl-mCnc 6.3 g/dL 10/23/2024 6.3 - 8.[address] Calcium SerPl-mCnc 9.4 mg/dL 10/23/2024 8.7 - 10.5 HHCCT Chloride SerPl-sCnc 105.0 mmol/L 10/23/2024 98 - 1 07 HHCCT Albumin SerPl-mCnc 3.7 g/dL 10/23/2024 3.5 - 5 HHCCT Bilirub SerPl-mCnc 0.4 mg/dL 10/23/2024 0.2 - 1 HHCCT Glucose SerPl-mCnc 72.0 mg/dL 10/23/2024 65 - 99 HHCCT Globulin Ser Calc-mCnc 2.6 g/dL 10/23/2024 1.5 - 3.9 HHCCT BUN/Creat SerPl 18.0 Ratio 10/23/2024 10 - 25 HH CCT Albumin/Glob SerPl 1.4 Ratio 10/23/2024 1 - 3 HHCCT CO2 SerPl-sCnc 19.0 mmol/L Below low normal 10/23/2024 22 - 33 HHCCT Magnesium SerPl-mCnc 1.8 mg/dL 10/23/2024 1.6 - 2. 7 HHCCT Neutrophils/leuk NFr Bld Auto 62.6 % 10/23/2024 HHCCT Hct VFr Bld Auto 44.2 % 10/23/2024 39 - 54 HH CCT Basophils/leuk NFr Bld Auto 0.7 % 10/23/2024 HHCCT Imm Granulocytes num Bld Auto 0.04 Thou/uL 10/23/2024 0 - 0.1 HHCCT Eosinophil/leuk NFr Bld Auto 3.3 % 10/23/2024 HHCCT Hgb Bld-mCnc 14.3 g/dL 10/23/2024 13 - 17.7 HHCCT Eosinophil num Bld Auto 0.34 Thou/uL 10/23/2024 0 - 0.7 HHCCT Imm Granulocytes/leuk NFr Bld Auto 0.4 % 10/23/2024 HHCCT MCH RBC Qn Auto 32.2 pg Above high normal 10/23/2024 27 - 31 HHCCT Monocytes/leuk NFr Bld Auto 7.4 % 10/23/2024 HHCCT RDW RBC Auto-Rto 14.4 % 10/23/2024 11.5 - 14.5 HHCCT Lymphocytes/leuk NFr Bld Auto 25.6 % 10/23/2024 HHCCT MCV RBC Auto 100.0 fL 10/23/2024 80 - 100 HHCCT PMV Bld Auto 8.9 fL 10/23/2024 7.5 - 12.5 HHCCT MCHC RBC Auto-mCnc 32.4 g/dL 10/23/2024 30 - 36 HHCCT RBC num Bld Auto 4.44 Mil/uL Below low normal 10/23/2024 4.5 - 6.2 HHCCT Neutrophils num Bld Auto 6.42 Thou/uL 10/23/2024 2 - 7.5 HHCCT WBC num Bld Auto 10.3 Thou/uL 10/23/2024 4 - 11 HHCCT Basophils num Bld Auto 0.07 Thou/uL 10/23/2024 0 - 0.2 HHCCT Monocytes num Bld Auto 0.76 Thou/uL 10/23/2024 0.2 - 1.5 HHCCT Platelet num Bld Auto 137.0 Thou/uL Below low normal 025 150 - 450 HHCCT Lymphocytes num Bld Auto 2.63 Thou/uL 10/23/2024 1.5 - 4.5 HHCCT Encounters Encounter Type Encounter Reason Primary Diagnosis Location Date Inpatient Other low back pain Other low back pain [facility] 10/22/2024 Ambulatory [facility] 11/28/2023 Care Team Organization Name Specialty Phone Email Start Date End Da neri [facility] 10/23/2024 11/21/2024 [facility] 10/23/2024 [facility] 2024
--- OUTSIDE RECORDS SUMMARY | 2025-02-04 16:09 | XMS_ITS | Encounter Summary ---
Author Organization [facility] Address [address] [place] [address] Phone Care Team Providers Care Director Hedis Name Role Phone Suni Garcia Primary Care Provider [phone] Virginia Patton-C Unavailable [phone] Encounter Details Date Type Department Care Team (Late st Contact Info) Description 10/07/2024 Procedure Pass [facility], Ct Scan - [facility] 30 [place], [place] [phone] Social History Tobacco Use Types Packs/Day Years [...] got money to buy more. Never True 06/08/2024 Within the past 6 months the food we bought just didn't last and we didn't have enough money to get more. Never True Residential Stability Answer Date Recor ded What is your housing situation today? I have yeny jackson 06/08/2024 How many times have you move d in the past 12 months? Zero (I did not move) 06/08/2024 Paying for Meds Answer Date Recorded Do you have trouble paying for medicines? No 06/08/2024 Paying Utility Bills Answer Date Record ed Do you have trouble paying your heating or elect ricity bill? No 06/08/2024 Transportation Answer Date Recorded Has the lack of transportati on kept you from medical appointments or from getting medications? No 06/08/2024 Digital Access Answer Date Recorded No 06/08/2024 Yes 06/08/2024 Do you have reliable internet access at home? Ye s 06/08/2024 Do you have a device (e.g., phone, tablet, computer) with a working camera? Yes 06/08/2024 Intimate Partner Violence Answer Date R ecorded Are you denied basic needs s uch as food, clothing, or medical care? No 10/07/2024 In the past 12 months have y ou been in a relationship with a person who hurts, threatens, or tries to control you? No 10/07/2024 Are you denied basic needs s uch as food, clothing, or medical care? No 10/07/2024 In the past 12 months have y ou been in a relationship with a person who hurts, threatens, or tries to control you? No 10/07/2024 Sex and Gender Information Value Date Recorded Sex Assigned at Male 05/31/2023 1:08 PM EDT Legal Sex Male 9:31 PM EDT Gender Identity Male 05/31/2023 1:08 PM EDT Sexual Orientation Straight 06/08/2024 12 :21 PM EDT documented as of this encounter Plan of Treatment Upcoming Encounters Date Type Department Care Team (Late st Contact Info) Description 03/09/2025 1:00 PM EST Office Visit [facility] [address] [place] [address] Lawrence Bustos MD [address] [place] [address] documented as of this encounter Visit Diagnoses Not on filedocumented in this encounter Additional Health Concerns Infection Onset Date Last Indicated Resolved Time CoV-Risk Comment:Per note documentation 10/29/2024 10/29/2024 4:02 PM EDT Rhino/Entero 10/31/2024 10/31/2024 11/14/2024 1:21 AM EDT RSV 11/10/2024 11/10/2024 11/17/2024 1:21 AM EDT documented as of this encounter Care Teams Director Hedis Relationship Specialty Start Date End Date Suni Garcia PA [address] [place] [address] PCP - General Msws 10/05/21 Virginia Patton, KIRT [address] [place] [address] [email or web address] Physician Materials Planning Manager 12/16/23 documented as of this encounter Additional Source Comments The information contained in this document represents components of the legal health record. It is not the complete legal health record.[facility]
--- OUTSIDE RECORDS SUMMARY | 2025-02-04 16:09 | XMS_ITS | Encounter Summary ---
Author Organization [facility] Address [address] [facility] [address] [place] [address] Phone Care Team Providers Care Shipping Support Clerk Name Role Phone Unknown, Unknown Primary Care Provider Rere Jean DO Primary Care Provider [phone] Hans Jaeger MD Primary Care Provider [phone] Suni Garcia Primary Care Provider [phone] Virginia Patton-Cindi Unavailable [phone] Encounter Details Date Type Department Care Team (Late st Contact Info) Description 08/07/2018 Transcribe Orders Virtual Department 30 [place] [address] Isidro Mitchell MD [address] [place] [address], [address] [place] [address] [email or web address] Social History Tobacco Use Types Packs/Day Years [...] 03/09/2025 1:00 PM EST Office Visit [facility] 10 [place] [address] Lawrence Bustos MD [address] [address] [email or web address] documented as of this encounter Visit Diagnoses [...] documented as of this encounter Care Teams Shipping Support Clerk Relationship Specialty Start Date End Date Unknown, Unknown, PCP - General 03/25/17 12/03/18 Rere Gastelum DO PCP - General 12/04/18 02/01/21 Hans Jaeger MD [email or web address] PCP - General Internal Medicine 02/02/21 10/04/21 Suni Garcia PA [address] [place] [address] PCP - General Optimization Engineer 10/05/21 Virginia Patton PA-C [address] [place] [address] [email or web address] Physician Yarn Sizer 12/16/23 documented as of this encounter Additional Source Comments The information contained in this document represents components of the legal health record. It is not the complete legal health record.[facility]
--- OUTSIDE RECORDS SUMMARY | 2025-02-04 16:09 | XMS_ITS | Encounter Summary ---
Author Organization [facility] Address [address] [place] [address] Phone Care Team Providers Care Medicaid Specialist Name Role Phone Suni Garcia Primary Care Provider [phone] Virginia Patton-C Unavailable [phone] Encounter Details Date Type Department Care Team (Late st Contact Info) Description 10/20/2024 Procedure Pass [facility], Ct Scan - [facility] 30 [place], [place] [phone] Social History Tobacco Use Types Packs/Day Years [...] Description 03/09/2025 1:00 PM EST Office Visit [facility] [address] [place] [address] Lawrence Bustos MD [address] [place] [address] documented as of this encounter Visit Diagnoses Not on filedocumented in this encounter Additional Health Concerns Infection Onset Date Last Indicated Resolved Time CoV-Risk Comment:Per note documentation 10/29/2024 10/29/2024 4:02 PM EDT Rhino/Entero 10/31/2024 10/31/2024 11/14/2024 1:21 AM EDT RSV 11/10/2024 11/10/2024 11/17/2024 1:21 AM EDT documented as of this encounter Care Teams Medicaid Specialist Relationship Specialty Start Date End Date Suni Garcia PA [address] [place] [address] PCP - General Director Of Exhibit Development 10/05/21 Virginia Patton, KIRT [address] [place] [address] [email or web address] Physician Density Control Puncher 12/16/23 documented as of this encounter Additional Source Comments The information contained in this document represents components of the legal health record. It is not the complete legal health record.[facility]
--- OUTSIDE RECORDS SUMMARY | 2025-02-04 16:09 | XMS_ITS | Encounter Summary ---
Author Organization [facility] Address [address] [facility] [address] [place] [address] Phone Care Team Providers Care Manager Hvac Name Role Phone Unknown, Unknown Primary Care Provider Rere Jean DO Primary Care Provider [phone] Hans Jaeger MD Primary Care Provider [phone] Suni Garcia Primary Care Provider [phone] Virginia Patton-Cindi Unavailable [phone] Encounter Details Date Type Department Care Team (Late st Contact Info) Description 08/05/2018 Ancillary Orders Virtual Department 30 [place] [address] Isidro Mitchell MD [address] [place] [address], [address] [place] [address] [email or web address] Social History Tobacco Use Types Packs/Day Years [...] [facility] 10 [place] [address] Lawrence Bustos MD [address] [address] [email or web address] documented as of this encounter Visit Diagnoses [...] as of this encounter Care Teams Manager Hvac Relationship Specialty Start Date End Date Unknown, Unknown, MD PCP - General 03/25/17 12/03/18 Rere Gastelum DO PCP - General 12/04/18 02/01/21 Hans Jaeger MD [email or web address] PCP - General Internal Medicine 02/02/21 10/04/21 Suni Garcia PA [address] [place] [address] PCP - General Trial Attorney 10/05/21 Virginia Patton PA-C [address] [place] [address] [email or web address] Physician Ticker Installer 12/16/23 documented as of this encounter Additional Source Comments The information contained in this document represents components of the legal health record. It is not the complete legal health record.[facility]
--- OUTSIDE RECORDS SUMMARY | 2025-02-04 16:09 | XMS_ITS | Encounter Summary ---
Author Organization [facility] Address [address] [place] [address] Phone Care Team Providers Care Rehab Physician Name Role Phone Suni Garcia Primary Care Provider [phone] Virginia Patton-C Unavailable [phone] Encounter Details Date Type Department Care Team (Late st Contact Info) Description 05/21/2023 Procedure Pass [place] Admitting Dept - Virtual Department 30 [place], [place] [phone] Social History Tobacco Use Types Packs/Day Years [...] Description 03/09/2025 1:00 PM EST Office Visit [facility] 10 [place] [address] Lawrence Bustos MD [address] [address] documented as of this encounter Visit Diagnoses [...] documented as of this encounter Care Teams Rehab Physician Relationship Specialty Start Date End Date Suni Garcia PA [address] [place] [address] PCP - General Shell Sieve Operator 10/05/21 Virginia Patton PA-C [address] [place] [address] Physician Towel Sorter 12/16/23 documented as of this encounter Additional Source Comments The information contained in this document represents components of the legal health record. It is not the complete legal health record.[facility]
--- OUTSIDE RECORDS SUMMARY | 2025-02-04 16:09 | XMS_ITS | Encounter Summary ---
Author Organization [facility] Address [facility] [place] [address] [place] [address] Phone Care Team Providers Care Senior Mobile Solutions Architect Name Role Phone Suni Garcia Primary Care Provider [phone] Virginia Patton-C Unavailable [phone] Encounter Details Date Type Department Care Team (Latest Contact Info) Description 10/25/2021 Transcribe Orders [facility] [address] [facility] 2nd [place] [address] Luanne Yates NP 10 [place] [address] Diarrhea, unspecified type (Primary Dx); Vitamin D deficiency Social History Tobacco Use Types Packs/Day Years [...] 03/09/2025 1:00 PM EST Office Visit [facility] 10 [place] [address] Lawrence Bustos MD [address] [address] [email or web address] documented as of this encounter Results * (ABNORMAL) Iron and iron binding capacity (10/25/2021 3:04 PM EDT) Pathologist [facility] IRON 230(H) 45 - 160 ug/dL [facility] IRON BINDING CAPACITY 360 228 - 428 ug/dL [facility] TRANSFERRIN SATURAT. 64(H) 20 - 55 % [facility] Blood 10/25/2021 3:04 PM EDT 10/25/2021 3:05 PM EDT Luanne Yates ENVIRONMENTAL SERVICES FLOOR TECH LAB BLOOD BKR ORDERABLES Final Result [address] [address] * 25-OH vitamin D (10/25/2021 3:04 PM EDT) Pathologist [facility] 25 OH VIT D (TOTAL) 40 30 - 60 ng/mL [facility] Blood 10/25/2021 3:04 PM EDT 10/25/2021 3:05 PM EDT Luanne Yates ENVIRONMENTAL SERVICES FLOOR TECH LAB BLOOD BKR ORDERABLES Final Result [address] [address] * (ABNORMAL) CBC (10/25/2021 3:04 PM EDT) WBC 9.71 4.00 - 11.00 K/uL [facility] RBC 4.31 4.23 - 5.82 M/uL [facility] HGB 13.8 13.4 - 17.5 g/dL [facility] HCT 40.2 37.0 - 51.0 % [facility] PLT 169 140 - 430 K/uL [facility] MCV 93.3 78.0 - 97.0 fL [facility] MCH 32.0 25.0 - 33.0 pg [facility] MCHC 34.3 32.0 - 36.0 g/dL [facility] RDW 16.1(H) 11.0 - 15.0 % [facility] MPV 9.7 8.4 - 12.8 [facility] Blood 10/25/2021 3:04 PM EDT 10/25/2021 3:05 PM EDT Luanne Yates ENVIRONMENTAL SERVICES FLOOR TECH LAB BLOOD BKR ORDERABLES Final Result Performing Organization Address City/State/[facility] Co de Phone Number [address] [address] documented in this encounter Visit Diagnoses Diagnosis Diarrhea, unspecified type- Primary Vitamin D deficiency documented in this encounter Additional Health Concerns Infection Onset Date Last Indicated Resolved Time CDiff-Risk 05/29/2023 06/24/2023 06/05/2023 1:22 AM EDT CDiff-Risk 06/24/2023 06/24/2023 06/24/2023 6:05 PM EDT CoV-Risk Comment:Per note documentation 10/29/2024 10/29/2024 4:02 PM EDT Rhino/Entero 10/31/2024 10/31/2024 11/14/2024 1:21 AM EDT RSV 11/10/2024 11/10/2024 11/17/2024 1:21 AM EDT documented as of this encounter Care Teams Senior Mobile Solutions Architect Relationship Specialty Start Date End Date Suni Garcia PA [address] [place] [address] PCP - General College Sports Assistant 10/05/21 Virginia Patton PA-C [address] [place] [address] [email or web address] Physician Manager Culture 12/16/23 documented as of this encounter Additional Source Comments The information contained in this document represents components of the legal health record. It is not the complete legal health record.[facility]
--- OUTSIDE RECORDS SUMMARY | 2025-02-04 16:09 | XMS_ITS | Encounter Summary ---
Author Organization [facility] Address [address] [place] [address] Phone Care Team Providers Care Director Of Public Health Name Role Phone Suni Garcia Primary Care Provider [phone] Virginia Patton PA-C Unavailable [phone] Encounter Details Date Type Department Care Team (Late st Contact Info) Description 05/27/[address] [facility] 30 [place], [place] [phone] Virginia Patton PA-C 30 [place], [place] [phone] [email or web address] Social History Tobacco Use Types Packs/Day Years [...] Office Visit [facility] [address] [place] [address] Lawrence Bustos MD [address] [place] [address] [email or web address] documented as of this encounter Visit Diagnoses Not on filedocumented in this encounter Additional Health Concerns Infection Onset Date Last Indicated Resolved Time CoV-Risk Comment:Per note documentation 10/29/2024 10/29/2024 4:02 PM EDT Rhino/Entero 10/31/2024 10/31/2024 11/14/2024 1:21 AM EDT RSV 11/10/2024 11/10/2024 11/17/2024 1:21 AM EDT documented as of this encounter Care Teams Director Of Public Health Relationship Specialty Start Date End Date Suni Garcia PA [address] [place] [address] PCP - General Issue Clerk 10/05/21 Virginia Patton PA-C [address] [place] [email or web address] Physician Javascript Developer 12/16/23 documented as of this encounter Additional Source Comments The information contained in this document represents components of the legal health record. It is not the complete legal health record.[facility]
--- OUTSIDE RECORDS SUMMARY | 2025-02-04 16:09 | XMS_ITS | Encounter Summary ---
Author Organization [facility] Address [address] [place] [address] Phone Care Team Providers Care Methods Analyst Data Processing Name Role Phone Suni Garcia Primary Care Provider [phone] Virginia Patton-C Unavailable Encounter Details Date Type Department Care Team (Late st Contact Info) Description 12/20/2024 Procedure Pass [facility], Ct Scan - [facility] [address], [place] [id number] Social History Tobacco Use Types Packs/Day Years [...] Visit [facility] [address] [place] [address] Lawrence Bustos MD [address] [place] [id number] documented as of this encounter Visit Diagnoses Not on filedocumented in this encounter Care Teams Methods Analyst Data Processing Relationship Specialty Start Date End Date Suni Garcia PA [address] [place] [id number] PCP - General Aluminizer 10/05/21 Virginia Patton PA-C [address] [place] [id number] [email or web address] Physician Acetylene Plant Operator 12/16/23 documented as of this encounter Additional Source Comments The information contained in this document represents components of the legal health record. It is not the complete legal health record.[facility]
== END 2025-02-04 15:16 | disposition home or self-care (01) ==
LOC: HO.PMC 14:47
PROVIDERS: PCP Physician Assistant Medical; Visit Provider Registered Nurse Emergency
DX: M48.062 Spinal stenosis, lumbar region with neurogenic claudication (principal); M54.16 Radiculopathy, lumbar region; G62.9 Polyneuropathy, unspecified; G89.4 Chronic pain syndrome
CPT/HCPCS: 99204; G2211

== ENCOUNTER → 2025-02-04 14:47 | Outpatient (BNVA) | payer MEDICARE, MEDICAID, SELFPAY | PROVIDERS: PCP Physician Assistant Medical; Visit Provider Registered Nurse Emergency | DX: G89.4 Chronic pain syndrome (principal); M48.062 Spinal stenosis, lumbar region with neurogenic claudication; M54.16 Radiculopathy, lumbar region; G62.9 Polyneuropathy, unspecified | CPT/HCPCS: 99202 ==

== ENCOUNTER 2025-02-08 13:54 | Outpatient (AMB) | payer MEDICARE, MEDICAID, SELFPAY ==
--- OUTSIDE RECORDS SUMMARY | 2021-02-02 18:08 | XMS_ITS | Encounter Summary ---
Author Organization [facility] Address [address] [place] [phone] Phone Care Team Providers Care Axle Polisher Name Role Phone Hans Jaeger MD Primary Care Provider [phone] Encounter Details Date Type Department Care Team (Late st Contact Info) Description 02/02/2021 6:08 PM EST Hospital Encounter [facility] [address] [place] [id number] Madelyn Dyer, LULY [address] [place] [address] [email or web address] Social History Tobacco Use Types Packs/Day Years [...] Upcoming Encounters Date Type Department Care Team (Latest Contact Info) Description 02/23/2025 3:30 PM EST Telemedicine - audio only [facility] [place] [facility] [address] [place] [address] Virginia Patton PA-C [address] [place] [address] 03/09/2025 1:00 PM EST Office Visit [facility] [address] [place] [address] Lawrence Bustos MD [address] [address] [email or web address] documented as of this encounter Procedures Procedure [...] acute abnormality. No radiographic evidence of pneumonia. [[id number]]. Narrative 02/02/2021 6:21 PM EST XR CHEST [...] acute abnormality. No radiographic evidence of pneumonia. [[id number]]. Madelyn Nur Manisha MIXER DRIVER IMG XR CHEST Final Resul t documented [...] documented as of this encounter Care Teams Axle Polisher Relationship Specialty Start Date End Date Hans Jaeger MD PCP - General Internal Medicine 02/02/21 10/04/21 documented as of this encounter Additional Source Comments The information contained in this document represents components of the legal health record. It is not the complete legal health record.[facility]
--- NOTE | 2025-02-08 13:56 | A.PHYSOV ---
Vital Signs 02/08/25 13:57 Height 5 ft 10.5 in Weight 165 lb BMI 23.3 Intake Visit Reasons: F/U after injection 01/17/2025 Intake Note: Patient is a 37 year old female here for initial visit. Patient has been referred for left hand pain. Abrasive Sawyer Required: No Allergies lisinopril (LISINOPRIL) Allergy (Intermediate, Verified 02/08/25 13:59) THROAT ITCHES, cough oxcarbazepine (OXCARBAZEPINE) Allergy (Intermediate, Verified 02/08/25 13:59) SAD, DEPRESSED, N/V, TIRED TINGLING FINGERS, nausea levetiracetam (From KEPPRA) Adverse Reaction (Severe, Verified 02/08/25 13:59) ANGER aripiprazole (From ABILIFY) Adverse Reaction (Intermediate, Verified 02/08/25 13:59) HALLUCINATIONS bupropion (From WELLBUTRIN) Adverse Reaction (Intermediate, Verified 02/08/25 13:59) TIRED, CONFUSED, N/V chlordiazepoxide (From LIBRIUM) Adverse Reaction (Intermediate, Verified 02/08/25 13:59) CONFUSION dicyclomine (DICYCLOMINE) Adverse Reaction (Intermediate, Verified 02/08/25 13:59) TIRED, CONFUSED, DRY MOUTH, HANDS TWITCHING lurasidone (From LATUDA) Adverse Reaction (Intermediate, Verified 02/08/25 13:59) NAUSEA, TIRED HPI Comments Details: History of Present Illness The patient is a 54 year old male presenting for follow-up after a recent pain management injection for chronic back pain. He underwent bilateral L4 TFESI in early January with 50% reduction of his pain. Patient did have updated MRI from 10/22/2024 which does confirm severe spinal canal stenosis at L4-5. He reports approximately 50% improvement in his pain, with resolution of his shooting pains. The patient notes that he can stand and walk better, although he still has some pain and must be careful with movement. The patient has a history of severe spinal stenosis, which was identified on a lumbar spine MRI from October 2021 as being at the L4-L5 level. His most recent injection targeted this specific level, and he feels it has been the most effective one he has received. He also reports strange sensations in his feet, which may be related to neuropathy. The patient is seeing another pain management group at [place], who have proposed a trial for a spinal cord stimulator implant. Pain Description - Location: The patient's pain is secondary to severe spinal stenosis at L4-L5. - Character: Previously experienced shooting pains, which are now resolved. - Interference with function: Before the recent injection, pain limited his ability to move without difficulty; he can now stand and walk better. - Alleviating factors: A recent injection has provided approximately 50% pain relief. - Associated symptoms: Reports Procedure:: L5-S1 ESMER 01/30/2024 50% reduction of his pain Left basilar joint injection 03/09/2024 Left C3-4, C4-5 facet injection 03/30/2024 80% reduction of his pain L5-S1 ESMER 07/09/2024 50% reduction of his pain Left basilar joint injection 07/26/2024 Bilateral L4 TFESI 01/17/2025 50% reduction of his pain Results - Lumbar Spine MRI (October 22, 2021): Findings include severe spinal stenosis at L4-L5. - Thoracic Lumbar Spine MRI (June 11, 2021): Results were reviewed. [facility] Medical History Anxiety GERD (gastroesophageal reflux disease) Hypothyroid Tubular adenoma of colon History of alcohol dependence Steatohepatitis Seizures Bipolar 1 disorder Depression COPD (chronic obstructive pulmonary disease) HTN (hypertension) Surgical History Hx of myringotomy History of esophagogastroduodenoscopy (EGD) H/O colonoscopy Family History Father No problems noted. Mother No problems noted. Social History Alcohol intake: current Alcohol intake frequency: a few times a week Alcohol type: hard liquor Patient Tobacco Use Status: Current everyday Tobacco user Tobacco use type: Cigarette Cigarette Packs Per Day: 0.5 Cigarettes Per Day: 3 Substance Use Type: Marijuana Review of Systems Narrative Review of Systems - Neurological: Reports resolution of shooting pains. - Reports odd sensations in his feet. - Musculoskeletal: Denies significant limitations in standing and walking, noting improvement. - Reports some persistent pain. Physical Exam Exam Exam: Physical Exam Lumbar Spine: Examination of his lumbar spine, there is no visible swelling or deformity. He is tender to lower lumbar facets. He is otherwise nontender. Full range of motion of his lumbar spine. He does have an increase in pain with facet loading. Special Tests: Lhermittes sign was negative Heel Toe walk is normal Left straight leg raise: Less positive left Right straight leg raise: Negative Special tests Hilda test is negative Ganslen's test is negative SI Joint compression test negative Neftaly test negative Piriformis stretch is negative Lower Extremities: Full range of motion bilateral lower extremities. No calf pain or edema. Neuro: Sensation: Intact to lower extremities bilaterally Strength L2 (Psoas): 5/5 on the left and 5/5 on the right. L3 (Quads): 5/5 on the left and 5/5 on the right. L4 (Ant tibialis): 5/5 on the left and 5/5 on the right. L5 (EHL) 5/5 on the left and 5/5 on the right. S1 (Gastroc): 5/5 on the left and 5/5 on the right. DTR L4: (Patellar) Left 1 Right 1 S1: (Achilles) Left 1 Right 1 Babinski Downgoing No pathologic clonus. No involuntary movement. Vital Signs: BMI result Body Mass Index 23.3 Assessment & Plan Assessment & Plan (1) Lumbar spondylosis: Code(s): M47.816 - Spondylosis without myelopathy or radiculopathy, lumbar region Category: Medical Plan Pain Management - Analgesia: The patient reports 50% pain relief following his most recent injection, with resolution of shooting pains. - Activities of Daily Living: The patient reports he can stand and walk better since the injection. - Aberrant Drug Related Behaviors: The patient reports trying not to take his pain medication, indicating no signs of misuse. Plan Patient was informed and verbally consented to the use of an ambient scribe for clinic note documentation during this visit. 1. Severe Lumbar Spinal Stenosis The patient reports 50% relief from his most recent injection, which targeted the L4-L5 level corresponding to his MRI finding of severe stenosis. The patient is scheduled to see another pain management provider to consider a spinal cord stimulator (SCS) trial. The recent lumbar spine MRI report from October 2021 will be faxed to the consulting provider and scanned into the patient's chart. A physical copy of the report will also be provided to the patient to bring to his appointment. The patient was advised to discuss the appropriateness of an SCS. 2. Chronic Pain Pain is improved by 50% and more manageable following the recent injection, with improved ability to stand and walk. The patient will continue to limit the use of oral pain medications. Given his response, he may be a candidate for repeat injections in the future if his pain worsens. Discussion Notes I discussed with the patient that his reported 50% pain relief from the last procedure is significant, particularly for securing insurance approval for potential future injections. I reviewed his lumbar MRI from October 2021, highlighting the finding of severe spinal stenosis at L4-L5, and explained that we specifically targeted this area, contributing to the injection's success. We discussed his upcoming consultation for a spinal cord stimulator (SCS) trial, and I noted that he should confirm with that provider if an SCS is an appropriate treatment for his specific diagnosis of severe stenosis. I informed him about the potential complications, including the failure of a permanent implant despite a successful trial and the significant limitation that a permanent implant may prevent future MRIs. I advised him to ask the consulting provider about the process for adjusting the device if it is not initially effective. A plan was made to provide his MRI report to the consulting provider and to him directly to ensure continuity of care. Patient Instructions - Your last injection has helped your pain by about 50% and your shooting pains have stopped. - Please call the pain management clinic in [place] to schedule an appointment to discuss the spinal cord stimulator trial. - Inform the clinic that your recent MRI from October 2021 is in your chart and that you do not need a new one. - We will give you a paper copy of your MRI report to take with you to that appointment. - Be sure to ask the doctor there if a spinal cord stimulator is the best treatment for your specific condition (severe spinal stenosis). - Ask what the plan would be if the trial works but the permanent stimulator does not, and ask if it can be adjusted. - Understand that if you get a permanent stimulator implanted, you most likely will not be able to get MRI scans of your back in the future. Coding Level of Care Code Est Pt Level 3 (05964) Diagnoses Lumbar spondylosis M47.816
[2025-02-08 13:57] VITALS: BMI 23.3
--- OUTSIDE RECORDS SUMMARY | 2025-02-08 15:08 | XMS_ITS | Encounter Summary ---
Author Organization [facility] Address [address] [place] [address] [place] [phone] Phone Care Team Providers Care Small Business Director Name Role Phone Hans Jaeger MD Primary Care Provider [phone] Suni Garcia Primary Care Provider [phone] Virginia Patton PA-C Unavailable [phone] Encounter Details Date Type Department Care Team (Latest Contact Info) Description 06/04/2021 Transcribe Orders Virtual Department [address] [place] [address] Suni Garcia PA [address] [place] [id number] Collapsed vertebra, not elsewhere classified, site unspecified, [...] 3:30 PM EST Telemedicine - audio only [facility] [place] [address] [place] [address] Virginia Patton PA-C [address] [place] [address] 03/09/2025 1:00 PM EST Office Visit [facility] [address] [place] [address] Lawrence Bustos MD [address] [address] [email or web address] documented as of this encounter Results * [...] bone mineral density was calculated at 0.860 [id number] a T- score of -0.5 falling within [...] in bone density at all 3 sites [id number]. Suni CARDENAS IMG BD BONE DENSITY DEXA F inal Result [...] documented as of this encounter Care Teams Small Business Director Relationship Specialty Start Date End Date Hans Jaeger MD PCP - General Internal Medicine 02/02/21 10/04/21 Suni Garcia PA [address] [place] [phone] PCP - General Direct Support Professional Caregiver 10/05/21 Virginia Patton PA-C [address] [place] [address] Physician Bezel Cutter 12/16/23 documented as of this encounter Additional Source Comments The information contained in this document represents components of the legal health record. It is not the complete legal health record.[facility]
--- OUTSIDE RECORDS SUMMARY | 2025-02-08 15:08 | XMS_ITS | Clinical Summary ---
Author Organization [facility] Address [address] [employer] [facility] [address] [place] [address] Phone Care Team Providers Care Nylon Machine Operator Name Role Phone Suni Garcia Primary Care Provider [phone] Virginia Patton PA-C Unavailable [phone] Allergies Active Allergy Reactions Criticality Noted Date [...] multifocal pneumonia, chest x-ray performed 10/23 at [place] was clear and cxe repeated thismorning shows [...] multifocal pneumonia, chest x-ray performed 10/23 at [place] was clear -Cont IV Rocephin and azithromycin -Follow-up Legionella, strep pneumo, MRSA screen Assessment & Plan (10/30/2024 12:33 AM EDT): -Patient presented with shortness of breath, cough, fever, tachycardia, tachypnea, hypoxia -Chest x-ray shows multifocal pneumonia, chest x-ray performed 10/23 at [place] was clear -Started on IV Rocephin and [...] about this today. -- Outpatient follow-up with [facility] to address his lumbar [...] Encounters Date Type Department Care Team Description 02/06/2025 Telephone [facility] at [address] [address] Virginia Patton PA-C f/u appt 01/20/2025 2:41 PM EST - 01/20/2025 11:59 PM EST Hospital Encounter [address] [address] Alaina Severino PA-C Discharge Disposition: Home or Self Care 01/20/2025 2:40 PM EST Office Visit [facility]ics [facility] [address] [place] [address] [phone] Alaina Severino PA-C Left hand pain (Primary Dx); Arthritis of carpometacarpal (CMC) joint of left thumb 01/10/2025 2:15 PM EST Home Care Visit [facility] [address] [place] [phone] Yasmin Witt, PT PT OASIS DISCHARGE VISIT 01/05/2025 2:30 PM EST Telemedicine - audio only [facility] Hematology Oncology Clinic at [address] [address] Virginia Patton PA-C Low iron stores (Primary Dx) 01/04/2025 7:15 PM EST - 01/04/2025 11:59 PM EST Hospital Encounter [facility], Ct Scan - [address] [address] Suni Garcia PA Discharge Disposition: Home or Self Care 01/03/2025 2:00 PM EST [facility] [address] [place] [phone] Yasmin Witt, PT PT HOME VISIT 12/30/2024 Telephone [facility] Gastroenterology Clinic [address] [place] [phone] Lawrence Bustos MD Symptoms 12/29/2024 Episode Documentation Update [facility] [address] [place] [phone] Keri Woodard 12/27/2024 1:45 PM EST Home [facility] [address] [place] [phone] Yasmin Witt, PT PT HOME VISIT 12/24/2024 Telephone [facility] Hematology Oncology Clinic at [address] [address] Virginia Patton PA-C 12/23/2024 Orders Only [facility] Hematology Oncology Clinic at [address] [address] Virginia Patton PA-C Low serum vitamin C (Primary Dx); Hereditary hemochromatosis; Elevated ferritin level 12/22/2024 1:45 PM EST Home [facility] [address] [place] [phone] Yasmin Witt, PT PT HOME VISIT 12/22/2024 Orders Only [facility] Hematology Oncology Clinic at [address] [address] Alice Moore [place] 12/21/2024 Orders Only [facility] Hematology Oncology Clinic at [address] [address] Alice Moore, [place] Hereditary hemochromatosis (Primary Dx) 12/20/2024 1:15 PM EST Home [facility] [address] [place] [address] Yasmin Witt, PT PT HOME VISIT 12/20/2024 Procedure Pass [facility] - [facility] [address] [place] [address] 12/20/2024 Transcribe Orders Virtual Department [address] [place] [phone] Suni Garcia PA Other pneumonia, unspecified organism (Primary Dx) 12/13/2024 12:45 PM EDT [facility] [address] [place] [address] Yasmin Witt, PT PT OASIS START OF CARE (SOC) 12/13/2024 Plan of Care Documentation [facility] [address] [place] [address] 12/06/2024 Home Care [facility] [address] [place] [address] Yasmin Witt, PT TELEPHONE ENCOUNTER 11/24/2024 Orders Only [facility] [address] [place] [address] Homehealth, Interface MD Jackeline 11/23/2024 11:00 AM EDT Office Visit [facility] Occupational Therapy Clinic [address] [place] [address] Suni Garcia PA Vaine, Samantha, OT Chronic obstructive pulmonary disease with acute exacerbation (Primary Dx) 11/10/2024 1:00 PM EDT - 11/10/2024 2:30 PM EDT Surgery [facility]oscopy Admitting Dept Virtual Department [address] [place] [phone] Dewayne Foster MD, MS BRONCHOSCOPY FLEXIBLE 11/10/2024 Procedure Pass [facility] Admitting Dept Virtual Department [address] [place] [phone] 11/09/2024 10:15 AM EDT Ancillary Procedure [facility], Ultrasound [address] [address] Shikha Hartman PA-C, MS 11/09/2024 Procedure Pass [facility], Ct Scan - [address] [address] 10/29/2024 8:53 PM EDT - 11/12/2024 6:15 PM EDT Hospital Encounter [facility] [address] [place] [phone] Rosaline Castellanos MD Israeli, Diana A, DO Russo, Margaret A, MD Barbosa-Angles, Brianna R, DO, MPH Kumar Torres DO, MPH Dewayne Foster MD, MS Rex Darby MD Zaman, Tonbira S, MD Oliveira, Paulo J, MD Discharge Disposition: [facility] Facility from Last 3 Months Immunizations Immunization [...] 3:30 PM EST Telemedicine - audio only [facility] [address] [place] [address] Virginia Patton PA-C [address] [place] [address] 03/09/2025 1:00 PM EST Office Visit [facility] Gastroenterology Clinic [address] [place] [phone] Lawrence Bustos MD [address] [place] [address] Health Maintenance Due Date Last Done Comments LIPID PANEL 1972 DEPRESSION SCREENING 1984 HIV ONE-TIME SCREENING (18-65 YEARS) 1990 COLOGUARD 2017 FOBT 2017 SIGMOIDOSCOPY 2017 VIRTUAL COLONOSCOPY 2017 PNEUMOCOCCAL VACCINES (50+ years) (2 of 2 - PCV) 08/07/2021 08/07/2020 RSV VACCINE (1 - Risk 50-74 years 1-dose series) 2022 ZOSTER VACCINES (1 of 2) 2022 FIT TEST 06/23/2024 06/24/2023, 08/21/2021 COVID-19 VACCINE ( season) 2024 12/14/2021, 03/05/2021, 06/15/2020, Additional [...] Procedure Name Priority Date/Time Associated Diagnosis Comments CBC AND DIFFERENTIAL Routine 02/04/2025 4:02 PM EST Low iron stores CBC AND DIFFERENTIAL Routine 02/04/2025 4:02 PM EST [employer] stores IRON AND IRON BINDING CAPACITY Routine 02/04/2025 4:02 PM EST [employer] stores FERRITIN Routine 02/04/2025 4:02 PM EST [employer] iron stores IMMUNOGLOBULIN A Routine 02/04/2025 4:02 PM EST [employer] stores TISSUE TRANSGLUTAMINASE IGA Routine 02/04/2025 4:02 PM EST [employer] iron stores XR HAND 3 OR MORE VIEWS (LEFT) [...] serum vitamin C C-REACTIVE PROTEIN (CRP) Routine 025 5:04 AM EDT LFTS (HEPATIC PANEL) Routine 11/12/2024 5:04 AM EDT PHOSPHORUS Routine 11/12/2024 5:04 AM EDT MAGNESIUM Routine 11/12/2024 5:04 AM EDT CBC AND DIFFERENTIAL Routine 11/12/2024 5:04 AM EDT BASIC METABOLIC PANEL (BMP) Routine 11/12/2024 5:04 AM EDT COMPREHENSIVE METABOLIC PANEL (CMP) Routine 11/11/2024 4:06 AM EDT CBC AND DIFFERENTIAL Routine 11/11/2024 4:06 AM EDT NON-PHARMACY STOCK CLERK CYTOLOGY, NON CSF, NON URINE Routine 11/11/2024 [...] 1:59 PM EDT LEGIONELLA SPECIES, PCR Routine 11/11/19 1:59 PM EDT FUNGAL CULTURE Routine 11/10/2024 [...] 1:59 PM EDT LEGIONELLA SPECIES, PCR Routine 11/11/19 1:59 PM EDT RESPIRATORY PATHOGEN PANEL, BAL FLUID Routine 11/10/2024 1:59 PM EDT PNEUMOCYSTIS (PCP) EXAM Routine 11/11/19 1:59 PM EDT PNEUMOCYSTIS BY PCR Routine [...] :59 PM EDT PNEUMOCYSTIS (PCP) EXAM Routine 11/11/19 1:59 PM EDT MYCOBACTERIAL CULTURE/SMEAR Routine 11/10/2024 1:59 PM EDT LEGIONELLA SPECIES, PCR Routine 11/11/19 1:59 PM EDT FUNGAL CULTURE Routine 11/10/2024 [...] 4:00 AM EDT C-REACTIVE PROTEIN (CRP) Routine 025 4:00 AM EDT SEDIMENTATION RATE (ESR) Routine 025 4:00 AM EDT MYOSITIS PANEL 3 Routine [...] AND DIFFERENTIAL Routine 11/09/2024 4:57 AM EDT TSH WITH REFLEX Routine 10/31/2024 [...] Recently Relevant to Health Maintenance Results * CBC and Differential (02/04/2025 4:02 PM EST) Only the most recent of2 resultswithin the time period is included. WBC 9.02 4.00 - 11.00 K/uL 02/04/2025 6:37 PM [facility] RBC 4.75 4.50 - 5.90 M/uL 02/04/2025 6:37 PM [facility] Hemoglobin 14.6 13.5 - 17.5 g/dL 02/04/2025 6:37 PM [facility] Hematocrit 44.5 41.0 - 53.0 % 02/04/2025 6:37 PM [facility] MCV 93.7 80.0 - 100.0 fL 02/04/2025 6:37 PM [facility] MCH 30.7 27.0 - 31.0 pg 02/04/2025 6:37 PM [facility] MCHC 32.8 32.0 - 36.0 g/dL 02/04/2025 6:37 PM [facility] MPV 9.9 8.4 - 12.0 fL 02/04/2025 6:37 PM [facility] RDW-CV 14.0 11.5 - 14.5 % 02/04/2025 6:37 PM [facility] PLT 154 150 - 450 K/uL 02/04/2025 6:37 PM [facility] Neutrophils 58.3 % 02/04/2025 6:37 PM [facility] Lymphocytes 29.5 % 02/04/2025 6:37 PM [facility] Monocytes 9.2 % 02/04/2025 6:37 PM [facility] Eosinophils 2.1 % 02/04/2025 6:37 PM [facility] Basophils 0.6 % 02/04/2025 6:37 PM [facility] Imm Grans 0.3 % 02/04/2025 6:37 PM [facility] NRBC 0.0 <=0.0 /100 WBCs 02/04/2025 6:37 PM [facility] Absolute Neutrophils 5.26 1.92 - 7.60 K/uL 02/04/2025 6:37 PM [facility] Absolute Lymphocytes 2.66 0.72 - 4.10 K/uL 02/04/2025 6:37 PM [facility] Absolute Monocytes 0.83 0.16 - 1.10 K/uL 02/04/2025 6:37 PM [facility] Absolute Eosinophils 0.19 0.00 - 0.50 K/uL 02/04/2025 6:37 PM [facility] Absolute Basophils 0.05 0.00 - 0.15 K/uL 02/04/2025 6:37 PM [facility] Absolute Imm Grans 0.03 0.00 - 0.09 K/uL 02/04/2025 6:37 PM [facility] Absolute NRBC 0.00 <=0.00 K cells/uL 02/04/2025 6:37 PM [facility] Absolute Neutrophils 5.26 1.92 - 7.60 K/uL 02/04/2025 6:37 PM [facility] Comment:Automated cell count . Manual ANC may differ if performed. Diff Type Auto 02/04/2025 6:37 PM [facility] Blood (Blood) Venipuncture / Unknown 02/04/2025 4:02 PM EST 02/04/2025 4:03 PM EST Virginia Patton PA-C LAB BLOOD BKR ORDERABLES F inal Result Performing Organization Address [facility] Co de Phone Number [address] [phone] * Iron and Total Iron Binding Capacity (Iron/TIBC) (02/04/2025 4:02 PM EST) Only the most recent of2 resultswithin the time period is included. Iron 116 45 - 182 ug/dL 02/04/2025 6:46 PM [facility] Total Iron-Binding Capacity (TIBC) 335 220 - 460 ug/dL 02/04/2025 6:46 PM [facility] Transferrin Saturation 35 14 - 50 % 02/04/2025 6:46 PM EST [facility] Blood (Blood) Venipuncture / Unknown 02/04/2025 4:02 PM EST 02/04/2025 4:03 PM EST us Virginia Patton PA-C LAB BLOOD BKR ORDERABLES F inal Result Performing Organization Address [facility] de Phone Number [address] [phone] * Tissue Transglutaminase Antibody, IgA (02/04/2025 4:02 PM EST) Tissue Transglutaminase Ab, IgA, S 1.3 <4.0 (Negative ) U/mL 02/08/2025 10:[address] [facility] Blood (Blood) Venipuncture / Unknown 02/04/2025 4:02 PM EST 02/04/2025 4:03 PM EST Virginia Patton PA-C LAB BLOOD BKR ORDERABLES F inal Result [facility] (BEAKER) [facility] [address] [place], [place] [address] [phone] * Immunoglobulin A (02/04/2025 4:02 PM EST) Immunoglobulin A 340 70 - 400 mg/dL 02/04/2025 6:46 PM EST [facility] Blood (Blood) Venipuncture / Unknown 02/04/2025 4:02 PM EST 02/04/2025 4:03 PM EST Virginia Patton PA-C LAB BLOOD BKR ORDERABLES F inal Result Performing Organization Address [facility] de Phone Number [address] [address] * Ferritin (02/04/2025 4:02 PM EST) Only the most recent of2 resultswithin the time period is included. Ferritin 280 30 - 400 ug/L 02/04/2025 6:46 PM EST [facility] Blood (Blood) Venipuncture / Unknown 02/04/2025 4:02 PM EST 02/04/2025 4:03 PM EST Virginia Patton PA-C LAB BLOOD BKR ORDERABLES F inal Result Performing Organization Address [facility] Co de Phone Number [address] [address] * XR HAND 3 OR MORE VIEWS (LEFT) (01/20/2025 2:50 PM EST) Narrative SYSTEMGENERATED, DOCUMENTATION - 01/20/2025 2:50 PM EST This image report has been auto-finalized and has not been read by a Radiologist. Interpretation has been included in the provider encounter note for this date of service. Alaina Severino KIRT IMG XR UPPER EXTREMI TY Final Result [...] clinician's provided indication for this examination in [facility]: Outside Radiology Order; OTHER PNEUMONIA, UNSPECIFIED ORGANISM [...] * Vitamin C (12/30/2024 1:27 PM EST) [facility] Vitamin C 1.1 0.2 - 2.1 mg/dL 01/07/2025 8:10 AM EST [employer] ([employer]) Comment: . This test was developed and its analytical performance characteristics have been determined by [facility], [place], [place]. It has not been cleared or approved by the FDA. This assay has been validated pursuant to the CLIA regulations and is used for clinical purposes. . Blood (Blood) Venipuncture / Unknown 12/30/2024 1:27 PM EST 12/30/2024 1:32 PM EST Heena Nellix (RENITA) - 01/07/2025 8:10 AM EST [facility] Received Date and Time: [id number] us Virginia Patton PA-C LAB BLOOD BKR ORDERABLES F inal Result YONG CARPENTER) [address] [address], [place] YONG MCDANIEL (RENITA) [address] [place], [place] , [place] * (ABNORMAL) LFTs (hepatic panel) (11/12/2024 5:04 AM EDT) [facility] ALKALINE PHOSPHATASE 74 39 - 117 U/L [facility] TOTAL BILIRUBIN <0.2 0.0 - 1.2 mg/dL [facility] DIRECT BILIRUBIN <0.1 0.0 - 0.2 mg/dL [facility] Bilirubin (Indirect) NOT CALCULATED 0 - 1.5 mg/dL [facility] AST 31 0 - 37 U/L [facility] ALT 62(H) 0 - 40 U/L [facility] TOTAL PROTEIN 6.6 6.5 - 8.0 g/dL [facility] ALBUMIN 3.5(L) 3.9 - 4.8 g/dL [facility] GLOBULIN 3.1 1 - 4.8 g/dL [facility] A/G Ratio 1.13 1.00 - 4.80 RATIO [facility] Blood 11/12/2024 5:04 AM EDT 11/12/2024 5:17 AM EDT us Dewayne Foster MD, MS LAB BLOOD BKR ORDERABLES Final Result [facility] [address] [place] [address] * (ABNORMAL) CBC and differential (11/12/2024 5:04 AM EDT) Only the most recent of4 resultswithin the time period is included. [facility] WBC 14.43(H) 4.00 - 11.00 K/uL [facility] RBC 3.25(L) 4.50 - 5.90 M/uL [facility] HGB 10.2(L) 13.5 - 17.5 g/dL [facility] HCT 31.9(L) 41.0 - 53.0 % [facility] PLT 418 150 - 450 K/uL [facility] MCV 98.2 80.0 - 100.0 fL [facility] MCH 31.4(H) 27.0 - 31.0 pg [facility] MCHC 32.0 32.0 - 36.0 g/dL [facility] RDW 14.0 11.5 - 14.5 % [facility] MPV 8.8 8.4 - 12.0 fL [facility] NRBC 0.00 0.00 /100 WBCs [facility] ABSOLUTE NRBC 0.00 0.00 K/uL [facility] DIFF METHOD Auto [facility] NEUTS 61.1 48.0 - 76.0 % [facility] LYMPHS 23.1 18.0 - 41.0 % [facility] MONOS 9.0 4.0 - 11.0 % [facility] EOS 2.0 0.0 - 5.0 % [facility] BASOS 0.6 0.0 - 1.5 % [facility] Granulocytes, immature (%) 4.2(H) 0.0 - 0.9 % [facility] ABSOLUTE NEUTS 8.82(H) 1.92 - 7.60 K/uL [facility] ABSOLUTE LYMPHS 3.33 0.72 - 4.10 K/uL [facility] ABSOLUTE MONOS 1.30(H) 0.16 - 1.10 K/uL [facility] ABSOLUTE EOS 0.29 0.00 - 0.50 K/uL [facility] ABSOLUTE BASOS 0.08 0.00 - 0.15 K/uL [facility] Granulocytes, immature 0.61(H) 0.00 - 0.09 K/uL [facility] Blood 11/12/2024 5:04 AM EDT 11/12/2024 5:17 AM EDT us Dewayne Foster MD, MS LAB BLOOD BKR ORDERABLES Final Result [facility] [address] [place] [address] * (ABNORMAL) C-Reactive Protein (11/12/2024 5:04 AM EDT) Only the most recent of2 resultswithin the time period is included. C REACTIVE PROTEIN 17.7(H) 0.0 - 4.0 mg/L [facility] Blood 11/12/2024 5:04 AM EDT 11/12/2024 5:17 AM EDT us Dewayne Foster MD, MS LAB BLOOD BKR ORDERABLES Final Result Performing Organization Address [facility] Co de Phone Number [address] [address] * (ABNORMAL) Phosphorus (11/12/2024 5:04 AM EDT) Only the most recent of2 resultswithin the time period is included. PHOSPHORUS 4.9(H) 2.7 - 4.5 mg/dL [facility] Blood 11/12/2024 5:04 AM EDT 11/12/2024 5:17 AM EDT us Dewayen Foster MD, MS LAB BLOOD BKR ORDERABLES Final Result Performing Organization Address [facility] Co de Phone Number [address] [address] * Magnesium (11/12/2024 5:04 AM EDT) Only the most recent of2 resultswithin the time period is included. MAGNESIUM 1.8 1.6 - 2.6 mg/dL [facility] Blood 11/12/2024 5:04 AM EDT 11/12/2024 5:17 AM EDT us Dewayne Foster MD, MS LAB BLOOD BKR ORDERABLES Final Result Performing Organization Address [facility] Co de Phone Number [address] [address] * (ABNORMAL) Basic metabolic panel (11/12/2024 5:04 AM EDT) SODIUM 137 133 - 146 mmol/L [facility] CHLORIDE 102 96 - 108 mmol/L [facility] POTASSIUM 4.2 3.3 - 5.1 mmol/L [facility] CO2 23 21 - 35 mmol/L [facility] BUN 21(H) 6 - 19 mg/dL [facility] CREATININE 0.70 0.5 - 1.5 mg/dL [facility] GLUCOSE 100(H) 70 - 99 mg/dL [facility] CALCIUM 9.6 8.4 - 10.3 mg/dL [facility] EGFR 111 >59 mL/min/1.7 3m2 [facility] Comment:Estimated glomerular filtration rate calculated using the CKD-EPI refit equation. ANION GAP 16 10 - 20 mmol/L [facility] Blood 11/12/2024 5:04 AM EDT 11/12/2024 5:17 AM EDT us Dewayne Foster MD, MS LAB BLOOD BKR ORDERABLES Final Result [facility] [address] [place], [place] [id number] * (ABNORMAL) Comprehensive metabolic panel (11/11/2024 4:06 AM EDT) Only the most recent of2 resultswithin the time period is included. SODIUM 135 133 - 146 mmol/L [facility] POTASSIUM 4.5 3.3 - 5.1 mmol/L [facility] CHLORIDE 98 96 - 108 mmol/L [facility] CO2 23 21 - 35 mmol/L [facility] BUN 17 6 - 19 mg/dL [facility] CREATININE 0.80 0.5 - 1.5 mg/dL [facility] GLUCOSE 95 70 - 99 mg/dL [facility] ALBUMIN 3.9 3.9 - 4.8 g/dL [facility] TOTAL PROTEIN 7.6 6.5 - 8.0 g/dL [facility] CALCIUM 9.8 8.4 - 10.3 mg/dL [facility] ALKALINE PHOSPHATASE 88 39 - 117 U/L [facility] TOTAL BILIRUBIN <0.2 0.0 - 1.2 mg/dL [facility] AST 48(H) 0 - 37 U/L [facility] ALT 77(H) 0 - 40 U/L [facility] GLOBULIN 3.7 1 - 4.8 g/dL [facility] EGFR 106 >59 mL/min/1.7 3m2 [facility] Comment:Estimated glomerular filtration rate calculated using the CKD-EPI refit equation. ANION GAP 19 10 - 20 mmol/L [facility] Blood 11/11/2024 4:06 AM EDT 11/11/2024 4:15 AM EDT us Shikha Hartman PA-C, MS LAB BLOOD BKR ORD ERABLES Final Result Performing Organization Address City/State/[facility] Co de Phone Number [address] [address] * Non-Workers Compensation Consultant Cytology (11/11/2024 12:00 AM EDT) Report [address] [address] Transportation Maintenance Operator: Parker [place] MD Non Workers Compensation Consultant Cytology Report FINAL DIAGNOSIS A. LUNG, RIGHT [...] Electronically Signed Out By: MD Christie Schumacher [facility] By his/her signature above, the pathologist listed [...] : 1970 (Age: 54) Sex: M Institution: [facility] Location: [facility] Date of Collection: 11/11/2024 Date of Reported: 11/12/2024 10:41 Results to: Dewayne Foster MD [facility] Clinical History Patient presents with acute respiratory failure. [facility] Final Diagnosis A. LUNG, RIGHT MIDDLE LOBE, [...] CELLS IDENTIFIED. DIAGNOSIS: Pulmonary macrophages. Acute inflammation. [facility] Gross Description A. LUNG, RIGHT MIDDLE LOBE, [...] and one (1) cell block are prepared. [facility] Conversion Type (Conversion Source) 11/11/2024 11/11/2024 1:53 PM EDT Conversion Type (Bronchus, Bilateral) 11/11/2024 11/11/2024 1:53 PM EDT Conversion Type (Conversion Source) 11/11/2024 11/11/2024 1:53 PM EDT Conversion Type (Bronchus, Bilateral) 11/11/2024 11/11/2024 1:53 PM EDT Conversion Type (Bronchus, Bilateral) 11/11/2024 11/11/2024 1:53 PM EDT us Dewayne Foster MD, MS CYTOLOGY ORDERABLES Edit ed Result - Final [facility] [address] [place] [address] * (ABNORMAL) Lower Respiratory Tract Respiratory Pathogen PCR Panel (11/10/2024 1:59 PM EDT) Only the most recent of3 resultswithin the time period is included. Specimen Source BRONCHIAL WASHINGS [facility] OF LAB MED AND PAT+ Comment:Corrected [...] MED AND PAT+ Influenza A Undetected Undetected [facility] Influenza B Undetected Undetected [facility] PAT+ Parainfluenza Virus 1 Undetected Undetected [facility] Parainfluenza Virus 2 Undetected Undetected [facility] Parainfluenza Virus 3 Undetected Undetected [facility] Parainfluenza Virus 4 Undetected Undetected [facility] PAT+ Respiratory Syncytial Virus Detected(A) Undetected [facility] Bordetella pertussis Undetected Undetected [facility] PAT+ Bordetella parapertussis Undetected Undetected [facility] DPT OF LAB MED AND PAT+ Chlamydia pneumoniae Undetected Undetected [facility] DPT OF LAB MED AND PAT+ Mycoplasma pneumoniae Undetected Undetected [facility] DPT OF LAB MED AND PAT+ Interpretation SEE NOTE [facility] DPT OF LAB MED AND PAT+ Comment: (NOTE) This assay is not predicted to detect SARS-coronavirus (CoV), or MERS-CoV. ADDITIONAL INFORMATION This assay is performed using the [employer]utter HealthArray Respiratory Panel 2.1 (ControlScan). This test has been modified from the manager non profit's instructions. Its performance characteristics were determined by [facility] in a manner consistent with CLIA requirements. This test has not been cleared or approved by the U.S. Food and Drug Administration. Other (Bronchial washings) 11/10/2024 1:59 PM EDT 11/10/2024 2:53 PM EDT us Dewayne Foster MD, MS MICROBIOLOGY - GENERAL O RDERABLES Edited Result - Final Performing Organization Address City/[facility] Co de Phone Number [facility] DPT OF LAB MED AND PAT+ [address] [place] [address] * (ABNORMAL) Bronch Lavage Differential (11/10/2024 1:59 PM EDT) Only the most recent of2 resultswithin the time period is included. PATH REVIEW FINAL [facility] Comment: Other cells are alveolar macrophages and bronchial cells. Reviewed by Parker [place] MD FLUID LYMPHS 11(H) 0 % [facility] FLUID NEUTS 35 % [facility] FLUID OTHER CELLS 54(H) 0 % [facility] Other (Bronchial alveolar lavage) 11/10/2024 1:59 PM EDT 11/10/2024 2:48 PM EDT us Dewayne Foster MD, MS LAB BODY FLUIDS AND STOO L ORDERABLES Final Result Performing Organization Address City/[facility]/ZIP Co de Phone Number [facility] [address] [place] [address] * CD4 count, fluid (11/10/2024 1:59 PM EDT) CD3+ % Lymphs 97.6 % LYMPHS [facility] CD3+ CD4+ % Lymphs 13.3 % LYMPHS [facility] CD3+ CD8+ % Lymphs 84.3 % LYMPHS [facility] CD4+:CD8+ RATIO 0.16 [facility] CD45+ % Lymphs 100.0 % LYMPHS [facility] Other (Bronchial alveolar lavage) 11/10/2024 1:59 PM EDT 11/10/2024 2:41 PM EDT us Dewayne Foster MD, MS BODY FLUIDS AND STOOLS O RDERABLES Final Result Performing Organization Address City/[facility]/ZIP Co de Phone Number [facility] [address] [place] [address] * Legionella species, PCR (11/10/2024 1:59 PM EDT) Only the most recent of3 resultswithin the time period is included. Specimen type BRONCHIAL WASHINGS [facility] DPT OF LAB MED AND PAT+ Comment:Corrected on 11/15 A T 1443: previously reported as BRONCHIAL WASHINGS Legionalla DNA Negative Not Applicable [facility] DPT OF LAB MED AND PAT+ Comment: (NOTE) PCR negativity does not rule out uncommon Legionella species, including L. feeleii and L. birmhinghamensis. ADDITIONAL INFORMATION This test was developed and its performance characteristics determined by [facility] in a manner consistent with CLIA requirements. This test has not been cleared or approved by the U.S. Food and Drug Administration. Other (Bronchial washings) 11/10/2024 1:59 PM EDT 11/10/2024 2:53 PM EDT us Dewayne Foster MD, MS LAB GENERAL ORDERABLES E dited Result - Final Performing Organization Address City/[facility] Co de Phone Number [facility] DPT OF LAB MED AND PAT+ [address] [place] [address] * HSV PCR Bronchial alveolar lavage (11/10/2024 1:59 PM EDT) Only the most recent of2 resultswithin the time period is included. HSV 1, PCR Negative Negative [facility] OF LAB MED AND PAT+ HSV 2, PCR Negative Negative [facility] OF [facility] MED AND PAT+ Comment: (NOTE) ADDITIONAL INFORMATION This test was developed and its performance characteristics determined by [facility] in a manner consistent with CLIA requirements. This test has not been cleared or approved by the U.S. Food and Drug Administration. SPECIMEN SOURCE HSV SEE NOTE [facility] DPT OF LAB MED AND PAT+ Comment: (NOTE) BRONCHIAL ALVEOLAR LAVAGE Left Lower Lobe Corrected on 11/15 AT 1520: previously reported as BRONCHIAL ALVEOLAR LAVAGE Left Lower Lobe Other (Bronchial alveolar lavage) 11/10/2024 1:59 PM EDT 11/10/2024 2:48 PM EDT Dewayne Foster MD, MS LAB GENERAL ORDERABLES E dited Result - Final Performing Organization Address City/[facility] Co de Phone Number [facility] DPT OF LAB MED AND PAT+ [address] [place] [address] * (ABNORMAL) Respiratory Culture/Gram Stain (11/10/2024 1:59 PM EDT) Only the most recent of5 resultswithin the time period is included. Special Requests None 11/10/2024 1:56 PM EDT [facility] GRAM STAIN Moderate WBC'S , Rare GRAM POSITIVE COCCI 11/11/2024 11:11 AM EDT [facility] Respiratory Cult/Smear MIXED ORGANISMS RESEMBLING OROPHARYNGEAL TEJA(A) 11/12/2024 11:30 AM EDT [facility] Other (Bronchial washings) 11/10/2024 1:59 PM EDT 11/10/2024 2:46 PM EDT Comment:BILATERAL BRONCHIAL WASHINGS us Dewayne Foster MD, MS LAB MICROBIOLOGY CULTURE ORDERABLES Final Result Performing Organization Address [facility] Co de Phone Number [address] [address] * Mycobacterial Culture/Smear (11/10/2024 1:59 PM EDT) Only the most recent of5 resultswithin the time period is included. Special Requests None 11/11/19 1:56 PM EDT [facility] SMEAR NO ACID FAST BACILLI OBSERVED 11/11/2024 2:36 PM EDT [facility] Mycobacterial Culture NO AFB ISOLATED AFTER 8 WEEKS 01/08/2025 2:26 PM EST [facility] Other (Bronchial washings) 11/10/2024 1:59 PM EDT 11/10/2024 2:46 PM EDT Comment:BILATERAL BRONCHIAL WASHINGS us Dewayne Foster MD, MS LAB MICROBIOLOGY CULTURE ORDERABLES Final Result Performing Organization Address [facility] de Phone Number [address] [address] * Pneumocystis (PCP) exam (11/10/2024 1:59 PM EDT) Only the most recent of2 resultswithin the time period is included. Special Requests None 11/10/2024 1:56 PM EDT [facility] GOMORI SILVER STAIN NEGATIVE FOR PNEUMOCYSTIS JIROVECII (CARINII) 11/11/2024 2:02 PM EDT [facility] Other (Bronchial alveolar lavage) 11/10/2024 1:59 PM EDT 11/10/2024 2:49 PM EDT Comment:LLL BAL us Dewayne Foster MD, MS LAB GENERAL ORDERABLES F inal Result Performing Organization Address [facility] Co de Phone Number [facility] [address] [place] [address] * Pneumocystis by PCR (11/10/2024 1:59 PM EDT) Only the most recent of2 resultswithin the time period is included. SPECIMEN SOURCE BAL LLL [facility] DPT OF LAB MED AND PAT+ RESULT Negative Not Applicable [facility] DPT OF LAB MED AND PAT+ Comment: (NOTE) ADDITIONAL INFORMATION This test was developed and its performance characteristics determined by [facility] in a manner consistent with CLIA requirements. This test has not been cleared or approved by the U.S. Food and Drug Administration. Other (Bronchial alveolar lavage) 11/10/2024 1:59 PM EDT 11/10/2024 2:50 PM EDT Dewayne Foster MD, MS MICROBIOLOGY - GENERAL O RDERABLES Final Result [facility] DPT OF LAB MED AND PAT+ [address] [place] [address] * Cytomegalovirus, PCR, Lower Respiratory (11/10/2024 1:59 PM EDT) Specimen Source BAL [facility] DPT OF LAB MED AND PAT+ CMV PCR, Lower Respiratory Negative Negative [facility] DPT OF LAB MED AND PAT+ Comment: (NOTE) ADDITIONAL INFORMATION This test was developed and its performance characteristics determined by [facility] in a manner consistent with CLIA requirements. This test has not been cleared or approved by the U.S. Food and Drug Administration. Other (Bronchoalveolar lavage) 11/10/2024 1:59 PM EDT 11/10/2024 2:43 PM EDT Dewayne Foster MD, MS MICROBIOLOGY - GENERAL O RDERABLES Final Result [facility] DPT OF LAB MED AND PAT+ [address] [place] [address] * (ABNORMAL) Fungal culture (11/10/2024 1:59 PM EDT) Only the most recent of5 resultswithin the time period is included. Special Requests None 11/10/2024 1:56 PM EDT [facility] GRAM STAIN No Yeast or Fungal elements seen 11/11/2024 11:57 AM EDT [facility] Fungal Culture Only ISOLATED YEAST SEE RML BAL FUNGAL CULTURE FROM SAME DAY FOR IDENTIFICATI ON(A) 11/26/2024 12:14 PM EDT [facility] Other (Bronchial washings) 11/10/2024 1:59 PM EDT 11/10/2024 2:46 PM EDT Comment:BILATERAL BRONCHIAL WASHINGS us Dewayne Foster MD, MS LAB MICROBIOLOGY CULTURE ORDERABLES Final Result Performing Organization Address [facility] Co de Phone Number [address] [address] * (ABNORMAL) Anaerobic Culture (11/10/2024 1:59 PM EDT) Only the most recent of3 resultswithin the time period is included. Special Requests None 11/10/2024 1:56 PM EDT [facility] Anaerobic Culture MIXED ORGANISMS RESEMBLING OROPHARYNGEAL TEJA(A) 11/12/2024 8:54 AM EDT [facility] Other (Bronchial washings) 11/10/2024 1:59 PM EDT 11/10/2024 2:46 PM EDT Comment:BILATERAL BRONCHIAL WASHINGS us Dewayne Foster MD, MS LAB MICROBIOLOGY CULTURE ORDERABLES Final Result Performing Organization Address City/[facility]/ZIP Co de Phone Number [address] [address] * ENDOSCOPY PROCEDURE (11/10/2024 12:46 PM EDT) Narrative Transcriptions Dewayne Foster MD, MS - 11/10/2024 12:46 PM EDT Patient Name: Chandrakant Gunn Attending MD: DEWAYNE FOSTER MD, Procedure Date No Time: 11/10/2024 Date of : 1970 Age: 54 Admit Type: Inpatient Gender: Male Room: [place] [address] Referring MD: Suni Garcia Procedure: Bronchoscopy Indications: Diffuse infiltrate, Unresolving bilateralinfiltrates, Diffuse lung disease, Hypoxemia Impression: - Diffuse infiltrate - Unresolving bilateral infiltrates - Diffuse lung disease - Hypoxemia - Scant, mucoid, white, thick secretions were found throughout the tracheobronchial tree. - EDAC was noted, primarily in the proximalleft-sided airways. - Bronchoalveolar lavage was performed in the [facility]. - Brushings were obtained in the L and LLL. - Washings were obtained from all airways. [...] 12:46 PM Procedure Code(s): --- Professional --- 46672, Bronchoscopy, rigid or flexible, including fluoroscopicguidance, when performed; with bronchial alveolar lavage 73981, Bronchoscopy, rigid or flexible, including fluoroscopicguidance, when performed; with brushing or protected brushings CPT copyright 2021 [employer]. All rights reserved. The codes documented in this report are preliminary and upon billing auditor reviewmay be revised to meet current compliance requirements. Procedure Date: 11/10/2024 12:46:14 PM Estimated Blood Loss: None. Scope In: Scope Out: [address] [place] [address] Suni [facility] PROCEDURE ORDERABLES Fi nal Result * Myositis panel 3 (11/10/2024 4:00 AM EDT) Anti-Kami-1 Ab <20 <20 units [facility] Anti-PL-7 Ab Negative Negative [facility] Comment: (NOTE) This test was developed and its performance characteristics determined by [facility]. It has not been cleared or approved [...] approved by the Food and Drug Administration. Vzxj-Xo-3-Ab Negative Negative [facility] Comment: (NOTE) This test was developed and its performance characteristics determined by [facility]. It has not been cleared or approved by the Food and Drug Administration. [id number] Ab <20 <20 units [facility] [...] by the Food and Drug Administration. Anti-U1 STATION OPERATOR Ab <20 <20 units [facility] Anti-U2 STATION OPERATOR Ab Negative Negative [facility] Comment: (NOTE) This test was developed and its performance characteristics determined by [facility]. It has not been cleared or approved by the Food and Drug Administration. Anti-U3 STATION OPERATOR (Fibrillarin) Negative Negative [facility] Comment: (NOTE) This test was developed and its performance characteristics determined by [facility]. It has not been cleared or approved by the Food and Drug Administration. Interpretation for Anti-Kami-1, Iuzb-KTF-[id number], Anti-MDA-5, Anti-NXP-2, Anti-PM/Scl-100, Anti-SS-A 52 kD, Anti-U1 STATION OPERATOR: Negative: <20 Weak Positive: 20 - 39 Moderate Positive: 40 - 80 Strong Positive: >80 . Test Performed by: [facility] [address] [place] [address] Blood 11/10/2024 4:00 AM EDT 11/10/2024 4:39 AM EDT us Dewayne Foster MD, MS LAB BLOOD BKR ORDERABLES Final Result Performing Organization Address City/[facility] Co de Phone Number [facility] * Antinuclear antibody, titer and pattern (11/10/2024 4:00 AM EDT) GIDEON TITER 1:80 Speckled [facility] 11/10/2024 4:00 AM EDT 11/10/2024 4:39 AM EDT us Dewayne Foster MD, MS LAB BLOOD BKR ORDERABLES Final Result Performing Organization Address City/[facility]/ZIP Co de Phone Number [facility] [address] [place] [address] * PROTEINASE 3 ANTIBODY, IGG (11/10/2024 4:00 AM EDT) PROTEINASE 3 AB <0.2 <0.4 (Negative) U [facility]/PATH [address] Blood 11/10/2024 4:00 AM EDT 11/10/2024 4:40 AM EDT us Dewayne Foster MD, MS LAB BLOOD ORDERABLES Fin al Result Performing Organization Address [facility] Co de Phone Number [facility] LAB MED/PATH [address] [place] [address] * MYELOPEROXIDASE ANTIBODIES, IGG (11/10/2024 4:00 AM EDT) Pathologist [facility] MYELOPEROXIDASE AB <0.2 <0.4 (Negative) U [facility] LAB MED/PATH [address] Blood 11/10/2024 4:00 AM EDT 11/10/2024 4:40 AM EDT Dewayne Foster MD, MS LAB BLOOD ORDERABLES Fin al Result Performing Organization Address [facility] de Phone Number [facility] LAB MED/PATH [place] [address] [place] [address] * Procalcitonin (11/10/2024 4:00 AM EDT) Pathologist [facility] Procalcitonin 0.12 0.00 - 0.25 ng/mL [facility] Comment: <=0.25 ng/mL: Bacterial pneumonia is unlikely. [...] BKR ORDERABLES Final Result Performing Organization Address [facility] Co de Phone Number [address] [address] * SS-A/SS-B antibodies (11/10/2024 4:00 AM EDT) ANTI-RO ANTIBODY 1.06 0.00 - 19.99 OD [facility]IT [facility] RO INTERPRETATION Negative Negative [facility] ANTI-LA ANTIBODY 1.85 0.00 - 19.99 OD [facility] LA INTERPRETATION Negative Negative [facility] Blood 11/10/2024 4:00 AM EDT 11/10/2024 4:40 AM EDT us Dewayne Foster MD, MS LAB BLOOD ORDERABLES Fin al Result [address] [address] * CCP IgG antibodies (11/10/2024 4:00 AM EDT) ANTI-CCP IGG <8 0 - 16 U/mL [facility] Blood 11/10/2024 4:00 AM EDT 11/10/2024 4:40 AM EDT us Dewayne Foster MD, MS LAB BLOOD BKR ORDERABLES Final Result Performing Organization Address City/[facility] Co de Phone Number [address] [address] * Scl-70 antibody (11/10/2024 4:00 AM EDT) SCL 70 AB, IGG <0.2 <1.0 (Negative) [facility] [address] Blood 11/10/2024 4:00 AM EDT 11/10/2024 4:40 AM EDT us Dewayne Foster MD, MS LAB BLOOD ORDERABLES Fin al Result [facility]PATH [address] [place] [address] * Anti-Neutrophil Cytoplasmic Antibody (ANCA) (11/10/2024 4:00 AM EDT) C-ANCA Negative Negative [facility]PATH [address] P-ANCA Negative Negative [facility] LAB MED/PATH [address] Comment: (NOTE) Negative for cANCA and pANCA patterns by immunofluorescence. ADDITIONAL INFORMATION This test was developed and its performance characteristics determined by [facility] in a manner consistent with CLIA requirements. This test has not been cleared or approved by the U.S. Food and Drug Administration. Blood 11/10/2024 4:00 AM EDT 11/10/2024 4:40 AM EDT Dewayne Foster MD, MS LAB BLOOD BKR ORDERABLES Final Result Performing Organization Address [facility] Co de Phone Number [facility] LAB MED/PATH [address] [place] [address] * (ABNORMAL) Sedimentation rate (ESR) (11/10/2024 4:00 AM EDT) ESR 55(H) 0 - 20 mm/h [facility] Blood 11/10/2024 4:00 AM EDT 11/10/2024 4:39 AM EDT Dewayne Foster MD, MS LAB BLOOD BKR ORDERABLES Final Result Performing Organization Address [facility] Co de Phone Number [address] [address] * Rheumatoid factor (11/10/2024 4:00 AM EDT) RHEUMATOID FACTOR <10.0 0.0 - 14.0 IU/ml [facility] Blood 11/10/2024 4:00 AM EDT 11/10/2024 4:39 AM EDT Dewayne Foster MD, MS LAB BLOOD BKR ORDERABLES Final Result Performing Organization Address [facility] Co de Phone Number [address] [address] * (ABNORMAL) Antinuclear antibody (GIDEON) (11/10/2024 4:00 AM EDT) GIDEON SCREEN ON HEP 2 Positive(A ) Negative [facility] Comment:An GIDEON Titer has bee n reflexed. The results will follow. Blood 11/10/2024 4:00 AM EDT 11/10/2024 4:39 AM EDT us Dewayne Foster MD, MS LAB BLOOD BKR ORDERABLES Final Result Performing Organization Address [facility]/ZIP Co de Phone Number [address] [address] * NT-proBNP (11/10/2024 4:00 AM EDT) NT-PROBNP 108 0 - 125 pg/mL [facility] Blood 11/10/2024 4:00 AM EDT 11/10/2024 4:39 AM EDT us Shikha Hartman PA-C, MS LAB BLOOD BKR ORD ERABLES Final Result Performing Organization Address [facility]/ZIP Co de Phone Number [address] [address] * (ABNORMAL) CPK (creatine kinase) (11/10/2024 4:00 AM EDT) CREATINE KINASE 21(L) 35 - 232 U/L [facility] Blood 11/10/2024 4:00 AM EDT 11/10/2024 4:39 AM EDT us Dewayne Foster MD, MS LAB BLOOD BKR ORDERABLES Final Result Performing Organization Address [facility]/ZIP Co de Phone Number [address] [address] * CT CHEST PULMONARY ANGIOGRAM (ACUTE) (11/09/2024 [...] clinician's provided indication for this examination in [facility]: * PE suspected, high prob TECHNIQUE: [...] clinician's provided indication for this examination in [facility]: *PE suspected, high prob TECHNIQUE: Multidetector [...] increasing multifocal pneumonia. Shikah Hartman PA-C, MS IMG CT CHEST F inal Result * US [...] positive Images: Images Saved: Yes Accession Number: [id number] us Shikha Hartman PA-C, MS IMG POINT OF CARE EXAMS Final Result * Folate (11/09/2024 4:57 AM EDT) FOLIC ACID 18.5 4.2 - 19.9 ng/mL [facility] Blood 11/09/2024 4:57 AM EDT 11/09/2024 5:52 AM EDT us Shikha Hartman PA-C, MS LAB BLOOD BKR ORD ERABLES Final Result Performing Organization Address [facility] Co de Phone Number [address] [address] * Vitamin B12 (11/09/2024 4:57 AM EDT) VITAMIN B12 1,242 232 - 1,245 pg/mL [facility] Blood 11/09/2024 4:57 AM EDT 11/09/2024 5:52 AM EDT Shikha Hartman PA-C, MS LAB BLOOD BKR ORD ERABLES Final Result Performing Organization Address [facility] de Phone Number [address] [address] * TSH with reflex (10/31/2024 4:17 AM EDT) TSH 2.86 0.27 - 4.20 uIU/mL [facility] 10/31/2024 4:17 AM EDT 10/31/2024 4:21 AM EDT Virginia Sauceda MD LAB BLOOD BKR ORDERABLES Fin al Result Performing Organization Address City/[facility]/ZIP Co de Phone Number [address] [address] * COLONOSCOPY FOR RESULT ENTRY ONLY (12/30/2023) Colonoscopy External us Historical Provider MD HEALTH MAINTENANCE Final Result * Fecal immunochemical test x1 (FIT) (06/24/2023 3:00 PM EDT) Immuno Fecal Occult Negative Negative [facility] Stool (Stool) 06/24/2023 3:0 0 PM EDT 06/24/2023 3:17 PM EDT Karin Espinoza PA-C LAB BODY FLUIDS AND STOOL ORDER ANUJA Final Result [address] [address] * Hepatitis C antibody, qualitative (05/29/2023 4:17 PM EDT) HCV NON-REACTIV E NON-REACTI VE [facility] Blood 05/29/2023 4:17 PM EDT 05/29/2023 4:40 PM EDT Karin Espinoza PA-C LAB BLOOD BKR ORDERABLES Final Result [address] [address] from Last 3 Months or Most Recently Relevant to Health Maintenance Insurance [facility] MEDICARE PART A & B [employer] PPO MEDICARE REPLACEMENT [facility] MEDICARE PART A & B [employer] PPO MEDICARE REPLACEMENT [facility] MEDICARE PART A & B [facility] MEDICARE PART A & B [facility] MEDICARE PART A & B [employer] P[employer] MEDICARE REPLAC[place] MED[place] PART [place] B [place] MED[place] PART [place] & B [employer] [place] MEDICARE REPLACEMENT [facility] MEDICARE PART A & [facility] B [employer] O MEDICARE REPLACEMENT Advance Directives For more information, please contact: [phone] (9AM - 5PM Teresa/[facility], Friday-Friday) Documents on File Type Date Recorded Patient Slab Grinder Expl anation Healthcare Proxy 06/15/2021 4:28 PM [...] Agents on File Name Relationship Healthcare Agent Relationsme p Communication Ursula Castrejon Mother .Primary Health Care Agent (Proxy form on file) Care Teams Nylon Machine Operator Relationship Specialty Start Date End Date Suni Garcia PA [address] [place] [id number] PCP - General Civil Service Clerk 10/05/21 Virginia Patton PA-C [address] [place] [address] Physician Hyster Driver 12/16/23 Additional Source Comments The information contained in this document represents components of the legal health record. It is not the complete legal health record.[facility]
--- OUTSIDE RECORDS SUMMARY | 2025-02-08 15:08 | XMS_ITS | Encounter Summary ---
Author Organization [facility] Address [address] [facility] [address] [place] [address] Phone Care Team Providers Care Flight Controls Engineer Name Role Phone Hans Jaeger MD Primary Care Provider [phone] Suni Garcia Primary Care Provider [phone] Virginia Patton PA-C Unavailable [phone] Encounter Details Date Type Department Care Team (Late st Contact Info) Description 06/10/2021 Procedure Pass [facility], Ct Scan - [address] [address] Social History Tobacco Use Types Packs/Day Years [...] 3:30 PM EST Telemedicine - audio only [facility] [place] [facility] [address] [place] [address] Virginia Patton PA-C [address] [place] [address] 03/09/2025 1:00 PM EST Office Visit [facility] Gastroenterology Clinic [address] [place] [address] Lawrence Bustos MD [address] [address] documented as of this encounter Visit Diagnoses [...] documented as of this encounter Care Teams Flight Controls Engineer Relationship Specialty Start Date End Date Hans Jaeger MD PCP - General Internal Medicine 02/02/21 10/04/21 Suni Garcia PA [address] [place] [address] PCP - General Consulting Services Project Manager 10/05/21 Virginia Patton PA-C [address] [place] [address] Physician Lime Boiler 12/16/23 documented as of this encounter Additional Source Comments The information contained in this document represents components of the legal health record. It is not the complete legal health record.[facility]
--- OUTSIDE RECORDS SUMMARY | 2025-02-08 15:08 | XMS_ITS | Encounter Summary ---
Author Organization [facility] Address [address] [place] [address] Phone Care Team Providers Care Pull Through Hooker Name Role Phone Suni Garcia Primary Care Provider [phone]- [phone] [place] Patton PA-C Unavailable [phone] Reason for Referral * MRI/CAT Scan - Closed Specialty Diagnoses / Procedures Referred By Contac t Referred To Contact Radiology Diagnoses Elevated LFTs Anemia, unspecified type Procedures CT Abdomen/Pelvis CHG CT SCAN,ABDOMENT AND PELVIS,W CONTRAST Karin Espinoza PA-C Phone: tel: fax: [email or web address] Referral ID Status Reason Start Date Expiration Date Visits Re quested Visits Authorized [id number] Closed 07/02/2023 12/29/2023 1 1 Encounter Details Date Type Department Care Team (Latest Contact Info) Description 07/02/2023 Transcribe Orders [facility] 30 [place] [address] Karin Espinoza PA-C [address] [place] [address] Elevated LFTs (Primary Dx); Anemia, unspecified type [...] 3:30 PM EST Telemedicine - audio only [facility] [place] [facility] at [address] [address] Virginia Patton PA-C [address] [place] [address] 03/09/2025 1:00 PM EST Office Visit [facility] [address] [place] [address] Lawrence Bustos MD [address] [place] [address] [email or web address] documented as of this encounter Results * [...] clinician's provided indication for this examination in [facility]: Outside Radiology Order; elevated lft's TECHNIQUE: Multidetector-row [...] clinician's provided indication for this examination in [facility]:Outside Radiology Order; elevated lft's TECHNIQUE: Multidetector-row CT [...] thickening without surrounding inflammatorystranding. Karin Espinoza PA-C IM CT ABD/PELVIS Final Result documented in this [...] Start Date End Date Suni Garcia PA [address] [place] [address] PCP - General Automotive Technology Instructor 10/05/21 Virginia Pattno PA-C [address] [place] [address] [email or web address] Physician Shop Assistant 12/16/23 documented as of this encounter Additional Source Comments The information contained in this document represents components of the legal health record. It is not the complete legal health record.[facility]
--- OUTSIDE RECORDS SUMMARY | 2025-02-08 15:08 | XMS_ITS | Clinical Summary ---
Author Organization [facility] Address [address] [place] [address] Care Team Providers Care Secret Code Expert Name Role Phone Unavailable Primary Care Provider [...] on 10/25 Patient should follow-up with outpatient green building design specialist for chronic lumbar pathology Continue with [...] lumbar ESMER Patient should follow-up with outpatient green building design specialist for chronic lumbar pathology Continue with [...] Years Used Date Smoking Tobacco: Never Assessed [facility] Utilities Answer Date Recorded In the past 12 months has mana[employer]bo, gas, oil, or water [employer] threatened to shut off services in your [...] were you homeless or living in a mcfp (including now)? No 10/23/2024 Sex and Gender [...] - 1-dose 75+ series) 08/07/2047 Insurance [facility] MEDICARE [facility] MEDIC[facility] Advance Directives * Full Code (Latest Code Status on File) Date Activated Date Inactivated Comments 10/23/2024 12:03 AM Question Answer Comments Decision Thoroughly Discussed with: Patient
--- OUTSIDE RECORDS SUMMARY | 2025-02-08 15:08 | XMS_ITS | Encounter Summary ---
Author Organization [facility] Address [email or web address] [place] [address] Phone Care Team Providers Care Construction Inspector Name Role Phone Suni Garcia Primary Care Provider [phone]- [phone] Virginia Patton-C Unavailable [phone] Encounter Details Date Type Department Care Team (Late st Contact Info) Description 07/02/2023 Procedure Pass [facility], Ct Scan - [facility] 30 [place], [place] [phone] Social History Tobacco Use Types Packs/Day Years [...] 3:30 PM EST Telemedicine - audio only [facility] [place] [facility] at [facility] [place] 30 [place] [address] Virginia Patton PA-C [address] [place] [address] [email or web address] 03/09/2025 1:00 PM EST Office Visit [facility] Gastroenterology Clinic [address] [place] [address] Lawrence Bustos MD [address] [place] [address] documented as of this encounter Visit Diagnoses Not on filedocumented in this encounter Additional Health Concerns Infection Onset Date Last Indicated Resolved Time CoV-Risk Comment:Per note documentation 10/29/2024 10/29/2024 4:02 PM EDT Rhino/Entero 10/31/2024 10/31/2024 11/14/2024 1:21 AM EDT RSV 11/10/2024 11/10/2024 11/17/2024 1:21 AM EDT documented as of this encounter Care Teams Construction Inspector Relationship Specialty Start Date End Date Suni Garcia PA [address] [place] [address] PCP - General Supervisor Hairspring Fabrication 10/05/21 Virginia Patton PA-C [address] [place] [address] Physician Coding Compliance Auditor 12/16/23 documented as of this encounter Additional Source Comments The information contained in this document represents components of the legal health record. It is not the complete legal health record.[facility]
--- OUTSIDE RECORDS SUMMARY | 2025-02-08 15:08 | XMS_ITS | Encounter Summary ---
Author Organization [facility] Address [address] [place] [address] Phone Care Team Providers Care Animal Impersonator Name Role Phone Suni Garcia Primary Care Provider [phone] Virginia Patton-C Unavailable [phone] Encounter Details Date Type Department Care Team (Late st Contact Info) Description 08/15/2023 Procedure Pass [facility] 30 [place], [place] [phone] Social History Tobacco Use Types Packs/Day Years [...] 3:30 PM EST Telemedicine - audio only [facility] [place] [facility] at [facility] 30 [place] [address] Virginia Patton PA-C [address] [place] [address] 03/09/2025 1:00 PM EST Office Visit [facility] Gastroenterology Clinic [address] [place] [address] Lawrence Bustos MD [address] [place] [address] documented as of this encounter Visit Diagnoses Not on filedocumented in this encounter Additional Health Concerns Infection Onset Date Last Indicated Resolved Time CoV-Risk Comment:Per note documentation 10/29/2024 10/29/2024 4:02 PM EDT Rhino/Entero 10/31/2024 10/31/2024 11/14/2024 1:21 AM EDT RSV 11/10/2024 11/10/2024 11/17/2024 1:21 AM EDT documented as of this encounter Care Teams Animal Impersonator Relationship Specialty Start Date End Date Suni Garcia PA [address] [place] [address] PCP - General Calibrator Barometers 10/05/21 Virginia Patton PA-C [address] [place] [address] [email or web address] Physician Insurance Agency Owner 12/16/23 documented as of this encounter Additional Source Comments The information contained in this document represents components of the legal health record. It is not the complete legal health record.[facility]
--- OUTSIDE RECORDS SUMMARY | 2025-02-08 15:08 | XMS_ITS | Encounter Summary ---
Author Organization [facility] Address [address] [place] [address] Phone Care Team Providers Care Manager Grocery Name Role Phone Suni Garcia Primary Care Provider [phone] Virginia Patton-C Unavailable [phone] Encounter Details Date Type Department Care Team (Late st Contact Info) Description 12/01/2023 Transcribe Orders [facility] [address] [place] [phone] Suni Garcia PA [address] [place] [phone] Social History Tobacco Use Types Packs/Day Years [...] 3:30 PM EST Telemedicine - audio only [facility] [place] [facility] at [address] [address] Virginia Patton PA-C [address] [place] [address] 03/09/2025 1:00 PM EST Office Visit [facility] Gastro[facility]ology Clinic [address] [place] [address] Lawrence Bustos MD [address] [place] [address] documented as of this encounter Visit Diagnoses Not on filedocumented in this encounter Additional Health Concerns Infection Onset Date Last Indicated Resolved Time CoV-Risk Comment:Per note documentation 10/29/2024 10/29/2024 4:02 PM EDT Rhino/Entero 10/31/2024 10/31/2024 11/14/2024 1:21 AM EDT RSV 11/10/2024 11/10/2024 11/17/2024 1:21 AM EDT documented as of this encounter Care Teams Manager Grocery Relationship Specialty Start Date End Date Suni Garcia PA [address] [place] [address] PCP - General Chemical Production Machine Operator 10/05/21 Virginia Patton PA-C [address] [place] [address] [email or web address] Physician Transportation Job Titles 12/16/23 documented as of this encounter Additional Source Comments The information contained in this document represents components of the legal health record. It is not the complete legal health record.[facility]
--- OUTSIDE RECORDS SUMMARY | 2025-02-08 15:08 | XMS_ITS | Encounter Summary ---
Author Organization [facility] Address [address] [address] Phone Care Team Providers Care Bus Escort Name Role Phone Hans Jaeger MD Primary Care Provider [phone] Suni Garcia Primary Care Provider + [phone] Virginia Patton PA-C Unavailable [phone] Encounter Details Date Type Department Care Team (Late st Contact Info) Description 05/21/2021 Procedure Pass [facility], Ct Scan - [address] [address] Social History Tobacco Use Types Packs/Day Years [...] 3:30 PM EST Telemedicine - audio only [facility] Cancer [place] [facility] at [address] [address] Virginia Patton PA-C 30 [place] [address] 03/09/2025 1:00 PM EST Office Visit [facility] Gastroenterology Clinic 10 [place] [address] Lawrence Bustos MD [address] [address] [email or web address] documented as of this encounter Visit Diagnoses [...] documented as of this encounter Care Teams Bus Escort Relationship Specialty Start Date End Date Hans Jaeger MD PCP - General Internal Medicine 02/02/21 10/04/21 Suni Garcia PA [address] [place] [address] PCP - General Electrical Instrument Repairer 10/05/21 Virginia Patton PA-C [address] [place] [address] [email or web address] Physician Supervisor Cellars 12/16/23 documented as of this encounter Additional Source Comments The information contained in this document represents components of the legal health record. It is not the complete legal health record.[facility]
--- OUTSIDE RECORDS SUMMARY | 2025-02-08 15:09 | XMS_ITS | Encounter Summary ---
Author Organization [facility] Address [address] [facility] [address] [place] [address] Phone Care Team Providers Care Lpn Medical Assistant Name Role Phone Suni Garcia Primary Care Provider [phone]- [phone] [place] Patton PA-C Unavailable [phone] Reason for Referral * MRI/CAT Scan - Closed Specialty Diagnoses / Procedures Referred By Contac t Referred To Contact Radiology Diagnoses Other pneumonia, unspecified organism Procedures CT Chest CHG DIAGNOSTIC COMPUTED TOMOGRAPHY THORAX W/O CNTRST Suni Garcia PA [address] [place] [address] Phone: tel: fax: Referral ID Status Reason Start Date Expiration Date Visits Re quested Visits Authorized [id number] Closed 12/20/2024 06/18/2025 1 1 Encounter Details Date Type Department Care Team (Latest Contact Info) Description 12/20/2024 Transcribe Orders Virtual Department 30 [place] [address] Suni Garcia PA [address] [place] [phone] Other pneumonia, unspecified organism (Primary Dx) Social [...] 3:30 PM EST Telemedicine - audio only [facility] [place] [facility] at [address] [address] Virginia Patton PA-C [address] [place] [address] 03/09/2025 1:00 PM EST Office Visit [facility] Gastroenterology Clinic [address] [place] [address] Lawrence Bustos MD [address] [place] [address] [email or web address] documented as of this encounter Results * [...] organism documented in this encounter Care Teams Lpn Medical Assistant Relationship Specialty Start Date End Date Suni Garcia PA [address] [place] [address] [facility] 10/05/21 Virginia Patton PA-C [address] [place] [address] [email or web address] Physician Cessation Systems Outreach Specialist 12/16/23 documented as of this encounter Additional Source Comments The information contained in this document represents components of the legal health record. It is not the complete legal health record.[facility]
--- OUTSIDE RECORDS SUMMARY | 2025-02-08 15:09 | XMS_ITS | Encounter Summary ---
Author Organization [facility] Address [address] [place] [address] Phone Care Team Providers Care Setter Off Name Role Phone Suni Garcia Primary Care Provider [phone] Virginia Patton-C Unavailable Encounter Details Date Type Department Care Team (Late st Contact Info) Description 01/01/2024 Procedure Pass [facility], Ct Scan - [facility] 30 [place], [place] [phone] Social History Tobacco Use Types Packs/Day Years [...] 3:30 PM EST Telemedicine - audio only [facility] [place] [facility] at [address] [address] Virginia Patton PA-C [address] [place] [address] 03/09/2025 1:00 PM EST Office Visit [facility] Gastroenterology Clinic [address] [place] [address] Lawrence Bustos MD [address] [place] [address] documented as of this encounter Visit Diagnoses Not on filedocumented in this encounter Additional Health Concerns Infection Onset Date Last Indicated Resolved Time CoV-Risk Comment:Per note documentation 10/29/2024 10/29/2024 4:02 PM EDT Rhino/Entero 10/31/2024 10/31/2024 11/14/2024 1:21 AM EDT RSV 11/10/2024 11/10/2024 11/17/2024 1:21 AM EDT documented as of this encounter Care Teams Setter Off Relationship Specialty Start Date End Date Suni Garcia PA [address] [place] [address] PCP - General Ramp Manager 10/05/21 Virginia Patton PA-C [address] [place] [address] [email or web address] Physician Web Marketing Assistant 12/16/23 documented as of this encounter Additional Source Comments The information contained in this document represents components of the legal health record. It is not the complete legal health record.[facility]
--- OUTSIDE RECORDS SUMMARY | 2025-02-08 15:09 | XMS_ITS | Encounter Summary ---
Author Organization [facility] Address [address] [facility] [address] [place] [address] Phone Care Team Providers Care Marine Diver Name Role Phone Hans Jaeger MD Primary Care Provider [phone] Suni Garcia Primary Care Provider [phone] Virginia Patton PA-C Unavailable [phone] Encounter Details Date Type Department Care Team (Late st Contact Info) Description 06/11/2021 Procedure Pass [address] [address] Social History Tobacco Use Types Packs/Day Years [...] 3:30 PM EST Telemedicine - audio only [facility] [place] [facility] at [facility] 30 [place] [address] Virginia Patton PA-C 30 [place] [address] 03/09/2025 1:00 PM EST Office Visit [facility] Gastroenterology Clinic 10 [place] [address] Lawrence Bustos MD [address] [address] documented as of this encounter Visit Diagnoses [...] documented as of this encounter Care Teams Marine Diver Relationship Specialty Start Date End Date Hans Jaeger MD PCP - General Internal Medicine 02/02/21 10/04/21 Suni Garcia PA [address] [place] [address] PCP - General Business And Services Instructor 10/05/21 [place] Patton PA-C [address] [place] [address] [email or web address] Physician Guest Relations Manager 12/16/23 documented as of this encounter Additional Source Comments The information contained in this document represents components of the legal health record. It is not the complete legal health record.[facility]
--- OUTSIDE RECORDS SUMMARY | 2025-02-08 15:09 | XMS_ITS | Encounter Summary ---
Author Organization [facility] Address [address] [place] [address] Phone Care Team Providers Care Structural Steel Detailer Name Role Phone Suni Garcia Primary Care Provider [phone] Virginia Patton-C Unavailable [phone] Encounter Details Date Type Department Care Team (Late st Contact Info) Description 04/28/2023 Procedure Pass [facility], Ct Scan - [facility] 30 [place], [place] [phone] Social History Tobacco Use Types Packs/Day Years [...] 3:30 PM EST Telemedicine - audio only [facility] [place] [facility] at [facility] [place] 30 [place] [address] Virginia Patton PA-C 30 [place] [address] 03/09/2025 1:00 PM EST Office Visit [facility] Gastro[facility]ology Clinic [address] [place] [address] Lawrence Bustos MD [address] [place] [address] documented as of this encounter Visit Diagnoses [...] documented as of this encounter Care Teams Structural Steel Detailer Relationship Specialty Start Date End Date Suni Garcia PA [address] [place] [address] PCP - General Rubber Production Machine Operator 10/05/21 Virginia Patton PA-C [address] [place] [address] [email or web address] Physician Marketing Research Intern 12/16/23 documented as of this encounter Additional Source Comments The information contained in this document represents components of the legal health record. It is not the complete legal health record.[facility]
--- OUTSIDE RECORDS SUMMARY | 2025-02-08 15:09 | XMS_ITS | Encounter Summary ---
Author Organization [facility] Address [address] [place] [address] Phone Care Team Providers Care Methodologist Name Role Phone Suni Garcia Primary Care Provider [phone]- [phone] Virginia Patton-C Unavailable Encounter Details Date Type Department Care Team (Late st Contact Info) Description 05/21/2023 Procedure Pass [place] Admitting Dept - Virtual Department 30 [place], [place] [phone] Social History Tobacco Use Types Packs/Day Years [...] 3:30 PM EST Telemedicine - audio only [facility] [place] [facility] at Bone [place] 30 [place] [address] Virginia Patton PA-C [address] [place] [address] 03/09/2025 1:00 PM EST Office Visit [facility] Gastroenterology Clinic [address] [place] [address] Lawrence Bustos MD [address] [address] documented as of this encounter Visit Diagnoses [...] documented as of this encounter Care Teams Methodologist Relationship Specialty Start Date End Date Suni Garcia PA [address] [place] [address] PCP - General Psychiatric Lpn 10/05/21 Virginia Patton PA-C [address] [place] [address] [email or web address] Physician Registered Medical Assistant 12/16/23 documented as of this encounter Additional Source Comments The information contained in this document represents components of the legal health record. It is not the complete legal health record.[facility]
--- OUTSIDE RECORDS SUMMARY | 2025-02-08 15:09 | XMS_ITS | Encounter Summary ---
Author Organization [facility] Address [address] [place] [address] Phone Care Team Providers Care Electronic Communications Technician Name Role Phone Suni Garcia Primary Care Provider [phone] Virginia Patton-C Unavailable [phone] Encounter Details Date Type Department Care Team (Late st Contact Info) Description 08/04/2023 Procedure Pass [facility], Ct Scan - [facility] 30 [place], [place] [phone] Social History Tobacco Use Types Packs/Day Years [...] PM EST Telemedicine - audio only [facility] [place] [facility] at [facility] [address] [place] [address] [place] Patton PA-C [address] [place] [address] 03/09/2025 1:00 PM EST Office Visit [facility] Gastroenterology Clinic [address] [place] [address] Lawrence Bustos MD [address] [place] [address] documented as of this encounter Visit Diagnoses Not on filedocumented in this encounter Additional Health Concerns Infection Onset Date Last Indicated Resolved Time CoV-Risk Comment:Per note documentation 10/29/2024 10/29/2024 4:02 PM EDT Rhino/Entero 10/31/2024 10/31/2024 11/14/2024 1:21 AM EDT RSV 11/10/2024 11/10/2024 11/17/2024 1:21 AM EDT documented as of this encounter Care Teams Electronic Communications Technician Relationship Specialty Start Date End Date Suni Garcia PA [address] [place] [address] PCP - General Compensation And Benefits Administrator 10/05/21 Virginia Patton PA-C [address] [place] [address] [email or web address] Physician Label Stamper 12/16/23 documented as of this encounter Additional Source Comments The information contained in this document represents components of the legal health record. It is not the complete legal health record.[facility]
--- OUTSIDE RECORDS SUMMARY | 2025-02-08 15:09 | XMS_ITS | Encounter Summary ---
Author Organization [facility] Address [address] [place] [address] Phone Care Team Providers Care Frame Runner Name Role Phone Suni Garcia Primary Care Provider [phone] Virginia Patton-C Unavailable [phone] Encounter Details Date Type Department Care Team (Late st Contact Info) Description 04/30/2023 Procedure Pass OR Admitting Dept - Virtual Department 30 [place], [place] [id number] Social History Tobacco Use Types Packs/Day Years [...] 3:30 PM EST Telemedicine - audio only [facility] [place] [facility] at Bone [place] 30 [place] [address] Virginia Patton PA-C [address] [place] [address] 03/09/2025 1:00 PM EST Office Visit [facility] [address] [place] [address] Lawrence Bustos MD [address] [place] [address] documented as of this encounter Visit Diagnoses [...] documented as of this encounter Care Teams Frame Runner Relationship Specialty Start Date End Date Suni Garcia PA [address] [place] [address] PCP - General Bleacher Pulp 10/05/21 Virginia Patton PA-C [address] [place] [address] [email or web address] Physician Feeder Switchboard Operator 12/16/23 documented as of this encounter Additional Source Comments The information contained in this document represents components of the legal health record. It is not the complete legal health record.[facility]
--- OUTSIDE RECORDS SUMMARY | 2025-02-08 15:09 | XMS_ITS | Encounter Summary ---
Author Organization [facility] Address [address] [place] [address] Phone Care Team Providers Care Frame Nailer Name Role Phone Suni Garcia Primary Care Provider [phone] Virginia Patton-C Unavailable [phone] Encounter Details Date Type Department Care Team (Late st Contact Info) Description 04/28/2023 Procedure Pass [facility], Ct Scan - [facility] 30 [place], [place] [id number] Social History Tobacco Use Types Packs/Day Years [...] 3:30 PM EST Telemedicine - audio only [facility] [place] [facility] at Bone [place] 30 [place] [address] Virginia Patton PA-C 30 [place] [address] 03/09/2025 1:00 PM EST Office Visit [facility] [address] [place] [address] Lawrence Bustos MD [address] [place] [address] documented as of this encounter Visit Diagnoses [...] as of this encounter Care Teams Frame Nailer Relationship Specialty Start Date End Date Suni Garcia PA [address] [place] [address] PCP - General High Pressure Firer 10/05/21 Virginia Patton PA-C [address] [place] [address] [email or web address] Physician Emergency Department Coordinator 12/16/23 documented as of this encounter Additional Source Comments The information contained in this document represents components of the legal health record. It is not the complete legal health record.[facility]
--- OUTSIDE RECORDS SUMMARY | 2025-02-08 15:09 | XMS_ITS | Encounter Summary ---
Author Organization [facility] Address [address] [place] [address] Phone Care Team Providers Care Registry Nurse Name Role Phone Suni Garcia Primary Care Provider [phone] Virginia Patton-C Unavailable [phone] Encounter Details Date Type Department Care Team (Late st Contact Info) Description 11/09/2024 Procedure Pass [facility], Ct Scan - [facility] 30 [place], [place] [phone] Social History Tobacco Use Types Packs/Day Years [...] 3:30 PM EST Telemedicine - audio only [facility] [place] [facility] Oncology Clinic at [address] [address] Virginia Patton PA-C 30 [place] [address] 03/09/2025 1:00 PM EST Office Visit [facility] Gastroenterology Clinic 10 [place] [address] Lawrence Bustos MD [address] [address] documented as of this encounter Visit Diagnoses Not on filedocumented in this encounter Additional Health Concerns Infection Onset Date Last Indicated Resolved Time Rhino/Entero 10/31/2024 10/31/2024 11/14/2024 1:21 AM EDT RSV 11/10/2024 11/10/2024 11/17/2024 1:21 AM EDT documented as of this encounter Care Teams Registry Nurse Relationship Specialty Start Date End Date Suni Garcia PA [address] [place] [address] PCP - General Driller And Broacher 10/05/21 Virginia Patton PA-C [address] [place] [address] Physician Regional Tanker Truck Driver 12/16/23 documented as of this encounter Additional Source Comments The information contained in this document represents components of the legal health record. It is not the complete legal health record.[facility]
--- OUTSIDE RECORDS SUMMARY | 2025-02-08 15:09 | XMS_ITS | Encounter Summary ---
Author Organization [facility] Address [address] [place] [address] Phone Care Team Providers Care Rn Ent Name Role Phone Hans Jaeger MD Primary Care Provider [phone] Suni Garcia Primary Care Provider [phone]- [phone] Virginia Patton PA-C Unavailable [phone] Encounter Details Date Type Department Care Team (Latest Contact Info) Description 08/15/2021 Transcribe Orders [facility] Phleb K[facility] [address] [address] Luanne Yates, MAX 10 [place] [address] Change in bowel habits (Primary Dx); Functional [...] 3:30 PM EST Telemedicine - audio only [facility] [place] [facility] at [facility] [place] [address] [place] [address] Virginia Patton PA-C 30 [place] [address] [email or web address] 03/09/2025 1:00 PM EST Office Visit [facility] Gastroenterology Clinic 10 [place] [address] Lawrence Bustos MD [address] [address] [email or web address] documented as of this encounter Results * Calprotectin, stool (08/21/2021 4:14 PM EDT) Pathologist [facility] STOOL CALPROTECTIN 89 mcg/g [facility]/Sravanthi [facility] Comment: (NOTE) Reference Range: <50 Normal 50-120 [...] 4 PM EDT 08/21/2021 4:20 PM EDT us Luanne Yates NP LAB BODY FLUIDS AND STOOL ORDERABLES Final Result [facility]/GE [facility] [address] [place] [address], RUST * Fecal immunochemical test x1 (FIT) (08/21/2021 4:14 PM EDT) Pathologist [facility] Immuno Fecal Occult Negative Negative [facility] Stool (Stool) 08/21/2021 4:1 4 PM EDT 08/21/2021 4:20 PM EDT Result [facility] Luanne Yates NP LAB BODY FLUIDS AND STOOL ORDERABLES Final Result Performing Organization Address [facility]/ZIP Co de Phone Number [address] [address] * Pancreatic Elastase, Stool (08/21/2021 4:14 PM EDT) [facility] Pancreatic Elastase, Feces >500 >200 (Normal) mcg/g [facility] Stool (Stool) 08/21/2021 4:1 4 PM EDT 08/21/2021 4:21 PM EDT Result [facility] Luanne Yates NP BODY FLUIDS AND STOOLS OR DERABLES Final Result Performing Organization Address [facility] Co de Phone Number [facility] [address] [place] [address] * Stool fat/fiber exam (08/21/2021 4:14 PM EDT) [facility] FATTY ACID NORMAL NORMAL [facility] Neutral Fat, stool NORMAL NORMAL [facility] Stool (Stool) 08/21/2021 4:1 4 PM EDT 08/21/2021 4:20 PM EDT Result [facility] Luanne Yates NP BODY FLUIDS AND STOOLS OR DERABLES Final Result Performing Organization Address [facility] Co de Phone Number [address] [address] * Giardia antigen screen (08/21/2021 4:14 PM EDT) Pathologist [facility] ST GIARDIA ANTIGEN Negative Negative [facility] MED AND PAT+ Comment: (NOTE) ADDITIONAL INFORMATION Test Performed by Enzyme Immunoassay. Stool (Stool) 08/21/2021 4:1 4 PM EDT 08/21/2021 4:21 PM EDT Luanne Yates NP LAB BODY FLUIDS AND STOOL ORDERABLES Final Result Performing Organization Address City/[facility]/ZIP Co de Phone Number [facility] MED AND PAT+ [address] [place] [address] * Fecal leukocyte examination (08/21/2021 4:14 PM EDT) Special Requests None 08/21/2021 4:14 PM EDT [facility] GRAM STAIN No WBC seen on smear. 08/22/2021 8:23 AM EDT [facility] Stool (Stool) 08/21/2021 4:1 4 PM EDT 08/21/2021 4:21 PM EDT Luanne Yates NP LAB BODY FLUIDS AND STOOL ORDERABLES Final Result Performing Organization Address [facility] Co de Phone Number [address] [address] * Stool culture (08/21/2021 4:14 PM EDT) Special Requests None 08/21/2021 4:14 PM EDT [facility] Stool Culture NO SALMONELLA, SHIGELLA OR CAMPYLOBACTER ISOLATED 08/24/2021 8:25 AM EDT [facility] Stool (Stool) 08/21/2021 4:1 4 PM EDT 08/21/2021 4:21 PM EDT Luanne Yates NP LAB MICROBIOLOGY CULTURE ORDERABLES Final Result Performing Organization Address [facility] Co de Phone Number [address] [address] * C. DIFFICILE PCR (08/21/2021 4:14 PM EDT) C.DIFFICILE PCR Negative Negative [facility] C.DIFFICILE STRAIN PRESUMPTIVE NEGATIVE PRESUMPTIVE NEGATIVE [facility] Comment:Detection of 027/NAP 1/BI strains of C.difficile is presumptive and is solely for epidemiological purposes and is not intended to guide or monitor treatment of infections. Stool (Stool) 08/21/2021 4:1 4 PM EDT 08/21/2021 4:20 PM EDT Luanne Yates BELT LOOP CUTTER LAB BODY FLUIDS AND STOOL ORDERABLES Final Result [facility] 30 [place] [address] * Ova and parasites, stool (08/20/2021 1:15 PM EDT) Parasitic exam FINAL 2 1254 [facility] LAB MED AND PAT+ Comment: [...] STOOL ORDERABLES Final Result Performing Organization Address City/[facility]/ZIP Co de Phone Number [facility] LAB MED AND PAT+ [address] [place] [address] * Ova and parasites, stool (08/18/2021 1:15 PM EDT) Parasitic exam FINAL 2 1157 [facility] MED AND PAT+ Comment: (NOTE) SOURCE: STOOL OVA AND PARASITE, MICROSCOPY, F FINAL No parasites seen. Cryptosporidium, Cyclospora, and microsporidia are not readily detected by this method. Single negative specimen does not rule out parasitic infection. Stool (Stool) 08/18/2021 1:1 5 PM EDT 08/21/2021 4:19 PM EDT Luanne Yates BELT LOOP CUTTER LAB BODY FLUIDS AND STOOL ORDERABLES Final Result [facility] MED AND PAT+ [address] [place] [address] * Ova and parasites, stool (08/17/2021 1:00 PM EDT) Parasitic exam FINAL 2 1131 [facility] MED AND PAT+ Comment: (NOTE) SOURCE: STOOL OVA AND PARASITE, MICROSCOPY, F FINAL No parasites seen. Cryptosporidium, Cyclospora, and microsporidia are not readily detected by this method. Single negative specimen does not rule out parasitic infection. Stool (Stool) 08/17/2021 1:0 0 PM EDT 08/21/2021 4:18 PM EDT Luanne Yates BELT LOOP CUTTER LAB BODY FLUIDS AND STOOL ORDERABLES Final Result [facility] MED AND PAT+ [address] [place] [address] * (ABNORMAL) 25-OH vitamin D (08/15/2021 3:57 PM EDT) 25 [place] VIT D (TOTAL) 22(L) 30 - 60 ng/mL [facility] Blood 08/15/2021 3:57 PM EDT 08/15/2021 4:12 PM EDT Luanne Yates NP LAB BLOOD BKR ORDERABLES Final Result [facility] [address] [place] [address] * (ABNORMAL) Iron and iron binding capacity (08/15/2021 3:57 PM EDT) IRON 62 45 - 160 ug/dL [facility] IRON BINDING CAPACITY 389 228 - 428 ug/dL [facility] TRANSFERRIN SATURAT. 16(L) 20 - 55 % [facility] Blood 08/15/2021 3:57 PM EDT 08/15/2021 4:12 PM EDT Luanne Yates BELT LOOP CUTTER LAB BLOOD BKR ORDERABLES Final Result Performing Organization Address City/[facility]/ZIP Co de Phone Number [address] [address] * C-Reactive Protein (08/15/2021 3:57 PM EDT) C REACTIVE PROTEIN <3.0 0.0 - 4.0 mg/L [facility] Blood 08/15/2021 3:57 PM EDT 08/15/2021 4:12 PM EDT Luanne Yates NP LAB BLOOD BKR ORDERABLES Final Result Performing Organization Address City/[facility]/ZIP Co de Phone Number [address] [address] * Comprehensive metabolic panel (08/15/2021 3:57 PM EDT) SODIUM 140 133 - 146 mmol/L [facility] POTASSIUM 4.5 3.3 - 5.1 mmol/L [facility] CHLORIDE 104 96 - 108 mmol/L [facility] CO2 23 21 - 35 mmol/L [facility] BUN 9 6 - 19 mg/dL [facility] CREATININE 0.90 0.5 - 1.5 mg/dL [facility] GLUCOSE 89 70 - 99 mg/dL [facility] ALBUMIN 4.7 3.9 - 4.8 g/dL [facility] TOTAL PROTEIN 7.7 6.5 - 8.0 g/dL [facility] CALCIUM 10.0 8.4 - 10.3 mg/dL [facility] ALKALINE PHOSPHATASE 89 39 - 117 U/L [facility] TOTAL BILIRUBIN 0.2 0.0 - 1.2 mg/dL [facility] AST 18 0 - 37 U/L [facility] ALT 9 0 - 40 U/L [facility] GLOBULIN 3.0 1 - 4.8 g/dL [facility] EGFR 105 >59 mL/min/1.7 3m2 [facility] Comment:Estimated glomerular filtration rate calculated using the CKD-EPI refit equation. ANION GAP 18 10 - 20 mmol/L [facility] Blood 08/15/2021 3:57 PM EDT 08/15/2021 4:12 PM EDT us Luanne Yates NP LAB BLOOD BKR ORDERABLES Final Result [facility] [address] [place] [address] * (ABNORMAL) CBC and differential (08/15/2021 3:57 PM EDT) WBC 8.46 4.00 - 11.00 K/uL [facility] RBC 4.79 4.23 - 5.82 M/uL [facility] HGB 14.2 13.4 - 17.5 g/dL [facility] HCT 44.6 37.0 - 51.0 % [facility] PLT 207 140 - 430 K/uL [facility] MCV 93.1 78.0 - 97.0 fL [facility] MCH 29.6 25.0 - 33.0 pg [facility] MCHC 31.8(L) 32.0 - 36.0 g/dL [facility] RDW 14.1 11.0 - 15.0 % [facility] MPV 10.7 8.4 - 12.8 fl [facility] NRBC 0.00 0 /100 WBCs [facility] ABSOLUTE NRBC 0.00 0 K/uL [facility] DIFF METHOD Auto [facility] NEUTS 43.6 43.0 - 75.0 % [facility] LYMPHS 44.0 18.2 - 47.4 % [facility] MONOS 7.1 4.00 - 11.00 % [facility] EOS 4.4 0.0 - 8.0 % [facility] BASOS 0.7 0.0 - 2.0 % [facility] Granulocytes, immature (%) 0.2 0.0 - 0.9 % [facility] ABSOLUTE NEUTS 3.69 1.80 - 7.70 K/uL [facility] ABSOLUTE LYMPHS 3.72(H) 1.00 - 3.10 K/uL [facility] ABSOLUTE MONOS 0.60 0.20 - 0.80 K/uL [facility] ABSOLUTE EOS 0.37 0.00 - 0.80 K/uL [facility] ABSOLUTE BASOS 0.06 0.00 - 0.09 K/uL [facility] Granulocytes, immature 0.02 0.00 - 0.05 K/uL [facility] Blood 08/15/2021 3:57 PM EDT 08/15/2021 4:12 PM EDT Luanne Yates NP LAB BLOOD BKR ORDERABLES Final Result Performing Organization Address [facility]/ZIP Co de Phone Number [address] [address] * Immunoglobulin A (08/15/2021 3:57 PM EDT) IgA 301 70 - 400 mg/dL [facility] Blood 08/15/2021 3:57 PM EDT 08/15/2021 4:12 PM EDT Luanne Yates NP LAB BLOOD BKR ORDERABLES Final Result Performing Organization Address [facility]/ZIP Co de Phone Number [address] [address] * Tissue transglutaminase IgA (08/15/2021 3:57 PM EDT) TTG IGA ANTIBODY 1.4 <4.0 (Negative) U/mL [facility] Blood 08/15/2021 3:57 PM EDT 08/15/2021 4:05 PM EDT Luanne Yates NP LAB BLOOD BKR ORDERABLES Final Result [facility] [address] [place] [address] documented in this encounter Visit Diagnoses Diagnosis [...] documented as of this encounter Care Teams Rn Ent Relationship Specialty Start Date End Date Hans Jaeger MD PCP - General Internal Medicine 02/02/21 10/04/21 Suni Garcia PA [address] [place] [address] PCP - General Loom Technician 10/05/21 Virginia Patton PA-C [address] [place] [phone] [email or web address] Physician Marine Equipment Preservation Inspector 12/16/23 documented as of this encounter Additional Source Comments The information contained in this document represents components of the legal health record. It is not the complete legal health record.[facility]
--- OUTSIDE RECORDS SUMMARY | 2025-02-08 15:09 | XMS_ITS | Encounter Summary ---
Author Organization [facility] Address [address] [place] [address] Phone Care Team Providers Care Guidance Counselor Name Role Phone Suni Garcia Primary Care Provider [phone] Virginia Patton PA-C Unavailable [phone] Encounter Details Date Type Department Care Team (Late st Contact Info) Description 11/10/2024 Procedure Pass [facility] Endoscopy Admitting Dept Virtual Department 30 [place], [place] [phone] Social History Tobacco Use Types Packs/Day Years [...] PM EST Telemedicine - audio only [facility] [place] Hematology Oncology Clinic at [address] [address] Virginia Patton PA-C 30 [place] [address] 03/09/2025 1:00 PM EST Office Visit [facility] Gastroenterology Clinic 10 [place] [address] Lawrence Bustos MD [address] [address] documented as of this encounter Visit Diagnoses Not on filedocumented in this encounter Additional Health Concerns Infection Onset Date Last Indicated Resolved Time Rhino/Entero 10/31/2024 10/31/2024 11/14/2024 1:21 AM EDT RSV 11/10/2024 11/10/2024 11/17/2024 1:21 AM EDT documented as of this encounter Care Teams Guidance Counselor Relationship Specialty Start Date End Date Suni Garcia PA [address] [place] [address] PCP - General Local Company Tanker Driver 10/05/21 Virginia Patton PA-C [address] [place] [address] Physician Application Development Intern 12/16/23 documented as of this encounter Additional Source Comments The information contained in this document represents components of the legal health record. It is not the complete legal health record.[facility]
--- OUTSIDE RECORDS SUMMARY | 2025-02-08 15:09 | XMS_ITS | Encounter Summary ---
Author Organization [facility] Address [address] [place] [address] Phone Care Team Providers Care Delivery Stock Clerk Name Role Phone Suni Garcia Primary Care Provider [phone] Virginia Patton PA-C Unavailable [phone] Encounter Details Date Type Department Care Team (Latest Contact Info) Description 12/30/2023 Transcribe Orders [facility] Phleb K[facility] [address] 2nd [place] [address] Karin Espinoza PA-C [address] [facility] [place]. [address] [place] [address] [email or web address] Anemia, unspecified type (Primary Dx) Social History [...] Telemedicine - audio only [facility] [place] [facility] Oncology Clinic at [address] [address] Virginia Patton PA-C [address] [place] [address] 03/09/2025 1:00 PM EST Office Visit [facility] Gastroenterology Clinic [address] [place] [address] Lawrence Bustos MD [address] [place] [address] documented as of this encounter Results * Vitamin B12 (12/30/2023 3:04 PM EST) VITAMIN B12 803 232 - 1,245 pg/mL [facility] Blood 12/30/2023 3:04 PM EST 12/30/2023 3:07 PM EST Karin Espinoza PA-C LAB BLOOD BKR ORDERABLES Final Result Performing Organization Address [facility]/ZIP Co de Phone Number [address] [address] * (ABNORMAL) Ferritin (12/30/2023 3:04 PM EST) FERRITIN 1,780(H) 30 - 400 ug/L [facility] Blood 12/30/2023 3:04 PM EST 12/30/2023 3:07 PM EST us Karin Espinoza PA-C LAB BLOOD BKR ORDERABLES Final Result Performing Organization Address [facility]/ZIP Co de Phone Number [address] [address] * (ABNORMAL) Folate (12/30/2023 3:04 PM EST) FOLIC ACID >20.0(H) 4.2 - 19.9 ng/mL [facility] Blood 12/30/2023 3:04 PM EST 12/30/2023 3:07 PM EST Karin Espinoza PA-C LAB BLOOD BKR ORDERABLES Final Result Performing Organization Address City/[facility]/ZIP Co de Phone Number [address] [address] * (ABNORMAL) Iron and iron binding capacity (12/30/2023 3:04 PM EST) IRON 253(H) 45 - 160 ug/dL [facility] IRON BINDING CAPACITY 325 228 - 428 ug/dL [facility] TRANSFERRIN SATURAT. 78(H) 20 - 55 % [facility] Blood 12/30/2023 3:04 PM EST 12/30/2023 3:07 PM EST us Karin Espinoza PA-C LAB BLOOD BKR ORDERABLES Final Result Performing Organization Address [facility] Co de Phone Number [address] [address] * (ABNORMAL) CBC (12/30/2023 3:04 PM EST) WBC 7.49 4.00 - 11.00 K/uL [facility] RBC 4.16(L) 4.50 - 5.90 M/uL [facility] HGB 13.0(L) 13.5 - 17.5 g/dL [facility] HCT 42.3 41.0 - 53.0 % [facility] PLT 133(L) 150 - 450 K/uL [facility] MCV 101.7(H) 80.0 - 100.0 fL [facility] MCH 31.3(H) 27.0 - 31.0 pg [facility] MCHC 30.7(L) 32.0 - 36.0 g/dL [facility] RDW 14.1 11.5 - 14.5 % [facility] MPV 9.9 8.4 - 12.0 fL [facility] NRBC 0.00 0.00 /100 WBCs [facility] ABSOLUTE NRBC 0.00 0.00 K/uL [facility] Blood 12/30/2023 3:04 PM EST 12/30/2023 3:07 PM EST us Karin Espinoza PA-C LAB BLOOD BKR ORDERABLES Final Result Performing Organization Address City/[facility]/ZIP Co de Phone Number [address] [address] documented in this encounter Visit Diagnoses Diagnosis Anemia, unspecified type- Primary documented in this encounter Additional Health Concerns Infection Onset Date Last Indicated Resolved Time CoV-Risk Comment:Per note documentation 10/29/2024 10/29/2024 4:02 PM EDT Rhino/Entero 10/31/2024 10/31/2024 11/14/2024 1:21 AM EDT RSV 11/10/2024 11/10/2024 11/17/2024 1:21 AM EDT documented as of this encounter Care Teams Delivery Stock Clerk Relationship Specialty Start Date End Date Suni Garcia PA [address] [place] [address] PCP - General Church Official 10/05/21 Virginia Patton PA-C [address] [place] [address] [email or web address] Physician Composite Engineer 12/16/23 documented as of this encounter Additional Source Comments The information contained in this document represents components of the legal health record. It is not the complete legal health record.[facility]
--- OUTSIDE RECORDS SUMMARY | 2025-02-08 15:09 | XMS_ITS | Encounter Summary ---
Author Organization [facility] Address [address] [place] [address] Phone Care Team Providers Care Geotechnical Field Technician Name Role Phone Suni Garcia Primary Care Provider [phone]- [phone] Virginia Patton-C Unavailable [phone] Encounter Details Date Type Department Care Team (Late st Contact Info) Description 01/07/2024 Procedure Pass [facility], [facility] 30 [place], [place] [id number] Social History Tobacco Use Types Packs/Day Years [...] 3:30 PM EST Telemedicine - audio only [facility] Cancer [place] [facility] at [address] [address] Virginia Patton PA-C [address] [place] [address] 03/09/2025 1:00 PM EST Office Visit [facility] Gastroenterology Clinic [address] [place] [address] Lawrence Bustos MD [address] [place] [address] documented as of this encounter Visit Diagnoses Not on filedocumented in this encounter Additional Health Concerns Infection Onset Date Last Indicated Resolved Time CoV-Risk Comment:Per note documentation 10/29/2024 10/29/2024 4:02 PM EDT Rhino/Entero 10/31/2024 10/31/2024 11/14/2024 1:21 AM EDT RSV 11/10/2024 11/10/2024 11/17/2024 1:21 AM EDT documented as of this encounter Care Teams Geotechnical Field Technician Relationship Specialty Start Date End Date Suni Garcia PA [address] [place] [address] PCP - General Shot Peen Operator 10/05/21 Virginia Patton PA-C [address] [place] [address] [email or web address] Physician Landmen 12/16/23 documented as of this encounter Additional Source Comments The information contained in this document represents components of the legal health record. It is not the complete legal health record.[facility]
--- OUTSIDE RECORDS SUMMARY | 2025-02-08 15:09 | XMS_ITS | Encounter Summary ---
Author Organization [facility] Address [address] [place] [address] Phone Care Team Providers Care Web Content Editor Name Role Phone Suni Garcia Primary Care Provider [phone] Virginia Patton-C Unavailable [phone] Encounter Details Date Type Department Care Team (Late st Contact Info) Description 05/07/2023 Prep for Surgery [facility] [address] [place] [address] [id number] Marilyn Farias MD [address] [place] [address] Orthopedics & Sports Medicine, [facility] [place], [place] [phone] [email or web address] Social History Tobacco Use Types Packs/Day Years [...] 3:30 PM EST Telemedicine - audio only [facility] [place] [facility] at [address] [address] Virginia Patton PA-C [address] [place] [address] 03/09/2025 1:00 PM EST Office Visit [facility] Gastroenterology Clinic [address] [place] [address] Lawrence Bustos MD [address] [place] [address] documented as of this encounter Visit Diagnoses [...] documented as of this encounter Care Teams Web Content Editor Relationship Specialty Start Date End Date Suni Garcia PA [address] [place], [place] [phone] PCP - General Trouble Clerk 10/05/21 Virginia Patton PA-C [address] [place] [address] [email or web address] Physician Social Science Manager 12/16/23 documented as of this encounter Additional Source Comments The information contained in this document represents components of the legal health record. It is not the complete legal health record.[facility]
--- OUTSIDE RECORDS SUMMARY | 2025-02-08 15:09 | XMS_ITS | Encounter Summary ---
Author Organization [facility] Address [address] [place] [address] Phone Care Team Providers Care Chemical Etch Operator Name Role Phone Suni Garcia Primary Care Provider [phone]- [phone] Virginia Patton-C Unavailable [phone] Encounter Details Date Type Department Care Team (Late st Contact Info) Description 11/04/2024 Procedure Pass [facility], Ct Scan - [facility] 30 [place], [place] [phone] Social History Tobacco Use Types Packs/Day Years [...] PM EST Telemedicine - audio only [facility] [place] [facility] at [address] [address] Virginia Patton PA-C 30 [place] [address] 03/09/2025 1:00 PM EST Office Visit [facility] Gastroenterology Clinic 10 [place] [address] Lawrence Bustos MD [address] [address] documented as of this encounter Visit Diagnoses Not on filedocumented in this encounter Additional Health Concerns Infection Onset Date Last Indicated Resolved Time Rhino/Entero 10/31/2024 10/31/2024 11/14/2024 1:21 AM EDT RSV 11/10/2024 11/10/2024 11/17/2024 1:21 AM EDT documented as of this encounter Care Teams Chemical Etch Operator Relationship Specialty Start Date End Date Suni Garcia PA [address] [place] [address] PCP - General Landscape Technician 10/05/21 Virginia Patton PA-C [address] [place] [address] Physician Signal Technician 12/16/23 documented as of this encounter Additional Source Comments The information contained in this document represents components of the legal health record. It is not the complete legal health record.[facility]
--- OUTSIDE RECORDS SUMMARY | 2025-02-08 15:09 | XMS_ITS | Encounter Summary ---
Author Organization [facility] Address [address] [place] [address] Phone Care Team Providers Care Branch Service Representative Name Role Phone Suni Garcia Primary Care Provider [phone]- [phone] Virginia Patton-C Unavailable [phone] Encounter Details Date Type Department Care Team (Late st Contact Info) Description 04/21/2023 Procedure Pass [facility], [facility] 30 [place], [place] [phone] Social History Tobacco Use Types Packs/Day Years [...] 3:30 PM EST Telemedicine - audio only [facility] Cancer [place] H[facility]ology Oncology [facility] at [facility] 30 [place] [address] Virginia Patton PA-C 30 [place] [address] 03/09/2025 1:00 PM EST Office Visit [facility] Gastroenterology Clinic [address] [place] [address] Lawrence Bustos MD [address] [place] [address] documented as of this encounter Visit Diagnoses [...] documented as of this encounter Care Teams Branch Service Representative Relationship Specialty Start Date End Date Suni Garcia PA [address] [place] [address] PCP - General Discount Clerk 10/05/21 Virginia Patton PA-C [address] [place] [address] [email or web address] Physician Transportation Agent 12/16/23 documented as of this encounter Additional Source Comments The information contained in this document represents components of the legal health record. It is not the complete legal health record.[facility]
--- OUTSIDE RECORDS SUMMARY | 2025-02-08 15:09 | XMS_ITS | Encounter Summary ---
Author Organization [facility] Address [address] [place] [address] Phone Care Team Providers Care Yard Laborer Name Role Phone Suni Garcia Primary Care Provider [phone]- [phone] Virginia Patton-C Unavailable [phone] Encounter Details Date Type Department Care Team (Late st Contact Info) Description 04/14/2023 Procedure Pass [facility], [facility] 30 [place], [place] [phone] Social History Tobacco Use Types Packs/Day Years [...] 3:30 PM EST Telemedicine - audio only [facility] Cancer [place] Hematology Oncology Clinic at [facility] 30 [place] [address] Virginia Patton PA-C 30 [place] [address] 03/09/2025 1:00 PM EST Office Visit [facility] Gastroenterology Clinic [address] [place] [address] Lawrence Bustos MD [address] [place] [address] documented as of this encounter Visit Diagnoses [...] documented as of this encounter Care Teams Yard Laborer Relationship Specialty Start Date End Date Suni Garcia PA [address] [place] [address] PCP - General Sociocultural Anthropology Professor 10/05/21 Virginia Patton PA-C [address] [place] [address] [email or web address] Physician Glove Parts Inspector 12/16/23 documented as of this encounter Additional Source Comments The information contained in this document represents components of the legal health record. It is not the complete legal health record.[facility]
--- OUTSIDE RECORDS SUMMARY | 2025-02-08 15:09 | XMS_ITS | Encounter Summary ---
Author Organization [facility] Address [address] [facility] [address] [place] [address] Phone Care Team Providers Care Cuff Setter Name Role Phone Hans Jaeger MD Primary Care Provider [phone] Suni Garcia Primary Care Provider [phone] Virginia Patton PA-C Unavailable Encounter Details Date Type Department Care Team (Late st Contact Info) Description 06/10/2021 Procedure Pass [address] [address] Social History Tobacco Use Types Packs/Day Years [...] - audio only [facility] Cancer [place] Hematology Oncology Clinic at [facility] 30 [place] [address] Virginia Patton PA-C 30 [place] [address] 03/09/2025 1:00 PM EST Office Visit [facility] Gastroenterology Clinic 10 [place] [address] Lawrence Bustos MD [address] [address] documented as of this encounter Visit Diagnoses [...] documented as of this encounter Care Teams Cuff Setter Relationship Specialty Start Date End Date Hans Jaeger MD PCP - General Internal Medicine 02/02/21 10/04/21 Suni Garcia PA [address] [place] [address] PCP - General Embalmer Apprentice 10/05/21 Virginia Patton PA-C [address] [place] [address] [email or web address] Physician Sheep Herder 12/16/23 documented as of this encounter Additional Source Comments The information contained in this document represents components of the legal health record. It is not the complete legal health record.[facility]
--- OUTSIDE RECORDS SUMMARY | 2025-02-08 15:09 | XMS_ITS | Encounter Summary ---
Author Organization [facility] Address [address] [place] [address] Phone Care Team Providers Care Informatics Specialist Name Role Phone Suni Garcia Primary Care Provider [phone]- [phone] Virginia Patton PA-C Unavailable [phone] Reason for Visit * Reason Onset Date Comments Symptoms 12/30/2024 Encounter Details Date Type Department Care Team (Late st Contact Info) Description 12/30/2024 Telephone [facility] Gastroenterology Clinic 10 [place] [address] Lawrence Bustos MD [address] [address] [email or web address] Symptoms Social History Tobacco Use Types Packs/Day [...] 3:30 PM EST Telemedicine - audio only [facility] Hematology Oncology Clinic at [address] [address] Virginia Patton PA-C [address] [place] [address] [email or web address] 03/09/2025 1:00 PM EST Office Visit [facility] Gastroenterology Clinic [address] [place] [address] Lawrence Bustos MD [address] [place] [address] documented as of this encounter Visit Diagnoses Not on filedocumented in this encounter Care Teams Informatics Specialist Relationship Specialty Start Date End Date Suni Garcia PA [address] [place] [address] PCP - General Tar Processing Technician 10/05/21 Virginia Patton PA-C [address] [place] [address] ([email or web address] Physician Sales Relationship Manager 12/16/23 documented as of this encounter Additional Source Comments The information contained in this document represents components of the legal health record. It is not the complete legal health record.[facility]
--- OUTSIDE RECORDS SUMMARY | 2025-02-08 15:09 | XMS_ITS | Encounter Summary ---
Author Organization [facility] Address [address] [place] [address] Phone Care Team Providers Care Warehouser Name Role Phone Suni Garcia Primary Care Provider [phone] Virginia Patton-C Unavailable [phone] Encounter Details Date Type Department Care Team (Late st Contact Info) Description 12/20/2024 Procedure Pass [facility], Ct Scan - [facility] 30 [place], [place] [phone] Social History Tobacco Use Types Packs/Day Years [...] PM EST Telemedicine - audio only [facility] Cancer [place] Hematology Oncology Clinic at [address] [address] Virginia Patton PA-C [address] [place] [address] 03/09/2025 1:00 PM EST Office Visit [facility] Gastroenterology Clinic 10 [place] [address] Lawrence Bustos MD [address] [address] documented as of this encounter Visit Diagnoses Not on filedocumented in this encounter Care Teams Warehouser Relationship Specialty Start Date End Date Suni Garcai PA [address] [place] [address] PCP - General Whip Sawyer 10/05/21 Virginia Patton PA-C [address] [place] [address] Physician Certified Alcohol And Drug Counselor 12/16/23 documented as of this encounter Additional Source Comments The information contained in this document represents components of the legal health record. It is not the complete legal health record.[facility]
--- OUTSIDE RECORDS SUMMARY | 2025-02-08 15:09 | XMS_ITS | Encounter Summary ---
Author Organization [facility] Address [address] [facility] [address] [place] [address] Phone Care Team Providers Care Immersion Metalcleaner Name Role Phone Hans Jaeger MD Primary Care Provider [phone] Suni Garcia Primary Care Provider [phone]- [phone] Virginia Patton PA-C Unavailable [phone] Encounter Details Date Type Department Care Team (Late st Contact Info) Description 06/10/2021 Procedure Pass [facility], Ct Scan - [address] [address] Social History Tobacco Use Types Packs/Day Years [...] PM EST Telemedicine - audio only [facility] Cancer [place] H[facility] Oncology Clinic at [facility] 30 [place] [address] Virginia Patton PA-C 30 [place] [address] 03/09/2025 1:00 PM EST Office Visit [facility] Gastroenterology Clinic 10 [place] [address] Lawrence Bustos MD [address] [address] documented as of this encounter Visit Diagnoses [...] documented as of this encounter Care Teams Immersion Metalcleaner Relationship Specialty Start Date End Date Hans Jaeger MD PCP - General Internal Medicine 02/02/21 10/04/21 Suni Garcia PA [address] [place] [address] PCP - General Hadoop Developer 10/05/21 Virginia Patton PA-C [address] [place] [address] Physician Emt I/85 12/16/23 documented as of this encounter Additional Source Comments The information contained in this document represents components of the legal health record. It is not the complete legal health record.[facility]
--- OUTSIDE RECORDS SUMMARY | 2025-02-08 15:09 | XMS_ITS | Clinical Summary ---
Author Organization [facility] Address [address] [place] [address] Phone Care Team Providers Care Real Estate Assessor Name Role Phone Hans Jaeger MD Primary Care Provider [phone] Allergies No known active allergies Medications sertraline [...] COPD (chronic obstructive pu lmonary disease) ([facility] V24, [facility] V28) DX:COPD (chronic o bstructive pulmonary disease) ([facility]) Anxiety DX:Anxiety Tobacco abuse DX:Tobacco abuse Seizure ([facility] V24, [facility] V28) DX:Seizure ([facility]);COMMENT:Last seizure 01/2019, 06/2017 failed Gabapentin/Topamax ( Ct [place] 02/2017 Mild chronic mild diff atrophy ) EEG 03/2017 mild slowing, 01/2018 Gastritis 07/2017 DX:Gastritis;COM MENT:EGD Thrombocytopenia ([facility] V24) D X:Thrombocytopenia ([facility]);COMMENT:08/2017 144, 04/2018 104 Subclinical hypothyroidism DX:Story bclinical hypothyroidism;COMMENT:08/2017 TSH 7.86 T4 0.86 Hypomagnesemia DX:Hypomagnesemi a;COMMENT:08/2017 1.5 History of cocaine use DX:Histor y of cocaine use Bipolar 1 disorder ([facility] V24, [facility] V28) DX:Bipolar 1 disorder ([facility]) Marijuana user DX:Marijuana use r;COMMENT:regular user GERD with esophagitis DX:GERD wi th esophagitis;COMMENT:07/2017 EGD Severe GERD With esophagitis Dr Springer Hepatic steatosis DX:Hepatic steatosis;COMMENT:02/25/2017 ultrasound mild diffuse increased echogenicity consistent with diffuse hepatic steatosis Alcohol use disorder, severe , dependence (CMS/HCC V24, CMS/HCC V28) DX:Alcohol use disorder, se jose luis, dependence (HCC);COMMENT:Admit 12/2017 with SI to [facility] MDD (major depressive disord er), recurrent episode (CMS/HCC V24) DX:MDD (major depressi ve disorder), recurrent episode (HCC);COMMENT:[facility] at [facility] PTSD (post-traumatic stress disorder) DX:PTSD [...] V24, CMS/HCC V28) DX:Compression fx, thoracic spine ([facility]);COMMENT:T12, L1 ant wedge Compression Fx [...] Date Smoking Tobacco: Every Day Cigarettes 0.5 37.9 Started: 04/01/1987 Smokeless Tobacco: Never Alcohol Use [...] to complete this topic Insurance [place]ANTAGE Care Teams Real Estate Assessor Relationship Specialty Start Date End Date Hans Jaeger MD [address] [place] [phone] PCP - General Internal Medicine 03/30/24
--- OUTSIDE RECORDS SUMMARY | 2025-02-08 15:09 | XMS_ITS | Encounter Summary ---
Author Organization [facility] Address [address] [facility] [address] [place] [address] Phone Care Team Providers Care Manager Distribution Name Role Phone Hans Jaeger MD Primary Care Provider Snui Garcia Primary Care Provider +- [phone] Virginia Patton PA-C Unavailable [phone] Encounter Details Date Type Department Care Team (Late st Contact Info) Description 06/11/2021 Procedure Pass [address] [address] Social History Tobacco Use Types Packs/Day Years [...] PM EST Telemedicine - audio only [facility] Cancer [place] Hematology Oncology Clinic at [facility] 30 [place] [address] Virginia Patton PA-C 30 [place] [address] 03/09/2025 1:00 PM EST Office Visit [facility] Gastroenterology Clinic 10 [place] [address] Lawrence Bustos MD [address] [address] documented as of this encounter Visit Diagnoses [...] as of this encounter Care Teams Manager Distribution Relationship Specialty Start Date End Date Hans Jaeger MD PCP - General Internal Medicine 02/02/21 10/04/21 Suni Garcia PA [address] [place] [address] PCP - General Product Responsibility Liaison 10/05/21 Virginia Patton PA-C [address] [place] [address] [email or web address] Physician Tool Honing Machine Set Up Operator 12/16/23 documented as of this encounter Additional Source Comments The information contained in this document represents components of the legal health record. It is not the complete legal health record.[facility]
--- OUTSIDE RECORDS SUMMARY | 2025-02-08 15:10 | XMS_ITS | Encounter Summary ---
Author Organization [facility] Address [address] [place] [address] Phone Care Team Providers Care Parking Station Attendant Name Role Phone Suni Garcia Primary Care Provider [phone] Virginia Patton-C Unavailable [phone] Encounter Details Date Type Department Care Team (Late st Contact Info) Description 10/20/2024 Procedure Pass [facility], Ct Scan - [facility] 30 [place], [place] [phone] Social History Tobacco Use Types Packs/Day Years Used Date Smoking Tobacco: Every Day Cigarettes 0.3 30 Smokeless Tobacco: Never Comments:now smoking 5 cigar ettes per day Alcohol Use Standard Drinks/Week Comments Yes 14 (1 standard drink = 0.6 oz pu re alcohol) 3-5 nips daily Education Answer Date Recorded Are you interested in more education? Not on flroence e 06/14/2022 Are you concerned about learning? [...] 3:30 PM EST Telemedicine - audio only [facility] Cancer [place] Hematology Oncology Clinic at [address] [address] Virginia Patton PA-C 30 [place] [address] 03/09/2025 1:00 PM EST Office Visit [facility] Gastroenterology Clinic 10 [place] [address] Lawrence Bustos MD [address] [address] [email or web address] documented as of this encounter Visit Diagnoses Not on filedocumented in this encounter Additional Health Concerns Infection Onset Date Last Indicated Resolved Time CoV-Risk Comment:Per note documentation 10/29/2024 10/29/2024 4:02 PM EDT Rhino/Entero 10/31/2024 10/31/2024 11/14/2024 1:21 AM EDT RSV 11/10/2024 11/10/2024 11/17/2024 1:21 AM EDT documented as of this encounter Care Teams Parking Station Attendant Relationship Specialty Start Date End Date Suni Garcia PA [address] [place] [address] PCP - General Paring Machine Operator 10/05/21 Virginia Patton PA-C [address] [place] [address] [email or web address] Physician Filteration Operator 12/16/23 documented as of this encounter Additional Source Comments The information contained in this document represents components of the legal health record. It is not the complete legal health record.[facility]
--- OUTSIDE RECORDS SUMMARY | 2025-02-08 15:10 | XMS_ITS | Encounter Summary ---
Author Organization [facility] Address [address] [employer] [place] [address] [place] [address] Phone Care Team Providers Care Shrimp Trawler Captain Name Role Phone Unknown, Unknown Primary Care Provider Rere Jean DO Primary Care Provider +1- [phone] Hans Jaeger MD Primary Care Provider [phone] Suni Garcia Primary Care Provider +[phone]- [phone] Virginia Patton-Cindi Unavailable [phone] Encounter Details Date Type Department Care Team (Late st Contact Info) Description 08/07/2018 Ancillary Orders Virtual Department 30 [place] [address] Isidro Mitchell MD [address] [place] [address], [address] [place] [address] [email or web address] Social History Tobacco Use Types Packs/Day Years [...] 3:30 PM EST Telemedicine - audio only [facility] [place] [facility] at Bone [place] 30 [place] [address] Virginia Patton PA-C 30 [place] [address] 03/09/2025 1:00 PM EST Office Visit [facility] 10 [place] [address] Lawrence Bustos MD [address] [place] [address] documented as of this encounter Visit Diagnoses [...] documented as of this encounter Care Teams Shrimp Trawler Captain Relationship Specialty Start Date End Date Unknown, Unknown, PCP - General 03/25/17 12/03/18 Rere Gastelum DO PCP - General 12/04/18 02/01/21 Hans Jaeger MD [email or web address] PCP - General Internal Medicine 02/02/21 10/04/21 Suni Garcia PA [address] [place] [address] PCP - General Ham Stripper 10/05/21 Virginia Patton PA-C [address] [place] [address] Physician Preschool Paraprofessional 12/16/23 documented as of this encounter Additional Source Comments The information contained in this document represents components of the legal health record. It is not the complete legal health record.[facility]
--- OUTSIDE RECORDS SUMMARY | 2025-02-08 15:10 | XMS_ITS | Encounter Summary ---
Author Organization [facility] Address [address] [facility] [address] [place] [address] Phone Care Team Providers Care Wardrobe Technician Name Role Phone Unknown, Unknown Primary Care Provider Rere Jean DO Primary Care Provider [phone]- [phone] Hans Jaeger MD Primary Care Provider [phone] Suni Garcia Primary Care Provider [phone]- [phone] Virginia Patton-Cindi Unavailable [phone] Encounter Details Date Type Department Care Team (Late st Contact Info) Description 08/07/2018 Ancillary Orders Virtual Department 30 [place] [address] Isidro Mitchell MD [address] [place] [address], [address] [place] [address] [email or web address] H/O: compression fracture of spine [...] PM EST Telemedicine - audio only [facility] [place] [facility] at Bone [place] 30 [place] [address] Virginia Patton PA-C 30 [place] [address] [email or web address] 03/09/2025 1:00 PM EST Office Visit [facility] [address] [place] [address] Lawrence Bustos MD [address] [place] [address] documented as of this encounter Results * [...] all 3 measured sites POS -[id number] Isidro Mitchell MD [facility] BD BONE DENSITY DEXA Fin al Result [...] documented as of this encounter Care Teams Wardrobe Technician Relationship Specialty Start Date End Date Unknown, Unknown, MD PCP - General 03/25/17 12/03/18 Rere Gastelum DO PCP - General 12/04/18 02/01/21 Hans Jaeger MD PCP - General Internal Medicine 02/02/21 10/04/21 Suni Garcia PA [address] [place] [address] PCP - General Residential Property Manager 10/05/21 Virginia Patton PA-C [address] [place] [address] Physician Electric Shipyard Operator 12/16/23 documented as of this encounter Additional Source Comments The information contained in this document represents components of the legal health record. It is not the complete legal health record.[facility]
--- OUTSIDE RECORDS SUMMARY | 2025-02-08 15:10 | XMS_ITS | Encounter Summary ---
Author Organization [facility] Address [address] [place] [address] Phone Care Team Providers Care Through Operator Name Role Phone Suni Garcia Primary Care Provider [phone]- [phone] Virginia Patton-C Unavailable [phone] Encounter Details Date Type Department Care Team (Late st Contact Info) Description 10/21/2024 Procedure Pass [facility] 30 [place], [place] [id number] Social History Tobacco Use Types Packs/Day Years [...] PM EST Telemedicine - audio only [facility] [place] [facility] at [address] [address] Virginia Patton PA-C 30 [place] [address] [email or web address] 03/09/2025 1:00 PM EST Office Visit [facility] Gastroenterology Clinic 10 [place] [address] Lawrence Bustos MD [address] [address] [email or web address] documented as of this encounter Visit Diagnoses Not on filedocumented in this encounter Additional Health Concerns Infection Onset Date Last Indicated Resolved Time CoV-Risk Comment:Per note documentation 10/29/2024 10/29/2024 4:02 PM EDT Rhino/Entero 10/31/2024 10/31/2024 11/14/2024 1:21 AM EDT RSV 11/10/2024 11/10/2024 11/17/2024 1:21 AM EDT documented as of this encounter Care Teams Through Operator Relationship Specialty Start Date End Date Suni Garcia PA [address] [place] [address] PCP - General Research Laboratory Manager 10/05/21 Virginia Patton PA-C [address] [place] [address] [email or web address] Physician Laborer Sawmill 12/16/23 documented as of this encounter Additional Source Comments The information contained in this document represents components of the legal health record. It is not the complete legal health record.[facility]
--- OUTSIDE RECORDS SUMMARY | 2025-02-08 15:10 | XMS_ITS | Encounter Summary ---
Author Organization [facility] Address [address] [place] [address] Phone Care Team Providers Care Installation Coordinator Name Role Phone Suni Garcia Primary Care Provider [phone]- [phone] Virginia Patton-Cindi Unavailable [phone] Encounter Details Date Type Department Care Team (Late st Contact Info) Description 10/31/2024 Procedure Pass [facility] 30 [place] [address] Social History Tobacco Use Types Packs/Day Years [...] Telemedicine - audio only [facility] [place] [facility] at [address] [address] Virginia Patton PA-C 30 [place] [address] [email or web address] 03/09/2025 1:00 PM EST Office Visit [facility] [address] [place] [address] Lawrence Bustos MD [address] [address] [email or web address] documented as of this encounter Visit Diagnoses Not on filedocumented in this encounter Additional Health Concerns Infection Onset Date Last Indicated Resolved Time CoV-Risk Comment:Per note documentation 10/29/2024 10/29/2024 4:02 PM EDT Rhino/Entero 10/31/2024 10/31/2024 11/14/2024 1:21 AM EDT RSV 11/10/2024 11/10/2024 11/17/2024 1:21 AM EDT documented as of this encounter Care Teams Installation Coordinator Relationship Specialty Start Date End Date Suni Garcia PA [address] [place] [address] PCP - General Fire Alarm Technician 10/05/21 Virginia Patton PA-C [address] [place] [address] [email or web address] Physician Pencils Washer 12/16/23 documented as of this encounter Additional Source Comments The information contained in this document represents components of the legal health record. It is not the complete legal health record.[facility]
--- OUTSIDE RECORDS SUMMARY | 2025-02-08 15:10 | XMS_ITS | Encounter Summary ---
Author Organization [facility] Address [address] [facility] [address] [place] [address] Phone Care Team Providers Care Underwriter Solicitation Director Name Role Phone Unknown, Unknown Primary Care Provider Rere Jean DO Primary Care Provider [phone]- [phone] Hans Jaeger MD Primary Care Provider [phone] Suni Garcia Primary Care Provider [phone]- [phone] Virginia Patton-Cindi Unavailable Encounter Details Date Type Department Care Team (Late st Contact Info) Description 08/07/2018 Transcribe Orders Virtual Department 30 [place] [address] Isidro Mitchell MD [address] [place] [address], [address] [place] [address] [email or web address] Social History Tobacco Use Types [...] 3:30 PM EST Telemedicine - audio only [facility] [place] [facility] at Bone [place] 30 [place] [address] Virginia Patton PA-C 30 [place] [address] 03/09/2025 1:00 PM EST Office Visit [facility] Gastroenterology Clinic [address] [place] [address] Lawrence Bustos MD [address] [place] [address] documented as of this encounter Visit Diagnoses [...] documented as of this encounter Care Teams Underwriter Solicitation Director Relationship Specialty Start Date End Date Unknown, Unknown, PCP - General 03/25/17 12/03/18 Rere Gastelum DO PCP - General 12/04/18 02/01/21 Hans Jaeger MD [email or web address] PCP - General Internal Medicine 02/02/21 10/04/21 Suni Garcia PA [address] [place] [address] PCP - General Firefighter Marine 10/05/21 Virginia Patton PA-C [address] [place] [address] [email or web address] Physician Veterinary Milk Specialist 12/16/23 documented as of this encounter Additional Source Comments The information contained in this document represents components of the legal health record. It is not the complete legal health record.[facility]
--- OUTSIDE RECORDS SUMMARY | 2025-02-08 15:10 | XMS_ITS | Encounter Summary ---
Author Organization [facility] Address [address] [facility] [address] [place] [address] Phone Care Team Providers Care Stretch Box Tender Name Role Phone Suni Garcia Primary Care Provider [phone]- [phone] Virginia Patton-Cindi Unavailable [phone] Reason for Referral * MRI/CAT Scan - Closed Specialty Diagnoses / Procedures Referred By Contac t Referred To Contact Radiology Diagnoses Collapsed vertebra, not elsewhere classified, thoracic region, initial encounter for fracture Procedures MRI Thoracic Spine Suni Garcia PA [address] [place] [address] Phone: tel: fax: Referral ID Status Reason Start Date Expiration Date Visits Re quested Visits Authorized [id number] Closed 04/14/2023 04/14/2024 1 1 Encounter Details Date Type Department Care Team (Latest Contact Info) Description 04/14/2023 Transcribe Orders Virtual Department 30 [place] [address] Suni Garcia PA [address] [place] [phone] Collapsed vertebra, not elsewhere classified, thoracic region, [...] 3:30 PM EST Telemedicine - audio only [facility] [place] [facility] at [address] [address] Virginia Patton PA-C [address] [place] [address] 03/09/2025 1:00 PM EST Office Visit [facility] Gastroenterology Clinic [address] [place] [address] Lawrence Bustos MD [address] [place] [address] documented as of this encounter Results * [...] this examination in Epic: Outside Radiology Order; compression fracture of thoracic [...] for this examination in Epic:Outside Radiology Order; compression fracture of thoracic vertebra [...] documented as of this encounter Care Teams Stretch Box Tender Relationship Specialty Start Date End Date Suni Garcia PA [address] [place] [address] PCP - General Non Linear Editor 10/05/21 Virginia Patton PA-C [address] [place] [address] [email or web address] Physician Licensed Mass Real Estate Appraiser 12/16/23 documented as of this encounter Additional Source Comments The information contained in this document represents components of the legal health record. It is not the complete legal health record.[facility]
--- OUTSIDE RECORDS SUMMARY | 2025-02-08 15:10 | XMS_ITS | Encounter Summary ---
Author Organization [facility] Address [address] [place] [address] Phone Care Team Providers Care Cook Cashier Food Prep Name Role Phone Suni Garcia Primary Care Provider [phone]- [phone] Virginia Patton PA-C Unavailable [phone] Encounter Details Date Type Department Care Team (Late st Contact Info) Description 05/27/2024 Telephone Bone [facility] 30 [place], [place] [phone] Virginia Patton PA-C 30 [place], [place] [phone] [email or web address] Social History Tobacco [...] PM EST Telemedicine - audio only [facility] [place] [facility] at [address] [address] Virginia Patton PA-C [address] [place] [address] [email or web address] 03/09/2025 1:00 PM EST Office Visit [facility] Gastroenterology Clinic [address] [place] [address] Lawrence Bustos MD [address] [place] [address] documented as of this encounter Visit Diagnoses Not on filedocumented in this encounter Additional Health Concerns Infection Onset Date Last Indicated Resolved Time CoV-Risk Comment:Per note documentation 10/29/2024 10/29/2024 4:02 PM EDT Rhino/Entero 10/31/2024 10/31/2024 11/14/2024 1:21 AM EDT RSV 11/10/2024 11/10/2024 11/17/2024 1:21 AM EDT documented as of this encounter Care Teams Cook Cashier Food Prep Relationship Specialty Start Date End Date Suni Garcia PA [address] [place] [address] PCP - General Dumb Waiter Operator 10/05/21 Virginia Patton PA-C [address] [place] [address] [email or web address] Physician Vending Machine Technician 12/16/23 documented as of this encounter Additional Source Comments The information contained in this document represents components of the legal health record. It is not the complete legal health record.[facility]
--- OUTSIDE RECORDS SUMMARY | 2025-02-08 15:10 | XMS_ITS | Encounter Summary ---
Author Organization [facility] Address [address] [place] [address] Phone Care Team Providers Care Clinic Manager Name Role Phone Suni Garcia Primary Care Provider [phone]- [phone] Virginia Patton-C Unavailable [phone] Encounter Details Date Type Department Care Team (Late st Contact Info) Description 10/07/2024 Procedure Pass [facility], Ct Scan - [facility] 30 [place], [place] [phone] Social History Tobacco Use Types Packs/Day Years [...] 3:30 PM EST Telemedicine - audio only [facility] [place] [facility] at [address] [address] Virginia Patton PA-C 30 [place] [address] 03/09/2025 1:00 PM EST Office Visit [facility] Gastroenterology Clinic 10 [place] [address] Lawrence Bustos MD [address] [address] [email or web address] documented as of this encounter Visit Diagnoses Not on filedocumented in this encounter Additional Health Concerns Infection Onset Date Last Indicated Resolved Time CoV-Risk Comment:Per note documentation 10/29/2024 10/29/2024 4:02 PM EDT Rhino/Entero 10/31/2024 10/31/2024 11/14/2024 1:21 AM EDT RSV 11/10/2024 11/10/2024 11/17/2024 1:21 AM EDT documented as of this encounter Care Teams Clinic Manager Relationship Specialty Start Date End Date Suni Garcia PA [address] [place] [address] PCP - General Search Planner 10/05/21 Virginia Patton PA-C [address] [place] [address] [email or web address] Physician Store Custodian 12/16/23 documented as of this encounter Additional Source Comments The information contained in this document represents components of the legal health record. It is not the complete legal health record.[facility]
--- OUTSIDE RECORDS SUMMARY | 2025-02-08 15:10 | XMS_ITS | Encounter Summary ---
Author Organization [facility] Address [address] [place] [address] Phone Care Team Providers Care Platform Consultant Name Role Phone Suni Garcia Primary Care Provider [phone]- [phone] Virginia Patton PA-C Unavailable [phone] Reason for Visit * Reason Onset Date Comments f/u appt 02/06/2025 Encounter Details Date Type Department Care Team (Late st Contact Info) Description 02/06/2025 Telephone [facility] [place] [facility] at [address] [address] Virginia Patton PA-C [address] [place] [phone] [email or web address] f/u appt Social History Tobacco Use Types Packs/Day Years [...] you interested in more education? Not on [facility] e 06/14/2022 Are you concerned about learning? [...] as of this encounter Progress Notes * Alicia Wilson - 02/07/2025 8:17 AM EST Called and spoke w/ mother stating for pt to return call to scheduled appt * Virginia Patton PA-C - 02/06/2025 11:32 AM EST Labs done, please schedule f/u as per checkout notes, thanks documented in this encounter Plan of Treatment Upcoming Encounters Date Type Department Care Team (Latest Contact Info) Description 02/23/2025 3:30 PM EST Telemedicine - audio only [facility] [place] [facility] at [address] [address] Virginia Patton PA-C [address] [place] [address] 03/09/2025 1:00 PM EST Office Visit [facility] Gastroenterology Clinic [address] [place] [address] Lawrence Bustos MD [address] [place] [address] documented as of this encounter Visit Diagnoses Not on filedocumented in this encounter Care Teams Platform Consultant Relationship Specialty Start Date End Date Suni Garcia PA [address] [place] [address] PCP - General Local Telephone Operator 10/05/21 Virginia Patton PA-C [address] [place] [address] [email or web address] Physician Wood Handler 12/16/23 documented as of this encounter Additional Source Comments The information contained in this document represents components of the legal health record. It is not the complete legal health record.[facility]
--- OUTSIDE RECORDS SUMMARY | 2025-02-08 15:10 | XMS_ITS | Encounter Summary ---
Author Organization [facility] Address [address] [place] [address] Phone Care Team Providers Care Softball Umpire Name Role Phone Suni Garcia Primary Care Provider [phone]- [phone] Virginia Patton-C Unavailable [phone] Encounter Details Date Type Department Care Team (Late st Contact Info) Description 11/04/2024 Procedure Pass [facility], Ct Scan - [facility] 30 [place], [place] [phone] Social History Tobacco Use Types Packs/Day Years [...] PM EST Telemedicine - audio only [facility] [place] [facility] On[facility] at [address] [address] Virginia Patton PA-C 30 [place] [address] [email or web address] 03/09/2025 1:00 PM EST Office Visit [facility] Gastroenterology Clinic 10 [place] [address] Lawrence Bustos MD [address] [address] documented as of this encounter Visit Diagnoses Not on filedocumented in this encounter Additional Health Concerns Infection Onset Date Last Indicated Resolved Time Rhino/Entero 10/31/2024 10/31/2024 11/14/2024 1:21 AM EDT RSV 11/10/2024 11/10/2024 11/17/2024 1:21 AM EDT documented as of this encounter Care Teams Softball Umpire Relationship Specialty Start Date End Date Suni Garcia PA [address] [place] [address] PCP - General Access Rn 10/05/21 Virginia Patton PA-C [address] [place] [address] Physician Pipe And Test Supervisor 12/16/23 documented as of this encounter Additional Source Comments The information contained in this document represents components of the legal health record. It is not the complete legal health record.[facility]
--- OUTSIDE RECORDS SUMMARY | 2025-02-08 15:10 | XMS_ITS | Encounter Summary ---
Author Organization [facility] Address [address] [facility] [address] [place] [address] Phone Care Team Providers Care Customer Account Coordinator Name Role Phone Unknown, Unknown Primary Care Provider Rere Jean DO Primary Care Provider [phone]- [phone] Hans Jaeger MD Primary Care Provider [phone] Suni Garcia Primary Care Provider [phone]- [phone] Virginia Patton-Cindi Unavailable [phone] Encounter Details Date Type Department Care Team (Late st Contact Info) Description 08/05/2018 Transcribe Orders Virtual Department 30 [place] [address] Isidro Mitchell MD [address] [place] [address], [address] [place] [address] [email or web address] Social History Tobacco Use Types Packs/Day Years [...] PM EST Telemedicine - audio only [facility] [place] [facility] Oncology [facility] at Bone [place] 30 [place] [address] Virginia Patton PA-C 30 [place] [address] 03/09/2025 1:00 PM EST Office Visit [facility] Gastroenterology Clinic [address] [place] [address] Lawrence Bustos MD [address] [place] [address] documented as of this encounter Visit Diagnoses [...] documented as of this encounter Care Teams Customer Account Coordinator Relationship Specialty Start Date End Date Unknown, Unknown, PCP - General 03/25/17 12/03/18 Rere Gastelum DO PCP - General 12/04/18 02/01/21 Hans Jaeger MD [email or web address] PCP - General Internal Medicine 02/02/21 10/04/21 Suni Garcia PA [address] [place] [address] PCP - General Value Analysis Coordinator 10/05/21 Virginia Patton PA-C [address] [place] [address] [email or web address] Physician Sand Cutter Operator 12/16/23 documented as of this encounter Additional Source Comments The information contained in this document represents components of the legal health record. It is not the complete legal health record.[facility]
--- OUTSIDE RECORDS SUMMARY | 2025-02-08 15:10 | XMS_ITS | Encounter Summary ---
Author Organization [facility] Address [address] [facility] [address] [place] [phone] Phone Care Team Providers Care Chip Mucker Name Role Phone Unknown, Unknown Primary Care Provider Rere Jean DO Primary Care Provider [phone] Hans Jaeger MD Primary Care Provider [phone] Suni Garcia Primary Care Provider [phone] Virginia Patton-Cindi Unavailable [phone] Encounter Details Date Type Department Care Team (Late st Contact Info) Description 08/05/2018 Ancillary Orders Virtual Department 30 [place] [address] Isidro Mitchell MD [address] [place] [address], [address] [place] [address] [email or web address] Social History Tobacco Use Types Packs/Day Years [...] 3:30 PM EST Telemedicine - audio only [facility] [place] [address] [place] [address] Virginia Patton PA-C 30 [place] [address] 03/09/2025 1:00 PM EST Office Visit [facility] 10 [place] [address] Lawrence Bustos MD [address] [place] [address] documented as of this encounter Visit Diagnoses [...] documented as of this encounter Care Teams Chip Mucker Relationship Specialty Start Date End Date Unknown, Unknown, PCP - General 03/25/17 12/03/18 Rere Gastelum DO PCP - General 12/04/18 02/01/21 Hasn Jaeger MD [email or web address] PCP - General Internal Medicine 02/02/21 10/04/21 Suni Garcia PA [address] [place] [address] PCP - General Tile Mason 10/05/21 Virginia Patton PA-C [address] [place] [phone] Physician Sales Order Administrator 12/16/23 documented as of this encounter Additional Source Comments The information contained in this document represents components of the legal health record. It is not the complete legal health record.[facility]
--- OUTSIDE RECORDS SUMMARY | 2025-02-08 15:10 | XMS_ITS | Encounter Summary ---
Author Organization [facility] Address [address] [place] [address] Phone Care Team Providers Care Associate Partner Name Role Phone Suni Garcia Primary Care Provider [phone] Virginia Patton-C Unavailable [phone] Encounter Details Date Type Department Care Team (Late st Contact Info) Description 10/20/2024 Procedure Pass [facility], Ct Scan - [facility] 30 [place], [place] [id number] Social History Tobacco Use Types Packs/Day Years [...] - audio only [facility] [place] [facility] at [address] [address] Virginia Patton PA-C 30 [place] [address] 03/09/2025 1:00 PM EST Office Visit [facility] Gastroenterology Clinic 10 [place] [address] Lawrence Bustos MD [address] [address] [email or web address] documented as of this encounter Visit Diagnoses Not on filedocumented in this encounter Additional Health Concerns Infection Onset Date Last Indicated Resolved Time CoV-Risk Comment:Per note documentation 10/29/2024 10/29/2024 4:02 PM EDT Rhino/Entero 10/31/2024 10/31/2024 11/14/2024 1:21 AM EDT RSV 11/10/2024 11/10/2024 11/17/2024 1:21 AM EDT documented as of this encounter Care Teams Associate Partner Relationship Specialty Start Date End Date Suni Garcia PA [address] [place] [phone] PCP - General Promotional Model 10/05/21 Virginia Patton PA-C [address] [place] [address] [email or web address] Physician Dx Board Operator 12/16/23 documented as of this encounter Additional Source Comments The information contained in this document represents components of the legal health record. It is not the complete legal health record.[facility]
--- OUTSIDE RECORDS SUMMARY | 2025-02-08 15:10 | XMS_ITS | Encounter Summary ---
Author Organization [facility] Address [facility] [employer] [facility] [address] [place] [address] Phone Care Team Providers Care Hospice/Home Health Aide Name Role Phone Suni Garcia Primary Care Provider [phone] Virginia Patton-C Unavailable [phone] Encounter Details Date Type Department Care Team (Latest Contact Info) Description 10/25/2021 Transcribe Orders [facility] [address] [address] Luanne Yates NP 10 [place] [address] Diarrhea, unspecified type (Primary Dx); Vitamin D [...] 3:30 PM EST Telemedicine - audio only [facility] H[facility] Oncology Clinic at [address] [address] Virginia Patton PA-C 30 [place] [address] 03/09/2025 1:00 PM EST Office Visit [facility] Gastroenterology Clinic 10 [place] [address] Lawrence Bustos MD [address] [address] [email or web address] documented as of this encounter Results * (ABNORMAL) Iron and iron binding capacity (10/25/2021 3:04 PM EDT) IRON 230(H) 45 - 160 ug/dL [facility] IRON BINDING CAPACITY 360 228 - 428 ug/dL [facility] TRANSFERRIN SATURAT. 64(H) 20 - 55 % [facility] Blood 10/25/2021 3:04 PM EDT 10/25/2021 3:05 PM EDT us Luanne Yates NP LAB BLOOD BKR ORDERABLES Final Result Performing Organization Address City/[facility]/ZIP Co de Phone Number [address] [address] * 25-OH vitamin D (10/25/2021 3:04 PM EDT) 25 OH VIT D (TOTAL) 40 30 - 60 ng/mL [facility] Blood 10/25/2021 3:04 PM EDT 10/25/2021 3:05 PM EDT Luanne Yates NP LAB BLOOD BKR ORDERABLES Final Result [address] [address] * (ABNORMAL) CBC (10/25/2021 3:04 PM EDT) WBC 9.71 4.00 - 11.00 K/uL [facility] RBC 4.31 4.23 - 5.82 M/uL [facility] HGB 13.8 13.4 - 17.5 g/dL [facility] HCT 40.2 37.0 - 51.0 % [facility] PLT 169 140 - 430 K/uL [facility] MCV 93.3 78.0 - 97.0 fL [facility] MCH 32.0 25.0 - 33.0 pg [facility] MCHC 34.3 32.0 - 36.0 g/dL [facility] RDW 16.1(H) 11.0 - 15.0 % [facility] MPV 9.7 8.4 - 12.8 fl [facility] Blood 10/25/2021 3:04 PM EDT 10/25/2021 3:05 PM EDT us Luanne Yates NP LAB BLOOD BKR ORDERABLES Final Result [address] [address] documented in this encounter Visit Diagnoses Diagnosis [...] documented as of this encounter Care Teams Hospice/Home Health Aide Relationship Specialty Start Date End Date Suni Garcia PA [address] [place] [phone] PCP - General [employer] Operating Engineer 10/05/21 Virginia Patton PA-C [address] [place] [id number] [email or web address] Physician Board Winder 12/16/23 documented as of this encounter Additional Source Comments The information contained in this document represents components of the legal health record. It is not the complete legal health record.[facility]
== END 2025-02-08 14:32 | disposition home or self-care (01) ==
LOC: HO.HPHYS 13:54
PROVIDERS: PCP Physician Assistant Medical; Visit Provider Physician Assistant
DX: M47.816 Spondylosis without myelopathy or radiculopathy, lumbar region (principal)
CPT/HCPCS: 99213

== ENCOUNTER → 2025-02-08 13:54 | Outpatient (BNVA) | payer MEDICARE, MEDICAID, SELFPAY | PROVIDERS: PCP Physician Assistant Medical; Visit Provider Physician Assistant | DX: G89.29 Other chronic pain (principal); M54.50 Low back pain, unspecified; M47.816 Spondylosis without myelopathy or radiculopathy, lumbar region; M48.061 Spinal stenosis, lumbar region without neurogenic claudication | CPT/HCPCS: 99212 ==